=== PATIENT | male | born 1955 | race Caucasian/White ===

== ENCOUNTER 2020-08-11 09:59 | Outpatient (RCR) | payer OTHER, MEDICARE | END 2020-11-09 | disposition home or self-care (01) | LOC: ONC 09:59 | PROVIDERS: ATTEND Radiology Radiation Oncology | DX: C61 Malignant neoplasm of prostate (principal); I10 Essential (primary) hypertension; E11.9 Type 2 diabetes mellitus without complications | CPT/HCPCS: 99204 ==

== ENCOUNTER 2021-01-19 05:36 | Outpatient (CLI) | payer OTHER, MEDICARE ==
[~2021-01-19] VITALS: Ht 175.3 cm; Wt 80.0 kg
[2021-01-19] MEDS ORDERED: ATEN100T PO (15:14)
[2021-01-19] MEDS ORDERED: BICA50TA5 PO (15:14)
[2021-01-19] MEDS ORDERED: AMIT50TA3 PO (15:14)
[2021-01-19] MEDS ORDERED: GEMF600T88 PO (15:14)
[2021-01-19] MEDS ORDERED: ALLO300T2 PO (15:14)
[2021-01-19] MEDS ORDERED: ERGO1250 PO (15:14)
[2021-01-19] MEDS ORDERED: DULA0.75 SQ (15:14)
[2021-01-19] MEDS ORDERED: HYDR12.56 PO (15:14)
[2021-01-19] MEDS ORDERED: ASPI-999 PO (15:14)
[2021-01-19] MEDS ORDERED: ATOR20TA66 PO (15:14)
[2021-01-19] MEDS ORDERED: TMSL.4C PO (15:14)
[2021-01-19] MEDS ORDERED: MELA1TAB20 PO (15:14)
== END 2021-01-19 15:42 ==
LOC: PREOP 05:36
PROVIDERS: ATTEND Radiology Radiation Oncology
DX: Z01.818 Encounter for other preprocedural examination (principal)

== ENCOUNTER 2021-01-26 11:24 | Day surgery (SDC) | payer MEDICARE, OTHER ==
[~2021-01-26] VITALS: Ht 175.3 cm; Wt 80.0 kg
[2021-01-26] VITALS (11 sets, daily range): BP systolic 113–144; BP diastolic 65–79
[~2021-01-26 11:24] MED LIST: ALLO300T2 PO; AMIT50TA3 PO; ASPI-999 PO; ATEN100T PO; ATOR20TA66 PO; BICA50TA5 PO; DULA0.75 SQ; ERGO1250 PO; GEMF600T88 PO; HYDR12.56 PO; MELA1TAB20 PO; TMSL.4C PO
--- OUTSIDE RECORDS SUMMARY | 2021-01-26 11:30 | XMS REPORT | Encounter Summary ---
[facility] Organization [facility] Address Unknown Phone Unavailable Care Team Providers Care Siderographist Name Role Phone MARGARITA TORRES PCP Unavailable Insurance Providers: All historical and current Section Date Range: From patient's date of to the date document was create d. This section includes the names of all active insurance providers for the jesús garcia Insurance Provider Type of Coverage Plan Name Start of Policy [place] End of Policy Coverage Group Number Member ID Insurance Provider's Telephone N umber Policy Matias's Name Patient's Relationship to Policy Matias AARP MEDIGAP PLAN G PLAN G Aug 19, 2018 PLAN G [id number] SALVADOR CLEARY PATIENT MEDICARE (WNR) MEDICARE (M) PART A Aug 19, 2018 PART A [id number] 60A [phone] EVINSALVADOR PATIENT MEDICARE (WNR) MEDICARE (M) PART B Aug 19, 2018 PART B [id number] [id number] [phone] SALVADOR CLEARY PATIENT MEDICARE (WNR) MEDICARE (M) PART A Aug 19, 2018 PART A [id number] SALVADOR CLEARY PATIENT MEDICARE (WNR) MEDICARE (M) PART B Aug 19, 2018 PART B [id number] EVINSALVADOR PATIENT MEDICARE PART D (WNR) MEDICARE (M) PART D Aug 19, 2018 PART D [id number] EVINSALVADOR PATIENT MEDICARE PART D (WNR) MEDICARE (M) PART D Aug 19, 2018 PART D [id number] SALVADOR CLEARY PATIENT Selected Encounter This section includes the information on record at [place] for the Encounter. Date/Time Encounter Type Encounter Description Reason Provider Source Dec 27, 2020 02:33 PM QNHP OL DIG ASSMT&MGMT 11-20 CLINICAL PHAR JERILYN ICD-10-CM E11.22 Type 2 diabetes mellitus w diabetic chronic kidney disease with Provider Comments: Type II diabetes mellitus uncontrolled ([facility] [id number]) RONNA HERRERA IHHomer Encounter Template Text not used by [place] Assessments - Encounter Diagnoses This section includes the primary and secondary diag noses documented for the Encounter. Date/Time Primary/Secondary Diagnosis Diagnosis Name Provider Source Dec 27, 2020 02:34 PM PRIMARY Type 2 diabetes me llitus w diabetic chronic kidney disease [facility] Plan of Treatment: Future Appointments (+ 6 months) and Future Tests (+/- 45 day s) The Plan of Treatment section includes future care activities for the patient fr om all [place] treatment facilities. This section includes future appointments and fu ture orders which are active, pending or scheduled. Future Appointments This section includes appointments that were scheduled t o occur 6 months from the date of the Encounter, up to a maximum of 20 appointme nts. The data comes from all [facility]. Appointment Date/Time Appointment Type Appointment Facili ty Name Jan 05, 2021 10:30 AM [facility]BULATORY - NONE [facility] Jan 26, 2021 08:00 AM AMBULATORY NONE [facility] Feb 18, 2021 03:00 PM AMBULATORY - MEDICINE [facility] Mar 21, 2021 09:30 AM AMBULATORY [facility] Mar 21, 2021 04:00 PM AMBULATORY MEDICINE [facility] Mar 24, 2021 11:00 AM AMBULATORY MEDICINE [facility] Active, Pending, and Scheduled Orders This section includes a listing of several types of activ e, pending, and scheduled orders, including clinic medications orders, diagnosti c test orders, procedure orders and consult orders; where the start date of th e order is 45 days before the date of the Encounter or 45 days after the date o f the Encounter. The data comes from all [facility]. Test Date/Time Test Type Test Details Facility Name Dec 13, 2020 02:49 PM Consult Order Urology/Opt UROLOG Y OUTPATIENT Cons Inspector Fuel Hose's Choice [facility] Surgical Procedures: All associated to the encounter This section includes all Surgical Procedures and Surgical Procedure Notes assoc iated to the Encounter. Surgical Procedures This section includes all Surgical Procedures associated to the Encounter. Surgical Procedure Date/Time Procedure Procedure Type Procedure Qualifiers Provider Source Dec 27, 2020 02:33 PM Non-Phys EHR Asmnt,11-20 min QNHP OL DIG A SSMT&MGMT 11-20 RONNA HERRERA [facility] Surgical Notes There are no notes associated with this procedure. Lab Results: +/- 30 days of the encounter No Data Provided for This Section Vital Signs: All taken on the encounter date No Data Provided for This Section Immunizations: All administered on the encounter date No Data Provided for This Section Social History: Smoking Status (Most current) and Tobacco Use (All prior to enco unter date) No Data Provided for This Section Advance Directives: All historical and current No Data Provided for This Section Radiology Reports: +/- 30 days of the encounter No Data Provided for This Section Pathology Reports: +/- 30 days of the encounter No Data Provided for This Section Encounter Notes: All associated encounter notes This section contains the clinical notes associated to the Encounter. Date/Time Encounter Note(s) Provider Source Dec 27, 2020 02:33 PM PHARMACY CONSULT: LOCAL TITLE: PHARMACY PRIOR AUTH RX REVIEW STANDARD TITLE: PHARMACY CONSULT DATE OF NOTE: DEC 27, 2020@14:33 ENTRY DATE: DEC 27, 2020@14:33:16 AUTHOR: RONNA HERRERA EXP COSIGNER: URGENCY: STATUS: COMPLETED The medical record has been reviewed with regard to this restricted drug request. Medication requested: SEMAGLUTIDE 1MG/0.75ML INJ,SOLN,PEN,1.5ML Medical history relevant to this request: as noted earlier in this consult, this drug has already been approved. The request is approved - Meets [place] Continuity of Care Criteria 15 minutes /es/ RONNA HERRERA PharmD CLINICAL PHARMACIST Signed: 12/27/2020 14:34 RONNA HERRERA [facility]
--- OUTSIDE RECORDS SUMMARY | 2021-01-26 11:30 | XMS REPORT ---
Author Author Department of [facility] SALVADOR hwang Organization Department of [facility] rs Address Unknown Phone Unavailable Care Team Providers Care Human Factors Advisor Lead Name Role Phone MARGARITA TORRES PCP Unavailable [...] PLAN G Aug 19, 2018 PLAN G [id number] EVINSALVADOR PATIENT MEDICARE (WNR) MEDICARE (M) PART A Aug 19, 2018 PART A [id number] [phone] EVINSALVADOR PATIENT MEDICARE (WNR) MEDICARE (M) PART B Aug 19, 2018 PART B [id number] 60A [phone] EVINSALVADOR PATIENT MEDICARE (WNR) MEDICARE (M) PART A Aug 19, 2018 PART A [id number] EVINSALVADOR PATIENT MEDICARE (WNR) MEDICARE (M) PART B Aug 19, 2018 PART B [id number] EVINSALVADOR PATIENT MEDICARE PART D (WNR) MEDICARE (M) PART D Aug 19, 2018 PART D [id number] EVINSALVADOR PATIENT MEDICARE PART D (WNR) MEDICARE (M) PART D Aug 19, 2018 PART D [id number] SALVADOR CLEARY PATIENT Selected Encounter This section includes the information on record at [place] for the Encounter. Date/Time Encounter Type Encounter Description Reason Provider Source Jan 12, 2021 08:54 AM Outpatient Encounter ADMIN PAT ACTIVTIES ([facility]) IHE Encounter Template Text not used by [place] Assessments - Encounter Diagnoses No Data Provided for This Section Plan of Treatment: Future Appointments (+ 6 months) and Future Tests (+/- 45 day s) The Plan of Treatment section includes future care activities for the patient fr om all [facility]. This section includes future appointments and fu ture orders which are active, pending or scheduled. Future Appointments This section includes appointments that were scheduled t o occur 6 months from the date of the Encounter, up to a maximum of 20 appointme nts. The data comes from all [facility]. Appointment Date/Time Appointment Type Appointment Facili ty Name Jan 26, 2021 08:00 AM AMBULATORY - NONE [facility] Feb 18, 2021 03:00 PM AMBULATORY - MEDICINE [facility] Mar 21, 2021 09:30 AM AMBULATORY - NONE [facility] Mar 21, 2021 04:00 PM AMBULATORY MEDICINE [facility] Mar 24, 2021 11:00 AM [facility] MEDICINE [facility] Active, Pending, and Scheduled Orders This [...] the Encounter. The data comes from all [facility]. Test Date/Time Test Type Test Details Facility Name Dec 13, 2020 02:49 PM Consult Order Urology/Opt UROLOG Y OUTPATIENT Cons Entrepreneurial Finance Professor's Choice [facility] Surgical Procedures: All associated to the encounter No Data Provided for This Section Lab Results: +/- 30 days of the [...] the Encounter. Date/Time Encounter Note(s) Provider Source Jan 12, 2021 08:55 AM ADMINISTRATIVE NOTE: LOCAL TITLE: ADMINISTRATIVE NOTE STANDARD TITLE: ADMINISTRATIVE NOTE DATE OF NOTE: JAN 12, 2021@08:55 ENTRY DATE: JAN 12, 2021@08:55:50 AUTHOR: STEPHANIE ROBERSONIGNER: URGENCY: STATUS: COMPLETED Clinical Contact/Call Center COVID 19 SCREEN UPDATE_2August 2020 Screen version 7.1 Record the patient's responses to the following questions: (check all that apply, or None at the end) In the last 14 days have had new onset of any of the following symptoms? a. Chills: () Yes () No Comment(s): b. Cough: () Yes () No Comment(s): c. Diarrhea: () Yes () No Comment(s): d. Fatigue: () Yes () No Comment(s): e. Fever: () Yes () No Comment(s): f. Headache: () Yes () No Comment(s): g. Loss of taste or smell: () Yes () No Comment(s): h. Muscle pain (Myalgias): () Yes () No Comment(s): i. Nausea: () Yes () No Comment(s): j. Runny nose (Rhinorrhea): () Yes () No Comment(s): k. Shortness of breath (Dyspnea): () Yes () No Comment(s): l. Sore throat: () Yes () No Comment(s): m. Vomiting: () Yes () No Comment(s): No Symptoms (x) Within the last 14 days, have you had: Close exposure (within 6 feet for than 15 minutes) to someone with a febrile/respiratory illness () Yes Comment(s): Close exposure (within 6 feet for than 15 minutes) to someone with known or suspected case of COVID-19 () Yes Comment(s): No known exposure (x) Any symptom or exposure equal to positive screen: Patient has a POSITIVE symptom or exposure and requires further evaluation Nurse/Provider/Other notified () Yes Comments(s): Screen is negative (x) Patient is waiting on COVID-19 test results: () Yes (x) No Comment(s): Patient reports prior COVID-19 Diagnosis: () Yes (x) No Comment(s): /[facility] Signed: 01/12/2021 08:56 STEPHANIE ROBERSON [facility] Jan 12, 2021 08:54 AM ADMINISTRATIVE NOTE: LOCAL TITLE: ADMINISTRATIVE NOTE STANDARD TITLE: ADMINISTRATIVE NOTE DATE OF NOTE: JAN 12, 2021@08:54 ENTRY DATE: JAN 12, 2021@08:54:24 AUTHOR: STEPHANIE ROBERSON COSIGNER: URGENCY: STATUS: COMPLETED ADMINISTRATIVE NOTE Has ADDENDA [place] calling to request consult for [facility] for cataracts. has an appt. on 03/30/[address] Hipolito Deleon. [place] can be reached at /tad ROBERSON [facility] Signed: 01/12/2021 08:55 Receipt Acknowledged By: 01/13/2021 14:37 /tad Rodriges RN 01/13/2021 ADDENDUM STATUS: COMPLETED Attempted to contact [place] to f/u. No answer, LVM with [facility] eye clinic number. /tad HAYES RN Signed: 01/13/2021 14:38 [facility]
--- OUTSIDE RECORDS SUMMARY | 2021-01-26 11:30 | XMS REPORT | Encounter Summary ---
Author [facility] Department [facility] Address Unknown Phone Unavailable Care Team Providers Care Production Engine Repairer Name Role Phone MARGARITA TORRES PCP Unavailable [...] PLAN G Aug 19, 2018 PLAN G [id number] EVINSALVADOR PATIENT MEDICARE (WNR) MEDICARE (M) PART A Aug 19, 2018 PART A [id number] [phone] EVINSALVADOR PATIENT MEDICARE (WNR) MEDICARE (M) PART B Aug 19, 2018 PART B [id number] [phone] EVINSALVADOR PATIENT MEDICARE (WNR) MEDICARE (M) PART A Aug 19, 2018 PART A [id number] EVINSALVADOR PATIENT MEDICARE (WNR) MEDICARE (M) PART B Aug 19, 2018 PART B [id number] EVINSALVADOR PATIENT MEDICARE PART D (WNR) MEDICARE (M) PART D Aug 19, 2018 PART D [id number] EVINSALVADOR PATIENT MEDICARE PART D (WNR) MEDICARE (M) PART D Aug 19, 2018 PART D [id number] SALVADOR CLEARY PATIENT Selected Encounter This section includes the information on record at [place] for the Encounter. Date/Time Encounter Type Encounter Description Reason Provider Source Jun 25, 2020 08:53 AM Outpatient Encounter COMMUNITY CARE CONSULT IHE Encounter Template Text not used by [place] Assessments - Encounter Diagnoses No Data Provided for This Section Plan of Treatment: Future Appointments (+ 6 months) and Future Tests (+/- 45 day s) The Plan of Treatment section includes future care activities for the patient fr om all [place] treatment facilities. This section includes future appointments and fu ture orders which are active, pending or scheduled. Future Appointments This section includes appointments that were scheduled t o occur 6 months from the date of the Encounter, up to a maximum of 20 appointme nts. The data comes from all [facility]. Appointment Date/Time Appointment Type Appointment Facili ty Name Jul 29, 2020 11:00 AM AMBULATORY - MEDICINE [facility] Aug 11, 2020 10:00 AM AMBULATORY - NONE [facility] Nov 03, 2020 08:00 AM AMBULATORY NONE [facility] Nov 03, 2020 11:00 AM AMBULATORY MEDICINE [facility] Nov 24, 2020 08:00 AM AMBULATORY - NONE [facility] Dec 03, 2020 11:00 AM AMBULATORY MEDICINE [facility] Dec 15, 2020 07:00 AM AMBULATORY - NONE [facility] Surgical Procedures: All associated to the [...] the Encounter. Date/Time Encounter Note(s) Provider Source Jun 25, 2020 08:53 AM NONVA NOTE: LOCAL TITLE: COMMUNITY CARE-MISCELLANEOUS STANDARD TITLE: NONVA NOTE DATE OF NOTE: JUN 25, 2020@08:53 ENTRY DATE: JUN 25, 2020@08:53:06 AUTHOR: ELIZABETH KAUR EXP COSIGNER: URGENCY: STATUS: COMPLETED RECIEVED CALL FORM PT. WANTING CLARIFICATION ON IF LABS PERTINENT TO THIS CONSULT WILL BE COVERED. EXPLAINBED THAT IT WILL. /lizzy/ ELIZABETH KAUR [facility] Advanced Medical Support Asst Signed: 06/25/2020 08:57 ELIZABETH KAUR [facility]
--- OUTSIDE RECORDS SUMMARY | 2021-01-26 11:30 | XMS REPORT | Encounter Summary ---
Author Author Department of [facility] SALVADOR hwang Organization Department of [facility] rs Address Unknown Phone Unavailable Care Team Providers Care Loss Prevention Specialist Name Role Phone MARGARITA TORRES PCP Unavailable [...] PLAN G Aug 19, 2018 PLAN G [id number] EVINSALVADOR PATIENT MEDICARE (WNR) MEDICARE (M) PART A Aug 19, 2018 PART A [id number] [phone] EVINSALVADOR PATIENT MEDICARE (WNR) MEDICARE (M) PART B Aug 19, 2018 PART B [id number] [phone] EVINSALVADOR PATIENT MEDICARE (WNR) MEDICARE (M) PART A Aug 19, 2018 PART A [id number] EVINSALVADOR PATIENT MEDICARE (WNR) MEDICARE (M) PART B Aug 19, 2018 PART B [id number] EVINSALVADOR PATIENT MEDICARE PART D (WNR) MEDICARE (M) PART D Aug 19, 2018 PART D [id number] EVINSALVADOR PATIENT MEDICARE PART D (WNR) MEDICARE (M) PART D Aug 19, 2018 PART D [id number] SALVADOR CLEARY PATIENT Selected Encounter This section includes the information on record at [place] for the Encounter. Date/Time Encounter Type Encounter Description Reason Provider Source Dec 27, 2020 02:14 PM Outpatient Encounter ADMIN PAT ACTIVTIES ([facility]) IHE Encounter Template Text not used by [place] Assessments - Encounter Diagnoses No Data Provided for This Section Plan of Treatment: Future Appointments (+ 6 months) and Future Tests (+/- 45 day s) The Plan of Treatment section includes future care activities for the patient fr om all [facility]. This section includes future appointments and fu ture orders which are active, pending or scheduled. Future Appointments This section includes appointments that were scheduled t o occur 6 months from the date of the Encounter, up to a maximum of 20 appointme nts. The data comes from all [facility]. Appointment Date/Time Appointment Type Appointment Facili ty Name Jan 05, 2021 10:30 AM AMBULATORY - NONE [facility] Jan 26, 2021 08:00 AM AMBULATORY - NONE [facility] Feb 18, 2021 03:00 PM AMBULATORY - MEDICINE [facility] Mar 21, 2021 09:30 AM AMBULATORY - NONE [facility] Mar 21, 2021 04:00 PM AMBULATORY MEDICINE [facility] Mar 24, 2021 11:00 AM [facility] MEDIC[facility] Active, Pending, and Scheduled Orders This section [...] the Encounter. The data comes from all [facility]. Test Date/Time Test Type Test Details Facility Name Dec 13, 2020 02:49 PM Consult Order Urology/Opt UROLOG Y OUTPATIENT Cons Elementary Educator's Choice [facility] Surgical Procedures: All associated to the encounter [...] Encounter Note(s) Provider Source Dec 27, 2020 02:16 PM ADMINISTRATIVE NOTE: LOCAL TITLE: ADMINISTRATIVE NOTE STANDARD TITLE: ADMINISTRATIVE NOTE DATE OF NOTE: DEC 27, 2020@14:16 ENTRY DATE: DEC 27, 2020@14:16:48 AUTHOR: LIZET BLANK EXP COSIGNER: URGENCY: STATUS: COMPLETED Record the patient's responses to the following questions: (check all that apply, or None at the end) () DECLINED SCREENING ()SCREENING COULD NOT BE COMPLETED, VETE RAN WAS NOT PRESENT. In the last 14 days have had [...] COVID-19 Diagnosis: () Yes (x) No Comment(s): /lizzy/ LIZET [facility] Signed: 12/27/2020 14:17 LIZET BLANK [facility] Dec 27, 2020 02:14 PM ADMINISTRATIVE NOTE: LOCAL TITLE: ADMINISTRATIVE NOTE STANDARD TITLE: ADMINISTRATIVE NOTE DATE OF NOTE: DEC 27, 2020@14:14 ENTRY DATE: DEC 27, 2020@14:14:38 AUTHOR: LIZET BLANK EXP COSIGNER: URGENCY: STATUS: COMPLETED ADMINISTRATIVE NOTE Has ADDENDA [place] is calling to say that he has a Urlolgy appt with Dr Cazares on 01-26 but he already sees Dr Griffin for his urology needs. He has an appt with Dr Griffin on 03-08. [place] can be reached at . Dr. Dionicio Griffin- Urology [address] [place] [id number] P: [phone] F: [phone] NPI- [id number] Provider: Dr. Lorenzo Cazares [facility] [address] [place] [address] /lizzy/ LIZET BLANK [facility] Signed: 12/27/2020 14:16 Receipt Acknowledged By: 12/29/2020 09:48 /es/ MAGNUS Rodriges RN 12/29/2020 ADDENDUM STATUS: COMPLETED Attempted to contact [place] to f/u. No answer, LVM informing that Dr. Atul Tirado referred him to Dr. Cazares. /lizzy/ MAGNUS HAYES RN Signed: 12/29/2020 09:48 LIZET BLANK [facility]
--- OUTSIDE RECORDS SUMMARY | 2021-01-26 11:30 | XMS REPORT | Encounter Summary ---
Author Author Department of [facility] SALVADOR hwang Organization Department of [facility] rs Address Unknown Phone Unavailable Care Team Providers Care Pharmacy Informatics Manager Name Role Phone MARGARITA TORRES PCP Unavailable [...] PLAN G Aug 19, 2018 PLAN G [id number] EVINSALVADOR PATIENT MEDICARE (WNR) MEDICARE (M) PART A Aug 19, 2018 PART A [id number] [phone] EVINSALVADOR PATIENT MEDICARE (WNR) MEDICARE (M) PART B Aug 19, 2018 PART B [phone] EVINSALVADOR PATIENT MEDICARE (WNR) MEDICARE (M) PART A Aug 19, 2018 PART A [id number] EVINSALVADOR PATIENT MEDICARE (WNR) MEDICARE (M) PART B Aug 19, 2018 PART B [id number] EVINSALVADOR PATIENT MEDICARE PART D (WNR) MEDICARE (M) PART D Aug 19, 2018 PART D [id number] EVINSALVADOR PATIENT MEDICARE PART D (WNR) MEDICARE (M) PART D Aug 19, 2018 PART D [id number] SALVADOR CLEARY PATIENT Selected Encounter This section includes the information on record at [place] for the Encounter. Date/Time Encounter Type Encounter Description Reason Provider Source Jan 25, 2021 03:59 PM Outpatient Encounter ADMIN PAT ACTIVTIES ([facility]) IHE Encounter Template Text not used by [place] Assessments - Encounter Diagnoses No Data Provided for This Section Plan of Treatment: Future Appointments (+ 6 months) and Future Tests (+/- 45 day s) The Plan of Treatment section includes future care activities for the patient fr om all [facility]. This section includes future appointments and fu ture orders which are active, pending or scheduled. Future Appointments This section includes appointments that were scheduled t o occur 6 months from the date of the Encounter, up to a maximum of 20 appointme nts. The data comes from all [facility]. Appointment Date/Time Appointment Type Appointment Facili ty Name Jan 26, 2021 08:00 AM AMBULATORY - NONE [facility] Feb 18, 2021 03:00 PM AMBULATORY - MEDICINE [facility] Mar 21, 2021 09:30 AM AMBULATORY - NONE [facility] Mar 21, 2021 04:00 PM AMBULATORY MEDICINE [facility] Mar 24, 2021 11:00 AM [facility] MEDICINE [facility] Active, Pending, and Scheduled Orders [...] the Encounter. The data comes from all [facility]. Test Date/Time Test Type Test Details Facility Name Dec 13, 2020 02:49 PM Consult Order Urology/Opt UROLOG Y OUTPATIENT Cons Salicylic Acid Blender's Choice [facility] Surgical Procedures: All associated to [...] Encounter. Date/Time Encounter Note(s) Provider Source Jan 25, 2021 03:59 PM ADMINISTRATIVE NOTE: LOCAL TITLE: ADMINISTRATIVE NOTE STANDARD TITLE: ADMINISTRATIVE NOTE DATE OF NOTE: JAN 25, 2021@15:59 ENTRY DATE: JAN 25, 2021@15:59:25 AUTHOR: JEN LAWSON EXP COSIGNER: URGENCY: STATUS: COMPLETED Pt is scheduled to see his outside Urologist on 03/08, he needs to have a current PSA drawn the week before. He would like to have it done on 03/01 @ 9 am. /lizzy/ JEN LAWSON PATIENT SERVICES WHEEL INSTALLER-EVIE Signed: 01/25/2021 16:00 Receipt Acknowledged By: * AWAITING SIGNATURE * MAGNUS HAYES MELISSA [place] [facility]
--- OUTSIDE RECORDS SUMMARY | 2021-01-26 11:30 | XMS REPORT | Encounter Summary ---
Author Author Department [facility] Organization Department of [facility] Address Unknown Phone Unavailable Care Team Providers Care Energy Projects Lead Name Role Phone MARGARITA PAGE PCP Unavailable Insurance Providers: All historical and [...] PLAN G Aug 19, 2018 PLAN G [id number] EVINSALVADOR PATIENT MEDICARE (WNR) MEDICARE (M) PART A Aug 19, 2018 PART A [id number] [phone] EVINSALVADOR PATIENT MEDICARE (WNR) MEDICARE (M) PART B Aug 19, 2018 PART B [id number] EVINSALVADOR PATIENT MEDICARE (WNR) MEDICARE (M) PART A Aug 19, 2018 PART A [id number] EVINSALVADOR PATIENT MEDICARE (WNR) MEDICARE (M) PART B Aug 19, 2018 PART B [id number] EVINSALVADOR PATIENT MEDICARE PART D (WNR) MEDICARE (M) PART D Aug 19, 2018 PART D [id number] EVINSALVADOR PATIENT MEDICARE PART D (WNR) MEDICARE (M) PART D Aug 19, 2018 PART D [id number] CLEARYSALVADOR PATIENT Selected Encounter This section includes the information on record at [place] for the Encounter. Date/Time Encounter Type Encounter Description Reason Provider Source Jul 29, 2020 08:28 AM Outpatient Encounter COMMUNITY CARE CONSULT IHE [...] appointme nts. The data comes from all [facility]. Appointment Date/Time Appointment Type Appointment Facili ty Name Aug 11, 2020 10:00 AM AMBULATORY - NONE [facility] Nov 03, 2020 08:00 AM AMBULATORY - NONE [facility] Nov 03, 2020 11:00 AM AMBULATORY - MEDICINE [facility] Nov 24, 2020 08:00 AM AMBULATORY - NONE [facility] Dec 03, 2020 11:00 AM AMBULATORY MEDICINE [facility] Dec 15, 2020 07:00 AM AMBULATORY - NONE [facility] Jan 05, 2021 10:30 AM AMBULATORY - NONE [facility] Jan 26, 2021 08:00 AM AMBULATORY - NONE [facility] Surgical Procedures: All associated [...] Reports: +/- 30 days of the encounter Pathology Reports For cases when an order for pathology services may have b een completed prior to the date of the Encounter, the report list includes the P athology Reports that were completed up to 30 days before date of the Encounter. For cases when an order for pathology services may have been completed after the date of the Encounter, the report list also includes the Pathology Reports that were completed up to 30 days after date of the Encounter. The data comes from all [facility] facilities. Date/Time Pathology Report Provider Source Aug 06, 2020 03:01 PM LR SURGICAL PATHOLOGY REPORT : LOCAL TITLE: LR SURGICAL PATHOLOGY REPORT STANDARD TITLE: PATHOLOGY REPORT DATE OF NOTE: AUG 06, 2020@15:01:07 ENTRY DATE: AUG 06, 2020@15:01:07 AUTHOR: JOSH PRICE COSIGNER: URGENCY: STATUS: COMPLETED $APHDR - - - - - - - - - - - - - - - - - - - - - - - - - - - - - - - - - - - - - - - - MEDICAL RECORD | OUTSIDE CONSULTS-SP - - - - - - - - - - - - - - - - - - - - - - - - - - - - - - - - - - - - - - - - PATHOLOGY REPORT Accession No. OSC [id number] - - - - - - - - - - - - - - - - - - - - - - - - - - - - - - - - - - - - - - - - $TEXT Submitted by: [facility] Date obtained: Jul 19, 2020 - - - - - - - - - - - - - - - - - - - - - - - - - - - - - - - - - - - - - - - - Specimen (Received Aug 05, 2020 08:35): SLIDES FROM PROSTATE - - - - - - - - - - - - - - - - - - - - - - - - - - - - - - - - - - - - - - - - BRIEF CLINICAL HISTORY: - - - - - - - - - - - - - - - - - - - - - - - - - - - - - - - - - - - - - - - - PREOPERATIVE DIAGNOSIS: - - - - - - - - - - - - - - - - - - - - - - - - - - - - - - - - - - - - - - - - OPERATIVE FINDINGS: - - - - - - - - - - - - - - - - - - - - - - - - - - - - - - - - - - - - - - - - POSTOPERATIVE DIAGNOSIS: Surgeon/physician: MARGARITA PAGE =-=-=-=-=-=-=-=-=-=-=-=-=-=-=-=-=-=-=-=-=-=-=-=-=-=-=-=-=-=-=-=-=-=-=-=-=-=-=-= - - - - - - - - - - - - - - - - - - - - - - - - - - - - - - - - - - - - - - - - PATHOLOGY REPORT Accession No. OSC [id number] - - - - - - - - - - - - - - - - - - - - - - - - - - - - - - - - - - - - - - - - Received from [facility] in [place], [place] are 16 slides labeled with "[id number]", the patient's initials, and facility of origin. Also included is a pathology report identified with "[id number]", the patient's name and demographics, and facility of origin. Microscopic examination is performed. I agree with the diagnosis of prostatic adenocarcinoma, as reported by Dr. Butler and transcribed below. A copy of the original report will be scanned into [employer]. Diagnosis: 1. Right base prostate biopsy medial: Adenocarcinoma, Isabel grade 4+3 equals score of 7 (grade group 3), in one of one core, involving 60% of specimen in discontinuous foci. 2. Right base prostate biopsy lateral: Adenocarcinoma, Isabel grade 4+3 equals score of 7 (grade group 3), and one of one core, involving 50% of tissue in discontinuous foci. Perineural invasion present. 3. Right mid-prostate biopsy medial: Adenocarcinoma, Vadito grade 4+3 equals score of 7 (grade group 3), in one of one core, involving 90% of tissue. 4. Right mid-prostate biopsy lateral: Adenocarcinoma, Vadito grade 4+3 equals score of 7 (grade group 3), in one of one core, involving 90% of specimen. Perineural invasion present. 5. Right apex prostate biopsy medial: Adenocarcinoma, Vadito grade 4+5 equals score of 9 (grade group 5), in one of one core, involving 95% of specimen. Perineural invasion present. 6. Right apex prostate biopsy lateral: Adenocarcinoma, Vadito grade 4+5 equals score of 9 (grade group 5), in one of one core, involving 70% of specimen. 7. Left base prostate biopsy medial: Adenocarcinoma, Vadito grade 4+3 equals score of 7 (grade group 3), in one of one core, involving 90% of specimen. 8. Left base prostate biopsy lateral: Adenocarcinoma, Vadito grade 4+3 equals score of 7 (grade group 3), in one of one core, involving 30% of specimen in discontinuous foci. 9. Left mid-prostate biopsy medial: Adenocarcinoma, Vadito grade 4+3 equals score of 7 (grade group 3), in one of one core, involving 50% of specimen. 10. Left mid-prostate biopsy lateral: Adenocarcinoma, Isabel grade 4+4 equals score of 8 (grade group 4), in one of one core, involving less than 5% of specimen in discontinuous foci. 11. Left apex prostate biopsy medial: Adenocarcinoma, Isabel grade 4+4 = score of 8 (grade group 4), in 1 of 1 fragmented core, involving 10% of specimen. 12. Left apex prostate biopsy lateral: Adenocarcinoma, Isabel grade 3+4 equals score of 7 (grade group 2), in one of one core, involving 5% of specimen. Perineural invasion present. 13. Right seminal vesicle distal biopsy: Colorectal mucosa, smooth muscle and soft tissue. No seminal vesicle identified for evaluation. 14. Right seminal vesicle proximal biopsy: Seminal vesicle tissue, positive for involvement by adenocarcinoma. 15. Left seminal vesicle distal biopsy: Seminal vesicle tissue, negative for involvement by adenocarcinoma. 16. Left seminal vesicle proximal biopsy: Seminal vesicle tissue, negative for involvement by adenocarcinoma. Note (by Dr. Price): Grade group in part 6 stated in the original report as grade group "9" is corrected here as grade group 5 (Vadito 4+5=9). Isabel score for part 12 stated in the original report as "4+3=score of 7 (grade group 2)" is corrected here as "3+4=score of 7 (grade group 2)." These are typographical corrections only and do not affect clinical interpretation of the overall case. /es/ JOSH PRICE MD, FCAP PATHOLOGIST Signed Aug 06, 2020@15:01 Performing Laboratory: Surgical Pathology Report Performed By: [facility] [CLIA# [id number]] [address] [facility] [address] [address] $FTR - - - - - - - - - - - - - - - - - - - - - - - - - - - - - - - - - - - - - - - - (End of report) JOSH PRICE MD pag| Date Aug 06, 2020 - - - - - - - - - - - - - - - - - - - - - - - - - - - - - - - - - - - - - - - - SALVADOR CLEARY STANDARD FORM 515 ID:[id number] SEX:M :1955 AGE: 64 [place] PCP: Margarita Page /lizzy/ JOSH PRICE MD, FCAP PATHOLOGIST Signed: 08/06/2020 15:01 JOSH PRICE [facility] Encounter Notes: All associated encounter notes This section contains the clinical notes associated to the Encounter. Date/Time Encounter Note(s) Provider Source Jul 29, 2020 08:28 AM NONVA NOTE: LOCAL TITLE: NON [facility] MISCELLANEOUS STANDARD TITLE: NONVA NOTE DATE OF NOTE: JUL 29, 2020@08:28 ENTRY DATE: JUL 29, 2020@08:28:43 AUTHOR: CRISTOBAL COPE EXP COSIGNER: URGENCY: STATUS: COMPLETED COOPER-DAPHNIE/RFS Urgency: w/in 1 wk VST-DAPHNIE/RFS Request sent to [facility]: Yes Received RFS via fax on 07/29/2020. Dr. Dionicio Medrano is requesting a referral to radiation oncoloogy. DX: PROSTATE CANCER REFERRING PROVIDER [facility] [address] [address] P:[phone] F:[phone] DIONICIO MEDRANO [phone] (G) REFERRING TO DR. ATUL MERRILL "Referral to Dr. 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 Page please review and enter radiation oncology consult if agreeable /lizzy/ Cristobal Cope RN, BSN OCC Consult Management Nurse Signed: 07/29/2020 08:28 Receipt Acknowledged By: * AWAITING SIGNATURE * MARGARITA PAGE [facility] [place] [facility]
--- OUTSIDE RECORDS SUMMARY | 2021-01-26 11:30 | XMS REPORT | Encounter Summary ---
Author Author Department [facility] SALVADOR hwang Organization Department [facility] Address Unknown Phone Unavailable Care Team Providers Care Latrine Cleaner Name Role Phone MARGARITA TORRES PCP Unavailable [...] PLAN G Aug 19, 2018 PLAN G [id number] EVINSALVADOR PATIENT MEDICARE (WNR) MEDICARE (M) PART A Aug 19, 2018 PART A [id number] [phone] EVINSALVADOR PATIENT MEDICARE (WNR) MEDICARE (M) PART B Aug 19, 2018 PART B [id number] [phone] EVINSALVADOR PATIENT MEDICARE (WNR) MEDICARE (M) PART A Aug 19, 2018 PART A [id number] EVINSALVADOR PATIENT MEDICARE (WNR) MEDICARE (M) PART B Aug 19, 2018 PART B [id number] EVINSALVADOR PATIENT MEDICARE PART D (WNR) MEDICARE (M) PART D Aug 19, 2018 PART D [id number] EVINSALVADOR PATIENT MEDICARE PART D (WNR) MEDICARE (M) PART D Aug 19, 2018 PART D [id number] EVINSALVADOR PATIENT Selected Encounter This section includes the information on record at [place] for the Encounter. Date/Time Encounter Type Encounter Description Reason Provider Source Apr 05, 2020 04:00 PM Outpatient Encounter ADMIN PAT ACTIVTIES (JEANNEJELENA BURROUGHS) IHE Encounter Template Text not used by [place] Assessments - Encounter Diagnoses No Data Provided for This Section Plan of Treatment: Future Appointments (+ 6 months) and Future Tests (+/- 45 day s) The Plan of Treatment section includes future care activities for the patient fr om all [place] treatment facilities. This section includes future appointments and fu ture orders which are active, pending or scheduled. Future Appointments This section includes appointments that were scheduled t o occur 6 months from the date of the Encounter, up to a maximum of 20 appointme nts. The data comes from all [place] treatment facilities. Appointment Date/Time Appointment Type Appointment Facili ty Name Apr 06, 2020 11:30 AM [facility] May 19, 2020 10:00 AM AMBULATORY [facility] Jun 23, 2020 02:00 AM AMBULATORY [facility] Jul 29, 2020 11:00 AM [facility] Aug 11, 2020 10:00 AM [facility] Surgical Procedures: All associated to the encounter No Data Provided for This Section Lab Results: +/- 30 days of the encounter This section includes the Chemistry and Hematology Lab R esults on record with [place] for the patient. Radiology Reports and Pathology Report s are provided separately, in subsequent sections. Lab Results This section contains the Chemistry/Hematology Results rey t were resulted 30 days before or 30 days after the date of the Encounter. Date/Time Source Result Type Result - Unit Interpretation Reference Range Comment Apr 05, 2020 08:50 AM [facility] CBC Speci men Type: BLOOD No comment entered. Ordering Provider: SANTA FERNANDEZ Report Released Date/Time: Mar 24, 2020 03:46 PM Reporting Lab: [place] [id number] [facility] [address] Performing Lab: [address] [address] MPV (FV) 10.0 fL 7.4-10.4 RDW (FV) 14.1 % 11.5-14.5 HCT (FV) 38.3 % L 40-52 HGB (FV) 12.4 g/dL L 13-18 PLT (FV) 173 K/cmm 150-440 WBC (FV) 6.0 K/cmm 3.8-10.6 RBC (FV) 4.07 M/cmm L 4.4-5.9 MCV (FV) 94.1 fL 80-100 MCH (FV) 30.4 pg 26-34 MCHC (FV) 32.4 g/dL 32-36 NE% (FV) 63.3 % SEE ABSOLUTE # NE# (FV) 3.8 K/cmm 2.4-7.6 LY% (FV) 19.3 % SEE ABSOLUTE # LY# (FV) 1.2 K/cmm 1.0-4.8 MO% (FV) 11.8 % SEE ABSOLUTE # MO# (FV) 0.7 K/cmm 0.1-1.0 EO% (FV) 4.9 % SEE ABSOLUTE # EO# (FV) 0.3 K/cmm 0.0-0.4 BA% (FV) 0.7 % SEE ABSOLUTE # BA# (FV) 0.0 K/cmm 0.0-0.2 Apr 05, 2020 08:50 AM [facility] GLYCO HGB A1C Speci men Type: BLOOD No comment entered. Ordering Provider: SANTA FERNANDEZ Report Released Date/Time: Mar 24, 2020 03:46 PM Reporting Lab: [address] [facility] [phone] Performing Lab: [address] [place] [address] Glyco Hgb A1C 7.2 % H 4.2-5.8 Apr 05, 2020 08:50 AM [facility] LIPID PROFILE Speci men Type: SERUM No comment entered. Ordering Provider: SANTA FERNANDEZ Report Released Date/Time: Mar 24, 2020 03:46 PM Reporting Lab: [address] [place] [address] Performing Lab: [address] [facility] [address] CHOLESTEROL, TOTAL (FV) 153 mg/dL 118-20 0 TRIGLYCERIDE (FV) 72 mg/dL <150 LDL CHOLESTEROL (CALCULATED) 100 HDL CHOLESTEROL (FV) 39 mg/dL L >40 Apr 05, 2020 08:50 AM [facility] MICROALBUMIN, RANDOM URINE Specimen Type: URINE No comment entered. Ordering Provider: SANTA FERNANDEZ Report Released Date/Time: Mar 24, 2020 03:46 PM Reporting Lab: [address] [phone] Performing Lab: [address] [address] MICROALBUMIN (FV) 1.9 mg/dL H <1.8 MA:CREAT RATIO (FV) 12 mcg/mgCrea <29 CREATININE (FV) 152.87 mg/dL Apr 05, 2020 08:50 AM [facility] PSA () Speci men Type: SERUM No comment entered. Ordering Provider: SANTA FERNANDEZ Report Released Date/Time: Mar 24, 2020 03:46 PM Reporting Lab: [facility] [address] [place] [id number] Performing Lab: [facility] [address] [facility] [address] [facility] 7[address] PSA () 21.18 ng/mL H 0.0-4.0 Apr 05, 2020 08:50 AM [facility] RENAL+LIVER PROFILE Specimen Type: SERUM No comment entered. Ordering Provider: SANTA FERNANDEZ Report Released Date/Time: Mar 24, 2020 03:46 PM Reporting Lab: [address] [facility] [phone] Performing Lab: [address] [address] GLUCOSE (FV) 142 mg/dL H 70-110 ALBUMIN (FV) 4.1 g/dL 3.4-5.0 AST (FV) 16 U/L 15-37 TOTAL BILIRUBIN (FV) 0.48 mg/dL 0.3-1.2 CHLORIDE (FV) 101 mmol/L 98-107 TOTAL PROTEIN (FV) 6.9 g/dL 6.1-7.9 SODIUM (FV) 137 mmol/L 136-145 POTASSIUM (FV) 4.4 mmol/L 3.5-5.1 CO2 (FV) 24 mmol/L 21-32 UREA NITROGEN (FV) 25 mg/dL H 6-20 CALCIUM (FV) 8.9 mg/dL 8.9-10.3 ALT (FV) 12 U/L 0-63 ALK. PHOS. (FV) 96 U/L 32-126 eGFR 54 CREATININE (FV) 1.33 mg/dL H .61-1.24 Apr 05, 2020 08:50 AM [facility] TSH () Speci men Type: SERUM No comment entered. Ordering Provider: SANTA FERNANDEZ Report Released Date/Time: Mar 24, 2020 03:46 PM Reporting Lab: [facility] [address] [place] [id number] Performing Lab: [facility] [address] [facility] 7270 TSH () 14.63 mcIU/mL H 0.45-5.33 Apr 05, 2020 08:50 AM [facility] URINALYSIS Speci men Type: URINE No comment entered. Ordering Provider: SANTA FERNANDEZ Report Released Date/Time: Mar 24, 2020 03:46 PM Reporting Lab: [address] [phone] Performing Lab: [address] [address] UA COLOR STRAW COLORLESS-YELLOW UA SPEC GRAV 1.016 1.005-1.035 UA PH 5.5 PH 5-9 UA NITRITE NEG QUAL. Neg.-Neg UA UROBILINOGEN <2.0 mg/dL -Normal: <2 m g-dL UA APPEARANCE - CLEAR UA GLUCOSE NORMAL QUAL NEG-TRACE UA PROTEIN - QUAL NEG UA BILI - QUAL NEG UA BLOOD - QUAL NEG-TRACE UA KETONES - QUAL NEG-TRACE UA LEUK EST NEG. Erika/uL NEG-74 Apr 05, 2020 08:50 AM [facility] FREE T3 (FV) Speci men Type: SERUM No comment entered. Ordering Provider: SANTA FERNANDEZ Report Released Date/Time: Mar 24, 2020 03:46 PM Reporting Lab: [facility] [address] [place] [id number] Performing Lab: [facility] [address] [facility] 70 FREE T3 (FV) 3.20 pg/mL 2.5-3.9 Apr 05, 2020 08:50 AM [facility] FREE T4 (FV) Speci men Type: SERUM No comment entered. Ordering Provider: SANTA FERNANDEZ Report Released Date/Time: Mar 24, 2020 03:46 PM Reporting Lab: [facility] [address] [facility] 70 Performing Lab: [facility] [address] [facility] [address] [facility] 70 FREE T4 (FV) 0.76 ng/dL 0.61-1.12 Vital Signs: All taken on the encounter [...] the Encounter. Date/Time Encounter Note(s) Provider Source Apr 05, 2020 03:41 PM PHYSICIAN LETTERS: LOCAL TITLE: RESULTS LETTER STANDARD TITLE: PHYSICIAN LETTERS DATE OF NOTE: APR 05, 2020@15:41 ENTRY DATE: APR 05, 2020@15:41:44 AUTHOR: SANTA FERNANDEZ EXP COSIGNER: URGENCY: STATUS: COMPLETED [facility] ([facility]) [facility] [place] [address] APR 05, [address] [address] Dear Spencer Patient: I am writing to inform you of the results of the test(s) you had done during or shortly after your last visit at the [facility]. The tests below were performed and are satisfactory unless otherwise noted. BT - Blood Transfusions No data available [facility] - Chem & Hematology Collection DT Specimen Test Name Result Units Ref Range 04/05/2020 08:50 URINE UA PH 5.50 PH 5 - 9 " " " UA PROTEIN NEG QUAL Ref: NEG " " " UA GLUCOSE NEG QUAL NEG - TRACE " " " UA KETONES NEG QUAL NEG - TRACE " " " UA BILI NEG QUAL Ref: NEG " " " UA BLOOD NEG QUAL NEG - TRACE " " " UA NITRITE NEG QUAL. Neg. - Neg " " " UA UROBILINOGEN <2.0 mg/dL Ref: Normal: <2 mg/dL " " " UA SPEC GRAV 1.016 1.005 - 1.035 " " " UA COLOR STRAW COLORLESS - YELLOW " " " UA APPEARANCE CLEAR Ref: CLEAR " " " UA LEUK EST NEG. Erika/uL NEG - 74 04/05/2020 08:50 URINE CREATININE (FV) 152.87 mg/dL " " " MICROALBUMIN (FV) 1.9 H mg/dL Ref: <=1.8 " " " MA:CR 12 mcg/mgCrea Ref: <=29 04/05/2020 08:50 SERUM GLUCOSE (FV ) 142 H mg/dL 70 - 110 " " " UREA NITROGEN (FV 25 H mg/dL 6 - 20 " " " CREATININE (FV) 1.33 H mg/dL .61 - 1.24 " " " eGFR 54 " " " SODIUM (FV) 137 mmol/L 136 - 145 " " " POTASSIUM (FV) 4.4 mmol/L 3.5 - 5.1 " " " CHLORIDE (FV) 101 mmol/L 98 - 107 " " " CO2 (FV) 24 mmol/L 21 - 32 " " " CALCIUM (FV) 8.9 mg/dL 8.9 - 10.3 " " " TOTAL PROTEIN (FV 6.9 g/dL 6.1 - 7.9 " " " ALBUMIN (FV) 4.1 g/dL 3.4 - 5.0 " " " AST (FV) 16 U/L 15 - 37 " " " ALT (FV) 12 U/L 0 - 63 " " " ALK. PHOS. (FV) 96 U/L 32 - 126 " " " T.BILfv 0.48 mg/dL 0.3 - 1.2 " " " CHOL-fv 153 mg/dL 118 - 200 " " " TRIGLYCERIDE (FV) 72 mg/dL Ref: <=150 " " " HDL(FV) 39 L mg/dL Ref: >=40 " " " LDLc 100 04/05/2020 08:50 BLOOD Glyco Hgb A 1C 7.2 H % 4.2 - 5.8 04/05/2020 08:50 BLOOD WBC (FV) 6.0 K/cmm 3.8 - 10.6 " " " RBC (FV) 4.07 L M/cmm 4.4 - 5.9 " " " HGB (FV) 12.4 L g/dL 13 - 18 " " " HCT (FV) 38.3 L % 40 - 52 " " " MCV (FV) 94.1 fL 80 - 100 " " " MCH (FV) 30.4 pg 26 - 34 " " " MCHC (FV) 32.4 g/dL 32 - 36 " " " RDW (FV) 14.1 % 11.5 - 14.5 " " " PLT (FV) 173 K/cmm 150 - 440 " " " MPV (FV) 10.0 fL 7.4 - 10.4 " " " NE% (FV) 63.3 % Ref: SEE ABSOLUTE # " " " NE# (FV) 3.8 K/cmm 2.4 - 7.6 " " " LY% (FV) 19.3 % Ref: SEE ABSOLUTE # " " " LY# (FV) 1.2 K/cmm 1.0 - 4.8 " " " MO% (FV) 11.8 % Ref: SEE ABSOLUTE # " " " MO# (FV) 0.7 K/cmm 0.1 - 1.0 " " " EO% (FV) 4.9 % Ref: SEE ABSOLUTE # " " " EO# (FV) 0.3 K/cmm 0.0 - 0.4 " " " BA% (FV) 0.7 % Ref: SEE ABSOLUTE # " " " BA# (FV) 0.0 K/cmm 0.0 - 0.2 Lab results relatively stable would like to see the hemoglobin A1c slightly improved mild anemia with a hemoglobin of 12.4 normal is above 13. Kidney function mildly impaired don't have old labs to compare with. Lipids are stable. [place] to have an LDL around 70 when having diabetes. Continue diabetic management with Dr. Leung. Might consider increasing Lipitor to 40 mg which is atorvastatin and discontinuing gemfibrozil which would decrease potential side effects. Also might consider stopping HCTZ which aggravates gout and start a low dose lisinopril 5 mg 1 AM daily to help prevent elevation of the microalbumin spillage in the urine and to help with blood pressure after stopping the HCTZ. Also you can continue current regimen and discuss these considerations with PCP with next appointment. Thank you Please contact us if you have any questions or concerns. Lauren Team 2 - [phone], ext [phone] Sincerely, SANTA FERNANDEZ - PHYSICIAN SANTA FERNANDEZ [facility]
--- OUTSIDE RECORDS SUMMARY | 2021-01-26 11:31 | XMS REPORT | Encounter Summary ---
Author Author Department [facility] Organization Department of [facility] Address Unknown Phone Unavailable Care Team Providers Care American History Professor Name Role Phone MARGARITA TORRES PCP Unavailable [...] PLAN G Aug 19, 2018 PLAN G [id number] EVINSALVADOR PATIENT MEDICARE (WNR) MEDICARE (M) PART A Aug 19, 2018 PART A [id number] 60A [id number] EVINSALVADOR PATIENT MEDICARE (WNR) MEDICARE (M) PART B Aug 19, 2018 PART B [id number] 60A [phone] EVINSALVADOR PATIENT MEDICARE (WNR) MEDICARE (M) PART A Aug 19, 2018 PART A [id number] EVINSALVADOR PATIENT MEDICARE (WNR) MEDICARE (M) PART B Aug 19, 2018 PART B [id number] EVINSALVADOR PATIENT MEDICARE PART D (WNR) MEDICARE (M) PART D Aug 19, 2018 PART D [id number] EVINSALVADOR PATIENT MEDICARE PART D (WNR) MEDICARE (M) PART D Aug 19, 2018 PART D [id number] SALVADOR CLEARY PATIENT Selected Encounter This section includes the information on record at [place] for the Encounter. Date/Time Encounter Type Encounter Description Reason Provider Source Dec 10, 2020 12:00 AM Outpatient Encounter COMMUNITY CARE CONSULT IHE Encounter Template Text not used by [place] Assessments - Encounter Diagnoses No Data Provided for This Section Plan of Treatment: Future Appointments (+ 6 months) and Future Tests (+/- 45 day s) The Plan of Treatment section includes future care activities for the patient fr om all [facility]. This section includes future appointments and fu ture orders which are active, pending or scheduled. Future Appointments This section includes appointments that were scheduled t o occur 6 months from the date of the Encounter, up to a maximum of 20 appointme nts. The data comes from all [facility]. Appointment Date/Time Appointment Type Appointment Facili ty Name Dec 15, 2020 07:00 AM AMBULATORY - NONE [facility] Jan 05, 2021 10:30 AM AMBULATORY NONE [facility] Jan 26, 2021 08:00 AM AMBULATORY - NONE [facility] Feb 18, 2021 03:00 PM AMBULATORY - MEDICINE [facility] Mar 21, 2021 09:30 AM AMBULATORY NONE [facility] Mar 21, 2021 04:00 PM AMBULATORY MEDICINE [facility] Mar 24, 2021 11:00 AM [facility] MEDICINE [facility] Active, Pending, and Scheduled Orders This [...] the Encounter. The data comes from all [facility]. Test Date/Time Test Type Test Details Facility Name Dec 13, 2020 02:49 PM Consult Order Urology/Opt UROLOG Y OUTPATIENT Cons Cold Working Supervisor's Choice [facility] Surgical Procedures: All associated to the [...] Encounter. Date/Time Encounter Note(s) Provider Source Dec 10, 2020 12:00 AM NONVA CONSULT: LOCAL TITLE: COMMUNITY CARE-CONSULT RESULT NOTE STANDARD TITLE: NONVA CONSULT DATE OF NOTE: DEC 10, 2020 ENTRY DATE: DEC 21, 2020@12:59:59 AUTHOR: KINGSLEY GARCIA COSIGNER: URGENCY: STATUS: COMPLETED VistA Imaging - Scanned Document [facility] RFS Form 12/10/20 /lizzy/ KINGSLEY GARCIA ONLINE SERVICES MANAGER-BINDERY OPERATOR Signed: 12/21/2020 12:59 KINGSLEY GARCIA [facility]
--- OUTSIDE RECORDS SUMMARY | 2021-01-26 11:31 | XMS REPORT | Encounter Summary ---
Author [facility] Organization Department of [facility] Address Unknown Phone Unavailable Care Team Providers Care Exhibitor Sales Name Role Phone MARGARITA TORRES PCP Unavailable [...] PLAN G Aug 19, 2018 PLAN G [id number] EVINSALVADOR PATIENT MEDICARE (WNR) MEDICARE (M) PART A Aug 19, 2018 PART A [id number] 60A [phone] EVINSALVADOR PATIENT MEDICARE (WNR) MEDICARE (M) PART B Aug 19, 2018 PART B [id number] 60A [phone] EVINSALVADOR PATIENT MEDICARE (WNR) MEDICARE (M) PART A Aug 19, 2018 PART A [id number] EVINSALVADOR PATIENT MEDICARE (WNR) MEDICARE (M) PART B Aug 19, 2018 PART B [id number] EVINSALVADOR PATIENT MEDICARE PART D (WNR) MEDICARE (M) PART D Aug 19, 2018 PART D [id number] EVINSALVADOR PATIENT MEDICARE PART D (WNR) MEDICARE (M) PART D Aug 19, 2018 PART D [id number] CLEARYSALVADOR PATIENT Selected Encounter This section includes the [place] at [place] for the Encounter. Date/Time Encounter Type Encounter Description Reason Provider Source Dec 24, 2020 12:00 AM Outpatient Encounter COMMUNITY CARE CONSULT IHE Encounter Template Text not used by [place] Assessments - Encounter Diagnoses No Data Provided for This Section Plan of Treatment: Future Appointments (+ 6 months) and Future Tests (+/- 45 day s) The Plan of Treatment section includes future care activities for the patient fr om all [facility]. This section includes future appointments and fu ture orders which are active, pending or scheduled. Future Appointments This section includes appointments that were scheduled t o occur 6 months from the date of the Encounter, up to a maximum of 20 appointme nts. The data comes from all [facility]. Appointment Date/Time Appointment Type Appointment Facili ty Name Jan 05, 2021 10:30 AM AMBULATORY - NONE [facility] Jan 26, 2021 08:00 AM AMBULATORY NONE [facility] Feb 18, 2021 03:00 PM AMBULATORY - MEDICINE [facility] Mar 21, 2021 09:30 AM AMBULATORY NONE [facility] Mar 21, 2021 04:00 PM [facility] MEDICINE [facility] Mar 24, 2021 11:00 AM [facility] MEDICINE [facility] Active, Pending, and Scheduled Orders This [...] the Encounter. The data comes from all [facility]. Test Date/Time Test Type Test Details Facility Name Dec 13, 2020 02:49 PM Consult Order Urology/Opt UROLOG Y OUTPATIENT Cons Fibreglass Lay Up Worker's Choice [facility] Surgical Procedures: All associated to the [...] Encounter. Date/Time Encounter Note(s) Provider Source Dec 24, 2020 12:00 AM NONVA CONSULT: LOCAL TITLE: COMMUNITY CARE-CONSULT RESULT NOTE STANDARD TITLE: NONVA CONSULT DATE OF NOTE: DEC 24, 2020 ENTRY DATE: JAN 25, 2021@15:39:46 AUTHOR: MARTY MANCILLA EXP COSIGNER: URGENCY: STATUS: COMPLETED VistA Imaging - Scanned Document [facility] ..21 VISIT /es/ MARTY MANCILLA Detective Homicide Squad Signed: 01/25/2021 15:39 MARTY MANCILLA [facility]
--- OUTSIDE RECORDS SUMMARY | 2021-01-26 11:31 | XMS REPORT | Encounter Summary ---
Author [facility] Organization Department of [facility] Address Unknown Phone Unavailable Care Team Providers Care Case Assembler Name Role Phone MARGARITA TORRES PCP Unavailable [...] PLAN G Aug 19, 2018 PLAN G [id number] EVINSALVADOR PATIENT MEDICARE (WNR) MEDICARE (M) PART A Aug 19, 2018 PART A [id number] 60A [phone] EVINSALVADOR PATIENT MEDICARE (WNR) MEDICARE (M) PART B Aug 19, 2018 PART B [id number] 60A [phone] EVINSALVADOR PATIENT MEDICARE (WNR) MEDICARE (M) PART A Aug 19, 2018 PART A [id number] EVINSALVADOR PATIENT MEDICARE (WNR) MEDICARE (M) PART B Aug 19, 2018 PART B [id number] EVINSALVADOR PATIENT MEDICARE PART D (WNR) MEDICARE (M) PART D Aug 19, 2018 PART D [id number] EVINSALVADOR PATIENT MEDICARE PART D (WNR) MEDICARE (M) PART D Aug 19, 2018 PART D [id number] CLEARYSALVADOR PATIENT Selected Encounter This section includes the [place] for the Encounter. Date/Time Encounter Type Encounter Description Reason Provider Source Dec 15, 2020 12:00 AM Outpatient Encounter COMMUNITY CARE CONSULT IHE Encounter Template Text not used by [place] Assessments - Encounter Diagnoses No Data Provided for This Section Plan of Treatment: Future Appointments (+ 6 months) and Future Tests (+/- 45 day s) The Plan of Treatment section includes future care activities for the patient fr om all [facility]. This section includes future appointments and fu ture orders which are active, pending or scheduled. Future Appointments This section includes appointments that were scheduled t o occur 6 months from the date of the Encounter, up to a maximum of 20 appointme nts. The data comes from all [facility]. Appointment Date/Time Appointment Type Appointment Facili ty Name Jan 05, 2021 10:30 AM AMBULATORY - NONE [facility] Jan 26, 2021 08:00 AM AMBULATORY NONE [facility] Feb 18, 2021 03:00 PM AMBULATORY - MEDICINE [facility] Mar 21, 2021 09:30 AM AMBULATORY NONE [facility] Mar 21, 2021 04:00 PM [facility] MEDICINE [facility] Mar 24, 2021 11:00 AM [facility] MEDICINE [facility] Active, Pending, and Scheduled Orders This [...] the Encounter. The data comes from all [facility]. Test Date/Time Test Type Test Details Facility Name Dec 13, 2020 02:49 PM Consult Order Urology/Opt UROLOG Y OUTPATIENT Cons Electrician Elevator Maintenance's Choice [facility] Surgical Procedures: All associated to the [...] Encounter. Date/Time Encounter Note(s) Provider Source Dec 15, 2020 12:00 AM NONVA CONSULT: LOCAL TITLE: COMMUNITY CARE-CONSULT RESULT NOTE STANDARD TITLE: NONVA CONSULT DATE OF NOTE: DEC 15, 2020 ENTRY DATE: DEC 30, 2020@10:28:20 AUTHOR: STEPHANIE MARRERO EXP COSIGNER: URGENCY: STATUS: COMPLETED VistA Imaging - Scanned Document [facility] 07.28.21 VISIT /es/ STEPHANIE MARRERO HEALTH INFORMATION MGT SERVICE Signed: 12/30/2020 10:28 STEPHANIE MARRERO [facility]
--- OUTSIDE RECORDS SUMMARY | 2021-01-26 11:31 | XMS REPORT | Encounter Summary ---
Author [facility] Address Unknown Phone Unavailable Care Team Providers Care Resident Associate Name Role Phone MARGARITA TORRES PCP Unavailable [...] PLAN G Aug 19, 2018 PLAN G [id number] EVINSALVADOR PATIENT MEDICARE (WNR) MEDICARE (M) PART A Aug 19, 2018 PART A [id number] [phone] EVINSALVADOR PATIENT MEDICARE (WNR) MEDICARE (M) PART B Aug 19, 2018 PART B [id number] [phone] EVINSALVADOR PATIENT MEDICARE (WNR) MEDICARE (M) PART A Aug 19, 2018 PART A [id number] EVINSALVADOR PATIENT MEDICARE (WNR) MEDICARE (M) PART B Aug 19, 2018 PART B [id number] EVINSALVADOR PATIENT MEDICARE PART D (WNR) MEDICARE (M) PART D Aug 19, 2018 PART D [id number] EVINSALVADOR PATIENT MEDICARE PART D (WNR) MEDICARE (M) PART D Aug 19, 2018 PART D [id number] EVINSALVADOR PATIENT Selected Encounter This section includes the information on [place] at [place] for the Encounter. Date/Time Encounter Type Encounter Description Reason Provider Source Dec 07, 2020 02:20 PM Outpatient Encounter TELEPHONE/ANCILLARY IHE Encounter Template Text not used by [place] Assessments - Encounter Diagnoses No Data Provided for This Section Plan of Treatment: Future Appointments (+ 6 months) and Future Tests (+/- 45 day s) The Plan of Treatment section includes future care activities for the patient fr om all [facility]. This section includes future appointments and fu ture orders which are active, pending or scheduled. Future Appointments This section includes appointments that were scheduled t o occur 6 months from the date of the Encounter, up to a maximum of 20 appointme nts. The data comes from all [facility]. Appointment Date/Time Appointment Type Appointment Facili ty Name Dec 15, 2020 07:00 AM AMBULATORY - NONE [facility] Jan 05, 2021 10:30 AM AMBULATORY NONE [facility] Jan 26, 2021 08:00 AM AMBULATORY - NONE [facility] Feb 18, 2021 03:00 PM AMBULATORY - MEDICINE [facility] Mar 21, 2021 09:30 AM AMBULATORY NONE [facility] Mar 21, 2021 04:00 PM AMBULATORY MEDICINE [facility] Mar 24, 2021 11:00 AM [facility] MEDICINE [facility] Active, Pending, and Scheduled Orders [...] the Encounter. The data comes from all [facility]. Test Date/Time Test Type Test Details Facility Name Dec 13, 2020 02:49 PM Consult Order Urology/Opt UROLOG Y OUTPATIENT Cons Food And Beverage Server's Choice [facility] Surgical Procedures: All associated to [...] Encounter. Date/Time Encounter Note(s) Provider Source Dec 07, 2020 02:20 PM PHARMACY NOTE: LOCAL TITLE: PHARMACY NOTE STANDARD TITLE: PHARMACY NOTE DATE OF NOTE: DEC 07, 2020@14:20 ENTRY DATE: DEC 07, 2020@14:21 AUTHOR: RONNA HERRERA EXP COSIGNER: URGENCY: STATUS: COMPLETED Patient requesting Rx renewal of the following medication(s) written by a non-[place] community care provider: Drug Name ERGOCALCIF 1,250MCG (D2-50,000UNIT) CAP Issue Date 05/27/2020 SIG TAKE ONE CAPSULE BY MOUTH 1 TIME PER WEEK Request for renewal faxed to non-[place] community care provider. /lizzy/ RONNA HERRERA PharmD CLINICAL PHARMACIST Signed: 12/07/2020 14:21 RONNA HERRERA [facility]
--- OUTSIDE RECORDS SUMMARY | 2021-01-26 11:31 | XMS REPORT | Encounter Summary ---
Author Author Department [facility] Organization Department of [facility] Address Unknown Phone Unavailable Care Team Providers Care Dryland Farmer Name Role Phone MARGARITA PAGE PCP Unavailable [...] PLAN G Aug 19, 2018 PLAN G [id number] SRIDHARSALVADOR PATIENT MEDICARE (WNR) MEDICARE (M) PART A Aug 19, 2018 PART A [id number] 60A [phone] SRIDHARSALVADOR PATIENT MEDICARE (WNR) MEDICARE (M) PART B Aug 19, 2018 PART B [id number] 60A [phone] SRIDHARSALVADOR PATIENT MEDICARE (WNR) MEDICARE (M) PART A Aug 19, 2018 PART A [id number] SRIDHARSALVADOR PATIENT MEDICARE (WNR) MEDICARE (M) PART B Aug 19, 2018 PART B [id number] SRIDHARSALVADOR PATIENT MEDICARE PART D (WNR) MEDICARE (M) PART D Aug 19, 2018 PART D [id number] SRIDHARSALVADOR PATIENT MEDICARE PART D (WNR) MEDICARE (M) PART D Aug 19, 2018 PART D [id number] SALVADOR CLEARY PATIENT Selected Encounter This section includes the information on record at [place] for the Encounter. Date/Time Encounter Type Encounter Description Reason Provider Source Dec 06, 2020 10:37 AM Outpatient Encounter COMMUNITY CARE CONSULT IHE Encounter Template Text not used by [place] Assessments - Encounter Diagnoses No Data Provided for This Section Plan of Treatment: Future Appointments (+ 6 months) and Future Tests (+/- 45 day s) The Plan of Treatment section includes future care activities for the patient fr om all [facility]. This section includes future appointments and fu ture orders which are active, pending or scheduled. Future Appointments This section includes appointments that were scheduled t o occur 6 months from the date of the Encounter, up to a maximum of 20 appointme nts. The data comes from all [facility]. Appointment Date/Time Appointment Type Appointment Facili ty Name Dec 15, 2020 07:00 AM AMBULATORY - NONE [facility] Jan 05, 2021 10:30 AM AMBULATORY NONE [facility] Jan 26, 2021 08:00 AM AMBULATORY - NONE [facility] Feb 18, 2021 03:00 PM AMBULATORY - MEDICINE [facility] Mar 21, 2021 09:30 AM AMBULATORY NONE [facility] Mar 21, 2021 04:00 PM AMBULATORY MEDICINE [facility] Mar 24, 2021 11:00 AM [facility] MEDICINE [facility] Active, Pending, and Scheduled Orders This section [...] the Encounter. The data comes from all [facility]. Test Date/Time Test Type Test Details Facility Name Dec 13, 2020 02:49 PM Consult Order Urology/Opt UROLOG Y OUTPATIENT Cons Health Policy Manager's Choice [facility] Surgical Procedures: All associated to the encounter [...] Encounter. Date/Time Encounter Note(s) Provider Source Dec 06, 2020 10:37 AM NONVA NOTE: LOCAL TITLE: COMMUNITY CARE-COORDINATION PLAN STANDARD TITLE: NONVA NOTE DATE OF NOTE: DEC 06, 2020@10:37 ENTRY DATE: DEC 06, 2020@10:37:26 AUTHOR: STEPHANIE CORONADO COSIGNER: URGENCY: STATUS: COMPLETED [place] Facility Community Care Office Care Coordination Plan Note Last Name: Sridhar Sebastian First Name: Salvador Sebastian Social: [phone] Chief Complaint:Carcinoma in situ of prostate Risks (e.g. clinical or biophysical risks identified from S/T tool or brief chart review, such as dementia, homelessness, no family support, etc. If unknown, state "Unknown"): Level of Care Coordination: Basic Addenda Included (please enter "Yes" if this note includes any of the following): Case Management: Continued Stay Review: Disease Management: Discharge Planning: Patient Contact: Provider Contact: Transfer: FACILITY COMMUNITY CARE OFFICE CONTACT Care Coordination Point of Contact: purple [facility]? [facility] [address] CONSULT AND REFERRAL INFORMATION Name of Referring [place] Provider: Margarita Page SEOC: Radiation Therapy SEOC 1.0.10 PRCT REV Referral Number: [id number] Unique Consult ID: [id number] Patient Admitted (Yes/No): If yes, then please complete?the Discharge?Planning Addendum. APPOINTMENT MANAGEMENT / MEDICAL RECORDS Appointment Community Provider/Facility: [facility] Appointment Care Site/Location: [facility] [place], [id number] Appointment Date: Appointment Status:sent? Appointment Provider Name: ALTAGRACIA GALLAGHER Appointment Provider Treating Specialty: Radiology - Radiation Oncology Appointment Provider Phone Number: na Appointment Provider Email: [email or web address] PLAN:sent for scheduling? /lizzy/ STEPHANIE THOMAS Advanced Medical Support Asst Signed: 12/06/2020 10:37 STEPHANIE CORONADO [facility]
--- OUTSIDE RECORDS SUMMARY | 2021-01-26 11:31 | XMS REPORT | Encounter Summary ---
Author Author Department [facility] Organization Department of [facility] Address Unknown Phone Unavailable Care Team Providers Care Box Car Loader Name Role Phone MARGARITA TORRES PCP Unavailable [...] PLAN G Aug 19, 2018 PLAN G [id number] EVINSALVADOR PATIENT MEDICARE (WNR) MEDICARE (M) PART A Aug 19, 2018 PART A [id number] 60A [phone] EVINSALVADOR PATIENT MEDICARE (WNR) MEDICARE (M) PART B Aug 19, 2018 PART B [id number] 60A [phone] EVINSALVADOR PATIENT MEDICARE (WNR) MEDICARE (M) PART A Aug 19, 2018 PART A [id number] EVINSALVADOR PATIENT MEDICARE (WNR) MEDICARE (M) PART B Aug 19, 2018 PART B [id number] EVINSALVADOR PATIENT MEDICARE PART D (WNR) MEDICARE (M) PART D Aug 19, 2018 PART D [id number] EVINSALVADOR PATIENT MEDICARE PART D (WNR) MEDICARE (M) PART D Aug 19, 2018 PART D [id number] SALVADOR CLEARY PATIENT Selected Encounter This section includes the information on record at [place] for the Encounter. Date/Time Encounter Type Encounter Description Reason Provider Source Dec 13, 2020 01:48 PM Outpatient Encounter COMMUNITY CARE CONSULT IHE Encounter Template Text not used by [place] Assessments - Encounter Diagnoses No Data Provided for This Section Plan of Treatment: Future Appointments (+ 6 months) and Future Tests (+/- 45 day s) The Plan of Treatment section includes future care activities for the patient fr om all [facility]. This section includes future appointments and fu ture orders which are active, pending or scheduled. Future Appointments This section includes appointments that were scheduled t o occur 6 months from the date of the Encounter, up to a maximum of 20 appointme nts. The data comes from all [facility]. Appointment Date/Time Appointment Type Appointment Facili ty Name Dec 15, 2020 07:00 AM AMBULATORY - NONE [facility] Jan 05, 2021 10:30 AM AMBULATORY NONE [facility] Jan 26, 2021 08:00 AM AMBULATORY - NONE [facility] Feb 18, 2021 03:00 PM AMBULATORY - MEDICINE [facility] Mar 21, 2021 09:30 AM AMBULATORY NONE [facility] Mar 21, 2021 04:00 PM AMBULATORY MEDICINE [facility] Mar 24, 2021 11:00 AM [facility] Active, Pending, and Scheduled Orders This section [...] the Encounter. The data comes from all [facility]. Test Date/Time Test Type Test Details Facility Name Dec 13, 2020 02:49 PM Consult Order Urology/Opt UROLOG Y OUTPATIENT Cons Event Decorator And Designer's Choice [facility] Surgical Procedures: All associated to the encounter [...] Encounter. Date/Time Encounter Note(s) Provider Source Dec 13, 2020 01:48 PM NONVA NOTE: LOCAL TITLE: [facility]-MISCELLANEOUS STANDARD TITLE: NONVA NOTE DATE OF NOTE: DEC 13, 2020@13:48 ENTRY DATE: DEC 13, 2020@13:48:21 AUTHOR: MASON BAL EXP COSIGNER: URGENCY: STATUS: COMPLETED Dr. Atul Tirado is requesting the following additional services; DX: [id number] Malignant Neoplasm of the Prostate Requesting: Referral to Dr. Cazares (urologist) to assist with prostate brachytherapy/SpaceOar placement procedure at [facility] Date of service: Procedure planned for 01/26/2021 Provider: Dr. Lorenzo Cazares [id number] [place] [address] RFS sent to [facility] to be scanned. Camilo, if you concur, please enter a new [facility] Urology consult listing the provider information above, thank you. /lizzy/ MASON BAL RN OCC RN Ornamental Bronze Worker Signed: 12/13/2020 13:48 Receipt Acknowledged By: * AWAITING SIGNATURE * MARGARITA TORRES [facility]
--- OUTSIDE RECORDS SUMMARY | 2021-01-26 11:32 | XMS REPORT | Encounter Summary ---
Author Author Department of [facility] SALVADOR hwang Organization Department of [facility] rs Address Unknown Phone Unavailable Care Team Providers Care Lens Assistant Name Role Phone MARGARITA TORRES PCP Unavailable [...] PLAN G Aug 19, 2018 PLAN G [id number] EVINSALVADOR PATIENT MEDICARE (WNR) MEDICARE (M) PART A Aug 19, 2018 PART A [id number] 60A [phone] EVINSALVADOR PATIENT MEDICARE (WNR) MEDICARE (M) PART B Aug 19, 2018 PART B [id number] [phone] EVINSALVADOR PATIENT MEDICARE (WNR) MEDICARE (M) PART A Aug 19, 2018 PART A [id number] EVINSALVADOR PATIENT MEDICARE (WNR) MEDICARE (M) PART B Aug 19, 2018 PART B [id number] EVINSALVADOR PATIENT MEDICARE PART D (WNR) MEDICARE (M) PART D Aug 19, 2018 PART D [id number] EVINSALVADOR PATIENT MEDICARE PART D (WNR) MEDICARE (M) PART D Aug 19, 2018 PART D [id number] SALVADOR CLEARY PATIENT Selected Encounter This section includes the information on record at [place] for the Encounter. Date/Time Encounter Type Encounter Description Reason Provider Source Nov 30, 2020 09:31 AM Outpatient Encounter ADMIN PAT ACTIVTIES (KY[facility] BURROUGHS) IHE Encounter Template Text not used by [place] Assessments - Encounter Diagnoses No Data Provided for This Section Plan of Treatment: Future Appointments (+ 6 months) and Future Tests (+/- 45 day s) The Plan of Treatment section includes future care activities for the patient fr om all [facility] facilities. This section includes future appointments and fu ture orders which are active, pending or scheduled. Future Appointments This section includes appointments that were scheduled t o occur 6 months from the date of the Encounter, up to a maximum of 20 appointme nts. The data comes from all [facility]. Appointment Date/Time Appointment Type Appointment Facili ty Name Dec 03, 2020 11:00 AM AMBULATORY - MEDICINE [facility] Dec 15, 2020 07:00 AM AMBULATORY - NONE [facility] Jan 05, 2021 10:30 AM AMBULATORY - NONE [facility] Jan 26, 2021 08:00 AM AMBULATORY NONE [facility] Feb 18, 2021 03:00 PM AMBULATORY MEDICINE [facility] Mar 21, 2021 09:30 AM AMBULATORY - NONE [facility] Mar 21, 2021 04:00 PM [facility] MEDICINE [facility] Mar 24, 2021 11:00 AM [facility] MEDICINE [facility] Active, [...] the Encounter. The data comes from all [facility]. Test Date/Time Test Type Test Details Facility Name Dec 13, 2020 02:49 PM Consult Order Urology/Opt UROLOG Y OUTPATIENT Cons Runner Man's Choice [facility] Surgical Procedures: [...] the Encounter. Date/Time Encounter Note(s) Provider Source Nov 30, 2020 09:31 AM ADMINISTRATIVE NOTE: LOCAL TITLE: ADMINISTRATIVE NOTE STANDARD TITLE: ADMINISTRATIVE NOTE DATE OF NOTE: NOV 30, 2020@09:31 ENTRY DATE: NOV 30, 2020@09:32:02 AUTHOR: MEDARDO MCALLISTER EXP COSIGNER: URGENCY: STATUS: COMPLETED ADMINISTRATIVE NOTE Has ADDENDA [place] called requesting a [phone] Form mailed to his current address. informed he is scheduled with Oncology Dr. Merrill in [place] on 12/16/20 @ 11AM [place] can be reached at /lizzy/ MEDARDO MCALLISTER [facility] Signed: 11/30/2020 09:38 Receipt Acknowledged By: 12/01/2020 15:19 /tad Rodriges RN 12/01/2020 ADDENDUM STATUS: COMPLETED Attempted to contact [place] to f/u. No answer, LVM. /tad HAYES RN Signed: 12/01/2020 15:19 12/01/2020 ADDENDUM STATUS: COMPLETED [place] returned call. States that form is [phone]. Informed that form is from when approval is given for consult. Advised that consult for endocrinology is in and approved, but no record of Dr. Merrill, oncology. Contacted Dr. Manzo's office for documentation. [place] aware of plan and is agreeable. /tad HAYES RN Signed: 12/01/2020 15:37 [facility]
--- OUTSIDE RECORDS SUMMARY | 2021-01-26 11:32 | XMS REPORT | Encounter Summary ---
Author [facility] Address Unknown Phone Unavailable Care Team Providers Care Optics Test Technician Name Role Phone MARGARITA PAGE PCP Unavailable [...] PLAN G Aug 19, 2018 PLAN G [id number] SRIDHARSALVADOR PATIENT MEDICARE (WNR) MEDICARE (M) PART A Aug 19, 2018 PART A [id number] 60A [phone] SRIDHARSALVADOR PATIENT MEDICARE (WNR) MEDICARE (M) PART B Aug 19, 2018 PART B [id number] 60A [phone] SRIDHARSALVADOR PATIENT MEDICARE (WNR) MEDICARE (M) PART A Aug 19, 2018 PART A [id number] SRIDHARSALVADOR PATIENT MEDICARE (WNR) MEDICARE (M) PART B Aug 19, 2018 PART B [id number] SRIDHARSALVADOR PATIENT MEDICARE PART D (WNR) MEDICARE (M) PART D Aug 19, 2018 PART D [id number] SRIDHARSALVADOR PATIENT MEDICARE PART D (WNR) MEDICARE (M) PART D Aug 19, 2018 PART D [id number] SRIDHARSALVADOR PATIENT Selected Encounter This section includes the information on record at [place] for the Encounter. Date/Time Encounter Type Encounter Description Reason Provider Source Dec 02, 2020 11:51 AM Outpatient Encounter COMMUNITY CARE CONSULT IHE Encounter Template Text not used by [place] Assessments - Encounter Diagnoses No Data Provided for This Section Plan of Treatment: Future Appointments (+ 6 months) and Future Tests (+/- 45 day s) The Plan of Treatment section includes future care activities for the patient fr om all [facility]. This section includes future appointments and fu ture orders which are active, pending or scheduled. Future Appointments This section includes appointments that were scheduled t o occur 6 months from the date of the Encounter, up to a maximum of 20 appointme nts. The data comes from all [facility]. Appointment Date/Time Appointment Type Appointment Facili ty Name Dec 03, 2020 11:00 AM AMBULATORY MEDICINE [facility] Dec 15, 2020 07:00 AM AMBULATORY - NONE [facility] Jan 05, 2021 10:30 AM AMBULATORY NONE [facility] Jan 26, 2021 08:00 AM AMBULATORY NONE [facility] Feb 18, 2021 03:00 PM AMBULATORY MEDICINE [facility] Mar 21, 2021 09:30 AM AMBULATORY NONE [facility] Mar 21, 2021 04:00 PM AMBULATORY MEDICINE [facility] Mar 24, 2021 11:00 AM [facility] Active, Pending, and Scheduled Orders This [...] the Encounter. The data comes from all [facility]. Test Date/Time Test Type Test Details Facility Name Dec 13, 2020 02:49 PM Consult Order Urology/Opt UROLOG Y OUTPATIENT Cons Wig Sales Consultant's Choice [facility] Surgical Procedures: All associated to the [...] Encounter. Date/Time Encounter Note(s) Provider Source Dec 02, 2020 11:51 AM NONVA NOTE: LOCAL TITLE: COMMUNITY CARE-MISCELLANEOUS STANDARD TITLE: NONVA NOTE DATE OF NOTE: DEC 02, 2020@11:51 ENTRY DATE: DEC 02, 2020@11:51:42 AUTHOR: ANA MARIA ONEIL EXP COSIGNER: URGENCY: STATUS: COMPLETED COMMUNITY CARE-MISCELLANEOUS Has ADDENDA Fax received 12/01/20 [id number] COOPER-DAPHNIE/RFS Urgency: w/in 48 hrs VST-DAPHNIE/RFS Request sent to [facility]: Yes Dr. 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 ALTAGRACIA GALLAGHER/RADIATION ONCOLOGY [address] [address] P: [phone] 08/18/[address] [facility] em Surgical Pathology to [facility] for scanning. Enter a community care radiation consult with this information. /lizzy/ ANA MARIA GALLOWAYN, RN OCC RN Endo Tech Signed: 12/02/2020 11:51 Receipt Acknowledged By: 12/06/2020 09:12 /lizzy/ Shelbi raymundo RN, BSN OCC RN Endo Tech 12/02/2020 12:59 /es/ NICANOR BATISTA Primary Care Provider 12/22/2020 ADDENDUM STATUS: COMPLETED [facility] Community Care Office Care Coordination Plan Note [place] Last Name: Sridhar Sebastian First Name: Salvador Sebastian Social: [phone] Chief Complaint: UROLOGY Risks (e.g. clinical or biophysical risks identified [...] OFFICE CONTACT Care Coordination Point of Contact: Jayshree Santillan [facility] [address] 'S CAREGIVER CONTACT INFO Is [place]'s caregiver same as next of kin listed in the demographic section of CPRS (Yes/No)?: If no, provide the following: 's Caregiver Point of Contact: Caregiver's Relationship to [place]: Caregiver's Primary Phone Number: Caregiver's Alternate Phone Number: CONSULT AND REFERRAL INFORMATION Name of Referring [place] Provider: Margarita Page SEOC: Urology Comprehensive SEOC 1.0.10 [facility] Referral Number: [id number] Unique Consult ID: [id number] Patient Admitted (Yes/No): If yes, then please complete the Discharge Planning Addendum. APPOINTMENT MANAGEMENT / MEDICAL RECORDS Appointment Community Provider/Facility: [facility] Appointment Care Site/Location: [address] [place], [id number] Appointment Date: 01/26/2021 Appointment Status: SCHEDULED Appointment Provider Name: [place] Appointment Provider Treating Specialty: Urology Appointment Provider Appointment Provider Email: [email or web address] Recommended Services: Level of Care Coordination: Basic* Navigation Scheduling Post-Appointment Follow-Up E-Communication to referring provider Level of Care Coordination: Moderate PLAN: VERIFY CARE AND REQUEST RECORDS POST APPT /es/ [facility] Advanced Medical Support Asst Signed: 12/22/2020 08:40 ANA MARIA ONEIL [facility]
--- OUTSIDE RECORDS SUMMARY | 2021-01-26 11:32 | XMS REPORT | Encounter Summary ---
Author Author Department [facility] SALVADOR hwang Organization Department of [facility] Address Unknown Phone Unavailable Care Team Providers Care Senior Microstrategy Developer Name Role Phone MARGARITA TORRES PCP Unavailable [...] PLAN G Aug 19, 2018 PLAN G [id number] EVINSALVADOR PATIENT MEDICARE (WNR) MEDICARE (M) PART A Aug 19, 2018 PART A [id number] 60A [phone] CLERAYSALVADOR PATIENT MEDICARE (WNR) MEDICARE (M) PART B Aug 19, 2018 PART B [id number] 60A [phone] EVINSALVADOR PATIENT MEDICARE (WNR) MEDICARE (M) PART A Aug 19, 2018 PART A [id number] EVINSALVADOR PATIENT MEDICARE (WNR) MEDICARE (M) PART B Aug 19, 2018 PART B [id number] CLEARYSALVADOR PATIENT MEDICARE PART D (WNR) MEDICARE (M) PART D Aug 19, 2018 PART D [id number] CLEARYSALVADOR PATIENT MEDICARE PART D (WNR) MEDICARE (M) PART D Aug 19, 2018 PART D [id number] SALVADOR CLEARY PATIENT Selected Encounter This section includes the information on record at [place] for the Encounter. Date/Time Encounter Type Encounter Description Reason Provider Source Dec 02, 2020 03:57 PM Outpatient Encounter PRIMARY CARE/MEDICINE IHE Encounter Template Text not used by [place] Assessments - Encounter Diagnoses No Data Provided for This Section Plan of Treatment: Future Appointments (+ 6 months) and Future Tests (+/- 45 day s) The Plan of Treatment section includes future care activities for the patient fr om all [facility] facilities. This section includes future appointments and fu ture orders which are active, pending or scheduled. Future Appointments This section includes appointments that were scheduled t o occur 6 months from the date of the Encounter, up to a maximum of 20 appointme nts. The data comes from all [facility]. Appointment Date/Time Appointment Type Appointment Facili ty Name Dec 03, 2020 11:00 AM AMBULATORY - MEDICINE [facility] Dec 15, 2020 07:00 AM AMBULATORY - NONE [facility] Jan 05, 2021 10:30 AM AMBULATORY NONE [facility] Jan 26, 2021 08:00 AM AMBULATORY NONE [facility] Feb 18, 2021 03:00 PM AMBULATORY MEDICINE [facility] Mar 21, 2021 09:30 AM AMBULATORY NONE [facility] Mar 21, 2021 04:00 PM AMBULATORY MEDICINE [facility] Mar 24, 2021 11:00 AM [facility] MEDICINE [facility] Active, Pending, and Scheduled Orders This section [...] the Encounter. The data comes from all [facility]. Test Date/Time Test Type Test Details Facility Name Dec 13, 2020 02:49 PM Consult Order Urology/Opt UROLOG Y OUTPATIENT Cons Power Engineer's Choice [facility] Surgical Procedures: All associated to the encounter [...] Encounter Note(s) Provider Source Dec 02, 2020 03:58 PM NURSING IMMUNIZATION NOTE: LOCAL TITLE: VAAES NSG COVID-19 VACCINE ADMINISTRATION STANDARD TITLE: NURSING IMMUNIZATION NOTE DATE OF NOTE: DEC 02, 2020@15:58 ENTRY DATE: DEC 02, 2020@15:58:10 AUTHOR: MAGNUS HAYES EXP COSIGNER: URGENCY: STATUS: COMPLETED Pfizer COVID-19 Vaccine given previously Patient received a prior dose of the Pfizer COVID-19 Vaccine. Date: August 13, 2020 Location: [facility] Patient received a prior dose of the Pfizer COVID-19 Vaccine. Date: September 10, 2020 Location: [facility] /lizzy/ MAGNUS HAYES RN Signed: 12/02/2020 15:59 MAGNUS HAYES [facility]
--- OUTSIDE RECORDS SUMMARY | 2021-01-26 11:32 | XMS REPORT | Encounter Summary ---
Author [facility] Organization [facility] Address Unknown Phone Unavailable Care Team Providers Care Nnp Name Role Phone MARGARITA TORRES PCP Unavailable [...] PLAN G Aug 19, 2018 PLAN G [id number] EVINSALVADOR PATIENT MEDICARE (WNR) MEDICARE (M) PART A Aug 19, 2018 PART A [id number] [phone] EVINSALVADOR PATIENT MEDICARE (WNR) MEDICARE (M) PART B Aug 19, 2018 PART B [id number] [id number] EVINSALVADOR PATIENT MEDICARE (WNR) MEDICARE (M) PART A Aug 19, 2018 PART A [id number] EVINSALVADOR PATIENT MEDICARE (WNR) MEDICARE (M) PART B Aug 19, 2018 PART B [id number] EVINSALVADOR PATIENT MEDICARE PART D (WNR) MEDICARE (M) PART D Aug 19, 2018 PART D [id number] EVINSALVADOR PATIENT MEDICARE PART D (WNR) MEDICARE (M) PART D Aug 19, 2018 PART D [id number] EVINSALVADOR PATIENT Selected Encounter This section includes the information on record at [place] for the Encounter. Date/Time Encounter Type Encounter Description Reason Provider Source Nov 24, 2020 12:00 AM Outpatient Encounter COMMUNITY CARE CONSULT IHE Encounter Template Text not used by [place] Assessments - Encounter Diagnoses No Data Provided for This Section Plan of Treatment: Future Appointments (+ 6 months) and Future Tests (+/- 45 day s) The Plan of Treatment section includes future care activities for the patient fr om all [facility]. This section includes future appointments and fu ture orders which are active, pending or scheduled. Future Appointments This section includes appointments that were scheduled t o occur 6 months from the date of the Encounter, up to a maximum of 20 appointme nts. The data comes from all [facility]. Appointment Date/Time Appointment Type Appointment Facili ty Name Dec 03, 2020 11:00 AM AMBULATORY MEDICINE [facility] Dec 15, 2020 07:00 AM AMBULATORY - NONE [facility] Jan 05, 2021 10:30 AM AMBULATORY NONE [facility] Jan 26, 2021 08:00 AM AMBULATORY NONE [facility] Feb 18, 2021 03:00 PM AMBULATORY MEDICINE [facility] Mar 21, 2021 09:30 AM AMBULATORY NONE [facility] Mar 21, 2021 04:00 PM [facility] Mar 24, 2021 11:00 AM [facility] Active, Pending, and Scheduled Orders [...] the Encounter. The data comes from all [facility]. Test Date/Time Test Type Test Details Facility Name Dec 13, 2020 02:49 PM Consult Order Urology/Opt UROLOG Y OUTPATIENT Cons [place] Placer's Choice [facility] Surgical Procedures: All associated to the [...] Encounter. Date/Time Encounter Note(s) Provider Source Nov 24, 2020 12:00 AM NONVA CONSULT: LOCAL TITLE: COMMUNITY CARE-CONSULT RESULT NOTE STANDARD TITLE: NONVA CONSULT DATE OF NOTE: NOV 24, 2020 ENTRY DATE: DEC 06, 2020@14:33:16 AUTHOR: STEVE ALVARENGA EXP COSIGNER: URGENCY: STATUS: COMPLETED [facility] - Scanned Document [facility] 11-24-2020 VISIT /es/ STEVE ALVARENGA Signed: 12/06/2020 14:33 STEVE ALVARENGA [facility]
--- OUTSIDE RECORDS SUMMARY | 2021-01-26 11:33 | XMS REPORT ---
Author [facility] Address Unknown Phone Unavailable Care Team Providers Care Wire Temperer Name Role Phone MARGARITA TORRES PCP Unavailable [...] PLAN G Aug 19, 2018 PLAN G [id number] EVINSALVADOR PATIENT MEDICARE (WNR) MEDICARE (M) PART A Aug 19, 2018 PART A [id number] EVINSALVADOR PATIENT MEDICARE (WNR) MEDICARE (M) PART B Aug 19, 2018 PART B [id number] EVINSALVADOR PATIENT MEDICARE (WNR) MEDICARE (M) PART A Aug 19, 2018 PART A [id number] EVINSALVADOR PATIENT MEDICARE (WNR) MEDICARE (M) PART B Aug 19, 2018 PART B [id number] EVINSALVADOR PATIENT MEDICARE PART D (WNR) MEDICARE (M) PART D Aug 19, 2018 PART D [id number] EVINSALVADOR PATIENT MEDICARE PART D (WNR) MEDICARE (M) PART D Aug 19, 2018 PART D [id number] CLEARYSALVADOR PATIENT Selected Encounter This section includes the information on record at [place] for the Encounter. Date/Time Encounter Type Encounter Description Reason Provider Source Oct 28, 2020 03:01 PM Outpatient Encounter COMMUNITY CARE CONSULT IHE Encounter Template Text not used by [place] Assessments - Encounter Diagnoses No Data Provided for This Section Plan of Treatment: Future Appointments (+ 6 months) and Future Tests (+/- 45 day s) The Plan of Treatment section includes future care activities for the patient fr om all [place] treatment facilities. This section includes future appointments and fu ture orders which are active, pending or scheduled. Future Appointments This section includes appointments that were scheduled t o occur 6 months from the date of the Encounter, up to a maximum of 20 appointme nts. The data comes from all [facility]. Appointment Date/Time Appointment Type Appointment Facili ty Name Nov 03, 2020 08:00 AM AMBULATORY - NONE [facility] Nov 03, 2020 11:00 AM AMBULATORY - MEDICINE [facility] Nov 24, 2020 08:00 AM AMBULATORY - NONE [facility] Dec 03, 2020 11:00 AM AMBULATORY - MEDICINE [facility] Dec 15, 2020 07:00 AM [facility] Jan 05, 2021 10:30 AM [facility] Jan 26, 2021 08:00 AM [facility] Feb 18, 2021 03:00 PM [facility]UL[facility] - [facility]IC[facility] Mar 21, 2021 09:30 AM [facility] Mar 21, 2021 04:00 PM [facility]ULATORY - [facility]IC[facility] Mar 24, 2021 11:00 AM AMBULATORY MEDIC[facility] Surgical Procedures: All associated to [...] the Encounter. Date/Time Encounter Note(s) Provider Source Oct 28, 2020 03:01 PM NONVA NOTE: LOCAL TITLE: COMMUNITY CARE-MISCELLANEOUS STANDARD TITLE: NONVA NOTE DATE OF NOTE: OCT 28, 2020@15:01 ENTRY DATE: OCT 28, 2020@15:02:01 AUTHOR: BRII DICKSON COSIGNER: URGENCY: STATUS: COMPLETED COMMUNITY CARE-MISCELLANEOUS Has ADDENDA Please review and if specialty care is still justified please enter consult COOPER-DAPHNIE/RFS Urgency: w/in 1 wk VST-DAPHNIE/RFS Request sent to [facility]: No --Nephrology Comprehensive DAPHNIE/RFS Request is Clinically Appropriate: Additional Timeframe: continuation of care AAR-Approved as requested above Approval Details: [facility] [address], [address] [place] [address] P: [phone] F: [phone] or [phone] Group POC: Maylin ? [phone] Appts scheduled for labs 11/24/20 Provider 11/24/20 /tad THOMAS RN Track Surfacing Machine Operator Signed: 10/28/2020 15:02 Receipt Acknowledged By: 10/28/2020 15:11 /lizzy/ NICANOR BATISTA Primary Care Provider 11/01/2020 ADDENDUM STATUS: COMPLETED APPOINTMENT MANAGEMENT / MEDICAL RECORDS Appointment Community Provider/Facility: [facility] Appointment Care Site/Location: [facility], [place], [id number] Appointment Date: 11/24/2020 Appointment Status: SCHEDULED Appointment Provider Name: [facility] Appointment Provider Treating Specialty: Multi-Specialty Appointment Provider Appointment Provider Email: PLAN: VERIFY CARE AND REQUEST RECORDS POST APPOINTMENT /lizzy/ FRANCESCA THOMAS Advanced Medical Support Asst Signed: 11/01/2020 13:07 11/02/2020 ADDENDUM STATUS: COMPLETED APPOINTMENT MANAGEMENT / MEDICAL RECORDS Appointment Community Provider/Facility: [facility] Appointment Care Site/Location: [facility] Appointment Date: 11/24/2020 Appointment Status: SCHEDULED Appointment Provider Name: [facility] SHMUEL Appointment Provider Treating Specialty: Multi-Specialty Appointment Provider Appointment Provider Email: PLAN: VERIFY CARE AND REQUEST RECORDS POST APPOINTMENT /lizzy/ FRANCESCA GONZALEZ [facility] Advanced Medical Support Asst Signed: 11/02/2020 09:16 BRII DICKSON [facility]
--- OUTSIDE RECORDS SUMMARY | 2021-01-26 11:33 | XMS REPORT | Encounter Summary ---
Author Author Department of [facility] SALVADOR hwang Organization Department of [facility] rs Address Unknown Phone Unavailable Care Team Providers Care Book Salesman Name Role Phone MARGARITA TORRES PCP Unavailable [...] Policy Matias's Name Patient's Relationship to Policy Maitas AARP MEDIGAP PLAN G PLAN G Aug 19, 2018 PLAN G [id number] EVINSALVADOR PATIENT MEDICARE (WNR) MEDICARE (M) PART A Aug 19, 2018 PART A [id number] 60A [phone] EVINSALVADOR PATIENT MEDICARE (WNR) MEDICARE (M) PART B Aug 19, 2018 PART B [id number] 60A [phone] EVINSALVADOR PATIENT MEDICARE (WNR) MEDICARE (M) PART A Aug 19, 2018 PART A [id number] EVINSALVADOR PATIENT MEDICARE (WNR) MEDICARE (M) PART B Aug 19, 2018 PART B [id number] EVINSALVADOR PATIENT MEDICARE PART D (WNR) MEDICARE (M) PART D Aug 19, 2018 PART D [id number] EVINSALVADOR PATIENT MEDICARE PART D (WNR) MEDICARE (M) PART D Aug 19, 2018 PART D [id number] SALVADOR CLEARY PATIENT Selected Encounter This section includes the information on record at [place] for the Encounter. Date/Time Encounter Type Encounter Description Reason Provider Source Nov 17, 2020 01:14 PM Outpatient Encounter ADMIN PAT ACTIVTIES ([facility] BURROUGHS) IHE Encounter Template Text not used by [place] Assessments - Encounter Diagnoses No Data Provided for This Section Plan of Treatment: Future Appointments (+ 6 months) and Future Tests (+/- 45 day s) The Plan of Treatment section includes future care activities for the patient fr om all [facility]. This section includes future appointments and fu ture orders which are active, pending or scheduled. Future Appointments This section includes appointments that were scheduled t o occur 6 months from the date of the Encounter, up to a maximum of 20 appointme nts. The data comes from all [facility]. Appointment Date/Time Appointment Type Appointment Facili ty Name Nov 24, 2020 08:00 AM AMBULATORY - NONE [facility] Dec 03, 2020 11:00 AM AMBULATORY - MEDICINE [facility] Dec 15, 2020 07:00 AM AMBULATORY - NONE [facility] Jan 05, 2021 10:30 AM AMBULATORY - NONE [facility] Jan 26, 2021 08:00 AM AMBULATORY - NONE [facility] Feb 18, 2021 03:00 PM AMBULATORY - MEDICINE [facility] Mar 21, 2021 09:30 AM AMBULATORY NONE [facility] Mar 21, 2021 04:00 PM AMBULATORY MEDICINE [facility] Mar 24, 2021 11:00 AM [facility] Active, Pending, and Scheduled Orders This [...] from all [facility]. Test Date/Time Test Type Test Details Facility Name Dec 13, 2020 02:49 PM Consult Order Urology/Opt UROLOG Y OUTPATIENT Cons Upset Welding Machine Operator's Choice [facility] Surgical Procedures: All associated to the encounter [...] Encounter. Date/Time Encounter Note(s) Provider Source Nov 17, 2020 01:14 PM ADMINISTRATIVE NOTE: LOCAL TITLE: ADMINISTRATIVE NOTE STANDARD TITLE: ADMINISTRATIVE NOTE DATE OF NOTE: NOV 17, 2020@13:14 ENTRY DATE: NOV 17, 2020@13:14:48 AUTHOR: LIZET BLANK EXP COSIGNER: URGENCY: STATUS: [...] /lizzy/ [facility]ET [facility] Signed: 11/17/2020 13:15 LIZET BLANK [facility]
--- OUTSIDE RECORDS SUMMARY | 2021-01-26 11:33 | XMS REPORT | Encounter Summary ---
Author [facility] Organization [facility] Address Unknown Phone Unavailable Care Team Providers Care Plumber Helper Name Role Phone MARGARITA PAGE PCP Unavailable [...] PLAN G Aug 19, 2018 PLAN G [id number] SRIDHARSALVADOR PATIENT MEDICARE (WNR) MEDICARE (M) PART A Aug 19, 2018 PART A [id number] 60A [phone] SRIDHARSALVADOR PATIENT MEDICARE (WNR) MEDICARE (M) PART B Aug 19, 2018 PART B [id number] 60A [id number] SRIDHARSALVADOR PATIENT MEDICARE (WNR) MEDICARE (M) PART A Aug 19, 2018 PART A [id number] SRIDHARSALVADOR PATIENT MEDICARE (WNR) MEDICARE (M) PART B Aug 19, 2018 PART B [id number] SRIDHARSALVADOR PATIENT MEDICARE PART D (WNR) MEDICARE (M) PART D Aug 19, 2018 PART D [id number] SRIDHARSALVADOR PATIENT MEDICARE PART D (WNR) MEDICARE (M) PART D Aug 19, 2018 PART D [id number] SALVADOR CLEARY PATIENT Selected Encounter This section includes the information on record at [place] for the Encounter. Date/Time Encounter Type Encounter Description Reason Provider Source Nov 05, 2020 06:47 AM Outpatient Encounter COMMUNITY CARE CONSULT IHE Encounter Template Text not used by [place] Assessments - Encounter Diagnoses No Data Provided for This Section Plan of Treatment: Future Appointments (+ 6 months) and Future Tests (+/- 45 day s) The Plan of Treatment section includes future care activities for the patient fr om all [facility]. This section includes future appointments and fu ture orders which are active, pending or scheduled. Future Appointments This section includes appointments that were scheduled t o occur 6 months from the date of the Encounter, up to a maximum of 20 appointme nts. The data comes from all [facility]. Appointment Date/Time Appointment Type Appointment Facili ty Name Nov 24, 2020 08:00 AM AMBULATORY - NONE [facility] Dec 03, 2020 11:00 AM AMBULATORY - MEDICINE [facility] Dec 15, 2020 07:00 AM AMBULATORY - NONE [facility] Jan 05, 2021 10:30 AM AMBULATORY NONE [facility] Jan 26, 2021 08:00 AM AMBULATORY NONE [facility] Feb 18, 2021 03:00 PM AMBULATORY - MEDICINE [facility] Mar 21, 2021 09:30 AM AMBULATORY NONE [facility] Mar 21, 2021 04:00 PM AMBULATORY MEDICINE [facility] Mar 24, 2021 11:[address] [facility] MEDICINE [facility] Active, Pending, and Scheduled [...] the Encounter. The data comes from all [facility]. Test Date/Time Test Type Test Details Facility Name Dec 13, 2020 02:49 PM Consult Order Urology/Opt UROLOG Y OUTPATIENT Cons Assistant Purchasing Manager's Choice [facility] Surgical Procedures: All associated [...] Encounter. 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 clinical or biophysical risks identified [...] OFFICE CONTACT Care Coordination Point of Contact: ORIN PHAM Phone Number: 'S?CAREGIVER?CONTACT INFO Is 's caregiver same as next of kin listed in the demographic section of CPRS (Yes/No)?: If no, provide the following: [place]'s Caregiver Point of Contact: Caregiver's Relationship to [place]: Caregiver's Primary Phone Number: Caregiver's Alternate Phone Number: CONSULT AND REFERRAL INFORMATION Name of Referring [place] Provider: Margarita Page [facility]OC[facility]inology [facility] Referral Number: [id number] Unique Consult ID: [id number] Patient Admitted (Yes/No): If yes, then please complete?the Discharge?Planning Addendum. APPOINTMENT MANAGEMENT / MEDICAL RECORDS Appointment Community Provider/Facility: [facility] Appointment Care Site/Location: [facility] [place] [address] [place], [phone] Appointment Date: 12/15/2020 Appointment Status: SCHEDULED Appointment Provider Name: CASCADE YeHive Appointment Provider Treating Specialty: Multi-Specialty Appointment Provider Appointment Provider Email: Recommended Services: Level of Care Coordination: Basic* Navigation Scheduling Post-Appointment Follow-Up E-Communication to referring provider Level of Care Coordination: Moderate Basic Care Coordination Services* Monitoring and coordination of rehab/PT services Direct communication to referring provider Care management, if appropriate Level of Care Coordination: Complex Moderate Care Coordination Services Case management, if appropriate Direct communication with interdisciplinary team Level of Care Coordination: Urgent/Time Sensitive Immediate facilitation of requested services and direct communication with the [place] providers PLAN: APPT HAS BEEN SCHEDULED /lizzy/ ORIN THOMAS Advanced Medical Support Asst Signed: 11/05/2020 06:48 ORIN PHAM [facility]
--- OUTSIDE RECORDS SUMMARY | 2021-01-26 11:33 | XMS REPORT | Encounter Summary ---
[facility] Organization Department of [facility] Address Unknown Phone Unavailable Care Team Providers Care Research Subject Name Role Phone MARGARITA PAGE PCP Unavailable [...] PLAN G Aug 19, 2018 PLAN G [id number] SRIDHARSALVADOR PATIENT MEDICARE (WNR) MEDICARE (M) PART A Aug 19, 2018 PART A [id number] 60A [id number] SRIDHARSALVADOR PATIENT MEDICARE (WNR) MEDICARE (M) PART B Aug 19, 2018 PART B [id number] 60A [id number] SRIDHARSALVADOR PATIENT MEDICARE (WNR) MEDICARE (M) PART A Aug 19, 2018 PART A [id number] SRIDHARSALVADOR PATIENT MEDICARE (WNR) MEDICARE (M) PART B Aug 19, 2018 PART B [id number] SRIDHARSALVADOR PATIENT MEDICARE PART D (WNR) MEDICARE (M) PART D Aug 19, 2018 PART D [id number] SRIDHARSALVADOR PATIENT MEDICARE PART D (WNR) MEDICARE (M) PART D Aug 19, 2018 PART D [id number] SALVADOR CLEARY PATIENT Selected Encounter This section includes the information on record at [place] for the Encounter. Date/Time Encounter Type Encounter Description Reason Provider Source Nov 08, 2020 01:30 PM Outpatient Encounter COMMUNITY CARE CONSULT IHE Encounter Template Text not used by [place] Assessments - Encounter Diagnoses No Data Provided for This Section Plan of Treatment: Future Appointments (+ 6 months) and Future Tests (+/- 45 day s) The Plan of Treatment section includes future care activities for the patient fr om all [facility]. This section includes future appointments and fu ture orders which are active, pending or scheduled. Future Appointments This section includes appointments that were scheduled t o occur 6 months from the date of the Encounter, up to a maximum of 20 appointme nts. The data comes from all [facility]. Appointment Date/Time Appointment Type Appointment Facili ty Name Nov 24, 2020 08:00 AM AMBULATORY - NONE [facility] Dec 03, 2020 11:00 AM AMBULATORY - MEDICINE [facility] Dec 15, 2020 07:00 AM AMBULATORY - NONE [facility] Jan 05, 2021 10:30 AM AMBULATORY NONE [facility] Jan 26, 2021 08:00 AM AMBULATORY NONE [facility] Feb 18, 2021 03:00 PM AMBULATORY - MEDICINE [facility] Mar 21, 2021 09:30 AM AMBULATORY NONE [facility] Mar 21, 2021 04:00 PM AMBULATORY MEDICINE [facility] Mar 24, 2021 11:00 AM [facility] MEDICINE [facility] Active, Pending, and Scheduled Orders [...] the Encounter. The data comes from all [facility]. Test Date/Time Test Type Test Details Facility Name Dec 13, 2020 02:49 PM Consult Order Urology/Opt UROLOG Y OUTPATIENT Cons Quality Checker's Choice [facility] Surgical Procedures: All associated to [...] Encounter. Date/Time Encounter Note(s) Provider Source Nov 08, 2020 01:30 PM NONVA NOTE: LOCAL TITLE: COMMUNITY CARE-COORDINATION PLAN STANDARD TITLE: NONVA NOTE DATE OF NOTE: NOV 08, 2020@13:30 ENTRY DATE: NOV 08, 2020@13:30:50 AUTHOR: NILAM OCASIO COSIGNER: URGENCY: STATUS: COMPLETED [place] Facility Community Care Office Care Coordination Plan Note Last Name: Sridhar Sebastian First Name: Salvador Sebastian Social: [phone] Chief Complaint:Elevated Prostate Specific antigen [psa](ICD-10-CM ?R97.20) Risks (e.g. clinical or biophysical risks identified [...] OFFICE CONTACT Care Coordination Point of Contact: Nilam Ocasio? ext [phone] 'S?CAREGIVER?CONTACT INFO Is [place]'s caregiver same as next of kin listed in the demographic section of CPRS (Yes/No)?: If no, provide the following: [place]'s Caregiver Point of Contact: Caregiver's Relationship to : Caregiver's Primary Phone Number: Caregiver's Alternate Phone Number: CONSULT AND REFERRAL INFORMATION Name of Referring [place] Provider: Margarita Page SEOC: Urology Comprehensive SEOC 1.0.9 [facility] Referral Number: [id number] Unique Consult ID: [id number] Patient Admitted (Yes/No): If yes, then please complete?the Discharge?Planning Addendum. APPOINTMENT MANAGEMENT / MEDICAL RECORDS Appointment Community Provider/Facility: [facility] Appointment Care Site/Location: [facility], [phone] Appointment Date: 11/24/2020 Appointment Status: scheduled Appointment Provider Name: [facility] Appointment Provider Treating Specialty: Urology Appointment Provider Appointment Provider Email: Recommended Services: PLAN: verify care, request records post appt /lizzy/ NILAM OCASIO [facility] Advanced Medical Support Asst Signed: 11/08/2020 13:31 NILAM OCASIO [facility]
--- OUTSIDE RECORDS SUMMARY | 2021-01-26 11:33 | XMS REPORT | Encounter Summary ---
Author Author Department of [facility] SALVADOR hwang Organization Department of [facility] rs Address Unknown Phone Unavailable Care Team Providers Care Corporate Receptionist Name Role Phone MARGARITA TORRES PCP Unavailable [...] PLAN G Aug 19, 2018 PLAN G [id number] EVINSALVADOR PATIENT MEDICARE (WNR) MEDICARE (M) PART A Aug 19, 2018 PART A [id number] 60A [phone] EVINSALVADOR PATIENT MEDICARE (WNR) MEDICARE (M) PART B Aug 19, 2018 PART B [id number] 60A [id number] EVINSALVADOR PATIENT MEDICARE (WNR) MEDICARE (M) PART A Aug 19, 2018 PART A [id number] EVINSALVADOR PATIENT MEDICARE (WNR) MEDICARE (M) PART B Aug 19, 2018 PART B [id number] EVINSALVADOR PATIENT MEDICARE PART D (WNR) MEDICARE (M) PART D Aug 19, 2018 PART D [id number] EVINSALVADOR PATIENT MEDICARE PART D (WNR) MEDICARE (M) PART D Aug 19, 2018 PART D [id number] SALVADOR CLEARY PATIENT Selected Encounter This section includes the information on record at [place] for the Encounter. Date/Time Encounter Type Encounter Description Reason Provider Source Oct 28, 2020 09:16 AM Outpatient Encounter ADMIN PAT ACTIVTIES (KYM BURROUGHS) IHE Encounter Template Text not used by [place] Assessments - Encounter Diagnoses No Data Provided for This Section Plan of Treatment: Future Appointments (+ 6 months) and Future Tests (+/- 45 day s) The Plan of Treatment section includes future care activities for the patient fr om all [place] treatment facilities. This section includes future appointments and fu ture orders which are active, pending or scheduled. Future Appointments This section includes appointments that were scheduled t o occur 6 months from the date of the Encounter, up to a maximum of 20 appointme nts. The data comes from all [place] treatment [facility]. Appointment Date/Time Appointment Type Appointment Facili ty Name Nov 03, 2020 08:00 AM AMBULATORY - NONE [facility] Nov 03, 2020 11:00 AM AMBULATORY - MEDICINE [facility] Nov 24, 2020 08:00 AM AMBULATORY - NONE [facility] Dec 03, 2020 11:00 AM AMBULATORY - MEDICINE [facility] Dec 15, 2020 07:00 AM AMBULATORY - NONE [facility] Jan 05, 2021 10:30 AM AMBULATORY - NONE [facility] Jan 26, 2021 08:00 AM AMBULATORY - NONE [facility] Feb 18, 2021 03:00 PM AMBULATORY - MEDICINE [facility] Mar 21, 2021 09:30 AM AMBULATORY - NONE [facility] Mar 21, 2021 04:00 PM AMBULATORY - MEDICINE [facility] Mar 24, 2021 11:00 AM AMBULATORY - MEDICINE [facility] Surgical Procedures: All associated to the [...] Encounter Note(s) Provider Source Oct 28, 2020 09:23 AM ADMINISTRATIVE NOTE: LOCAL TITLE: ADMINISTRATIVE NOTE STANDARD TITLE: ADMINISTRATIVE NOTE DATE OF NOTE: OCT 28, 2020@09:23 ENTRY DATE: OCT 28, 2020@09:23:59 AUTHOR: EMANUEL CRANE COSIGNER: URGENCY: STATUS: COMPLETED Clinical Contact/Call Center COVID [...] Diagnosis: () Yes (x) No Comment(s): /lizzy/ [facility] Signed: 10/28/2020 09:24 EMANUEL CRANE [facility] Oct 28, 2020 09:17 AM ADMINISTRATIVE NOTE: LOCAL TITLE: ADMINISTRATIVE NOTE STANDARD TITLE: ADMINISTRATIVE NOTE DATE OF NOTE: OCT 28, 2020@09:17 ENTRY DATE: OCT 28, 2020@09:17:05 AUTHOR: EMANUEL CRANE EXP COSIGNER: URGENCY: STATUS: COMPLETED Requesting an Order for... [place] calling requesting a new order for NEPHROLOGY. THe has an appointment on 11/24/20. [place] can be reached at Dr. Mary Pelayo [address] [address] P [phone] F [phone] Requesting an Order for... calling requesting a new order for ENDOCRINOLOGY. The has an appointment on 12/15/20. [place] can be reached at [facility] Dr. Bratn Pelayo [address] [address] P: [phone] F: [phone] NPI# [id number] Requesting an Order for... calling requesting a new order for UROLOGY. The has an appointment on 12/16/20. [place] can be reached at Dr. Dionicio Griffin- Urology [address] [place] [address] P: [phone] F: [phone] NPI- [id number] /lizzy/ [facility] Signed: 10/28/2020 09:23 Receipt Acknowledged By: * AWAITING SIGNATURE * MAGNUS HAYES,EMANUEL Leahy [facility]
--- OUTSIDE RECORDS SUMMARY | 2021-01-26 11:33 | XMS REPORT | Encounter Summary ---
Author [facility] Organization Department of [facility] Address Unknown Phone Unavailable Care Team Providers Care Waybill Clerk Name Role Phone MARGARITA TORRES PCP Unavailable [...] PLAN G Aug 19, 2018 PLAN G [id number] EVINSALVADOR PATIENT MEDICARE (WNR) MEDICARE (M) PART A Aug 19, 2018 PART A [id number] 60A [id number] EVINSALVADOR PATIENT MEDICARE (WNR) MEDICARE (M) PART B Aug 19, 2018 PART B [id number] 60A [phone] EVINSALVADOR PATIENT MEDICARE (WNR) MEDICARE (M) PART A Aug 19, 2018 PART A [id number] EVINSALVADOR PATIENT MEDICARE (WNR) MEDICARE (M) PART B Aug 19, 2018 PART B [id number] EVINSALVADOR PATIENT MEDICARE PART D (WNR) MEDICARE (M) PART D Aug 19, 2018 PART D [id number] EVINSALVADOR PATIENT MEDICARE PART D (WNR) MEDICARE (M) PART D Aug 19, 2018 PART D [id number] EVINSALVADOR PATIENT Selected Encounter This section includes the information on record at [place] for the Encounter. Date/Time Encounter Type Encounter Description Reason Provider Source Nov 17, 2020 12:00 AM Outpatient Encounter COMMUNITY CARE CONSULT IHE Encounter Template Text not used by [place] Assessments - Encounter Diagnoses No Data Provided for This Section Plan of Treatment: Future Appointments (+ 6 months) and Future Tests (+/- 45 day s) The Plan of Treatment section includes future care activities for the patient fr om all [facility]. This section includes future appointments and fu ture orders which are active, pending or scheduled. Future Appointments This section includes appointments that were scheduled t o occur 6 months from the date of the Encounter, up to a maximum of 20 appointme nts. The data comes from all [facility]. Appointment Date/Time Appointment Type Appointment Facili ty Name Nov 24, 2020 08:00 AM AMBULATORY - NONE [facility] Dec 03, 2020 11:00 AM AMBULATORY - MEDICINE [facility] Dec 15, 2020 07:00 AM AMBULATORY - NONE [facility] Jan 05, 2021 10:30 AM AMBULATORY NONE [facility] Jan 26, 2021 08:00 AM AMBULATORY NONE [facility] Feb 18, 2021 03:00 PM AMBULATORY - MEDICINE [facility] Mar 21, 2021 09:30 AM AMBULATORY NONE [facility] Mar 21, 2021 04:00 PM AMBULATORY MEDICINE [facility] Mar 24, 2021 11:00 AM [facility] MEDICINE [facility] Active, Pending, and Scheduled Orders [...] Encounter. The data comes from all [facility]. Test Date/Time Test Type Test Details Facility Name Dec 13, 2020 02:49 PM Consult Order Urology/Opt UROLOG Y OUTPATIENT Cons Woodworking Bench Carpenter's Choice [facility] Surgical Procedures: All associated to [...] Encounter Note(s) Provider Source Nov 17, 2020 12:00 AM NONVA CONSULT: LOCAL TITLE: COMMUNITY CARE-CONSULT RESULT NOTE STANDARD TITLE: NONVA CONSULT DATE OF NOTE: NOV 17, 2020 ENTRY DATE: DEC 16, 2020@11:04:41 AUTHOR: STEPHANIE MARRERO COSIGNER: URGENCY: STATUS: COMPLETED [facility] - Scanned Document HEATH 06.30.21 VISIT /lizzy/ STEPHANIE MARRERO HEALTH INFORMATION MGT SERVICE Signed: 12/16/2020 11:04 STEPHANIE MARRERO [facility]
--- OUTSIDE RECORDS SUMMARY | 2021-01-26 11:34 | XMS REPORT | Encounter Summary ---
[facility] Address Unknown Phone Unavailable Care Team Providers Care Electric Pile Driver Operator Name Role Phone MARGARITA TORRES PCP Unavailable [...] PLAN G Aug 19, 2018 PLAN G [id number] SALVADOR CLEARY PATIENT MEDICARE (WNR) MEDICARE (M) PART A Aug 19, 2018 PART A [id number] [id number] EVINSALVADOR PATIENT MEDICARE (WNR) MEDICARE (M) PART B Aug 19, 2018 PART B [id number] SALVADOR CLEARY PATIENT MEDICARE (WNR) MEDICARE (M) PART A Aug 19, 2018 PART A [id number] EVINSALVADOR PATIENT MEDICARE (WNR) MEDICARE (M) PART B Aug 19, 2018 PART B [id number] EVINSALVADOR PATIENT MEDICARE PART D (WNR) MEDICARE (M) PART D Aug 19, 2018 PART D [id number] EVINSALVADOR PATIENT MEDICARE PART D (WNR) MEDICARE (M) PART D Aug 19, 2018 PART D [id number] CLEARYSALVADOR PATIENT Selected Encounter This section includes the information on record at [place] for the Encounter. Date/Time Encounter Type Encounter Description Reason Provider Source Sep 10, 2020 10:22 AM Outpatient Encounter OPTOMETRY IHE Encounter Template Text not used by [place] Assessments - Encounter Diagnoses No Data Provided for This Section Plan of Treatment: Future Appointments (+ 6 months) and Future Tests (+/- 45 day s) The Plan of Treatment section includes future care activities for the patient fr om all [place] treatment facilities. This section includes future appointments and fu ture orders which are active, pending or scheduled. Future Appointments This section includes appointments that were scheduled t o occur 6 months from the date of the Encounter, up to a maximum of 20 appointme nts. The data comes from all [facility]. Appointment Date/Time Appointment Type Appointment Facili ty Name Nov 03, 2020 08:00 AM AMBULATORY - NONE [facility] Nov 03, 2020 11:00 AM AMBULATORY MEDICINE [facility] Nov 24, 2020 08:00 AM AMBULATORY - NONE [facility] Dec 03, 2020 11:00 AM AMBULATORY MEDICINE [facility] Dec 15, 2020 07:00 AM AMBULATORY - NONE [facility] Jan 05, 2021 10:30 AM AMBULATORY - NONE [facility] Jan 26, 2021 08:00 AM AMBULATORY - NONE [facility] Feb 18, 2021 03:00 PM AMBULATORY - MEDICINE [facility] Surgical Procedures: All associated to the [...] the Encounter. Date/Time Encounter Note(s) Provider Source Sep 10, 2020 10:22 AM SCANNED REPORT: LOCAL TITLE: OUTSIDE RECORDS/EYE STANDARD TITLE: SCANNED REPORT DATE OF NOTE: SEP 10, 2020@10:22 ENTRY DATE: SEP 10, 2020@10:22:42 AUTHOR: NOEMY GOLDBERG EXP COSIGNER: URGENCY: STATUS: COMPLETED Eye Exam note from [facility], 03/24/20. A/P: cataract both eyes, no surgery advised at this time. diabetes without complications. dry eye syndrome. Diab Fundu Exam 2Y Medication Tech: Patient had Funduscopic Eye Exam previously. Exam Result: Normal Date: March 24, 2020 /lizzy/ NOEMY GOLDBERG, OD RN BIRTHING Signed: 09/10/2020 10:26 NOEMY GOLDBERG [facility]
--- OUTSIDE RECORDS SUMMARY | 2021-01-26 11:34 | XMS REPORT | Encounter Summary ---
Author Author Department of [facility] SALVADOR hwang Organization Department of [facility] rs Address Unknown Phone Unavailable Care Team Providers Care Rn Wound Name Role Phone MARGARITA TORRES PCP Unavailable [...] PLAN G Aug 19, 2018 PLAN G [id number] EVINSALVADOR PATIENT MEDICARE (WNR) MEDICARE (M) PART A Aug 19, 2018 PART A [id number] [phone] EVINSALVADOR PATIENT MEDICARE (WNR) MEDICARE (M) PART B Aug 19, 2018 PART B [id number] [phone] EVINSALVADOR PATIENT MEDICARE (WNR) MEDICARE (M) PART A Aug 19, 2018 PART A [id number] EVINSALVADOR PATIENT MEDICARE (WNR) MEDICARE (M) PART B Aug 19, 2018 PART B [id number] EVINSALVADOR PATIENT MEDICARE PART D (WNR) MEDICARE (M) PART D Aug 19, 2018 PART D [id number] EVINSALVADOR PATIENT MEDICARE PART D (WNR) MEDICARE (M) PART D Aug 19, 2018 PART D [id number] SALVADOR CLEARY PATIENT Selected Encounter This section includes the information on record at [place] for the Encounter. Date/Time Encounter Type Encounter Description Reason Provider Source September 23, 2020 02:45 PM Outpatient Encounter ADMIN PAT ACTIVTIES (KY[facility] BURROUGHS) IHE Encounter Template Text not used by [place] Assessments - Encounter Diagnoses No Data Provided for This Section Plan of Treatment: Future Appointments (+ 6 months) and Future Tests (+/- 45 day s) The Plan of Treatment section includes future care activities for the patient fr om all [place] treatment facilities. This section includes future appointments and fu ture orders which are active, pending or scheduled. Future Appointments This section includes appointments that were scheduled t o occur 6 months from the date of the Encounter, up to a maximum of 20 appointme nts. The data comes from all [place] treatment [facility]. Appointment Date/Time Appointment Type Appointment Facili ty Name Nov 03, 2020 08:00 AM AMBULATORY - NONE [facility] Nov 03, 2020 11:00 AM [facility]INE [facility] Nov 24, 2020 08:00 AM AMBULATORY - NONE [facility] Dec 03, 2020 11:00 AM [facility]ULATORY - [facility]ICINE [facility] Dec 15, 2020 07:00 AM AMBULATORY - NONE [facility] Jan 05, 2021 10:30 AM AMBULATORY - NONE [facility] Jan 26, 2021 08:00 AM AMBULATORY - NONE [facility] Feb 18, 2021 03:00 PM AMBULATORY - MEDICINE [facility] Mar 21, 2021 09:30 AM [facility]ONE [facility] Mar 21, 2021 04:00 PM AMBULATORY - MEDICINE [facility] Mar 24, 2021 11:00 AM AMBULATORY - MEDICINE [facility] Surgical Procedures: All associated to [...] the Encounter. Date/Time Encounter Note(s) Provider Source September 23, 2020 02:45 PM ADMINISTRATIVE NOTE: LOCAL TITLE: ADMINISTRATIVE NOTE STANDARD TITLE: ADMINISTRATIVE NOTE DATE OF NOTE: SEPTEMBER 23, 2020@14:45 ENTRY DATE: SEPTEMBER 23, 2020@14:45:58 AUTHOR: HUMBLE SNYDER COSIGNER: URGENCY: STATUS: COMPLETED ADMINISTRATIVE NOTE Has ADDENDA 1. calling in requesting new con sult be placed for below, states that auth expires 09/27/20 and has an appt 12/15/20 @ 120. NON-VA PROVIDER CONTACT INFORMATION: Provider Name: COSTA LOVING 2. Requesting new Urology consult be franklyn nic as well, auth expires 11/16/20 and has appt 11/24/20 @ 10. May be reached at . /lizzy/ [facility]BLE [facility]DER [facility] Signed: 09/23/2020 14:52 Receipt Acknowledged By: 10/01/2020 12:28 /lizzy/ MAGNUS Rodriges RN 10/01/2020 ADDENDUM STATUS: COMPLETED Pull placed to f/u with consults closer to dates of appts. /lizzy/ MAGNUS HAYES RN Signed: 10/01/2020 12:28 [facility]
--- OUTSIDE RECORDS SUMMARY | 2021-01-26 11:34 | XMS REPORT ---
Author Author Department of [facility] SALVADOR hwang Organization Department of [facility] rs Address Unknown Phone Unavailable Care Team Providers Care Crusher And Blender Operator Name Role Phone MARGARITA TORRES PCP [...] PLAN G Aug 19, 2018 PLAN G [id number] EVINSALVADOR PATIENT MEDICARE (WNR) MEDICARE (M) PART A Aug 19, 2018 PART A [id number] 60A [phone] EVINSALVADOR PATIENT MEDICARE (WNR) MEDICARE (M) PART B Aug 19, 2018 PART B [id number] [phone] EVINSALVADOR PATIENT MEDICARE (WNR) MEDICARE (M) PART A Aug 19, 2018 PART A [id number] EVINSALVADOR PATIENT MEDICARE (WNR) MEDICARE (M) PART B Aug 19, 2018 PART B [id number] EVINSALVADOR PATIENT MEDICARE PART D (WNR) MEDICARE (M) PART D Aug 19, 2018 PART D [id number] EVINSALVADOR PATIENT MEDICARE PART D (WNR) MEDICARE (M) PART D Aug 19, 2018 PART D [id number] SALVADOR CLEARY PATIENT Selected Encounter This section includes the information on record at [place] for the Encounter. Date/Time Encounter Type Encounter Description Reason Provider Source September 23, 2020 02:52 PM Outpatient Encounter ADMIN PAT ACTIVTIES (KYM BURROUGHS) IHE Encounter Template Text not used by [place] Assessments - Encounter Diagnoses No Data Provided for This Section Plan of Treatment: Future Appointments (+ 6 months) and Future Tests (+/- 45 day s) The Plan of Treatment section includes future care activities for the patient fr om all [place] treatment facilities. This section includes future appointments and fu ture orders which are active, pending or scheduled. Future Appointments This section includes appointments that were scheduled t o occur 6 months from the date of the Encounter, up to a maximum of 20 appointme nts. The data comes from all [place] treatment [facility]. Appointment Date/Time Appointment Type Appointment Facili ty Name Nov 03, 2020 08:00 AM AMBULATORY - NONE [facility] Nov 03, 2020 11:00 AM AMBULATORY - MEDICINE [facility] Nov 24, 2020 08:00 AM AMBULATORY - NONE [facility] Dec 03, 2020 11:00 AM AMBULATORY - MEDICINE [facility] Dec 15, 2020 07:00 AM AMBULATORY - NONE [facility] Jan 05, 2021 10:30 AM AMBULATORY - NONE [facility] Jan 26, 2021 08:00 AM AMBULATORY - NONE [facility] Feb 18, 2021 03:00 PM AMBULATORY - MEDICINE [facility] Mar 21, 2021 09:30 AM [facility] Mar 21, 2021 04:00 PM AM[facility]ULATORY - MEDICINE [facility] Mar 24, 2021 11:00 AM AMBULATORY - MEDICINE [facility] Surgical Procedures: All associated to the [...] Encounter Note(s) Provider Source September 23, 2020 02:52 PM ADMINISTRATIVE NOTE: LOCAL TITLE: ADMINISTRATIVE NOTE STANDARD TITLE: ADMINISTRATIVE NOTE DATE OF NOTE: SEPTEMBER 23, 2020@14:52 ENTRY DATE: SEPTEMBER 23, 2020@14:53:02 AUTHOR: HUMBLE SNYDER COSIGNER: URGENCY: STATUS: COMPLETED Clinical Contact/Call Center COVID 19 SCREEN UPDATE_2_August 2020 Screen version 7.1 Record the patient's [...] () Yes () No Comment(s): No Symptoms x Within the last 14 days, have you had: Close exposure (within 6 feet for than 15 minutes) to someone with a febrile/respiratory illness () Yes (x) NO Comment(s): Close exposure (within 6 feet for than 15 minutes) to someone with known or suspected case of COVID-19 () Yes (x)No known exposure Comment(s): Any symptom or exposure equal to positive screen: Patient has a POSITIVE symptom or exposure and requires further evaluation Nurse/Provider/Other notified () Yes (x) NO Comments(s): Screen is negative (x) Patient is waiting on COVID-19 test results: () Yes (x) No Comment(s): Patient reports prior COVID-19 Diagnosis: () Yes (x) No /lizzy/ HUMBLE OAKES - [facility] Signed: 09/23/2020 14:53 HUMBLE SNYDER [facility]
--- OUTSIDE RECORDS SUMMARY | 2021-01-26 11:35 | XMS REPORT | Encounter Summary ---
Author Author Department of [facility] SALVADOR hwang Organization Department of [facility] rs Address Unknown Phone Unavailable Care Team Providers Care Choir Director Name Role Phone MARGARITA PAGE PCP Unavailable [...] PLAN G Aug 19, 2018 PLAN G [id number] EVINSALVADOR PATIENT MEDICARE (WNR) MEDICARE (M) PART A Aug 19, 2018 PART A [id number] 60A [phone] EVINSALVADOR PATIENT MEDICARE (WNR) MEDICARE (M) PART B Aug 19, 2018 PART B [id number] 60A [phone] EVINSALVADOR PATIENT MEDICARE (WNR) MEDICARE (M) PART A Aug 19, 2018 PART A [id number] EVINSALVADOR PATIENT MEDICARE (WNR) MEDICARE (M) PART B Aug 19, 2018 PART B [id number] EVINSALVADOR PATIENT MEDICARE PART D (WNR) MEDICARE (M) PART D Aug 19, 2018 PART D [id number] EVINSALVADOR PATIENT MEDICARE PART D (WNR) MEDICARE (M) PART D Aug 19, 2018 PART D [id number] SALVADOR CLEARY PATIENT Selected Encounter This section includes the information on record at [place] for the Encounter. Date/Time Encounter Type Encounter Description Reason Provider Source Sep 01, 2020 10:01 AM Outpatient Encounter ADMIN PAT ACTIVTIES (KYM [...] appointme nts. The data comes from all [facility]. Appointment Date/Time Appointment Type Appointment Facili ty Name Nov 03, 2020 08:00 AM AMBULATORY - NONE [facility] Nov 03, 2020 11:00 AM AMBULATORY MEDICINE [facility] Nov 24, 2020 08:00 AM AMBULATORY - NONE [facility] Dec 03, 2020 11:00 AM AMBULATORY MEDICINE [facility] Dec 15, 2020 07:00 AM AMBULATORY - NONE [facility] Jan 05, 2021 10:30 AM AMBULATORY - NONE [facility] Jan 26, 2021 08:00 AM AMBULATORY NONE [facility] Feb 18, 2021 03:00 PM AMBULATORY - MEDICINE [facility] Surgical Procedures: All associated to the [...] the Encounter. The data comes from all [place] treatment facilities. Date/Time Pathology Report Provider Source Aug 06, 2020 03:01 PM LR SURGICAL PATHOLOGY REPORT : LOCAL TITLE: LR SURGICAL PATHOLOGY REPORT STANDARD TITLE: PATHOLOGY REPORT DATE OF NOTE: AUG 06, 2020@15:01:07 ENTRY DATE: AUG 06, 2020@15:01:07 AUTHOR: JOSH PRICE EXP COSIGNER: URGENCY: STATUS: COMPLETED $APHDR - - [...] - - - - $TEXT Submitted by: [facility] Date obtained: Jul 19, 2020 - - [...] - - - - - Received from [facility] in [place], [place] are 16 slides labeled with "[id number]", the patient's initials, and facility of origin. Also included is a pathology report identified with "[id number]", the patient's name and demographics, and facility of origin. Microscopic examination is performed. I agree with the diagnosis of prostatic adenocarcinoma, as reported by Dr. Butler and transcribed below. A copy of the original report will be scanned into [employer]. Diagnosis: 1. Right base prostate biopsy medial: Adenocarcinoma, Carpenter grade 4+3 equals score of 7 (grade group 3), in one of one core, involving 60% of specimen in discontinuous foci. 2. Right base prostate biopsy lateral: Adenocarcinoma, Isabel grade 4+3 equals score of 7 (grade group 3), and one of one core, involving 50% of tissue in discontinuous foci. Perineural invasion present. 3. Right mid-prostate biopsy medial: Adenocarcinoma, Isabel grade 4+3 equals score of 7 (grade group 3), in one of one core, involving 90% of tissue. 4. Right mid-prostate biopsy lateral: Adenocarcinoma, Carpenter grade 4+3 equals score of 7 (grade group 3), in one of one core, involving 90% of specimen. Perineural invasion present. 5. Right apex prostate biopsy medial: Adenocarcinoma, Carpenter grade 4+5 equals score of 9 (grade group 5), in one of one core, involving 95% of specimen. Perineural invasion present. 6. Right apex prostate biopsy lateral: Adenocarcinoma, Isabel grade 4+5 equals score of 9 (grade group 5), in one of one core, involving 70% of specimen. 7. Left base prostate biopsy medial: Adenocarcinoma, Carpenter grade 4+3 equals score of 7 (grade group 3), in one of one core, involving 90% of specimen. 8. Left base prostate biopsy lateral: Adenocarcinoma, Isabel grade 4+3 equals score of 7 (grade group 3), in one of one core, involving 30% of specimen in discontinuous foci. 9. Left mid-prostate biopsy medial: Adenocarcinoma, Isabel grade 4+3 equals score of 7 (grade group 3), in one of one core, involving 50% of specimen. 10. Left mid-prostate biopsy lateral: Adenocarcinoma, Carpenter grade 4+4 equals score of 8 (grade [...] is corrected here as grade group 5 (Isabel 4+5=9). Isabel score for part 12 stated in the original report as "4+3=score of 7 (grade group 2)" is corrected here as "3+4=score of 7 (grade group 2)." These are typographical corrections only and do not affect clinical interpretation of the overall case. /es/ JOSH PRICE MD, FCAP PATHOLOGIST Signed Aug 06, 2020@15:01 Performing Laboratory: Surgical Pathology Report Performed By: [facility] [CLIA# [id number]] [address] $FTR - - - - - [...] - - SALVADOR CLEARY STANDARD FORM 515 ID:[id number] SEX:M :1955 AGE: 64 LOC:[facility] PCP: Margarita Page /lizzy/ JOSH PRICE MD, FCAP PATHOLOGIST Signed: 08/06/2020 15:01 JOSH PRICE [facility] Encounter Notes: All associated encounter notes This section contains the clinical notes associated to the Encounter. Date/Time Encounter Note(s) Provider Source Sep 01, 2020 10:03 AM ADMINISTRATIVE NOTE: LOCAL TITLE: HIPAA PRIVACY RELEASE STANDARD TITLE: ADMINISTRATIVE NOTE DATE OF NOTE: SEP 01, 2020@10:03 ENTRY DATE: SEP 01, 2020@10:03:24 AUTHOR: STEPHANIE ROBERSON EXP COSIGNER: URGENCY: STATUS: COMPLETED Verbal consent obtained. Date: Aug This release is in effect for a period of 1 year. The following type of information may be discussed: other:all People authorized to receive above information: sister Gallo [phone] I give permission to provide medical information, my home address, and my phone number in the coordination of my home health care: YES I give permission for message (including medical information) to be left on my answering machine: Yes /lizzy/ [facility] Signed: 09/01/2020 10:03 STEPHANIE ROBERSON [facility] Sep 01, 2020 10:01 AM ADMINISTRATIVE NOTE: LOCAL TITLE: ADMINISTRATIVE NOTE STANDARD TITLE: ADMINISTRATIVE NOTE DATE OF NOTE: SEP 01, 2020@10:01 ENTRY DATE: SEP 01, 2020@10:02:02 AUTHOR: STEPHANIE ROBERSON EXP COSIGNER: URGENCY: STATUS: COMPLETED calling to request renewal of tamsulosin (renewal submitted). Please call if this can't be renewed. Can be reached at /lizzy/ STE[facility]ANIE ROBERSON [facility] Signed: 09/01/2020 10:02 Receipt Acknowledged By: * AWAITING SIGNATURE * MAGNUS HAYESSTEPHANIE [facility]
--- OUTSIDE RECORDS SUMMARY | 2021-01-26 11:35 | XMS REPORT | Encounter Summary ---
Author Author Department [facility] SALVADOR hwang Organization Department of [facility] Address Unknown Phone Unavailable Care Team Providers Care Senior Logistics Manager Name Role Phone MARGARITA TORRES PCP [...] PLAN G Aug 19, 2018 PLAN G [id number] CLEARYSALVADOR PATIENT MEDICARE (WNR) MEDICARE (M) PART A Aug 19, 2018 PART A [id number] 60A [phone] CLEARYSALVADOR PATIENT MEDICARE (WNR) MEDICARE (M) PART B Aug 19, 2018 PART B [id number] 60A [phone] EVINSALVADOR PATIENT MEDICARE (WNR) MEDICARE (M) PART A Aug 19, 2018 PART A [id number] EVINSALVADOR PATIENT MEDICARE (WNR) MEDICARE (M) PART B Aug 19, 2018 PART B [id number] CLEARYSALVADOR PATIENT MEDICARE PART D (WNR) MEDICARE (M) PART D Aug 19, 2018 PART D [id number] SALVADOR CLEARY PATIENT MEDICARE PART D (WNR) MEDICARE (M) PART D Aug 19, 2018 PART D [id number] SALVADOR CLEARY PATIENT Selected Encounter This section includes the information on record at [place] for the Encounter. Date/Time Encounter Type Encounter Description Reason Provider Source Sep 10, 2020 12:00 AM Outpatient Encounter EVENT (HISTORICAL) IHE Encounter Template Text not used by [place] Assessments - Encounter Diagnoses No Data Provided for This Section Plan of Treatment: Future Appointments (+ 6 months) and Future Tests (+/- 45 day s) The Plan of Treatment section includes future care activities for the patient fr om all [place] treatment facilities. This section includes future appointments and fu ture orders which are active, pending or scheduled. Future Appointments This section includes appointments that were scheduled t o occur 6 months from the date of the Encounter, up to a maximum of 20 appointme nts. The data comes from all [facility]. Appointment Date/Time Appointment Type Appointment Facili ty Name Nov 03, 2020 08:00 AM AMBULATORY - NONE [facility] Nov 03, 2020 11:00 AM AMBULATORY MEDICINE [facility] Nov 24, 2020 08:00 AM AMBULATORY - NONE [facility] Dec 03, 2020 11:00 AM AMBULATORY MEDICINE [facility] Dec 15, 2020 07:00 AM AMBULATORY NONE [facility] Jan 05, 2021 10:30 AM AMBULATORY NONE [facility] Jan 26, 2021 08:00 AM AMBULATORY NONE [facility] Feb 18, 2021 03:00 PM AMBULATORY MEDICINE [facility] Surgical Procedures: All associated to the encounter No Data Provided for This Section Lab Results: +/- 30 days of the encounter No Data Provided for This Section Vital Signs: All taken on the encounter date No Data Provided for This Section Immunizations: All administered on the encounter date This section contains immunizations associated to the Encounter. Immunization Series Date Issued Reaction Comments COVID-19 ([employer]), MRNA, LNP-S, PF, 30 MCG/0.3 ML DOSE 2 Sep 10, 2020 Social History: Smoking Status (Most current) and [...] Section Encounter Notes: All associated encounter notes No Data Provided for This Section
--- OUTSIDE RECORDS SUMMARY | 2021-01-26 11:35 | XMS REPORT | Encounter Summary ---
Author [facility] Organization Department of [facility] Address Unknown Phone Unavailable Care Team Providers Care Truck Loader And Unloader Name Role Phone MARGARITA PAGE PCP Unavailable [...] PLAN G Aug 19, 2018 PLAN G [id number] EVINSALVADOR PATIENT MEDICARE (WNR) MEDICARE (M) PART A Aug 19, 2018 PART A [id number] [phone] EVINSALVADOR PATIENT MEDICARE (WNR) MEDICARE (M) PART B Aug 19, 2018 PART B [id number] [phone] EVINSALVADOR PATIENT MEDICARE (WNR) MEDICARE (M) PART A Aug 19, 2018 PART A [id number] EVINSALVADOR PATIENT MEDICARE (WNR) MEDICARE (M) PART B Aug 19, 2018 PART B [id number] EVINSALVADOR PATIENT MEDICARE PART D (WNR) MEDICARE (M) PART D Aug 19, 2018 PART D [id number] EVINSALVADOR PATIENT MEDICARE PART D (WNR) MEDICARE (M) PART D Aug 19, 2018 PART D [id number] SALVADOR CLEARY PATIENT Selected Encounter This section includes the information on record at [place] for the Encounter. Date/Time Encounter Type Encounter Description Reason Provider Source Sep 02, 2020 12:00 AM Outpatient Encounter COMMUNITY CARE CONSULT IHE Encounter Template Text not used by [place] Assessments - Encounter Diagnoses No Data Provided for This Section Plan of Treatment: Future Appointments (+ 6 months) and Future Tests (+/- 45 day s) The Plan of Treatment section includes future care activities for the patient fr om all [place] treatment facilities. This section includes future appointments and fu ture orders which are active, pending or scheduled. Future Appointments This section includes appointments that were scheduled t o occur 6 months from the date of the Encounter, up to a maximum of 20 appointme nts. The data comes from all [facility]. Appointment Date/Time Appointment Type Appointment Facili ty Name Nov 03, 2020 08:00 AM AMBULATORY - NONE [facility] Nov 03, 2020 11:00 AM AMBULATORY MEDICINE [facility] Nov 24, 2020 08:00 AM AMBULATORY - NONE [facility] Dec 03, 2020 11:00 AM AMBULATORY MEDICINE [facility] Dec 15, 2020 07:00 AM AMBULATORY - NONE [facility] Jan 05, 2021 10:30 AM AMBULATORY NONE [facility] Jan 26, 2021 08:00 AM AMBULATORY NONE [facility] Feb 18, 2021 03:00 PM AMBULATORY MEDICINE [facility] Surgical Procedures: All associated to the encounter [...] the Encounter. The data comes from all [place] treatment facilities. Date/Time Pathology Report Provider Source [...] - - - - $TEXT Submitted by: [facility] [place] Date obtained: Jul 19, 2020 - - [...] - - - - Received from [facility] in [place], [place] are 16 slides labeled with "[id number]", the patient's initials, and facility of origin. Also included is a pathology report identified with "[id number]", the patient's name and demographics, and facility of origin. Microscopic examination is performed. I agree with the diagnosis of prostatic adenocarcinoma, as reported by Dr. Butler and transcribed below. A copy of the original report will be scanned into [employer]. Diagnosis: 1. Right base prostate biopsy medial: Adenocarcinoma, [place] grade 4+3 equals score of 7 (grade [...] tissue. 4. Right mid-prostate biopsy lateral: Adenocarcinoma, [place] grade 4+3 equals score of 7 (grade group 3), in one of one core, involving 90% of specimen. Perineural invasion present. 5. Right apex prostate biopsy medial: Adenocarcinoma, [place] grade 4+5 equals score of 9 (grade group 5), in one of one core, involving 95% of specimen. Perineural invasion present. 6. Right apex prostate biopsy lateral: Adenocarcinoma, [place] grade 4+5 equals score of 9 (grade group 5), in one of one core, involving 70% of specimen. 7. Left base prostate biopsy medial: Adenocarcinoma, [place] grade 4+3 equals score of 7 (grade group 3), in one of one core, involving 90% of specimen. 8. Left base prostate biopsy lateral: Adenocarcinoma, [place] grade 4+3 equals score of 7 (grade group 3), in one of one core, involving 30% of specimen in discontinuous foci. 9. Left mid-prostate biopsy medial: Adenocarcinoma, [place] grade 4+3 equals score of 7 (grade group 3), in one of one core, involving 50% of specimen. 10. Left mid-prostate biopsy lateral: Adenocarcinoma, [place] grade 4+4 equals score of 8 (grade group 4), in one of one core, involving less than 5% of specimen in discontinuous foci. 11. Left apex prostate biopsy medial: Adenocarcinoma, [place] grade 4+4 = score of 8 (grade [...] here as grade group 5 (Isabel 4+5=9). [place] score for part 12 stated in the original report as "4+3=score of 7 (grade group 2)" is corrected here as "3+4=score of 7 (grade group 2)." These are typographical corrections only and do not affect clinical interpretation of the overall case. /lizzy/ JOSH PRICE MD, FCAP PATHOLOGIST Signed Aug 06, 2020@15:01 Performing Laboratory: Surgical Pathology Report Performed By: [facility] [CLIA# [id number]] [address] $FTR - - [...] - - SALVADOR CLEARY STANDARD FORM 515 ID:[id number] SEX:M :1955 AGE: 64 LOC:[facility] PCP: Margarita Page /lizzy/ JOSH PRICE MD, FCAP PATHOLOGIST Signed: 08/06/2020 15:01 JOSH PRICE [facility] Encounter Notes: All associated encounter notes This section contains the clinical notes associated to the Encounter. Date/Time Encounter Note(s) Provider Source Sep 02, 2020 12:00 AM NONVA CONSULT: LOCAL TITLE: COMMUNITY CARE-CONSULT RESULT NOTE STANDARD TITLE: NONVA CONSULT DATE OF NOTE: SEP 02, 2020 ENTRY DATE: SEP 16, 2020@19:55:02 AUTHOR: KINGSLEY GARCIA EXP COSIGNER: URGENCY: STATUS: COMPLETED VistA Imaging - Scanned Document [facility] Visit 09/02/20 /lizzy/ KINGSLEY GARCIA RAILROAD SURVEYOR-WET PROCESS HEAD MILLER Signed: 09/16/2020 19:55 KINGSLEY GARCIA [facility]
--- OUTSIDE RECORDS SUMMARY | 2021-01-26 11:36 | XMS REPORT | Encounter Summary ---
Author [facility] Address Unknown Phone Unavailable Care Team Providers Care Cookie Breaker Name Role Phone MARGARITA PAGE PCP Unavailable [...] PLAN G Aug 19, 2018 PLAN G [id number] EVINSALVADOR PATIENT MEDICARE (WNR) MEDICARE (M) PART A Aug 19, 2018 PART A [id number] 60A [phone] EVINSALVADOR PATIENT MEDICARE (WNR) MEDICARE (M) PART B Aug 19, 2018 PART B [id number] 60A [phone] EVINSALVADOR PATIENT MEDICARE (WNR) MEDICARE (M) PART A Aug 19, 2018 PART A [id number] EVINSALVADOR PATIENT MEDICARE (WNR) MEDICARE (M) PART B Aug 19, 2018 PART B [id number] EVINSALVADOR PATIENT MEDICARE PART D (WNR) MEDICARE (M) PART D Aug 19, 2018 PART D [id number] EVINSALVADOR PATIENT MEDICARE PART D (WNR) MEDICARE (M) PART D Aug 19, 2018 PART D [id number] SALVADOR CLEARY PATIENT Selected Encounter This section includes the information on record at [place] for the Encounter. Date/Time Encounter Type Encounter Description Reason Provider Source Aug 13, 2020 04:07 PM Outpatient Encounter TELEPHONE/ANCILLARY JEN RAYMOND IHE Encounter Template Text not used by [place] Assessments - Encounter Diagnoses No Data Provided for This Section Plan of Treatment: Future Appointments (+ 6 months) and Future Tests (+/- 45 day s) The Plan of Treatment section includes future care activities for the patient fr om all [place] treatment facilities. This section includes future appointments and fu ture orders which are active, pending or scheduled. Future Appointments This section includes appointments that were scheduled t o occur 6 months from the date of the Encounter, up to a maximum of 20 appointme nts. The data comes from all [facility]. Appointment Date/Time Appointment Type Appointment Facili ty Name Nov 03, 2020 08:00 AM AMBULATORY - NONE [facility] Nov 03, 2020 11:00 AM AMBULATORY - MEDICINE [facility] Nov 24, 2020 08:00 AM AMBULATORY - NONE [facility] Dec 03, 2020 11:00 AM AMBULATORY MEDICINE [facility] Dec 15, 2020 07:00 AM AMBULATORY - NONE [facility] Jan 05, 2021 10:30 AM AMBULATORY - NONE [facility] Jan 26, 2021 08:00 AM AMBULATORY - NONE [facility] Surgical Procedures: All associated to [...] the Encounter. The data comes from all [place] treatment facilities. Date/Time Pathology Report Provider Source [...] - - - - $TEXT Submitted by: [facility] Date obtained: Jul 19, 2020 - - [...] - - - - - Received from [facility] in [place], [place] are 16 slides labeled with "[id number]", the patient's initials, and facility of origin. Also included is a pathology report identified with "[id number]", the patient's name and demographics, and facility of origin. Microscopic examination is performed. I agree with the diagnosis of prostatic adenocarcinoma, as reported by Dr. Butler and transcribed below. A copy of the original report will be scanned into [employer]. Diagnosis: 1. Right base prostate biopsy medial: Adenocarcinoma, [place] grade 4+3 equals score of 7 (grade group 3), in one of one core, involving 60% of specimen in discontinuous foci. 2. Right base prostate biopsy lateral: Adenocarcinoma, [place] grade 4+3 equals score of 7 (grade group 3), and one of one core, involving 50% of tissue in discontinuous foci. Perineural invasion present. 3. Right mid-prostate biopsy medial: Adenocarcinoma, [place] grade 4+3 equals score of 7 (grade group 3), in one of one core, involving 90% of tissue. 4. Right mid-prostate biopsy lateral: Adenocarcinoma, [place] grade 4+3 equals score of 7 (grade group 3), in one of one core, involving 90% of specimen. Perineural invasion present. 5. Right apex prostate biopsy medial: Adenocarcinoma, Isabel grade 4+5 equals score of [...] 8. Left base prostate biopsy lateral: Adenocarcinoma, [place] grade 4+3 equals score of 7 (grade group 3), in one of one core, involving 30% of specimen in discontinuous foci. 9. Left mid-prostate biopsy medial: Adenocarcinoma, [place] grade 4+3 equals score of 7 (grade group 3), in one of one core, involving 50% of specimen. 10. Left mid-prostate biopsy lateral: Adenocarcinoma, [place] grade 4+4 equals score of 8 (grade group 4), in one of one core, involving less than 5% of specimen in discontinuous foci. 11. Left apex prostate biopsy medial: Adenocarcinoma, [place] grade 4+4 = score of 8 (grade [...] Performing Laboratory: Surgical Pathology Report Performed By: [facility] [CLIA# [id number]] [address] $FTR - [...] - - SALVADOR CLEARY STANDARD FORM 515 ID:[id number] SEX:M :1955 AGE: 64 LOC:[facility] PCP: Margarita Page /lizzy/ JOSH PRICE MD, FCAP PATHOLOGIST Signed: 08/06/2020 15:01 JOSH PRICE [facility] Encounter Notes: All associated encounter notes This section contains the clinical notes associated to the Encounter. Date/Time Encounter Note(s) Provider Source Aug 13, 2020 04:07 PM PHARMACY NOTE: LOCAL TITLE: PHARMACY COMMUNITY CARE PRESCRIPTIONS STANDARD TITLE: PHARMACY NOTE DATE OF NOTE: AUG 13, 2020@16:07 ENTRY DATE: AUG 13, 2020@16:07:52 AUTHOR: JEN RAYMOND EXP COSIGNER: URGENCY: STATUS: COMPLETED See attached scanned document(s). The following Fee Basis prescriptions were received by Pharmacy Service. These prescriptions were received from: ([facility] Upon clinical/administrative review and pharmacist verification, the below prescription(s) will be processed as appropriate (specify drug name, strength, and quantity): [id number]$ SEMAGLUTIDE 0.5MG/0.375ML INJ PEN 1.5ML N> 08-12 3 28 Qty: 1 One or more of these prescriptions require prior authorization and are pending pharmacist review (see Pharmacy Community Provider PADR Consult for details). Paste medication name(s): SEMAGLUTIDE 0.5MG/0.375ML INJ PEN 1.5ML /lizzy/ JEN RAYMOND WEEKEND ANCHOR-EVIE Signed: 08/13/2020 16:12 JEN RAYMOND [facility]
--- OUTSIDE RECORDS SUMMARY | 2021-01-26 11:36 | XMS REPORT | Encounter Summary ---
Author Author [facility] SALVADOR hwang Organization [facility] rs Address Unknown Phone Unavailable Care Team Providers Care Fitness Coach Name Role Phone MARGARITA PAGE PCP Unavailable [...] ID Insurance Provider's Telephone N umber Policy Matais's Name Patient's Relationship to Policy Matias AARP MEDIGAP PLAN G PLAN G Aug 19, 2018 PLAN G [id number] EVINSALVADOR PATIENT MEDICARE (WNR) MEDICARE (M) PART A Aug 19, 2018 PART A [id number] [phone] EVINSALVADOR PATIENT MEDICARE (WNR) MEDICARE (M) PART B Aug 19, 2018 PART B [id number] [phone] EVINSALVADOR PATIENT MEDICARE (WNR) MEDICARE (M) PART A Aug 19, 2018 PART A [id number] EVINSALVADOR PATIENT MEDICARE (WNR) MEDICARE (M) PART B Aug 19, 2018 PART B [id number] EVINSALVADOR PATIENT MEDICARE PART D (WNR) MEDICARE (M) PART D Aug 19, 2018 PART D [id number] EVINSALVADOR PATIENT MEDICARE PART D (WNR) MEDICARE (M) PART D Aug 19, 2018 PART D [id number] SALVADOR CLEARY PATIENT Selected Encounter This section includes the information on record at [place] for the Encounter. Date/Time Encounter Type Encounter Description Reason Provider Source Aug 30, 2020 11:17 AM Outpatient Encounter ADMIN PAT ACTIVTIES ([facility]ROUG[facility]) IHE Encounter Template Text not used by [place] Assessments - Encounter Diagnoses No Data Provided for This Section Plan of Treatment: Future Appointments (+ 6 months) and Future Tests (+/- 45 day s) The Plan of Treatment section includes future care activities for the patient fr om all [place] treatment facilities. This section includes future appointments and fu ture orders which are active, pending or scheduled. Future Appointments This section includes appointments that were scheduled t o occur 6 months from the date of the Encounter, up to a maximum of 20 appointme nts. The data comes from all [facility]. Appointment Date/Time Appointment Type Appointment Facili ty Name Nov 03, 2020 08:00 AM AMBULATORY - NONE [facility] Nov 03, 2020 11:00 AM AMBULATORY - MEDICINE [facility] Nov 24, 2020 08:00 AM AMBULATORY - NONE [facility] Dec 03, 2020 11:00 AM AMBULATORY MEDICINE [facility] Dec 15, 2020 07:00 AM AMBULATORY - NONE [facility] Jan 05, 2021 10:30 AM AMBULATORY - NONE [facility] Jan 26, 2021 08:00 AM AMBULATORY NONE [facility] Feb 18, 2021 03:00 PM AMBULATORY - MEDICINE [facility] Surgical Procedures: All associated to the [...] the Encounter. The data comes from all [place] treatment facilities. Date/Time Pathology Report Provider Source [...] - - - - $TEXT Submitted by: [facility] Date obtained: Jul 19, 2020 - - [...] - - - - - Received from [facility] in [place], [place] are 16 slides labeled with "[id number]", the patient's initials, and facility of origin. Also included is a pathology report identified with "[id number]", the patient's name and demographics, and facility of origin. Microscopic examination is performed. I agree with the diagnosis of prostatic adenocarcinoma, as reported by Dr. Butler and transcribed below. A copy of the original report will be scanned into [employer]. Diagnosis: 1. Right base prostate biopsy medial: Adenocarcinoma, [place] grade 4+3 equals score of 7 (grade [...] tissue. 4. Right mid-prostate biopsy lateral: Adenocarcinoma, [place] grade 4+3 equals score of 7 (grade group 3), in one of one core, involving 90% of specimen. Perineural invasion present. 5. Right apex prostate biopsy medial: Adenocarcinoma, [place] grade 4+5 equals score of 9 (grade group 5), in one of one core, involving 95% of specimen. Perineural invasion present. 6. Right apex prostate biopsy lateral: Adenocarcinoma, [place] grade 4+5 equals score of 9 (grade group 5), in one of one core, involving 70% of specimen. 7. Left base prostate biopsy medial: Adenocarcinoma, [place] grade 4+3 equals score of 7 (grade [...] specimen. 10. Left mid-prostate biopsy lateral: Adenocarcinoma, [place] grade 4+4 equals score of 8 (grade [...] Performing Laboratory: Surgical Pathology Report Performed By: [facility] [CLIA# [id number]] [address] $FTR - - - - - [...] - - SALVADOR CLEARY STANDARD FORM 515 ID:[id number] SEX:M :1955 AGE: 64 LOC:[facility] PCP: Margarita Page /tad PRICE MD, FCAP PATHOLOGIST Signed: 08/06/2020 15:01 JOSH PRICE [facility] Encounter Notes: All associated encounter notes This section contains the clinical notes associated to the Encounter. Date/Time Encounter Note(s) Provider Source Aug 30, 2020 11:17 AM ADMINISTRATIVE NOTE: LOCAL TITLE: COVID VACCINE SCHEDULING NOTE STANDARD TITLE: ADMINISTRATIVE NOTE DATE OF NOTE: AUG 30, 2020@11:17 ENTRY DATE: AUG 30, 2020@11:17:13 AUTHOR: DOMENICA CHAMPION EXP COSIGNER: URGENCY: STATUS: COMPLETED COVID VACCINE SCHEDULING NOTE Has ADDENDA Called patient to schedule COVID Vaccine appointment Left voicemail Message left please call [phone] COVID Pull appt made for follow-up Aug /tad CHAMPION SALES CONSULTING DIRECTOR Signed: 08/30/2020 11:18 08/30/2020 ADDENDUM STATUS: COMPLETED [facility] will get [facility] cpoy of his card to his team /lizzy/ CHEMO FERNÁNDEZ Signed: 08/30/2020 12:00 DOMENICA CHAMPION [facility]
--- OUTSIDE RECORDS SUMMARY | 2021-01-26 11:36 | XMS REPORT | Encounter Summary ---
[facility] Organization [facility] Address Unknown Phone Unavailable Care Team Providers Care Commercial Lawn Specialist Name Role Phone MARGARITA PAGE PCP Unavailable [...] PLAN G Aug 19, 2018 PLAN G [id number] SALVADOR CLEARY PATIENT MEDICARE (WNR) MEDICARE (M) PART A Aug 19, 2018 PART A [id number] 60A [phone] EVINSALVADOR PATIENT MEDICARE (WNR) MEDICARE (M) PART B Aug 19, 2018 PART B [id number] 60A [phone] SALVADOR CLEARY PATIENT MEDICARE (WNR) MEDICARE (M) PART A Aug 19, 2018 PART A [id number] SALVAODR CLEARY PATIENT MEDICARE (WNR) MEDICARE (M) PART B Aug 19, 2018 PART B [id number] EVINSALVADOR PATIENT MEDICARE PART D (WNR) MEDICARE (M) PART D Aug 19, 2018 PART D [id number] EVINSALVADOR PATIENT MEDICARE PART D (WNR) MEDICARE (M) PART D Aug 19, 2018 PART D [id number] SALVADOR CLEARY PATIENT Selected Encounter This section includes the information on record at [place] for the Encounter. Date/Time Encounter Type Encounter Description Reason Provider Source Aug 16, 2020 10:13 AM QNHP OL DIG ASSMT&MGMT 21+ CLINICAL PHARMA [place] ICD-10-CM E11.22 Type 2 diabetes mellitus w diabetic chronic kidney disease with Provider Comments: Type II diabetes mellitus uncontrolled (SCT [id number]) RONNA HERRERA [facility] Encounter Template Text not used by [place] Assessments - Encounter Diagnoses This section includes the primary and secondary diag noses documented for the Encounter. Date/Time Primary/Secondary Diagnosis Diagnosis Name Provider Source Aug 16, 2020 10:15 AM PRIMARY Type 2 diabetes me llitus w diabetic chronic kidney disease RONNA HERRERA [facility] Plan of Treatment: Future Appointments (+ 6 months) and Future Tests (+/- 45 day s) The Plan of Treatment section includes future care activities for the patient fr om all [place] treatment facilities. This section includes future appointments and fu ture orders which are active, pending or scheduled. Future Appointments This section includes appointments that were scheduled t o occur 6 months from the date of the Encounter, up to a maximum of 20 appointme nts. The data comes from all [place] treatment facilities. Appointment Date/Time Appointment Type Appointment Facili ty Name Nov 03, 2020 08:00 AM AMBULATORY - NONE [facility] Nov 03, 2020 11:00 AM AMBULATORY - MEDICINE [facility] Nov 24, 2020 08:00 AM AMBULATORY [facility] Dec 03, 2020 11:00 AM AMBULATORY MEDICINE [facility] Dec 15, 2020 07:00 AM AMBULATORY - NONE [facility] Jan 05, 2021 10:30 AM AMBULATORY NONE [facility] Jan 26, 2021 08:00 AM AMBULATORY NONE [facility] Surgical Procedures: All associated to the encounter This section includes all Surgical Procedures and Surgical Procedure Notes assoc iated to the Encounter. Surgical Procedures This section includes all Surgical Procedures associated to the Encounter. Surgical Procedure Date/Time Procedure Procedure Type Procedure Qualifiers Provider Source Aug 16, 2020 10:13 AM Non-Phys EHR Asmnt,21+ min QNHP OL DIG ASSMT& MGMT 21+ RONNA HERRERA [facility] Surgical Notes There are no notes associated [...] the Encounter. The data comes from all [place] treatment facilities. Date/Time Pathology Report Provider Source [...] - - - - $TEXT Submitted by: [facility] [place] Date obtained: Jul 19, 2020 - - [...] - - - - - Received from [facility] in [place], [place] are 16 slides labeled with "[id number]", the patient's initials, and facility of origin. Also included is a pathology report identified with "[id number]", the patient's name and demographics, and facility of origin. Microscopic examination is performed. I agree with the diagnosis of prostatic adenocarcinoma, as reported by Dr. Butler and transcribed below. A copy of the original report will be scanned into [employer]. Diagnosis: 1. Right base prostate biopsy medial: [...] tissue. 4. Right mid-prostate biopsy lateral: Adenocarcinoma, Isabel grade 4+3 equals score of 7 (grade group 3), in one of one core, involving 90% of specimen. Perineural invasion present. 5. Right apex prostate biopsy medial: Adenocarcinoma, [place] grade 4+5 equals score of 9 (grade [...] foci. 9. Left mid-prostate biopsy medial: Adenocarcinoma, [place] grade 4+3 equals score of 7 (grade group 3), in one of one core, involving 50% of specimen. 10. Left mid-prostate biopsy lateral: Adenocarcinoma, Isabel grade 4+4 equals score of 8 (grade group 4), in one of one core, involving less than 5% of specimen in discontinuous foci. 11. Left apex prostate biopsy medial: Adenocarcinoma, [place] grade 4+4 = score of 8 (grade group 4), in 1 of 1 fragmented core, involving 10% of specimen. 12. Left apex prostate biopsy lateral: Adenocarcinoma, [place] grade 3+4 equals score of 7 (grade [...] is corrected here as grade group 5 ([place] 4+5=9). [place] score for part 12 stated in the original report as "4+3=score of 7 (grade group 2)" is corrected here as "3+4=score of 7 (grade group 2)." These are typographical corrections only and do not affect clinical interpretation of the overall case. /lizzy/ JOSH PRICE MD, FCAP PATHOLOGIST Signed Aug 06, 2020@15:01 Performing Laboratory: Surgical Pathology Report Performed By: [facility] [CLIA# [id number]] [address] [facility] [address] $FTR - - - [...] - - SALVADOR CLEARY STANDARD FORM 515 ID:[id number] SEX:M :1955 AGE: 64 LOC:AMBSURG PCP: Margarita Page /tad PRICE MD, FCAP PATHOLOGIST Signed: 08/06/2020 15:01 JOSH PRICE [facility] Encounter Notes: All associated encounter notes This section contains the clinical notes associated to the Encounter. Date/Time Encounter Note(s) Provider Source Aug 16, 2020 10:14 AM PHARMACY CONSULT: LOCAL TITLE: PHARMACY PRIOR AUTH RX REVIEW STANDARD TITLE: PHARMACY CONSULT DATE OF NOTE: AUG 16, 2020@10:14 ENTRY DATE: AUG 16, 2020@10:14:11 AUTHOR: RONNA HERRERA EXP COSIGNER: URGENCY: STATUS: COMPLETED The medical record has been reviewed with regard to this restricted drug request. Medication requested: DULAGLUTIDE 0.75MG/0.5ML INJ,SOLN,PEN Medical history relevant to this request: we have received a new prescription for the formulary alternative ozempic to replace this non-formulary drug. a new consult will be entered for the ozempic The request does not meet criteria - The preferred alternative therapeutic option(s) have not been exhausted 30 minutes /es/ RONNA HERRERA, PharmArmond CLINICAL PHARMACIST Signed: 08/16/2020 10:15 RONNA HERRERA [facility]
--- OUTSIDE RECORDS SUMMARY | 2021-01-26 11:36 | XMS REPORT | Encounter Summary ---
Author [facility] Address Unknown Phone Unavailable Care Team Providers Care Water Resource Project Manager Name Role Phone MARGARITA PAGE PCP Unavailable [...] PLAN G Aug 19, 2018 PLAN G [id number] SALVADOR CLEARY PATIENT MEDICARE (WNR) MEDICARE (M) PART A Aug 19, 2018 PART A [id number] 60A [phone] EVINSALVADOR PATIENT MEDICARE (WNR) MEDICARE (M) PART B Aug 19, 2018 PART B [id number] 60A [phone] SALVADOR CLEARY PATIENT MEDICARE (WNR) MEDICARE (M) PART A Aug 19, 2018 PART A [id number] SALVADOR CLEARY PATIENT MEDICARE (WNR) MEDICARE (M) PART B Aug 19, 2018 PART B [id number] EVINSALVADOR PATIENT MEDICARE PART D (WNR) MEDICARE (M) PART D Aug 19, 2018 PART D [id number] EVINSALVADOR PATIENT MEDICARE PART D (WNR) MEDICARE (M) PART D Aug 19, 2018 PART D [id number] SALVADOR CLEARY PATIENT Selected Encounter This section includes the information on record at [place] for the Encounter. Date/Time Encounter Type Encounter Description Reason Provider Source Aug 16, 2020 12:24 PM QNHP OL DIG ASSMT&MGMT 21+ CLINICAL PHARMA [place] ICD-10-CM E11.22 Type 2 diabetes mellitus w diabetic chronic kidney disease with Provider Comments: Type II diabetes mellitus uncontrolled (SCT [id number]) RONNA HERRERA [facility] Encounter Template Text not used by [place] Assessments - Encounter Diagnoses This section includes the primary and secondary diag noses documented for the Encounter. Date/Time Primary/Secondary Diagnosis Diagnosis Name Provider Source Aug 16, 2020 12:28 PM PRIMARY Type 2 diabetes me llitus w diabetic chronic kidney disease RONNA HERRERA [facility] Plan of Treatment: Future Appointments (+ 6 months) and Future Tests (+/- 45 day s) The Plan of Treatment section includes future care activities for the patient fr om all [place] treatment facilities. This section includes future appointments and fu ture orders which are active, pending or scheduled. Future Appointments This section includes appointments that were scheduled t o occur 6 months from the date of the Encounter, up to a maximum of 20 appointme nts. The data comes from all [place] treatment facilities. Appointment Date/Time Appointment Type Appointment Facili ty Name Nov 03, 2020 08:00 AM AMBULATORY - NONE [facility] Nov 03, 2020 11:00 AM AMBULATORY - MEDICINE [facility] Nov 24, 2020 08:00 AM AMBULATORY [facility] Dec 03, 2020 11:00 AM AMBULATORY MEDICINE [facility] Dec 15, 2020 07:00 AM AMBULATORY NONE [facility] Jan 05, 2021 10:30 AM AMBULATORY NONE [facility] Jan 26, 2021 08:00 AM AMBULATORY [facility] Surgical Procedures: All associated to the encounter This section includes all Surgical Procedures and Surgical Procedure Notes assoc iated to the Encounter. Surgical Procedures This section includes all Surgical Procedures associated to the Encounter. Surgical Procedure Date/Time Procedure Procedure Type Procedure Qualifiers Provider Source Aug 16, 2020 12:24 PM Non-Phys EHR Asmnt,21+ min QNHP OL DIG ASSMT& MGMT 21+ RONNA HERRERA [facility] Surgical Notes There are no notes associated [...] the Encounter. The data comes from all [place] treatment facilities. Date/Time Pathology Report Provider Source [...] - - - - $TEXT Submitted by: [facility] [place] Date obtained: Jul 19, 2020 [...] - - - - - Received from [facility] in [place], [place] are 16 slides labeled with "[id number]", the patient's initials, and facility of origin. Also included is a pathology report identified with "[id number]", the patient's name and demographics, and facility of origin. Microscopic examination is performed. I agree with the diagnosis of prostatic adenocarcinoma, as reported by Dr. Butler and transcribed below. A copy of the original report will be scanned into [employer]. Diagnosis: 1. Right base prostate biopsy medial: [...] 5. Right apex prostate biopsy medial: Adenocarcinoma, [place] grade 4+5 equals score of 9 (grade [...] foci. 9. Left mid-prostate biopsy medial: Adenocarcinoma, [place] grade 4+3 equals score of 7 (grade group 3), in one of one core, involving 50% of specimen. 10. Left mid-prostate biopsy lateral: Adenocarcinoma, Isabel grade 4+4 equals score of 8 (grade group 4), in one of one core, involving less than 5% of specimen in discontinuous foci. 11. Left apex prostate biopsy medial: Adenocarcinoma, [place] grade 4+4 = score of 8 (grade group 4), in 1 of 1 fragmented core, involving 10% of specimen. 12. Left apex prostate biopsy lateral: Adenocarcinoma, [place] grade 3+4 equals score of 7 (grade [...] is corrected here as grade group 5 ([place] 4+5=9). [place] score for part 12 stated in the original report as "4+3=score of 7 (grade group 2)" is corrected here as "3+4=score of 7 (grade group 2)." These are typographical corrections only and do not affect clinical interpretation of the overall case. /lizzy/ JOSH PRICE MD, FCAP PATHOLOGIST Signed Aug 06, 2020@15:01 Performing Laboratory: Surgical Pathology Report Performed By: [facility] [CLIA# [id number]] [address] [facility] [facility] [address] [facility] [place] [address] $FTR - - - [...] - - SALVADOR CLEARY STANDARD FORM 515 ID:[id number] SEX:M :1955 AGE: 64 LOC:AMBSURG PCP: Margarita Page /tad PRICE MD, FCAP PATHOLOGIST Signed: 08/06/2020 15:01 JOSH PRICE [facility] Encounter Notes: All associated encounter notes This section contains the clinical notes associated to the Encounter. Date/Time Encounter Note(s) Provider Source Aug 16, 2020 12:24 PM PHARMACY CONSULT: LOCAL TITLE: PHARMACY PRIOR AUTH RX REVIEW STANDARD TITLE: PHARMACY CONSULT DATE OF NOTE: AUG 16, 2020@12:24 ENTRY DATE: AUG 16, 2020@12:24:40 AUTHOR: RONNA HERRERA EXP COSIGNER: URGENCY: STATUS: COMPLETED The medical record has been reviewed with regard to this restricted drug request. Medication requested: SEMAGLUTIDE 0.5MG/0.375ML INJ,SOLN,PEN,1.5ML Medical history relevant to this request: we have received the signed and completed cfu from the provider which indicates the patient does not meet any exclusion criteria and meets the following inclusion criteria for patients without atherosclerotic cardiovascular disease and or chronic kidney disease: type 2 diabetes. AFter reviewing the notes the doctor sent, it was noted the patient met the second criteria of inadequate glycemic control on 2 or more medications. The patient was stopping alogliptin and had stopped glimiperide due so adverse effects. His a1c is over 7. the patient has been informed and reports no questions The request is approved - A documented therapeutic failure of th e preferred formulary alternative(s) exists 30 minutes /lizzy/ RONNA HERRERA, PharmArmond CLINICAL PHARMACIST Signed: 08/16/2020 12:28 RONNA HERRERA [facility]
--- OUTSIDE RECORDS SUMMARY | 2021-01-26 11:36 | XMS REPORT | Encounter Summary ---
Author Author Department [facility] SALVADOR hwang Organization Department of [facility] Address Unknown Phone Unavailable Care Team Providers Care Ar Manager Name Role Phone MARGARITA PAGE PCP [...] PLAN G Aug 19, 2018 PLAN G [id number] CLEARYSALVADOR PATIENT MEDICARE (WNR) MEDICARE (M) PART A Aug 19, 2018 PART A [id number] 60A [phone] CLEARYSALVADOR PATIENT MEDICARE (WNR) MEDICARE (M) PART B Aug 19, 2018 PART B [id number] 60A [phone] EVINSALVADOR PATIENT MEDICARE (WNR) MEDICARE (M) PART A Aug 19, 2018 PART A [id number] EVINSALVADOR PATIENT MEDICARE (WNR) MEDICARE (M) PART B Aug 19, 2018 PART B [id number] CLEARYSALVADOR PATIENT MEDICARE PART D (WNR) MEDICARE (M) PART D Aug 19, 2018 PART D [id number] SALVADOR CLEARY PATIENT MEDICARE PART D (WNR) MEDICARE (M) PART D Aug 19, 2018 PART D [id number] SALVADOR CLEARY PATIENT Selected Encounter This section includes the information on record at [place] for the Encounter. Date/Time Encounter Type Encounter Description Reason Provider Source Aug 13, 2020 12:00 AM Outpatient Encounter EVENT (HISTORICAL) IHE Encounter Template Text not used by [place] Assessments - Encounter Diagnoses No Data Provided for This Section Plan of Treatment: Future Appointments (+ 6 months) and Future Tests (+/- 45 day s) The Plan of Treatment section includes future care activities for the patient fr om all [place] treatment facilities. This section includes future appointments and fu ture orders which are active, pending or scheduled. Future Appointments This section includes appointments that were scheduled t o occur 6 months from the date of the Encounter, up to a maximum of 20 appointme nts. The data comes from all [facility]. Appointment Date/Time Appointment Type Appointment Facili ty Name Nov 03, 2020 08:00 AM AMBULATORY - NONE [facility] Nov 03, 2020 11:00 AM AMBULATORY - MEDICINE [facility] Nov 24, 2020 08:00 AM AMBULATORY - NONE [facility] Dec 03, 2020 11:00 AM AMBULATORY MEDICINE [facility] Dec 15, 2020 07:00 AM AMBULATORY - NONE [facility] Jan 05, 2021 10:30 AM AMBULATORY - NONE [facility] Jan 26, 2021 08:00 AM AMBULATORY NONE [facility] Surgical Procedures: All associated [...] Immunization Series Date Issued Reaction Comments COVID-19 (Zapper), MRNA, LNP-S, PF, 30 MCG/0.3 ML DOSE 1 Aug 13, 2020 Social History: Smoking Status (Most current) [...] the Encounter. The data comes from all [place] treatment facilities. Date/Time Pathology Report Provider Source [...] - - - - $TEXT Submitted by: [facility] [place] Date obtained: Jul 19, 2020 - - [...] - - - - - Received from [facility] in [place], [place] are 16 slides labeled with "[id number]", the patient's initials, and facility of origin. Also included is a pathology report identified with "[id number]", the patient's name and demographics, and facility of origin. Microscopic examination is performed. I agree with the diagnosis of prostatic adenocarcinoma, as reported by Dr. Butler and transcribed below. A copy of the original report will be scanned into [employer]. Diagnosis: 1. Right base prostate biopsy medial: Adenocarcinoma, [place] grade 4+3 equals score of 7 (grade group 3), in one of one core, involving 60% of specimen in discontinuous foci. 2. Right base prostate biopsy lateral: Adenocarcinoma, [place] grade 4+3 equals score of 7 (grade [...] 5. Right apex prostate biopsy medial: Adenocarcinoma, [place] grade 4+5 equals score of 9 (grade [...] 8. Left base prostate biopsy lateral: Adenocarcinoma, [place] grade 4+3 equals score of 7 (grade group 3), in one of one core, involving 30% of specimen in discontinuous foci. 9. Left mid-prostate biopsy medial: Adenocarcinoma, [place] grade 4+3 equals score of 7 (grade group 3), in one of one core, involving 50% of specimen. 10. Left mid-prostate biopsy lateral: Adenocarcinoma, [place] grade 4+4 equals score of 8 (grade group 4), in one of one core, involving less than 5% of specimen in discontinuous foci. 11. Left apex prostate biopsy medial: Adenocarcinoma, Isabel grade 4+4 = score of 8 (grade group 4), in 1 of 1 fragmented core, involving 10% of specimen. 12. Left apex prostate biopsy lateral: Adenocarcinoma, [place] grade 3+4 equals score of 7 (grade [...] here as grade group 5 (Isabel 4+5=9). [place] score for part 12 stated in the original report as "4+3=score of 7 (grade group 2)" is corrected here as "3+4=score of 7 (grade group 2)." These are typographical corrections only and do not affect clinical interpretation of the overall case. /lizzy/ JOSH PRICE MD, FCAP PATHOLOGIST Signed Aug 06, 2020@15:01 Performing Laboratory: Surgical Pathology Report Performed By: [facility] [CLIA# [id number]] [address] $F[address] - - - - - [...] - - SALVADOR CLEARY STANDARD FORM 515 ID:[id number] SEX:M :1955 AGE: 64 LOC:AMBSURG PCP: Margarita Page /tad PRICE MD, FCAP PATHOLOGIST Signed: 08/06/2020 15:01 JOSH PRICE [facility] Encounter Notes: All associated encounter notes No Data Provided for This Section
--- OUTSIDE RECORDS SUMMARY | 2021-01-26 11:38 | XMS REPORT | Encounter Summary ---
Author [facility] Organization Department of [facility] Address Unknown Phone Unavailable Care Team Providers Care House Designer Name Role Phone MARGARITA PAGE PCP Unavailable [...] PLAN G Aug 19, 2018 PLAN G [id number] EVINSALVADOR PATIENT MEDICARE (WNR) MEDICARE (M) PART A Aug 19, 2018 PART A [id number] EVINSALVADOR PATIENT MEDICARE (WNR) MEDICARE (M) PART B Aug 19, 2018 PART B [id number] EVINSALVADOR PATIENT MEDICARE (WNR) MEDICARE (M) PART A Aug 19, 2018 PART A [id number] EVINSALVADOR PATIENT MEDICARE (WNR) MEDICARE (M) PART B Aug 19, 2018 PART B [id number] EVINSALVADOR PATIENT MEDICARE PART D (WNR) MEDICARE (M) PART D Aug 19, 2018 PART D [id number] EVINSALVADOR PATIENT MEDICARE PART D (WNR) MEDICARE (M) PART D Aug 19, 2018 PART D [id number] SALVADOR CLEARY PATIENT Selected Encounter This section includes the information on record at OR for the Encounter. Date/Time Encounter Type Encounter Description Reason Provider Source Aug 11, 2020 12:00 AM Outpatient Encounter COMMUNITY CARE CONSULT IHE Encounter Template Text not used by [place] Assessments - Encounter Diagnoses No Data Provided for This Section Plan of Treatment: Future Appointments (+ 6 months) and Future Tests (+/- 45 day s) The Plan of Treatment section includes future care activities for the patient fr om all [place] treatment facilities. This section includes future appointments and fu ture orders which are active, pending or scheduled. Future Appointments This section includes appointments that were scheduled t o occur 6 months from the date of the Encounter, up to a maximum of 20 appointme nts. The data comes from all [facility]. Appointment Date/Time Appointment Type Appointment Facili ty Name Nov 03, 2020 08:00 AM AMBULATORY - NONE [facility] Nov 03, 2020 11:00 AM AMBULATORY - MEDICINE [facility] Nov 24, 2020 08:00 AM AMBULATORY - NONE [facility] Dec 03, 2020 11:00 AM AMBULATORY MEDICINE [facility] Dec 15, 2020 07:00 AM AMBULATORY - NONE [facility] Jan 05, 2021 10:30 AM AMBULATORY - NONE [facility] Jan 26, 2021 08:00 AM AMBULATORY - NONE [facility] Surgical Procedures: All associated to the encounter [...] the Encounter. The data comes from all [facility] facilities. Date/Time Pathology Report Provider Source Aug [...] - - - - $TEXT Submitted by: [place], [place] Date obtained: Jul 19, 2020 - - [...] - - - - Received from [facility] in [place], [place] are 16 slides labeled with "[id number]", the patient's initials, and facility of origin. Also included is a pathology report identified with "[id number]", the patient's name and demographics, and facility of origin. Microscopic examination is performed. I agree with the diagnosis of prostatic adenocarcinoma, as reported by Dr. Butler and transcribed below. A copy of the original report will be scanned into [employer]. Diagnosis: 1. Right base prostate biopsy [...] present. 3. Right mid-prostate biopsy medial: Adenocarcinoma, Branch grade 4+3 equals score of 7 (grade group 3), in one of one core, involving 90% of tissue. 4. Right mid-prostate biopsy lateral: Adenocarcinoma, Branch grade 4+3 equals score of 7 (grade group 3), in one of one core, involving 90% of specimen. Perineural invasion present. 5. Right apex prostate biopsy medial: Adenocarcinoma, Branch grade 4+5 equals score of 9 (grade group 5), in one of one core, involving 95% of specimen. Perineural invasion present. 6. Right apex prostate biopsy lateral: Adenocarcinoma, Branch grade 4+5 equals score of 9 (grade [...] foci. 9. Left mid-prostate biopsy medial: Adenocarcinoma, Branch grade 4+3 equals score of 7 (grade group 3), in one of one core, involving 50% of specimen. 10. Left mid-prostate biopsy lateral: Adenocarcinoma, Isabel grade 4+4 equals score of 8 (grade group 4), in one of one core, involving less than 5% of specimen in discontinuous foci. 11. Left apex prostate biopsy medial: Adenocarcinoma, Branch grade 4+4 = score of 8 (grade group 4), in 1 of 1 fragmented core, involving 10% of specimen. 12. Left apex prostate biopsy lateral: Adenocarcinoma, Branch grade 3+4 equals score of 7 (grade [...] here as grade group 5 (Isabel 4+5=9). Branch score for part 12 stated in the original report as "4+3=score of 7 (grade group 2)" is corrected here as "3+4=score of 7 (grade group 2)." These are typographical corrections only and do not affect clinical interpretation of the overall case. /lizzy/ JOSH PRICE MD, FCAP PATHOLOGIST Signed Aug 06, 2020@15:01 Performing Laboratory: Surgical Pathology Report Performed By: [facility] [CLIA# [id number]] [address] $FTR - - - [...] - - SALVADOR CLEARY STANDARD FORM 515 ID:[id number] SEX:M :1955 AGE: 64 LOC:AMBSU PCP: Margarita Page /lizzy/ JOSH PRICE MD, FCAP PATHOLOGIST Signed: 08/06/2020 15:01 JOSH PRICE [facility] Encounter Notes: All associated encounter notes This section contains the clinical notes associated to the Encounter. Date/Time Encounter Note(s) Provider Source Aug 11, 2020 12:00 AM NONVA CONSULT: LOCAL TITLE: COMMUNITY CARE-CONSULT RESULT NOTE STANDARD TITLE: NONVA CONSULT DATE OF NOTE: AUG 11, 2020 ENTRY DATE: OCT 28, 2020@15:36:38 AUTHOR: GSIELLE PAINTER EXP COSIGNER: URGENCY: STATUS: COMPLETED VistA Imaging - Scanned Document [facility] VISIT 08.11.20 /lizzy/ GISELLE PAINTER Signed: 10/28/2020 15:36 GISELLE PAINTER [facility]
--- OUTSIDE RECORDS SUMMARY | 2021-01-26 11:38 | XMS REPORT | Encounter Summary ---
Author [facility] Department [facility] of [facility] Address Unknown Phone Unavailable Care Team Providers Care Aboriginal [employer] Liaison Officer Name Role Phone MARGARITA PAGE PCP Unavailable [...] PLAN G Aug 19, 2018 PLAN G [id number] EVINSALVADOR PATIENT MEDICARE (WNR) MEDICARE (M) PART A Aug 19, 2018 PART A [id number] 60A [phone] EVINSALVADOR PATIENT MEDICARE (WNR) MEDICARE (M) PART B Aug 19, 2018 PART B [id number] 60A [phone] EVINSALVADOR PATIENT MEDICARE (WNR) MEDICARE (M) PART A Aug 19, 2018 PART A [id number] EVINSALVADOR PATIENT MEDICARE (WNR) MEDICARE (M) PART B Aug 19, 2018 PART B [id number] EVINSALVADOR PATIENT MEDICARE PART D (WNR) MEDICARE (M) PART D Aug 19, 2018 PART D [id number] EVINSALVADOR PATIENT MEDICARE PART D (WNR) MEDICARE (M) PART D Aug 19, 2018 PART D [id number] SALVADOR CLEARY PATIENT Selected Encounter This section includes the information on record at [place] for the Encounter. Date/Time Encounter Type Encounter Description Reason Provider Source Aug 11, 2020 11:46 AM Outpatient Encounter COMMUNITY CARE CONSULT IHE Encounter Template Text not used by [place] Assessments - Encounter Diagnoses No Data Provided [...] appointme nts. The data comes from all [facility]. Appointment Date/Time Appointment Type Appointment Facili ty Name Nov 03, 2020 08:00 AM AMBULATORY - NONE [facility] Nov 03, 2020 11:00 AM AMBULATORY - MEDICINE [facility] Nov 24, 2020 08:00 AM AMBULATORY - NONE [facility] Dec 03, 2020 11:00 AM AMBULATORY MEDICINE [facility] Dec 15, 2020 07:00 AM AMBULATORY - NONE [facility] Jan 05, 2021 10:30 AM AMBULATORY - NONE [facility] Jan 26, 2021 08:00 AM AMBULATORY - NONE [facility] Surgical Procedures: All associated to the [...] the Encounter. The data comes from all [facility] facilities. Date/Time Pathology Report Provider Source Aug [...] - - - - $TEXT Submitted by: [place], [place] Date obtained: Jul 19, 2020 - [...] - - - - - Received from [facility] in [place], [place] are 16 slides labeled with "[id number]", the patient's initials, and facility of origin. Also included is a pathology report identified with "[id number]", the patient's name and demographics, and facility of origin. Microscopic examination is performed. I agree with the diagnosis of prostatic adenocarcinoma, as reported by Dr. Butler and transcribed below. A copy of the original report will be scanned into [employer]. Diagnosis: 1. Right base prostate biopsy medial: Adenocarcinoma, Isabel grade 4+3 equals score of 7 (grade group 3), in one of one core, involving 60% of specimen in discontinuous foci. 2. Right base prostate biopsy lateral: Adenocarcinoma, Mcallen grade 4+3 equals score of 7 (grade group 3), and one of one core, involving 50% of tissue in discontinuous foci. Perineural invasion present. 3. Right mid-prostate biopsy medial: Adenocarcinoma, Mcallen grade 4+3 equals score of 7 (grade group 3), in one of one core, involving 90% of tissue. 4. Right mid-prostate biopsy lateral: Adenocarcinoma, Isabel grade 4+3 equals score of 7 (grade group 3), in one of one core, involving 90% of specimen. Perineural invasion present. 5. Right apex prostate biopsy medial: Adenocarcinoma, Mcallen grade 4+5 equals score of 9 (grade group 5), in one of one core, involving 95% of specimen. Perineural invasion present. 6. Right apex prostate biopsy lateral: Adenocarcinoma, Mcallen grade 4+5 equals score of 9 (grade [...] 12. Left apex prostate biopsy lateral: Adenocarcinoma, Mcallen grade 3+4 equals score of 7 (grade [...] is corrected here as grade group 5 (Mcallen 4+5=9). Isabel score for part 12 stated in the original report as "4+3=score of 7 (grade group 2)" is corrected here as "3+4=score of 7 (grade group 2)." These are typographical corrections only and do not affect clinical interpretation of the overall case. /lizzy/ JOSH PRICE MD, FCAP PATHOLOGIST Signed Aug 06, 2020@15:01 Performing Laboratory: Surgical Pathology Report Performed By: [facility] [CLIA# [id number]] [address] [...] - - SALVADOR CLEARY STANDARD FORM 515 ID:[id number] SEX:M :1955 AGE: 64 LOC:AMBSUR PCP: Margarita Page /lizzy/ JOSH PRICE MD, FCAP PATHOLOGIST Signed: 08/06/2020 15:01 JOSH PRICE [facility] Encounter Notes: All associated encounter notes This section contains the clinical notes associated to the Encounter. Date/Time Encounter Note(s) Provider Source Aug 11, 2020 11:46 AM NONVA CONSULT: LOCAL TITLE: COMMUNITY CARE-CONSULT RESULT NOTE STANDARD TITLE: NONVA CONSULT DATE OF NOTE: AUG 11, 2020@11:46 ENTRY DATE: NOV 01, 2020@11:47:38 AUTHOR: LANRE ORDAZ EXP COSIGNER: URGENCY: STATUS: COMPLETED VistA Imaging - Scanned Document [facility] 08/11/2020 VISIT /lizzy/ LANRE ORDAZ Relationship Assoc Signed: 11/01/2020 11:47 LANRE ORDAZ [facility]
--- OUTSIDE RECORDS SUMMARY | 2021-01-26 11:38 | XMS REPORT | Encounter Summary ---
Author Author Department [facility] Organization Department of [facility] Address Unknown Phone Unavailable Care Team Providers Care Director Advanced Name Role Phone MARGARITA PAGE PCP Unavailable [...] PLAN G Aug 19, 2018 PLAN G [id number] EVINSALVADOR PATIENT MEDICARE (WNR) MEDICARE (M) PART A Aug 19, 2018 PART A [id number] 60A [phone] EVINSALVADOR PATIENT MEDICARE (WNR) MEDICARE (M) PART B Aug 19, 2018 PART B [id number] 60A [phone] EVINSALVADOR PATIENT MEDICARE (WNR) MEDICARE (M) PART A Aug 19, 2018 PART A [id number] EVINSALVADOR PATIENT MEDICARE (WNR) MEDICARE (M) PART B Aug 19, 2018 PART B [id number] EVINSALVADOR PATIENT MEDICARE PART D (WNR) MEDICARE (M) PART D Aug 19, 2018 PART D [id number] EVINSALVADOR PATIENT MEDICARE PART D (WNR) MEDICARE (M) PART D Aug 19, 2018 PART D [id number] SALVADOR CLEARY PATIENT Selected Encounter This section includes the information on record at [place] for the Encounter. Date/Time Encounter Type Encounter Description Reason Provider Source Aug 11, 2020 11:46 AM Outpatient Encounter COMMUNITY CARE CONSULT IHE Encounter Template Text not used by [place] Assessments - Encounter Diagnoses No Data Provided for This Section Plan of Treatment: Future Appointments (+ 6 months) and Future Tests (+/- 45 day s) The Plan of Treatment section includes future care activities for the patient fr om all [place] treatment facilities. This section includes future appointments and fu ture orders which are active, pending or scheduled. Future Appointments This section includes appointments that were scheduled t o occur 6 months from the date of the Encounter, up to a maximum of 20 appointme nts. The data comes from all [facility]. Appointment Date/Time Appointment Type Appointment Facili ty Name Nov 03, 2020 08:00 AM AMBULATORY - NONE [facility] Nov 03, 2020 11:00 AM AMBULATORY - MEDICINE [facility] Nov 24, 2020 08:00 AM AMBULATORY - NONE [facility] Dec 03, 2020 11:00 AM AMBULATORY MEDICINE [facility] Dec 15, 2020 07:00 AM AMBULATORY - NONE [facility] Jan 05, 2021 10:30 AM AMBULATORY - NONE [facility] Jan 26, 2021 08:00 AM AMBULATORY - NONE [facility] Surgical Procedures: All associated to the encounter [...] the Encounter. The data comes from all [facility] facilities. Date/Time Pathology Report Provider [...] - - - - $TEXT Submitted by: [place], [place] Date obtained: Jul 19, 2020 - [...] - - - - - Received from [facility] in [place], [place] are 16 slides labeled with "[id number]", the patient's initials, and facility of origin. Also included is a pathology report identified with "[id number]", the patient's name and demographics, and facility of origin. Microscopic examination is performed. I agree with the diagnosis of prostatic adenocarcinoma, as reported by Dr. Butler and transcribed below. A copy of the original report will be scanned into [employer]. Diagnosis: 1. Right base prostate biopsy medial: [...] present. 3. Right mid-prostate biopsy medial: Adenocarcinoma, [place] grade 4+3 equals score of 7 (grade group 3), in one of one core, involving 90% of tissue. 4. Right mid-prostate biopsy lateral: Adenocarcinoma, [place] grade 4+3 equals score of 7 (grade group 3), in one of one core, involving 90% of specimen. Perineural invasion present. 5. Right apex prostate biopsy medial: Adenocarcinoma, [place] grade 4+5 equals score of 9 (grade group 5), in one of one core, involving 95% of specimen. Perineural invasion present. 6. Right apex prostate biopsy lateral: Adenocarcinoma, [place] grade 4+5 equals score of 9 (grade [...] foci. 9. Left mid-prostate biopsy medial: Adenocarcinoma, [place] grade 4+3 equals score of 7 (grade group 3), in one of one core, involving 50% of specimen. 10. Left mid-prostate biopsy lateral: Adenocarcinoma, Isabel grade 4+4 equals score of 8 (grade group 4), in one of one core, involving less than 5% of specimen in discontinuous foci. 11. Left apex prostate biopsy medial: Adenocarcinoma, [place] grade 4+4 = score of 8 (grade group 4), in 1 of 1 fragmented core, involving 10% of specimen. 12. Left apex prostate biopsy lateral: Adenocarcinoma, [place] grade 3+4 equals score of 7 (grade [...] here as grade group 5 (Isabel 4+5=9). [place] score for part 12 stated in the original report as "4+3=score of 7 (grade group 2)" is corrected here as "3+4=score of 7 (grade group 2)." These are typographical corrections only and do not affect clinical interpretation of the overall case. /lizzy/ JOSH PRICE MD, FCAP PATHOLOGIST Signed Aug 06, 2020@15:01 Performing Laboratory: Surgical Pathology Report [facility]CLIA[facility] [id number]] [address] $FTR - - - [...] - - SALVADOR CLEARY STANDARD FORM 515 ID:[id number] SEX:M :1955 AGE: 64 LOC:AMBSURG PCP: Margarita Page /lizzy/ JOSH PRICE MD, FCAP PATHOLOGIST Signed: 08/06/2020 15:01 JOSH PRICE [facility] Encounter Notes: All associated encounter notes No Data Provided for This Section
--- NOTE | 2021-01-26 11:39 | Progress Note-Pre Operative ---
Pre-Operative Progress Note H&P Reviewed The H&P was reviewed, patient examined and no changes noted. Date Seen by Provider: Jan 26, 2021 Time Seen by Provider: : Date H&P Reviewed: Jan 26, 2021 Time H&P Reviewed: :25 Pre-Operative Diagnosis: Prostate cancer cT2b (pT3), PSA 23.3, Isabel 9 (4+5) ALTAGRACIA GALLAGHER MD Jan 26, 2021 11:39
--- OUTSIDE RECORDS SUMMARY | 2021-01-26 11:39 | XMS REPORT | Encounter Summary ---
Author [facility] Organization Department of [facility] Address Unknown Phone Unavailable Care Team Providers Care Inspector Aligning Name Role Phone MARGARITA PAGE PCP Unavailable [...] PLAN G Aug 19, 2018 PLAN G [id number] EVINSALVADOR PATIENT MEDICARE (WNR) MEDICARE (M) PART A Aug 19, 2018 PART A [id number] 60A [phone] EVINSALVADOR PATIENT MEDICARE (WNR) MEDICARE (M) PART B Aug 19, 2018 PART B [id number] [phone] EVINSALVADOR PATIENT MEDICARE (WNR) MEDICARE (M) PART A Aug 19, 2018 PART A [id number] EVINSALVADOR PATIENT MEDICARE (WNR) MEDICARE (M) PART B Aug 19, 2018 PART B [id number] EVINSALVADOR PATIENT MEDICARE PART D (WNR) MEDICARE (M) PART D Aug 19, 2018 PART D [id number] EVINSALVADOR PATIENT MEDICARE PART D (WNR) MEDICARE (M) PART D Aug 19, 2018 PART D [id number] SALVADOR CLEARY PATIENT Selected Encounter This section includes the information on record at [place] for the Encounter. Date/Time Encounter Type Encounter Description Reason Provider Source Jul 30, 2020 04:37 PM Outpatient Encounter COMMUNITY CARE CONSULT MARGARITA PAGE IHE Encounter Template Text not used by [...] appointme nts. The data comes from all [facility]. Appointment Date/Time Appointment Type Appointment Facili ty Name Aug 11, 2020 10:00 AM AMBULATORY - NONE [facility] Nov 03, 2020 08:00 AM AMBULATORY - NONE [facility] Nov 03, 2020 11:00 AM AMBULATORY - MEDICINE [facility] Nov 24, 2020 08:00 AM AMBULATORY - NONE [facility] Dec 03, 2020 11:00 AM [facility] MEDICINE [facility] Dec 15, 2020 07:00 AM [...] - - - - $TEXT Submitted by: [facility] [place] Date obtained: Jul 19, 2020 - - [...] - - - - - Received from [facility] in [place], [place] are 16 slides labeled with "[id number]", the patient's initials, and facility of origin. Also included is a pathology report identified with "[id number]", the patient's name and demographics, and facility of origin. Microscopic examination is performed. I agree with the diagnosis of prostatic adenocarcinoma, as reported by Dr. Butler and transcribed below. A copy of the original report will be scanned into [employer]. Diagnosis: 1. Right base prostate biopsy medial: [...] present. 3. Right mid-prostate biopsy medial: Adenocarcinoma, [place] grade 4+3 equals score of 7 (grade group 3), in one of one core, involving 90% of tissue. 4. Right mid-prostate biopsy lateral: Adenocarcinoma, Isabel grade 4+3 equals score of 7 (grade group 3), in one of one core, involving 90% of specimen. Perineural invasion present. 5. Right apex prostate biopsy medial: Adenocarcinoma, [place] grade 4+5 equals score of 9 (grade group 5), in one of one core, involving 95% of specimen. Perineural invasion present. 6. Right apex prostate biopsy lateral: Adenocarcinoma, [place] grade 4+5 equals score of 9 (grade group 5), in one of one core, involving 70% of specimen. 7. Left base prostate biopsy medial: Adenocarcinoma, [place] grade 4+3 equals score of 7 (grade [...] specimen. 10. Left mid-prostate biopsy lateral: Adenocarcinoma, [place] grade 4+4 equals score of 8 (grade group 4), in one of one core, involving less than 5% of specimen in discontinuous foci. 11. Left apex prostate biopsy medial: Adenocarcinoma, [place] grade 4+4 = score of 8 (grade [...] is corrected here as grade group 5 ([place] 4+5=9). Isabel score for part 12 stated in the original report as "4+3=score of 7 (grade group 2)" is corrected here as "3+4=score of 7 (grade group 2)." These are typographical corrections only and do not affect clinical interpretation of the overall case. /es/ JOSH DEE, MD, FCAP PATHOLOGIST Signed Aug 06, 2020@15:01 Performing Laboratory: Surgical Pathology Report Performed By: [facility] [CLIA# [id number]] [address] $FTR - - [...] - - SALVADOR CLEARY STANDARD FORM 515 ID:[id number] SEX:M :1955 AGE: 64 LOC:[facility] PCP: Margarita Page /lizzy/ JOSH PRICE MD, FCAP PATHOLOGIST Signed: 08/06/2020 15:01 JOSH PRICE [facility] Encounter Notes: All associated encounter notes This section contains the clinical notes associated to the Encounter. Date/Time Encounter Note(s) Provider Source Jul 30, 2020 04:37 PM NONVA NOTE: LOCAL TITLE: COMMUNITY CARE-COORDINATION PLAN STANDARD TITLE: NONVA NOTE DATE OF NOTE: JUL 30, 2020@16:37 ENTRY DATE: JUL 30, 2020@16:37:55 AUTHOR: BECK BARRIGA COSIGNER: URGENCY: STATUS: COMPLETED COMMUNITY CARE-COORDINATION PLAN Has ADDENDA self-presented to community emergency facility Emergency Notification Intake Date Presenting to the Facility: Jul [facility] Hospital Name: Hospital: [facility] Address: City: [place] State: [place] Zip Code: Chief complaint: [place] NOT DRAINING Primary Diagnosis: Patient Admitted? No Community Facility Point of Contact: Name: [email or web address] ##################################################### Notification ID:[id number] Status: Closed - Approved for 1703 Auth #: NOT AVAILABLE AT THIS TIME ###################################################### MED RECS REQST FAXED TO [facility] RN notified as additional signers for ED follow up and consults as needed /lizzy/ BECK BARRIGA [facility] Advanced Medical Support Asst Signed: 07/30/2020 16:40 Receipt Acknowledged By: * AWAITING SIGNATURE * MAGNUS HAYES * AWAITING SIGNATURE * MARGARITA PAGE 07/30/2020 ADDENDUM STATUS: COMPLETED [place] IN [place]@ [place] CONFIRMED PATIENT WAS ED 07/25/2020 /lizzy/ BECK BARRIGA [facility] Advanced Medical Support Asst Signed: 07/30/2020 16:59 BECK BARRIGA [facility]
--- OUTSIDE RECORDS SUMMARY | 2021-01-26 11:39 | XMS REPORT | Encounter Summary ---
Author Author Department of [facility] SALVADOR hwang Organization Department of [facility] rs Address Unknown Phone Unavailable Care Team Providers Care Civilian Technician Name Role Phone MARGARITA PAGE PCP [...] PLAN G Aug 19, 2018 PLAN G [id number] EVINSALVADOR PATIENT MEDICARE (WNR) MEDICARE (M) PART A Aug 19, 2018 PART A [id number] [phone] EVINSALVADOR PATIENT MEDICARE (WNR) MEDICARE (M) PART B Aug 19, 2018 PART B [id number] [phone] EVINSALVADOR PATIENT MEDICARE (WNR) MEDICARE (M) PART A Aug 19, 2018 PART A [id number] EVINSALVADOR PATIENT MEDICARE (WNR) MEDICARE (M) PART B Aug 19, 2018 PART B [id number] EVINSALVADOR PATIENT MEDICARE PART D (WNR) MEDICARE (M) PART D Aug 19, 2018 PART D [id number] EVINSALVADOR PATIENT MEDICARE PART D (WNR) MEDICARE (M) PART D Aug 19, 2018 PART D [id number] SALVADOR CLEARY PATIENT Selected Encounter This section includes the information on record at [place] for the Encounter. Date/Time Encounter Type Encounter Description Reason Provider Source Jul 29, 2020 03:22 PM Outpatient Encounter ADMIN PAT ACTIVTIES ([facility]) IHE Encounter Template Text not used by [place] Assessments - Encounter Diagnoses No Data Provided for This Section Plan of Treatment: Future Appointments (+ 6 months) and Future Tests (+/- 45 day s) The Plan of Treatment section includes future care activities for the patient fr om all [place] treatment facilities. This section includes future appointments and fu ture orders which are active, pending or scheduled. Future Appointments This section includes appointments that were scheduled t o occur 6 months from the date of the Encounter, up to a maximum of 20 appointme nts. The data comes from all [place] treatment [facility]. Appointment Date/Time Appointment Type Appointment Facili ty Name Aug 11, 2020 10:00 AM AMBULATORY - NONE [facility] Nov 03, 2020 08:00 AM AMBULATORY - NONE [facility] Nov 03, 2020 11:00 AM AMBULATORY - MEDICINE [facility] Nov 24, 2020 08:00 AM AMBULATORY - NONE [facility] Dec 03, 2020 11:00 AM AMBULATORY MEDICINE [facility] Dec 15, 2020 07:00 AM AMBULATORY - NONE [facility] Jan 05, 2021 10:30 AM AMBULATORY - NONE [facility] Jan 26, 2021 08:00 AM AMBULATORY - NONE [facility] Surgical Procedures: All associated to the [...] the Encounter. The data comes from all [place] treatment facilities. Date/Time Pathology Report Provider Source [...] - - - - $TEXT Submitted by: [facility] Date obtained: Jul 19, 2020 - - [...] - - - - - Received from [facility] in [place], [place] are 16 slides labeled with "[id number]", the patient's initials, and facility of origin. Also included is a pathology report identified with "[id number]", the patient's name and demographics, and facility of origin. Microscopic examination is performed. I agree with the diagnosis of prostatic adenocarcinoma, as reported by Dr. Butler and transcribed below. A copy of the original report will be scanned into [employer]. Diagnosis: 1. Right base prostate biopsy medial: [...] tissue. 4. Right mid-prostate biopsy lateral: Adenocarcinoma, [place] grade 4+3 equals score of 7 (grade [...] 8. Left base prostate biopsy lateral: Adenocarcinoma, [place] grade 4+3 equals score of 7 (grade group 3), in one of one core, involving 30% of specimen in discontinuous foci. 9. Left mid-prostate biopsy medial: Adenocarcinoma, Isabel grade 4+3 equals score of 7 (grade group 3), in one of one core, involving 50% of specimen. 10. Left mid-prostate biopsy lateral: Adenocarcinoma, [place] grade 4+4 equals score of 8 (grade group 4), in one of one core, involving less than 5% of specimen in discontinuous foci. 11. Left apex prostate biopsy medial: Adenocarcinoma, [place] grade 4+4 = score of 8 (grade [...] is corrected here as grade group 5 ([place] 4+5=9). Isabel score for part 12 stated in the original report as "4+3=score of 7 (grade group 2)" is corrected here as "3+4=score of 7 (grade group 2)." These are typographical corrections only and do not affect clinical interpretation of the overall case. /lizzy/ JOSH PRICE MD, FCAP PATHOLOGIST Signed Aug 06, 2020@15:01 Performing Laboratory: Surgical Pathology Report Performed By: [facility] [CLIA# [id number]] [address] [place] [address] $FTR - - - - - [...] - - SALVADOR CLEARY STANDARD FORM 515 ID:[id number] SEX:M :1955 AGE: 64 LOC:[facility] [place] PCP: Margarita Page /lizzy/ JOSH PRICE MD, FCAP PATHOLOGIST Signed: 08/06/2020 15:01 JOSH PRICE [facility] Encounter Notes: All associated encounter notes This section contains the clinical notes associated to the Encounter. Date/Time Encounter Note(s) Provider Source Jul 29, 2020 03:22 PM NONVA NOTE: LOCAL TITLE: COMMUNITY CARE-MISCELLANEOUS STANDARD TITLE: NONVA NOTE DATE OF NOTE: JUL 29, 2020@15:22 ENTRY DATE: JUL 29, 2020@15:23:14 AUTHOR: ANTONIO GONZALEZ EXP COSIGNER: URGENCY: STATUS: COMPLETED [facility]-M[facility]OUS Has ADDENDA surgical pathology prostate biopsy [facility] 07/19/20 SPEC: [id number] "adenocarcinoma" pathology review for Kemar Page APRN requested [facility] requires [facility] to release slides for pathology review defer to SHMUEL GALAVIZ 2 obtain and send for scanning please alert Angelica Dale in lab once available, thank you /lizzy/ ANTONIO GONZALEZ APN OFFICE OF [facility], DIRECTOR RECREATION Signed: 07/29/2020 15:24 Receipt Acknowledged By: 07/30/2020 07:02 /lizzy/ ANGELICA AVILA [facility] * AWAITING SIGNATURE * MARGARITA PAGE * AWAITING SIGNATURE * MAGNUS HAYES 07/29/2020 ADDENDUM STATUS: COMPLETED Text order placed for town clerk to have come sign [place] /es/ MAGNUS HAYES RN Signed: 07/29/2020 15:48 07/30/2020 ADDENDUM STATUS: COMPLETED [place] signed and sent to scanning 07/30/20 /lizzy/ [facility] [place] Signed: 07/30/2020 10:34 Receipt Acknowledged By: 07/30/2020 10:41 /es/ ANGELICA AVILA [facility] ANTONIO GONZALEZ AR [facility]
--- OUTSIDE RECORDS SUMMARY | 2021-01-26 11:39 | XMS REPORT | Encounter Summary ---
Author Author Department [facility] SALVADOR hwang Organization Department of [facility] Address Unknown Phone Unavailable Care Team Providers Care Staking Technician Name Role Phone MARGARITA PAGE PCP [...] PLAN G Aug 19, 2018 PLAN G [id number] CLEARYSALVADOR PATIENT MEDICARE (WNR) MEDICARE (M) PART A Aug 19, 2018 PART A [id number] [phone] CLEARYSALVADOR PATIENT MEDICARE (WNR) MEDICARE (M) PART B Aug 19, 2018 PART B [id number] 60A [phone] EVINSALVADOR PATIENT MEDICARE (WNR) MEDICARE (M) PART A Aug 19, 2018 PART A [id number] EVINSALVADOR PATIENT MEDICARE (WNR) MEDICARE (M) PART B Aug 19, 2018 PART B [id number] CLEARYSALVADOR PATIENT MEDICARE PART D (WNR) MEDICARE (M) PART D Aug 19, 2018 PART D [id number] SALVADOR CLEARY PATIENT MEDICARE PART D (WNR) MEDICARE (M) PART D Aug 19, 2018 PART D [id number] SALVADOR CLEARY PATIENT Selected Encounter This section includes the information on record at [place] for the Encounter. Date/Time Encounter Type Encounter Description Reason Provider Source Aug 06, 2020 03:01 PM Outpatient Encounter EVENT (HISTORICAL) JOSH PRICE [facility] Encounter Template Text not used by [place] Assessments - Encounter Diagnoses No Data Provided for This Section Plan of Treatment: Future Appointments (+ 6 months) and Future Tests (+/- 45 day s) The Plan of Treatment section includes future care activities for the patient fr om all [place] treatment facilities. This section includes future appointments and fu ture orders which are active, pending or scheduled. Future Appointments This section includes appointments that were scheduled t o occur 6 months from the date of the Encounter, up to a maximum of 20 appointme nts. The data comes from all [facility]. Appointment Date/Time Appointment Type Appointment Facili ty Name Aug 11, 2020 10:00 AM AMBULATORY - NONE [facility] Nov 03, 2020 08:00 AM AMBULATORY - NONE [facility] Nov 03, 2020 11:00 AM AMBULATORY - MEDICINE [facility] Nov 24, 2020 08:00 AM AMBULATORY - NONE [facility] Dec 03, 2020 11:00 AM [facility] MED[facility] Dec 15, 2020 07:00 AM AMBULATORY - NONE [facility] Jan 05, 2021 10:30 AM AMBULATORY - NONE [facility] Jan 26, 2021 08:00 AM AMBULATORY NONE [facility] Surgical Procedures: All associated to [...] the Encounter. The data comes from all [place] treatment facilities. Date/Time Pathology Report Provider Source [...] - - - - $TEXT Submitted by: [facility] Date obtained: Jul 19, 2020 - [...] - - - - - Received from [facility] in [place], [place] are 16 slides labeled with "[id number]", the patient's initials, and facility of origin. Also included is a pathology report identified with "[id number]", the patient's name and demographics, and facility of origin. Microscopic examination is performed. I agree with the diagnosis of prostatic adenocarcinoma, as reported by Dr. Butler and transcribed below. A copy of the original report will be scanned into [employer]. Diagnosis: 1. Right base prostate biopsy medial: Adenocarcinoma, [place] grade 4+3 equals score of 7 (grade group 3), in one of one core, involving 60% of specimen in discontinuous foci. 2. Right base prostate biopsy lateral: Adenocarcinoma, Isabel grade 4+3 equals score of 7 (grade group 3), and one of one core, involving 50% of tissue in discontinuous foci. Perineural invasion present. 3. Right mid-prostate biopsy medial: Adenocarcinoma, [place] grade 4+3 equals score of 7 (grade group 3), in one of one core, involving 90% of tissue. 4. Right mid-prostate biopsy lateral: Adenocarcinoma, Isabel grade 4+3 equals score of 7 (grade group 3), in one of one core, involving 90% of specimen. Perineural invasion present. 5. Right apex prostate biopsy medial: Adenocarcinoma, [place] grade 4+5 equals score of 9 (grade [...] 8. Left base prostate biopsy lateral: Adenocarcinoma, [place] grade 4+3 equals score of 7 (grade group 3), in one of one core, involving 30% of specimen in discontinuous foci. 9. Left mid-prostate biopsy medial: Adenocarcinoma, [place] grade 4+3 equals score of 7 (grade group 3), in one of one core, involving 50% of specimen. 10. Left mid-prostate biopsy lateral: Adenocarcinoma, [place] grade 4+4 equals score of 8 (grade group 4), in one of one core, involving less than 5% of specimen in discontinuous foci. 11. Left apex prostate biopsy medial: Adenocarcinoma, [place] grade 4+4 = score of 8 (grade group 4), in 1 of 1 fragmented core, involving 10% of specimen. 12. Left apex prostate biopsy lateral: Adenocarcinoma, [place] grade 3+4 equals score of 7 (grade [...] Performing Laboratory: Surgical Pathology Report Performed By: [facility] [CLIA# [id number]] [address] [place] [address] $FTR - - - [...] - - SALVADOR CLEARY STANDARD FORM 515 ID:[id number] SEX:M :1955 AGE: 64 LOC:[facility] [place] PCP: Margarita Page /lizzy/ JOSH PRICE MD, FCAP PATHOLOGIST Signed: 08/06/2020 15:01 JOSH PRICE [facility] Encounter Notes: All associated encounter notes This section contains the clinical notes associated to the Encounter. Date/Time Encounter Note(s) Provider Source Aug 06, 2020 03:01 PM PATHOLOGY REPORT: LOCAL TITLE: LR SURGICAL PATHOLOGY REPORT STANDARD [...] - - - - $TEXT Submitted by: [place], [place] Date obtained: Jul 19, 2020 - [...] - - - - - Received from [facility] in [place], [place] are 16 slides labeled with "[id number]", the patient's initials, and facility of origin. Also included is a pathology report identified with "[id number]", the patient's name and demographics, and facility of origin. Microscopic examination is performed. I agree with the diagnosis of prostatic adenocarcinoma, as reported by Dr. Butler and transcribed below. A copy of the original report will be scanned into [employer]. Diagnosis: 1. Right base prostate biopsy medial: Adenocarcinoma, [place] grade 4+3 equals score of 7 (grade group 3), in one of one core, involving 60% of specimen in discontinuous foci. 2. Right base prostate biopsy lateral: Adenocarcinoma, [place] grade 4+3 equals score of 7 (grade group 3), and one of one core, involving 50% of tissue in discontinuous foci. Perineural invasion present. 3. Right mid-prostate biopsy medial: Adenocarcinoma, [place] grade 4+3 equals score of 7 (grade group 3), in one of one core, involving 90% of tissue. 4. Right mid-prostate biopsy lateral: Adenocarcinoma, Isabel grade 4+3 equals score of 7 (grade group 3), in one of one core, involving 90% of specimen. Perineural invasion present. 5. Right apex prostate biopsy medial: Adenocarcinoma, [place] grade 4+5 equals score of 9 (grade group 5), in one of one core, involving 95% of specimen. Perineural invasion present. 6. Right apex prostate biopsy lateral: Adenocarcinoma, Isabel grade 4+5 equals score of 9 (grade group 5), in one of one core, involving 70% of specimen. 7. Left base prostate biopsy medial: Adenocarcinoma, [place] grade 4+3 equals score of 7 (grade group 3), in one of one core, involving 90% of specimen. 8. Left base prostate biopsy lateral: Adenocarcinoma, [place] grade 4+3 equals score of 7 (grade [...] 11. Left apex prostate biopsy medial: Adenocarcinoma, [place] grade 4+4 = score of 8 (grade group 4), in 1 of 1 fragmented core, involving 10% of specimen. 12. Left apex prostate biopsy lateral: Adenocarcinoma, [place] grade 3+4 equals score of 7 (grade [...] the overall case. /lizzy/ JOSH PRICE MD, PHYLLIS PATHOLOGIST Signed Aug 06, 2020@15:01 Performing Laboratory: Surgical Pathology Report Performed By: [facility] [CLIA# [id number]] [address] $FTR - [...] - - SALVADOR CLEARY STANDARD FORM 515 ID:[id number] SEX:M :1955 AGE: 64 LOC:[facility] PCP: Margarita Page /tad PRICE MD, FCAP PATHOLOGIST Signed: 08/06/2020 15:01 JOSH PRICE [facility]
--- OUTSIDE RECORDS SUMMARY | 2021-01-26 11:39 | XMS REPORT | Encounter Summary ---
[facility] Department of [facility] Address Unknown Phone Unavailable Care Team Providers Care Cane Burner Name Role Phone MARGARITA PAGE PCP Unavailable [...] PLAN G Aug 19, 2018 PLAN G [id number] EVINSALVADOR PATIENT MEDICARE (WNR) MEDICARE (M) PART A Aug 19, 2018 PART A [id number] [id number] EVINSALVADOR PATIENT MEDICARE (WNR) MEDICARE (M) PART B Aug 19, 2018 PART B [id number] 60A [phone] EVINSALVADOR PATIENT MEDICARE (WNR) MEDICARE (M) PART A Aug 19, 2018 PART A [id number] EVINSALVADOR PATIENT MEDICARE (WNR) MEDICARE (M) PART B Aug 19, 2018 PART B [id number] EVINSALVADOR PATIENT MEDICARE PART D (WNR) MEDICARE (M) PART D Aug 19, 2018 PART D [id number] EVINSALVADOR PATIENT MEDICARE PART D (WNR) MEDICARE (M) PART D Aug 19, 2018 PART D [id number] SALVADOR CLEARY PATIENT Selected Encounter This section includes the information on record at [place] for the Encounter. Date/Time Encounter Type Encounter Description Reason Provider Source Aug 10, 2020 12:00 AM Outpatient Encounter COMMUNITY CARE CONSULT IHE Encounter Template Text not used by [place] Assessments - Encounter Diagnoses No Data Provided for This Section Plan of Treatment: Future Appointments (+ 6 months) and Future Tests (+/- 45 day s) The Plan of Treatment section includes future care activities for the patient fr om all [place] treatment facilities. This section includes future appointments and fu ture orders which are active, pending or scheduled. Future Appointments This section includes appointments that were scheduled t o occur 6 months from the date of the Encounter, up to a maximum of 20 appointme nts. The data comes from all [facility]. Appointment Date/Time Appointment Type Appointment Facili ty Name Aug 11, 2020 10:00 AM AMBULATORY - NONE [facility] Nov 03, 2020 08:00 AM AMBULATORY - NONE [facility] Nov 03, 2020 11:00 AM AMBULATORY - MEDICINE [facility] Nov 24, 2020 08:00 AM AMBULATORY - NONE [facility] Dec 03, 2020 11:00 AM AMBULATORY MEDICINE [facility] Dec 15, 2020 07:00 AM AMBULATORY - NONE [facility] Jan 05, 2021 10:30 AM AMBULATORY - NONE [facility] Jan 26, 2021 08:00 AM AMBULATORY - NONE [facility] Surgical Procedures: All associated to [...] the Encounter. The data comes from all [facility] facilities. Date/Time Pathology Report Provider Source [...] - - - - $TEXT Submitted by: [facility] Date obtained: Jul 19, 2020 - - [...] - - - - - Received from [facility] in [place], [place] are 16 slides labeled with "[id number]", the patient's initials, and facility of origin. Also included is a pathology report identified with "[id number]", the patient's name and demographics, and facility of origin. Microscopic examination is performed. I agree with the diagnosis of prostatic adenocarcinoma, as reported by Dr. Butler and transcribed below. A copy of the original report will be scanned into [employer]. Diagnosis: 1. Right base prostate biopsy medial: [...] present. 3. Right mid-prostate biopsy medial: Adenocarcinoma, [place] grade 4+3 equals score of 7 (grade group 3), in one of one core, involving 90% of tissue. 4. Right mid-prostate biopsy lateral: Adenocarcinoma, [place] grade 4+3 equals score of 7 (grade group 3), in one of one core, involving 90% of specimen. Perineural invasion present. 5. Right apex prostate biopsy medial: Adenocarcinoma, [place] grade 4+5 equals score of 9 (grade group 5), in one of one core, involving 95% of specimen. Perineural invasion present. 6. Right apex prostate biopsy lateral: Adenocarcinoma, [place] grade 4+5 equals score of 9 (grade group 5), in one of one core, involving 70% of specimen. 7. Left base prostate biopsy medial: Adenocarcinoma, [place] grade 4+3 equals score of 7 (grade group 3), in one of one core, involving 90% of specimen. 8. Left base prostate biopsy lateral: Adenocarcinoma, [place] grade 4+3 equals score of 7 (grade group 3), in one of one core, involving 30% of specimen in discontinuous foci. 9. Left mid-prostate biopsy medial: Adenocarcinoma, [place] grade 4+3 equals score of 7 (grade [...] is corrected here as grade group 5 ([place] 4+5=9). Isabel score for part 12 stated in the original report as "4+3=score of 7 (grade group 2)" is corrected here as "3+4=score of 7 (grade group 2)." These are typographical corrections only and do not affect clinical interpretation of the overall case. /es/ JOSH PRICE MD, FCAP PATHOLOGIST Signed Aug 06, 2020@15:01 Performing Laboratory: Surgical Pathology Report Performed By: [facility] [CLIA# [id number]] [address] $FTR - - - [...] - - SALVADOR CLEARY STANDARD FORM 515 ID:[id number] SEX:M :1955 AGE: 64 [facility] PCP: Margarita Page /lizzy/ JOSH PRICE MD, FCAP PATHOLOGIST Signed: 08/06/2020 15:01 JOSH PRICE [facility] Encounter Notes: All associated encounter notes This section contains the clinical notes associated to the Encounter. Date/Time Encounter Note(s) Provider Source Aug 10, 2020 12:00 AM NONVA CONSULT: LOCAL TITLE: COMMUNITY CARE-CONSULT RESULT NOTE STANDARD TITLE: NONVA CONSULT DATE OF NOTE: AUG 10, 2020 ENTRY DATE: SEP 06, 2020@09:45:01 AUTHOR: LUIS WILSON EXP COSIGNER: URGENCY: STATUS: COMPLETED [facility] Imaging - Scanned Document [facility] 03.23.21 VISIT /lizzy/ LUIS WILSON DIVISION OPERATIONS MANAGER Signed: 09/06/2020 09:45 LUIS WILSON [facility]
--- OUTSIDE RECORDS SUMMARY | 2021-01-26 11:39 | XMS REPORT | Encounter Summary ---
[facility] Address Unknown Phone Unavailable Care Team Providers Care Linux Architect Name Role Phone MARGARITA PAGE PCP Unavailable [...] PLAN G Aug 19, 2018 PLAN G [id number] EVINSALVADOR PATIENT MEDICARE (WNR) MEDICARE (M) PART A Aug 19, 2018 PART A [id number] [phone] EVINSALVADOR PATIENT MEDICARE (WNR) MEDICARE (M) PART B Aug 19, 2018 PART B [id number] [phone] EVINSALVADOR PATIENT MEDICARE (WNR) MEDICARE (M) PART A Aug 19, 2018 PART A [id number] EVINSALVADOR PATIENT MEDICARE (WNR) MEDICARE (M) PART B Aug 19, 2018 PART B [id number] EVINSALVADOR PATIENT MEDICARE PART D (WNR) MEDICARE (M) PART D Aug 19, 2018 PART D [id number] EVINSALVADOR PATIENT MEDICARE PART D (WNR) MEDICARE (M) PART D Aug 19, 2018 PART D [id number] CLEARYSALVADOR PATIENT Selected Encounter This section includes the information on record at [place] for the Encounter. Date/Time Encounter Type Encounter Description Reason Provider Source Jul 30, 2020 07:56 AM Outpatient Encounter COMMUNITY CARE CONSULT CESAR PIERCE IHE Encounter Template Text not used by [place] Assessments - Encounter Diagnoses No Data Provided for This Section Plan of Treatment: Future Appointments (+ 6 months) and Future Tests (+/- 45 day s) The Plan of Treatment section includes future care activities for the patient fr om all [place] treatment facilities. This section includes future appointments and fu ture orders which are active, pending or scheduled. Future Appointments This section includes appointments that were scheduled t o occur 6 months from the date of the Encounter, up to a maximum of 20 appointme nts. The data comes from all [facility]. Appointment Date/Time Appointment Type Appointment Facili ty Name Aug 11, 2020 10:00 AM AMBULATORY - NONE [facility] Nov 03, 2020 08:00 AM AMBULATORY - NONE [facility] Nov 03, 2020 11:00 AM AMBULATORY - MEDICINE [facility] Nov 24, 2020 08:00 AM AMBULATORY - NONE [facility] Dec 03, 2020 11:00 AM AMBULATORY MEDICINE [facility] Dec 15, 2020 07:00 AM AMBULATORY - NONE [facility] Jan 05, 2021 10:30 AM AMBULATORY - NONE [facility] Jan 26, 2021 08:00 AM [facility] [place] the Encounter. The data comes from all [facility] facilities. Date/Time Pathology Report Provider Source Aug [...] - - - - $TEXT Submitted by: [facility] [place] Date obtained: Jul 19, 2020 - - [...] - - - Received from [facility] in [place], [place] are 16 slides labeled with "[id number]", the patient's initials, and facility of origin. Also included is a pathology report identified with "[id number]", the patient's name and demographics, and facility of origin. Microscopic examination is performed. I agree with the diagnosis of prostatic adenocarcinoma, as reported by Dr. Butler and transcribed below. A copy of the original report will be scanned into [employer]. Diagnosis: 1. Right base prostate biopsy medial: Adenocarcinoma, Isabel grade 4+3 equals score of 7 (grade group 3), in one of one core, involving 60% of specimen in discontinuous foci. 2. Right base prostate biopsy lateral: Adenocarcinoma, [place] grade 4+3 equals score of 7 (grade group 3), and one of one core, involving 50% of tissue in discontinuous foci. Perineural invasion present. 3. Right mid-prostate biopsy medial: Adenocarcinoma, Isabel grade 4+3 equals score of 7 (grade group 3), in one of one core, involving 90% of tissue. 4. Right mid-prostate biopsy lateral: Adenocarcinoma, [place] grade 4+3 equals score of 7 (grade [...] 8. Left base prostate biopsy lateral: Adenocarcinoma, [place] grade 4+3 equals score of 7 (grade group 3), in one of one core, involving 30% of specimen in discontinuous foci. 9. Left mid-prostate biopsy medial: Adenocarcinoma, [place] grade 4+3 equals score of 7 (grade group 3), in one of one core, involving 50% of specimen. 10. Left mid-prostate biopsy lateral: Adenocarcinoma, [place] grade 4+4 equals score of 8 (grade group 4), in one of one core, involving less than 5% of specimen in discontinuous foci. 11. Left apex prostate biopsy medial: Adenocarcinoma, [place] grade 4+4 = score of 8 (grade group 4), in 1 of 1 fragmented core, involving 10% of specimen. 12. Left apex prostate biopsy lateral: Adenocarcinoma, [place] grade 3+4 equals score of 7 (grade [...] is corrected here as grade group 5 ([place] 4+5=9). Isabel score for part 12 stated in the original report as "4+3=score of 7 (grade group 2)" is corrected here as "3+4=score of 7 (grade group 2)." These are typographical corrections only and do not affect clinical interpretation of the overall case. /lizzy/ JOSH PRICE MD, FCAP PATHOLOGIST Signed Aug 06, 2020@15:01 Performing Laboratory: Surgical Pathology Report Performed By: [facility] [CLIA# [id number]] [address] $FTR - [...] - - SALVADOR CLEARY STANDARD FORM 515 ID:[id number] SEX:M :1955 AGE: 64 LOC:[facility] PCP: Margarita Page /lizzy/ JOSH PRICE MD, FCRITU PATHOLOGIST Signed: 08/06/2020 15:01 JOSH PRICE [facility] Encounter Notes: All associated encounter notes This section contains the clinical notes associated to the Encounter. Date/Time Encounter Note(s) Provider Source Jul 30, 2020 07:56 AM NONVA NOTE: LOCAL TITLE: COMMUNITY CARE-COORDINATION PLAN STANDARD TITLE: NONVA NOTE DATE OF NOTE: JUL 30, 2020@07:56 ENTRY DATE: JUL 30, 2020@07:56:36 AUTHOR: CESAR PIERCE EXP COSIGNER: URGENCY: STATUS: COMPLETED COMMUNITY CARE-COORDINATION PLAN Has ADDENDA Community Care Coordination Plan Community Care Consult: Radiation Therapy Chief Complaint: Malignant neoplasm of prostate(ICD-10-CM C61.) Patient Admitted: No Level of Care Coordination Moderate This information was obtained from: Chart Review Facility Community Care Office Contact Care Coordination Point of Contact: Cesar Pierce MSN, RN does not have a caregiver. Services: Basic Care Coordination Services Monitoring and coordination of Rehab/PT Services Direct communication to referring provider Care management, if appropriate Plan: Proceed with scheduling. See consult for details /lizzy/ CESAR PIERCE RN OCC Consult Review Nurse Signed: 07/30/2020 07:58 07/30/2020 ADDENDUM STATUS: COMPLETED APPOINTMENT MANAGEMENT / MEDICAL RECORDS Appointment Community Provider/Facility: [facility] Appointment Care Site/Location: [facility] ARTHUR BARR[place]AS [place], [id number] Appointment Date: 08/09/2020 Appointment Status: SCHEDULED Appointment Provider Name: ALTAGRACIA GALLAGHER Appointment Provider Treating Specialty: Radiology - Radiation Oncology Appointment Provider Phone Number: na Appointment Provider Email: [email or web address] PLAN: VERIFY CARE, REQUEST RECORDS POST APPOINTMENT DATE /lizzy/ TERELL THOMAS Advanced Medical Support Asst Signed: 07/30/2020 08:45 CESAR PIERCE [facility]
--- OUTSIDE RECORDS SUMMARY | 2021-01-26 11:40 | XMS REPORT | Encounter Summary ---
Author Author Department [facility] SALVADOR hwang Organization Department of [facility] Address Unknown Phone Unavailable Care Team Providers Care Pearl Hand Name Role Phone MARGARITA PAGE PCP Unavailable [...] PLAN G Aug 19, 2018 PLAN G [id number] EVINSALVADOR PATIENT MEDICARE (WNR) MEDICARE (M) PART A Aug 19, 2018 PART A [id number] [id number] [phone] CLEARYSALVADOR PATIENT MEDICARE (WNR) MEDICARE (M) PART B Aug 19, 2018 PART B [id number] [id number] [phone] EVINSALVADOR PATIENT MEDICARE (WNR) MEDICARE (M) PART A Aug 19, 2018 PART A [id number] EVINSALVADOR PATIENT MEDICARE (WNR) MEDICARE (M) PART B Aug 19, 2018 PART B [id number] CLEARYSALVADOR PATIENT MEDICARE PART D (WNR) MEDICARE (M) PART D Aug 19, 2018 PART D [id number] CLEARYSALVADOR PATIENT MEDICARE PART D (WNR) MEDICARE (M) PART D Aug 19, 2018 PART D [id number] SALVADOR CLEARY PATIENT Selected Encounter This section includes the information on record at [place] for the Encounter. Date/Time Encounter Type Encounter Description Reason Provider Source Jul 29, 2020 03:56 PM Outpatient Encounter PRIMARY CARE/MEDICINE IHE Encounter Template Text not used by [place] Assessments - Encounter Diagnoses No Data Provided for This Section Plan of Treatment: Future Appointments (+ 6 months) and Future Tests (+/- 45 day s) The Plan of Treatment section includes future care activities for the patient fr om all [place] treatment facilities. This section includes future appointments and fu ture orders which are active, pending or scheduled. Future Appointments This section includes appointments that were scheduled t o occur 6 months from the date of the Encounter, up to a maximum of 20 appointme nts. The data comes from all [facility]. Appointment Date/Time Appointment Type Appointment Facili ty Name Aug 11, 2020 10:00 AM AMBULATORY - NONE [facility] Nov 03, 2020 08:00 AM AMBULATORY - NONE [facility] Nov 03, 2020 11:00 AM AMBULATORY - MEDICINE [facility] Nov 24, 2020 08:00 AM AMBULATORY - NONE [facility] Dec 03, 2020 11:00 AM [facility] Dec 15, 2020 07:00 AM AMBULATORY - NONE [facility] Jan 05, 2021 10:30 AM AMBULATORY - NONE [facility] Jan 26, 2021 08:00 AM AMBULATORY - NONE [facility] Surgical Procedures: All associated to [...] the Encounter. The data comes from all [facility] facilities. Date/Time Pathology Report Provider Source Aug [...] - - - - $TEXT [facility] Date obtained: Jul 19, 2020 - - [...] - - - - - Received from [facility] in [place], [place] are 16 slides labeled with "[id number]", the patient's initials, and facility of origin. Also included is a pathology report identified with "[id number]", the patient's name and demographics, and facility of origin. Microscopic examination is performed. I agree with the diagnosis of prostatic adenocarcinoma, as reported by Dr. Butler and transcribed below. A copy of the original report will be scanned into [employer]. Diagnosis: 1. Right base prostate biopsy medial: [...] present. 3. Right mid-prostate biopsy medial: Adenocarcinoma, [place] grade 4+3 equals score of 7 (grade group 3), in one of one core, involving 90% of tissue. 4. Right mid-prostate biopsy lateral: Adenocarcinoma, [place] grade 4+3 equals score of 7 (grade group 3), in one of one core, involving 90% of specimen. Perineural invasion present. 5. Right apex prostate biopsy medial: Adenocarcinoma, [place] grade 4+5 equals score of 9 (grade [...] 8. Left base prostate biopsy lateral: Adenocarcinoma, [place] grade 4+3 equals score of 7 (grade group 3), in one of one core, involving 30% of specimen in discontinuous foci. 9. Left mid-prostate biopsy medial: Adenocarcinoma, [place] grade 4+3 equals score of 7 (grade group 3), in one of one core, involving 50% of specimen. 10. Left mid-prostate biopsy lateral: Adenocarcinoma, [place] grade 4+4 equals score of 8 (grade group 4), in one of one core, involving less than 5% of specimen in discontinuous foci. 11. Left apex prostate biopsy medial: Adenocarcinoma, [place] grade 4+4 = score of 8 (grade group 4), in 1 of 1 fragmented core, involving 10% of specimen. 12. Left apex prostate biopsy lateral: Adenocarcinoma, [place] grade 3+4 equals score of 7 (grade [...] is corrected here as grade group 5 ([place] 4+5=9). Isabel score for part 12 stated in the original report as "4+3=score of 7 (grade group 2)" is corrected here as "3+4=score of 7 (grade group 2)." These are typographical corrections only and do not affect clinical interpretation of the overall case. /es/ JOSH PRICE MD, FCAP PATHOLOGIST Signed Aug 06, 2020@15:01 Performing Laboratory: Surgical Pathology Report Performed By: [facility] [CLIA# [id number]] [address] [...] - - SALVADOR CLEARY STANDARD FORM 515 ID:[id number] SEX:M :1955 AGE: 64 LOC:[facility] PCP: Margarita Page /lizzy/ JOSH PRICE MD, FCRITU PATHOLOGIST Signed: 08/06/2020 15:01 JOSH PRICE [facility] Encounter Notes: All associated encounter notes This section contains the clinical notes associated to the Encounter. Date/Time Encounter Note(s) Provider Source Jul 29, 2020 03:56 PM ADMINISTRATIVE NOTE: LOCAL TITLE: ADMINISTRATIVE NOTE STANDARD TITLE: ADMINISTRATIVE NOTE DATE OF NOTE: JUL 29, 2020@15:56 ENTRY DATE: JUL 29, 2020@15:56:34 AUTHOR: EB MORROW EXP COSIGNER: URGENCY: STATUS: COMPLETED is going to come in on 07/30/20 07/29/2020 15:47 New Order entered by MAGNUS HAYES (REGISTERED NURS) Order Text: pls call Orma to have him sign CATALINO for Craig in order to release pathology slides /lizzy/ EB MORROW Signed: 07/29/2020 15:57 EB [facility]OR[facility]
--- OUTSIDE RECORDS SUMMARY | 2021-01-26 11:40 | XMS REPORT | Encounter Summary ---
Author [facility] Organization [facility] Address Unknown Phone Unavailable Care Team Providers Care Pmo Analyst Name Role Phone MARGARITA PAGE PCP Unavailable [...] PLAN G Aug 19, 2018 PLAN G [id number] EVINSALVADOR PATIENT MEDICARE (WNR) MEDICARE (M) PART A Aug 19, 2018 PART A [id number] [phone] EVINSALVADOR PATIENT MEDICARE (WNR) MEDICARE (M) PART B Aug 19, 2018 PART B [id number] EVINSALVADOR PATIENT MEDICARE (WNR) MEDICARE (M) PART A Aug 19, 2018 PART A [id number] EVINSALVADOR PATIENT MEDICARE (WNR) MEDICARE (M) PART B Aug 19, 2018 PART B [id number] EVINSALVADOR PATIENT MEDICARE PART D (WNR) MEDICARE (M) PART D Aug 19, 2018 PART D [id number] EVINSALVADOR PATIENT MEDICARE PART D (WNR) MEDICARE (M) PART D Aug 19, 2018 PART D [id number] CLEARYSALVADOR PATIENT Selected Encounter This section includes the information on record at [place] for the Encounter. Date/Time Encounter Type Encounter Description Reason Provider Source Jul 29, 2020 04:08 PM Outpatient Encounter COMMUNITY CARE CONSULT CESAR PIERCE [...] from all [facility]. Appointment Date/Time Appointment Type Appointment Facili ty Name Aug 11, 2020 10:00 AM AMBULATORY - NONE [facility] Nov 03, 2020 08:00 AM AMBULATORY - NONE [facility] Nov 03, 2020 11:00 AM AMBULATORY - MEDICINE [facility] Nov 24, 2020 08:00 AM AMBULATORY - NONE [facility] Dec 03, 2020 11:00 AM AMBULATORY MEDICINE [facility] Dec 15, 2020 07:00 AM AMBULATORY - NONE [facility] Jan 05, 2021 10:30 AM AMBULATORY - NONE [facility] Jan 26, 2021 08:00 AM AMBULATORY - NONE [facility] Surgical Procedures: All associated to the encounter [...] the Encounter. The data comes from all [facility] facilities. Date/Time Pathology Report Provider [...] - - - - $TEXT Submitted by: [facility] Date obtained: Jul 19, 2020 - - [...] - - - - - Received from [facility] in [place], [place] are 16 slides labeled with "[id number]", the patient's initials, and facility of origin. Also included is a pathology report identified with "[id number]", the patient's name and demographics, and facility of origin. Microscopic examination is performed. I agree with the diagnosis of prostatic adenocarcinoma, as reported by Dr. Butler and transcribed below. A copy of the original report will be scanned into [employer]. Diagnosis: 1. Right base prostate biopsy medial: Adenocarcinoma, Isabel grade 4+3 equals score of 7 (grade group 3), in one of one core, involving 60% of specimen in discontinuous foci. 2. Right base prostate biopsy lateral: Adenocarcinoma, [place] grade 4+3 equals score of 7 (grade group 3), and one of one core, involving 50% of tissue in discontinuous foci. Perineural invasion present. 3. Right mid-prostate biopsy medial: Adenocarcinoma, Isabel grade 4+3 equals score of 7 (grade group 3), in one of one core, involving 90% of tissue. 4. Right mid-prostate biopsy lateral: Adenocarcinoma, [place] grade 4+3 equals score of 7 (grade [...] 8. Left base prostate biopsy lateral: Adenocarcinoma, [place] grade 4+3 equals score of 7 (grade group 3), in one of one core, involving 30% of specimen in discontinuous foci. 9. Left mid-prostate biopsy medial: Adenocarcinoma, [place] grade 4+3 equals score of 7 (grade group 3), in one of one core, involving 50% of specimen. 10. Left mid-prostate biopsy lateral: Adenocarcinoma, [place] grade 4+4 equals score of 8 (grade group 4), in one of one core, involving less than 5% of specimen in discontinuous foci. 11. Left apex prostate biopsy medial: Adenocarcinoma, [place] grade 4+4 = score of 8 (grade group 4), in 1 of 1 fragmented core, involving 10% of specimen. 12. Left apex prostate biopsy lateral: Adenocarcinoma, [place] grade 3+4 equals score of 7 (grade [...] is corrected here as grade group 5 ([place] 4+5=9). Isabel score for part 12 stated in the original report as "4+3=score of 7 (grade group 2)" is corrected here as "3+4=score of 7 (grade group 2)." These are typographical corrections only and do not affect clinical interpretation of the overall case. /lizzy/ JOSH PRICE MD, FCAP PATHOLOGIST Signed Aug 06, 2020@15:01 Performing Laboratory: Surgical Pathology Report Performed By: [facility] [CLIA# [id number]] [address] $FTR - [...] - - SALVADOR CLEARY STANDARD FORM 515 ID:[id number] SEX:M :1955 AGE: 64 LOC:[facility] PCP: Margarita Page /tad PRICE MD, PHYLLIS PATHOLOGIST Signed: 08/06/2020 15:01 JOSH PRICE [facility] Encounter Notes: All associated encounter notes This section contains the clinical notes associated to the Encounter. Date/Time Encounter Note(s) Provider Source Jul 29, 2020 04:08 PM NONVA NOTE: LOCAL TITLE: COMMUNITY CARE-COORDINATION PLAN STANDARD TITLE: NONVA NOTE DATE OF NOTE: JUL 29, 2020@16:08 ENTRY DATE: JUL 29, 2020@16:09:01 AUTHOR: ERNESTINA ORDAZ EXP COSIGNER: URGENCY: STATUS: COMPLETED Community Care Coordination Plan Community Care Consult: radiation therapy Chief Complaint: Malignant neoplasm of prostate(ICD-10-CM C61.) Patient Admitted: No Level of Care Coordination Complex/Chronic This information was obtained from: Chart Review Facility Community Care Office Contact Care Coordination Point of Contact: Cesar Pierce RN [id number] does not have a caregiver. Services: Moderate Care Coordination Services Case Management, if appropriate Direct communications with interdisciplinary team Plan: proceed with scheduling. see consult for details /tad ORDAZ RN OCC Consult Management Nurse Signed: 07/29/2020 16:10 ERNESTINA ORDAZ [facility]
--- OUTSIDE RECORDS SUMMARY | 2021-01-26 11:40 | XMS REPORT | Encounter Summary ---
Author Author Department [facility] Organization Department of [facility] Address Unknown Phone Unavailable Care Team Providers Care Rn Provider Relations Name Role Phone MARGARITA PAGE PCP Unavailable [...] PLAN G Aug 19, 2018 PLAN G [id number] EVINSALVADOR PATIENT MEDICARE (WNR) MEDICARE (M) PART A Aug 19, 2018 PART A [id number] 60A [phone] EVINSALV[place]OR PATIENT MEDICARE (WNR) MEDICARE (M) PART B Aug 19, 2018 PART B [id number] 60A [phone] EV[place]OR PATIENT MEDICARE (WNR) MEDICARE (M) PART A Aug 19, 2018 PART A [id number] EVINSAL[place]ADOR PATIENT MEDICARE (WNR) MEDICARE (M) PART B Aug 19, 2018 PART B [id number] EVINSALVADOR PATIENT MEDICARE PART D (WNR) MEDICARE (M) PART D Aug 19, 2018 PART D [id number] EVINSALVADOR PATIENT MEDICARE PART D (WNR) MEDICARE (M) PART D Aug 19, 2018 PART D [id number] SALVADOR CLEARY PATIENT Selected Encounter This section includes the information on record at [place] for the Encounter. Date/Time Encounter Type Encounter Description Reason Provider Source Jul 28, 2020 12:00 AM Outpatient Encounter COMMUNITY CARE [...] appointme nts. The data comes from all [facility]. Appointment Date/Time Appointment Type Appointment Facili ty Name Jul 29, 2020 11:00 AM AMBULATORY MEDICINE [facility] Aug 11, 2020 10:00 AM AMBULATORY - NONE [facility] Nov 03, 2020 08:00 AM AMBULATORY - NONE [facility] Nov 03, 2020 11:00 AM AMBULATORY MEDICINE [facility] Nov 24, 2020 08:00 AM AMBULATORY - NONE [facility] Dec 03, 2020 11:00 AM AMBULATORY MEDICINE [facility] Dec 15, 2020 07:00 AM AMBULATORY - NONE [facility] Jan 05, 2021 10:30 AM AMBULATORY - NONE [facility] Jan 26, 2021 08:00 AM AMBULATORY - NONE [facility] Surgical Procedures: All associated to [...] the Encounter. The data comes from all [facility] facilities. Date/Time Pathology Report Provider Source Aug 06, 2020 03:01 PM LR SURGICAL PATHOLOGY REPORT : LOCAL TITLE: LR SURGICAL PATHOLOGY REPORT STANDARD TITLE: PATHOLOGY REPORT DATE OF NOTE: AUG 06, 2020@15:01:07 ENTRY DATE: AUG 06, 2020@15:01:07 AUTHOR: JOSH PRICEIGNER: URGENCY: STATUS: COMPLETED $APHDR - - - [...] - - - - $TEXT Submitted by: [facility] Date obtained: Jul 19, 2020 - - [...] - - Received from [facility] in [place], [place] are 16 slides labeled with "[id number]", the patient's initials, and facility of origin. Also included is a pathology report identified with "[id number]", the patient's name and demographics, and facility of origin. Microscopic examination is performed. I agree with the diagnosis of prostatic adenocarcinoma, as reported by Dr. Butler and transcribed below. A copy of the original report will be scanned into [employer]. Diagnosis: 1. Right base prostate biopsy medial: Adenocarcinoma, Isabel grade 4+3 equals score of 7 (grade group 3), in one of one core, involving 60% of specimen in discontinuous foci. 2. Right base prostate biopsy lateral: Adenocarcinoma, [place] grade 4+3 equals score of 7 (grade group 3), and one of one core, involving 50% of tissue in discontinuous foci. Perineural invasion present. 3. Right mid-prostate biopsy medial: Adenocarcinoma, [place] grade 4+3 equals score of 7 (grade group 3), in one of one core, involving 90% of tissue. 4. Right mid-prostate biopsy lateral: Adenocarcinoma, [place] grade 4+3 equals score of 7 (grade group 3), in one of one core, involving 90% of specimen. Perineural invasion present. 5. Right apex prostate biopsy medial: Adenocarcinoma, Isabel grade 4+5 equals score of 9 (grade group 5), in one of one core, involving 95% of specimen. Perineural invasion present. 6. Right apex prostate biopsy lateral: Adenocarcinoma, [place] grade 4+5 equals score of 9 (grade group 5), in one of one core, involving 70% of specimen. 7. Left base prostate biopsy medial: Adenocarcinoma, Isabel grade 4+3 equals score of 7 (grade group 3), in one of one core, involving 90% of specimen. 8. Left base prostate biopsy lateral: Adenocarcinoma, [place] grade 4+3 equals score of 7 (grade group 3), in one of one core, involving 30% of specimen in discontinuous foci. 9. Left mid-prostate biopsy medial: Adenocarcinoma, Isabel grade 4+3 equals score of 7 (grade group 3), in one of one core, involving 50% of specimen. 10. Left mid-prostate biopsy lateral: Adenocarcinoma, [place] grade 4+4 equals score of 8 (grade group 4), in one of one core, involving less than 5% of specimen in discontinuous foci. 11. Left apex prostate biopsy medial: Adenocarcinoma, [place] grade 4+4 = score of 8 (grade [...] is corrected here as grade group 5 ([place] 4+5=9). Isabel score for part 12 stated in the original report as "4+3=score of 7 (grade group 2)" is corrected here as "3+4=score of 7 (grade group 2)." These are typographical corrections only and do not affect clinical interpretation of the overall case. /lizzy/ JOSH PRICE MD, FCAP PATHOLOGIST Signed Aug 06, 2020@15:01 Performing Laboratory: Surgical Pathology Report Performed By: [facility] [CLIA# [id number]] [address] [facility] [address] $FTR - - [...] - - SALVADOR CLEARY STANDARD FORM 515 ID:[id number] SEX:M :1955 AGE: 64 [facility] PCP: Margarita Page /lizzy/ JOSH PRICE MD, FCAP PATHOLOGIST Signed: 08/06/2020 15:01 JOSH PRICE [facility] Encounter Notes: All associated encounter notes This section contains the clinical notes associated to the Encounter. Date/Time Encounter Note(s) Provider Source Jul 28, 2020 12:00 AM NONVA CONSULT: LOCAL TITLE: COMMUNITY CARE-CONSULT RESULT NOTE STANDARD TITLE: NONVA CONSULT DATE OF NOTE: JUL 28, 2020 ENTRY DATE: JUL 31, 2020@08:21 AUTHOR: DALJIT LÓPEZ EXP COSIGNER: URGENCY: STATUS: COMPLETED VistA Imaging - Scanned Document [facility] 07/24/2020-----07/28/2020 VISITS - [facility] /lizzy/ DALJIT LÓPEZ Signed: 07/31/2020 08:21 DALJIT LÓPEZ [facility] Jul 28, 2020 12:00 AM NONVA CONSULT: LOCAL TITLE: COMMUNITY CARE-CONSULT RESULT NOTE STANDARD TITLE: NONVA CONSULT DATE OF NOTE: JUL 28, 2020 ENTRY DATE: DEC 09, 2020@10:53:35 AUTHOR: JETHRO SANCHEZ EXP COSIGNER: URGENCY: STATUS: COMPLETED VistA Imaging - Scanned Document [facility] 07/28/20 Visit /lizzy/ JETHRO SANCHEZ IGNITION MECHANIC Signed: 12/09/2020 10:53 JETHRO SANCHEZ [facility] Jul 28, 2020 12:00 AM NONVA CONSULT: LOCAL TITLE: COMMUNITY CARE-CONSULT RESULT NOTE STANDARD TITLE: NONVA CONSULT DATE OF NOTE: JUL 28, 2020 ENTRY DATE: DEC 13, 2020@18:52:10 AUTHOR: STEVE ALVARENGA EXP COSIGNER: URGENCY: STATUS: COMPLETED VistA Imaging - Scanned Document [facility] 07-28-2020 VISIT 07-19-2020, 07-24-2020, 07-28-2020 /lizzy/ STEVE ALVARENGA Signed: 12/13/2020 18:52 STEVE ALVARENGA [facility]
--- OUTSIDE RECORDS SUMMARY | 2021-01-26 11:41 | XMS REPORT | Encounter Summary ---
Author [facility] Organization Department of [facility] Address Unknown Phone Unavailable Care Team Providers Care Associate Doctor Name Role Phone MARGARITA PAGE PCP Unavailable [...] PLAN G Aug 19, 2018 PLAN G [id number] EV[place] PATIENT MEDICARE (WNR) MEDICARE (M) PART A Aug 19, 2018 PART A [id number] 60A [phone] EV[place]OR PATIENT MEDICARE (WNR) MEDICARE (M) PART B Aug 19, 2018 PART B [id number] [phone] EV[place] PATIENT MEDICARE (WNR) MEDICARE (M) PART A Aug 19, 2018 PART A [id number] EV[place]OR PATIENT MEDICARE (WNR) MEDICARE (M) PART B Aug 19, 2018 PART B [id number] EVINS[place]ADOR PATIENT MEDICARE PART D (WNR) MEDICARE (M) PART D Aug 19, 2018 PART D [id number] EV[place]AD[place] PATIENT MEDICARE PART D (WNR) MEDICARE (M) PART D Aug 19, 2018 PART D [id number] SALVADOR CLEARY PATIENT Selected Encounter This section includes the information on record at [place] for the Encounter. Date/Time Encounter Type Encounter Description Reason Provider Source Jul 25, 2020 12:00 AM Outpatient Encounter COMMUNITY CARE [...] appointme nts. The data comes from all [facility]. Appointment Date/Time Appointment Type Appointment Facili ty Name Jul 29, 2020 11:00 AM AMBULATORY MEDICINE [facility] Aug 11, 2020 10:00 AM AMBULATORY - NONE [facility] Nov 03, 2020 08:00 AM AMBULATORY - NONE [facility] Nov 03, 2020 11:00 AM AMBULATORY MEDICINE [facility] Nov 24, 2020 08:00 AM AMBULATORY - NONE [facility] Dec 03, 2020 11:00 AM AMBULATORY MEDICINE [facility] Dec 15, 2020 07:00 AM AMBULATORY - NONE [facility] Jan 05, 2021 10:30 AM AMBULATORY - NONE [facility] Surgical Procedures: All associated to the [...] the Encounter. The data comes from all [place] treatment facilities. Date/Time Pathology Report Provider Source [...] - - - - $TEXT Submitted by: [facility] [place] Date obtained: Jul 19, 2020 - - [...] - - - - - Received from [facility] in [place], [place] are 16 slides labeled with "[id number]", the patient's initials, and facility of origin. Also included is a pathology report identified with "[id number]", the patient's name and demographics, and facility of origin. Microscopic examination is performed. I agree with the diagnosis of prostatic adenocarcinoma, as reported by Dr. Butler and transcribed below. A copy of the original report will be scanned into [employer]. Diagnosis: 1. Right base prostate biopsy medial: Adenocarcinoma, [place] grade 4+3 equals score of 7 (grade [...] tissue. 4. Right mid-prostate biopsy lateral: Adenocarcinoma, [place] grade 4+3 equals score of 7 (grade group 3), in one of one core, involving 90% of specimen. Perineural invasion present. 5. Right apex prostate biopsy medial: Adenocarcinoma, [place] grade 4+5 equals score of 9 (grade group 5), in one of one core, involving 95% of specimen. Perineural invasion present. 6. Right apex prostate biopsy lateral: Adenocarcinoma, [place] grade 4+5 equals score of 9 (grade group 5), in one of one core, involving 70% of specimen. 7. Left base prostate biopsy medial: Adenocarcinoma, Isabel grade 4+3 equals score of 7 (grade group 3), in one of one core, involving 90% of specimen. 8. Left base prostate biopsy lateral: Adenocarcinoma, [place] grade 4+3 equals score of 7 (grade group 3), in one of one core, involving 30% of specimen in discontinuous foci. 9. Left mid-prostate biopsy medial: Adenocarcinoma, [place] grade 4+3 equals score of 7 (grade group 3), in one of one core, involving 50% of specimen. 10. Left mid-prostate biopsy lateral: Adenocarcinoma, [place] grade 4+4 equals score of 8 (grade group 4), in one of one core, involving less than 5% of specimen in discontinuous foci. 11. Left apex prostate biopsy medial: Adenocarcinoma, [place] grade 4+4 = score of 8 (grade [...] here as grade group 5 (Isabel 4+5=9). [place] score for part 12 stated in the original report as "4+3=score of 7 (grade group 2)" is corrected here as "3+4=score of 7 (grade group 2)." These are typographical corrections only and do not affect clinical interpretation of the overall case. /lizzy/ JOSH PRICE MD, FCAP PATHOLOGIST Signed Aug 06, 2020@15:01 Performing Laboratory: Surgical Pathology Report Performed By: [facility] [CLIA# [id number]] [address] [facility] [address] $FTR - [...] - - SALVADOR CLEARY STANDARD FORM 515 ID:[id number] SEX:M :1955 AGE: 64 LOC:[facility] PCP: Margarita Page /lizzy/ JOSH PRICE MD, FCAP PATHOLOGIST Signed: 08/06/2020 15:01 JOSH PRICE COUNTS INCLUDE 234 BEDS AT THE [facility] Encounter Notes: All associated encounter notes This section contains the clinical notes associated to the Encounter. Date/Time Encounter Note(s) Provider Source Jul 25, 2020 12:00 AM NONVA NOTE: LOCAL TITLE: COMMUNITY CARE-MISCELLANEOUS STANDARD TITLE: NONVA NOTE DATE OF NOTE: JUL 25, 2020 ENTRY DATE: AUG 18, 2020@15:13:45 AUTHOR: STEPHANIE MARRERO EXP COSIGNER: URGENCY: STATUS: COMPLETED VistA Imaging - Scanned Document [facility] 07.25.20 VISIT /lizzy/ STEPHANIE MARRERO [facility] INFORMATION MGT SERVICE Signed: 08/18/2020 15:13 STEPHANIE MARRERO COUNTS INCLUDE 234 BEDS AT THE [facility] Jul 25, 2020 12:00 AM NONVA NOTE: LOCAL TITLE: COMMUNITY CARE-OUTPATIENT STANDARD TITLE: NONVA NOTE DATE OF NOTE: JUL 25, 2020 ENTRY DATE: SEP 17, 2020@15:39:21 AUTHOR: JULIO CESAR SARMIENTO EXP COSIGNER: URGENCY: STATUS: COMPLETED VistA Imaging - Scanned Document [facility] 07/25/20 E R VISIT /lizzy/ JULIO CESAR SARMIENTO [employer] PAN TANK OPERATOR Signed: 09/17/2020 15:39 JULIO CESAR SARMIENTO COUNTS INCLUDE 234 BEDS AT THE [facility] Jul 25, 2020 12:00 AM EMERGENCY MEDICINE NONVA NOT E: LOCAL TITLE: COMMUNITY CARE-EMERGENCY ROOM STANDARD TITLE: EMERGENCY MEDICINE NONVA NOTE DATE OF NOTE: JUL 25, 2020 ENTRY DATE: OCTOBER 06, 2020@20:17:59 AUTHOR: LUIS WILSON EXP COSIGNER: URGENCY: STATUS: COMPLETED VistA Imaging - Scanned Document [facility] ..21 ED VISIT /es/ LUIS WILSON [employer]ITE [employer] PAN TANK OPERATOR Signed: 10/06/2020 20:18 LUIS WILSON COUNTS INCLUDE 234 BEDS AT THE [facility]
--- OUTSIDE RECORDS SUMMARY | 2021-01-26 11:41 | XMS REPORT | Encounter Summary ---
Author [facility] Department [facility] Organization Department of [facility] Address Unknown Phone Unavailable Care Team Providers Care Agile Project Manager Name Role Phone MARGARITA PAGE PCP Unavailable Insurance Providers: All historical and current Section Date Range: From patient's date of to the date document was create d. This section includes the names of all active insurance providers for the jseús garcia Insurance Provider Type of Coverage Plan Name Start of Policy Co verage End of Policy Coverage Group Number Member ID Insurance Provider's Telephone N umber Policy Matias's Name Patient's Relationship to Policy Matias AARP MEDIGAP PLAN G PLAN G Aug 19, 2018 PLAN G [id number] EV[place] PATIENT MEDICARE (WNR) MEDICARE (M) PART A Aug 19, 2018 PART A [id number] 60A [phone] EVINSALVADOR PATIENT MEDICARE (WNR) MEDICARE (M) PART B Aug 19, 2018 PART B [id number] 60A [phone] EVINSALVADOR PATIENT MEDICARE (WNR) MEDICARE (M) PART A Aug 19, 2018 PART A [id number] EVINSALVADOR PATIENT MEDICARE (WNR) MEDICARE (M) PART B Aug 19, 2018 PART B [id number] EVINSALVADOR PATIENT MEDICARE PART D (WNR) MEDICARE (M) PART D Aug 19, 2018 PART D [id number] EVINSALVADOR PATIENT MEDICARE PART D (WNR) MEDICARE (M) PART D Aug 19, 2018 PART D [id number] SALVADOR CLEARY PATIENT Selected Encounter This section includes the information on record at [place] for the Encounter. Date/Time Encounter Type Encounter Description Reason Provider Source Jul 24, 2020 12:00 AM Outpatient Encounter COMMUNITY CARE CONSULT IHE Encounter Template Text not used by [place] Assessments - Encounter Diagnoses No Data Provided for This Section Plan of Treatment: Future Appointments (+ 6 months) and Future Tests (+/- 45 day s) The Plan of Treatment section includes future care activities for the patient fr om all [place] treatment facilities. This section includes future appointments and fu ture orders which are active, pending or scheduled. Future Appointments This section includes appointments that were scheduled t o occur 6 months from the date of the Encounter, up to a maximum of 20 appointme nts. The data comes from all [facility]. Appointment Date/Time Appointment Type Appointment Facili ty Name Jul 29, 2020 11:00 AM AMBULATORY MEDICINE [facility] Aug 11, 2020 10:00 AM AMBULATORY - NONE [facility] Nov 03, 2020 08:00 AM AMBULATORY - NONE [facility] Nov 03, 2020 11:00 AM AMBULATORY MEDICINE [facility] Nov 24, 2020 08:00 AM AMBULATORY - NONE [facility] Dec 03, 2020 11:00 AM AMBULATORY MEDICINE [facility] Dec 15, 2020 07:00 AM AMBULATORY - NONE [facility] Jan 05, 2021 10:30 AM AMBULATORY - NONE [facility] Surgical Procedures: All associated to [...] the Encounter. The data comes from all [place] treatment facilities. Date/Time Pathology Report Provider Source [...] - - - - $TEXT Submitted by: [facility] Date obtained: Jul 19, 2020 - [...] - - - Received from [facility] in [place], [place] are 16 slides labeled with "[id number]", the patient's initials, and facility of origin. Also included is a pathology report identified with "[id number]", the patient's name and demographics, and facility of origin. Microscopic examination is performed. I agree with the diagnosis of prostatic adenocarcinoma, as reported by Dr. Butler and transcribed below. A copy of the original report will be scanned into [employer]. Diagnosis: 1. Right base prostate biopsy medial: Adenocarcinoma, [place] grade 4+3 equals score of 7 (grade [...] tissue. 4. Right mid-prostate biopsy lateral: Adenocarcinoma, [place] grade 4+3 equals score of 7 (grade group 3), in one of one core, involving 90% of specimen. Perineural invasion present. 5. Right apex prostate biopsy medial: Adenocarcinoma, [place] grade 4+5 equals score of 9 (grade group 5), in one of one core, involving 95% of specimen. Perineural invasion present. 6. Right apex prostate biopsy lateral: Adenocarcinoma, [place] grade 4+5 equals score of 9 (grade group 5), in one of one core, involving 70% of specimen. 7. Left base prostate biopsy medial: Adenocarcinoma, Isabel grade 4+3 equals score of 7 (grade group 3), in one of one core, involving 90% of specimen. 8. Left base prostate biopsy lateral: Adenocarcinoma, [place] grade 4+3 equals score of 7 (grade group 3), in one of one core, involving 30% of specimen in discontinuous foci. 9. Left mid-prostate biopsy medial: Adenocarcinoma, [place] grade 4+3 equals score of 7 (grade group 3), in one of one core, involving 50% of specimen. 10. Left mid-prostate biopsy lateral: Adenocarcinoma, [place] grade 4+4 equals score of 8 (grade group 4), in one of one core, involving less than 5% of specimen in discontinuous foci. 11. Left apex prostate biopsy medial: Adenocarcinoma, [place] grade 4+4 = score of 8 (grade group 4), in 1 of 1 fragmented core, involving 10% of specimen. 12. Left apex prostate biopsy lateral: Adenocarcinoma, Isbael grade 3+4 equals score of 7 (grade [...] here as grade group 5 (Isabel 4+5=9). [place] score for part 12 stated in the original report as "4+3=score of 7 (grade group 2)" is corrected here as "3+4=score of 7 (grade group 2)." These are typographical corrections only and do not affect clinical interpretation of the overall case. /lizzy/ JOSH PRICE MD, FCAP PATHOLOGIST Signed Aug 06, 2020@15:01 Performing Laboratory: Surgical Pathology Report Performed By: [facility] [CLIA# [id number]] [address] [...] - - SALVADOR CLEARY STANDARD FORM 515 ID:[id number] SEX:M :1955 AGE: 64 [facility] PCP: Margarita Page /lizzy/ JOSH PRICE MD, FCAP PATHOLOGIST Signed: 08/06/2020 15:01 JOSH PRICE [facility] Encounter Notes: All associated encounter notes This section contains the clinical notes associated to the Encounter. Date/Time Encounter Note(s) Provider Source Jul 24, 2020 12:00 AM NONVA CONSULT: LOCAL TITLE: COMMUNITY CARE-CONSULT RESULT NOTE STANDARD TITLE: NONVA CONSULT DATE OF NOTE: JUL 24, 2020 ENTRY DATE: SEP 08, 2020@14:45:46 AUTHOR: BRAYDEN LEIGH EXP COSIGNER: URGENCY: STATUS: COMPLETED VistA Imaging - Scanned Document [facility] 07/24/20 WILLIAM/HOMERO /lizzy/ BRAYDEN LEIGH Signed: 09/08/2020 14:45 BRAYDEN LEIGH [facility]
--- OUTSIDE RECORDS SUMMARY | 2021-01-26 11:41 | XMS REPORT | Encounter Summary ---
[facility] Organization [facility] Address Unknown Phone Unavailable Care Team Providers Care Bee Keeper Name Role Phone MARGARITA PAGE PCP Unavailable [...] PLAN G Aug 19, 2018 PLAN G [id number] EVINSALVADOR PATIENT MEDICARE (WNR) MEDICARE (M) PART A Aug 19, 2018 PART A [id number] 60A [phone] EVINSALVADOR PATIENT MEDICARE (WNR) MEDICARE (M) PART B Aug 19, 2018 PART B [id number] 60A [phone] EVINSALVADOR PATIENT MEDICARE (WNR) MEDICARE (M) PART A Aug 19, 2018 PART A [id number] EVINSALVADOR PATIENT MEDICARE (WNR) MEDICARE (M) PART B Aug 19, 2018 PART B [id number] EVINSALVADOR PATIENT MEDICARE PART D (WNR) MEDICARE (M) PART D Aug 19, 2018 PART D [id number] EVINSALVADOR PATIENT MEDICARE PART D (WNR) MEDICARE (M) PART D Aug 19, 2018 PART D [id number] SALVADOR CLEARY PATIENT Selected Encounter This section includes the information on record at [place] for the Encounter. Date/Time Encounter Type Encounter Description Reason Provider Source Jul 28, 2020 12:00 AM Outpatient Encounter COMMUNITY CARE CONSULT IHE Encounter Template Text not used by [place] Assessments - Encounter Diagnoses No Data Provided for This Section Plan of Treatment: Future Appointments (+ 6 months) and Future Tests (+/- 45 day s) The Plan of Treatment section includes future care activities for the patient fr om all [place] treatment facilities. This section includes future appointments and fu ture orders which are active, pending or scheduled. Future Appointments This section includes appointments that were scheduled t o occur 6 months from the date of the Encounter, up to a maximum of 20 appointme nts. The data comes from all [facility]. Appointment Date/Time Appointment Type Appointment Facili ty Name Jul 29, 2020 11:00 AM AMBULATORY MEDICINE [facility] Aug 11, 2020 10:00 AM AMBULATORY - NONE [facility] Nov 03, 2020 08:00 AM AMBULATORY - NONE [facility] Nov 03, 2020 11:00 AM AMBULATORY MEDICINE [facility] Nov 24, 2020 08:00 AM AMBULATORY - NONE [facility] Dec 03, 2020 11:00 AM AMBULATORY MEDICINE [facility] Dec 15, 2020 07:00 AM AMBULATORY - NONE [facility] Jan 05, 2021 10:30 AM AMBULATORY - NONE [facility] Jan 26, 2021 08:00 AM AMBULATORY - NONE [facility] Surgical Procedures: All associated to [...] the Encounter. The data comes from all [facility] facilities. Date/Time Pathology Report Provider Source Aug [...] - - - - $TEXT Submitted by: [facility] MD Date obtained: Jul 19, 2020 - - [...] - - - - Received from [facility] in [place], [place] are 16 slides labeled with "[id number]", the patient's initials, and facility of origin. Also included is a pathology report identified with "[id number]", the patient's name and demographics, and facility of origin. Microscopic examination is performed. I agree with the diagnosis of prostatic adenocarcinoma, as reported by Dr. Butler and transcribed below. A copy of the original report will be scanned into [employer]. Diagnosis: 1. Right base prostate biopsy medial: Adenocarcinoma, Isabel grade 4+3 equals score of 7 (grade group 3), in one of one core, involving 60% of specimen in discontinuous foci. 2. Right base prostate biopsy lateral: Adenocarcinoma, [place] grade 4+3 equals score of 7 (grade group 3), and one of one core, involving 50% of tissue in discontinuous foci. Perineural invasion present. 3. Right mid-prostate biopsy medial: Adenocarcinoma, [place] grade 4+3 equals score of 7 (grade group 3), in one of one core, involving 90% of tissue. 4. Right mid-prostate biopsy lateral: Adenocarcinoma, [place] grade 4+3 equals score of 7 (grade group 3), in one of one core, involving 90% of specimen. Perineural invasion present. 5. Right apex prostate biopsy medial: Adenocarcinoma, Isabel grade 4+5 equals score of 9 (grade group 5), in one of one core, involving 95% of specimen. Perineural invasion present. 6. Right apex prostate biopsy lateral: Adenocarcinoma, [place] grade 4+5 equals score of 9 (grade group 5), in one of one core, involving 70% of specimen. 7. Left base prostate biopsy medial: Adenocarcinoma, Isabel grade 4+3 equals score of 7 (grade group 3), in one of one core, involving 90% of specimen. 8. Left base prostate biopsy lateral: Adenocarcinoma, [place] grade 4+3 equals score of 7 (grade group 3), in one of one core, involving 30% of specimen in discontinuous foci. 9. Left mid-prostate biopsy medial: Adenocarcinoma, Isabel grade 4+3 equals score of 7 (grade group 3), in one of one core, involving 50% of specimen. 10. Left mid-prostate biopsy lateral: Adenocarcinoma, [place] grade 4+4 equals score of 8 (grade group 4), in one of one core, involving less than 5% of specimen in discontinuous foci. 11. Left apex prostate biopsy medial: Adenocarcinoma, [place] grade 4+4 = score of 8 (grade [...] is corrected here as grade group 5 ([place] 4+5=9). Isabel score for part 12 stated in the original report as "4+3=score of 7 (grade group 2)" is corrected here as "3+4=score of 7 (grade group 2)." These are typographical corrections only and do not affect clinical interpretation of the overall case. /lizzy/ JSOH PRICE MD, FCAP PATHOLOGIST Signed Aug 06, 2020@15:01 Performing Laboratory: Surgical Pathology Report Performed By: [facility] [CLIA# [id number]] [address] [place] [address] $FTR - [...] - - SALVADOR CLEARY STANDARD FORM 515 ID:[id number] SEX:M :1955 AGE: 64 [facility] P[facility]: Margarita Page /lizzy/ JOSH PRICE MD, FCAP PATHOLOGIST Signed: 08/06/2020 15:01 JOSH PRICE [facility] Encounter Notes: All associated encounter notes This section contains the clinical notes associated to the Encounter. Date/Time Encounter Note(s) Provider Source Jul 28, 2020 12:00 AM NONVA NOTE: LOCAL TITLE: [facility]-OUTPATIENT STANDARD TITLE: NONVA NOTE DATE OF NOTE: JUL 28, 2020 ENTRY DATE: DEC 09, 2020@09:53:27 AUTHOR: LANRE ORDAZ EXP COSIGNER: URGENCY: STATUS: COMPLETED VistA Imaging - Scanned Document [facility] 07.19.20-07.28.20 VISIT /lizzy/ LANRE ORDAZ Doughnut Glazier Signed: 12/09/2020 09:53 LANRE ORDAZ [facility]
--- OUTSIDE RECORDS SUMMARY | 2021-01-26 11:42 | XMS REPORT | Encounter Summary ---
Author [facility] Address Unknown Phone Unavailable Care Team Providers Care Line Assembler Aircraft Name Role Phone MARGARITA PAGE PCP Unavailable [...] PLAN G Aug 19, 2018 PLAN G [id number] EVINSALVADOR PATIENT MEDICARE (WNR) MEDICARE (M) PART A Aug 19, 2018 PART A [id number] 60A [phone] EVINSALVADOR PATIENT MEDICARE (WNR) MEDICARE (M) PART B Aug 19, 2018 PART B [id number] 60A [phone] EVINSALVADOR PATIENT MEDICARE (WNR) MEDICARE (M) PART A Aug 19, 2018 PART A [id number] EVINSALVADOR PATIENT MEDICARE (WNR) MEDICARE (M) PART B Aug 19, 2018 PART B [id number] EVINSALVADOR PATIENT MEDICARE PART D (WNR) MEDICARE (M) PART D Aug 19, 2018 PART D [id number] EVINSALVADOR PATIENT MEDICARE PART D (WNR) MEDICARE (M) PART D Aug 19, 2018 PART D [id number] SALVADOR CLEARY PATIENT Selected Encounter This section includes the information on record at [place] for the Encounter. Date/Time Encounter Type Encounter Description Reason Provider Source Jul 23, 2020 12:00 AM Outpatient Encounter COMMUNITY CARE CONSULT IHE Encounter Template Text not used by [place] Assessments - Encounter Diagnoses No Data Provided for This Section Plan of Treatment: Future Appointments (+ 6 months) and Future Tests (+/- 45 day s) The Plan of Treatment section includes future care activities for the patient fr om all [place] treatment facilities. This section includes future appointments and fu ture orders which are active, pending or scheduled. Future Appointments This section includes appointments that were scheduled t o occur 6 months from the date of the Encounter, up to a maximum of 20 appointme nts. The data comes from all [facility]. Appointment Date/Time Appointment Type Appointment Facili ty Name Jul 29, 2020 11:00 AM AMBULATORY MEDICINE [facility] Aug 11, 2020 10:00 AM AMBULATORY - NONE [facility] Nov 03, 2020 08:00 AM AMBULATORY - NONE [facility] Nov 03, 2020 11:00 AM AMBULATORY MEDICINE [facility] Nov 24, 2020 08:00 AM AMBULATORY - NONE [facility] Dec 03, 2020 11:00 AM AMBULATORY MEDICINE [facility] Dec 15, 2020 07:00 AM [...] the Encounter. The data comes from all [place] treatment facilities. Date/Time Pathology Report Provider Source [...] - - - - $TEXT Submitted by: [facility] [place] Date obtained: Jul 19, 2020 - - [...] - - - - - Received from [facility] in [place], [place] are 16 slides labeled with "[id number]", the patient's initials, and facility of origin. Also included is a pathology report identified with "[id number]", the patient's name and demographics, and facility of origin. Microscopic examination is performed. I agree with the diagnosis of prostatic adenocarcinoma, as reported by Dr. Butler and transcribed below. A copy of the original report will be scanned into [employer]. Diagnosis: 1. Right base prostate biopsy medial: Adenocarcinoma, [place] grade 4+3 equals score of 7 (grade [...] tissue. 4. Right mid-prostate biopsy lateral: Adenocarcinoma, [place] grade 4+3 equals score of 7 (grade group 3), in one of one core, involving 90% of specimen. Perineural invasion present. 5. Right apex prostate biopsy medial: Adenocarcinoma, [place] grade 4+5 equals score of 9 (grade group 5), in one of one core, involving 95% of specimen. Perineural invasion present. 6. Right apex prostate biopsy lateral: Adenocarcinoma, [place] grade 4+5 equals score of 9 (grade group 5), in one of one core, involving 70% of specimen. 7. Left base prostate biopsy medial: Adenocarcinoma, Isabel grade 4+3 equals score of 7 (grade group 3), in one of one core, involving 90% of specimen. 8. Left base prostate biopsy lateral: Adenocarcinoma, [place] grade 4+3 equals score of 7 (grade group 3), in one of one core, involving 30% of specimen in discontinuous foci. 9. Left mid-prostate biopsy medial: Adenocarcinoma, [place] grade 4+3 equals score of 7 (grade group 3), in one of one core, involving 50% of specimen. 10. Left mid-prostate biopsy lateral: Adenocarcinoma, [place] grade 4+4 equals score of 8 (grade group 4), in one of one core, involving less than 5% of specimen in discontinuous foci. 11. Left apex prostate biopsy medial: Adenocarcinoma, [place] grade 4+4 = score of 8 (grade [...] here as grade group 5 (Isabel 4+5=9). [place] score for part 12 stated in the original report as "4+3=score of 7 (grade group 2)" is corrected here as "3+4=score of 7 (grade group 2)." These are typographical corrections only and do not affect clinical interpretation of the overall case. /lizzy/ JOSH PRICE MD, FCAP PATHOLOGIST Signed Aug 06, 2020@15:01 Performing Laboratory: Surgical Pathology Report Performed By: [facility] [CLIA# [id number]] [address] [place] [address] $FTR - - - [...] - - SALVADOR CLEARY STANDARD FORM 515 ID:[id number] SEX:M :1955 AGE: 64 LOC:[facility] PCP: Margarita Page /lizzy/ JOSH PRICE MD, FCAP PATHOLOGIST Signed: 08/06/2020 15:01 JOSH PRICE [facility] Encounter Notes: All associated encounter notes This section contains the clinical notes associated to the Encounter. Date/Time Encounter Note(s) Provider Source Jul 23, 2020 12:00 AM NONVA CONSULT: LOCAL TITLE: COMMUNITY CARE-CONSULT RESULT NOTE STANDARD TITLE: NONVA CONSULT DATE OF NOTE: JUL 23, 2020 ENTRY DATE: AUG 06, 2020@12:03:18 AUTHOR: LUIS WILSON EXP COSIGNER: URGENCY: STATUS: COMPLETED VistA Imaging - Scanned Document [facility] 06.23.20--07.23.20 VISIT [place] /lizzy/ LUIS WILSON NANOSCIENCE TECHNICIAN Signed: 08/06/2020 12:03 LUIS WILSON [facility]
--- OUTSIDE RECORDS SUMMARY | 2021-01-26 11:42 | XMS REPORT | Encounter Summary ---
Author Author Department of [facility] SALVADOR hwang Organization Department of [facility] rs Address Unknown Phone Unavailable Care Team Providers Care Delivery Of Shopping [employer] Name Role Phone MARGARITA PAGE PCP Unavailable [...] PLAN G Aug 19, 2018 PLAN G [id number] EVINSALVADOR PATIENT MEDICARE (WNR) MEDICARE (M) PART A Aug 19, 2018 PART A [id number] 60A [phone] EVINSALVADOR PATIENT MEDICARE (WNR) MEDICARE (M) PART B Aug 19, 2018 PART B [id number] 60A [phone] EVINSALVADOR PATIENT MEDICARE (WNR) MEDICARE (M) PART A Aug 19, 2018 PART A [id number] EVINSALVADOR PATIENT MEDICARE (WNR) MEDICARE (M) PART B Aug 19, 2018 PART B [id number] EVINSALVADOR PATIENT MEDICARE PART D (WNR) MEDICARE (M) PART D Aug 19, 2018 PART D [id number] EVINSALVADOR PATIENT MEDICARE PART D (WNR) MEDICARE (M) PART D Aug 19, 2018 PART D [id number] SALVADOR CLEARY PATIENT Selected Encounter This section includes the information on record at [place] for the Encounter. Date/Time Encounter Type Encounter Description Reason Provider Source Jul 22, 2020 02:42 PM Outpatient Encounter ADMIN PAT ACTIVTIES ([place] [...] appointme nts. The data comes from all [facility]. Appointment Date/Time Appointment Type Appointment Facili ty Name Jul 29, 2020 11:00 AM AMBULATORY - MEDICINE [facility] Aug 11, 2020 10:00 AM AMBULATORY - NONE [facility] Nov 03, 2020 08:00 AM AMBULATORY - NONE [facility] Nov 03, 2020 11:00 AM AMBULATORY MEDICINE [facility] Nov 24, 2020 08:00 AM AMBULATORY - NONE [facility] Dec 03, 2020 11:00 AM AMBULATORY MEDICINE [facility] Dec 15, 2020 07:00 AM AMBULATORY - NONE [facility] Jan 05, 2021 10:30 AM AMBULATORY NONE [facility] Surgical Procedures: [...] - - - $TEXT Submitted by: [facility] [place] Date obtained: Jul 19, 2020 - - [...] - - - - - Received from [facility] in [place], [place] are 16 slides labeled with "[id number]", the patient's initials, and facility of origin. Also included is a pathology report identified with "[id number]", the patient's name and demographics, and facility of origin. Microscopic examination is performed. I agree with the diagnosis of prostatic adenocarcinoma, as reported by Dr. Butler and transcribed below. A copy of the original report will be scanned into StatusPage. Diagnosis: 1. Right base prostate biopsy medial: Adenocarcinoma, [place] grade 4+3 equals score of 7 (grade [...] tissue. 4. Right mid-prostate biopsy lateral: Adenocarcinoma, [place] grade 4+3 equals score of 7 (grade group 3), in one of one core, involving 90% of specimen. Perineural invasion present. 5. Right apex prostate biopsy medial: Adenocarcinoma, [place] grade 4+5 equals score of 9 (grade group 5), in one of one core, involving 95% of specimen. Perineural invasion present. 6. Right apex prostate biopsy lateral: Adenocarcinoma, Isabel grade 4+5 equals score of 9 (grade group 5), in one of one core, involving 70% of specimen. 7. Left base prostate biopsy medial: Adenocarcinoma, [place] grade 4+3 equals score of 7 (grade [...] specimen. 10. Left mid-prostate biopsy lateral: Adenocarcinoma, [place] grade 4+4 equals score of 8 (grade [...] Surgical Pathology Report Performed By: [facility] [CLIA# [id number]] [address] [place] [address] $FTR - - [...] - - SALVADOR CLEARY STANDARD FORM 515 ID:[id number] SEX:M :1955 AGE: 64 LOC:[facility] PCP: Margarita Page /lizzy/ JOSH PRICE MD, FCAP PATHOLOGIST Signed: 08/06/2020 15:01 JOSH PRICE [facility] Encounter Notes: All associated encounter notes This section contains the clinical notes associated to the Encounter. Date/Time Encounter Note(s) Provider Source Jul 22, 2020 02:44 PM ADMINISTRATIVE NOTE: LOCAL TITLE: ADMINISTRATIVE NOTE STANDARD TITLE: ADMINISTRATIVE NOTE DATE OF NOTE: JUL 22, 2020@14:44 ENTRY DATE: JUL 22, 2020@14:44:15 AUTHOR: SASHA DILLON EXP COSIGNER: URGENCY: STATUS: COMPLETED Clinical Contact/Call Center Coronavirus Disease 2019 (COVID-19) Screen, sharon. 12, December 08, 2019 DIAGNOSIS AND TESTING STATUS: Has been diagnosed with COVID-19: () Yes* Date: (*No Further Screening Required) () No (Continue Screening) Comment(s): Is waiting for COVID-19 test results: () Yes (Continue Screening) () No (Continue Screening) Comment: SCREEN: Signs and Symptoms: a. Fever: () Yes () No Comment(s): b. New or worsening cough or shortness of breath: () Yes Check all that apply: () Cough () Shortness of breath () No Comment(s): c. Any cold or flu-like symptoms: () Yes Check all that apply: () Cold like symptoms () Flu-like symptoms () No Comment(s): d. New onset diarrhea, nausea or vomiting: () Yes Check all that apply: () Diarrhea () Nausea () Vomiting () No Comment(s): e. New onset headache, loss of taste or loss of smell () Yes Check all that apply: () Headache () Loss of taste () Loss of smell () No Comment(s): EXPOSURE: Exposure within the last two weeks to someone with COVID-19: () Yes () No Comment(s): SCREEN RESULT: Any symptom or exposure= positive screen () POSITIVE SCREEN: Patient has a Positive symptom and/or exposure. Follow-up required. () Negative Screen (x) SCREENING COULD NOT BE DONE DUE TO V ETERAN NOT BEING PRESENT. ( ) DECLINED SCREENING /lizzy/ [facility]HA [facility] Signed: 07/22/2020 14:44 SASHA DILLONDEDE [facility] Jul 22, 2020 02:42 PM ADMINISTRATIVE NOTE: LOCAL TITLE: ADMINISTRATIVE NOTE STANDARD TITLE: ADMINISTRATIVE NOTE DATE OF NOTE: JUL 22, 2020@14:42 ENTRY DATE: JUL 22, 2020@14:42:45 AUTHOR: SASHA DILLON EXP COSIGNER: URGENCY: STATUS: COMPLETED ADMINISTRATIVE NOTE Has ADDENDA Emilie with Dr. Dionicio Griffin's office, Urology, called to let TM know that the had a prostate bx on 07-19-20 and it did come back positive for cancer. She states that she has faxed the report. Emilie may be reached at [phone]. /lizzy/ SASHA DILLON [facility] Signed: 07/22/2020 14:44 Receipt Acknowledged By: 07/26/2020 08:44 /tad Rodriges RN 07/26/2020 ADDENDUM STATUS: COMPLETED Contacted Dr. Griffin's office to ask for records to be re-faxed. Emilie states that is completing a metastatic workup to determine POC. Will place a pull to f/u. /lizzy/ MAGNUS HAYES RN Signed: 07/26/2020 08:45 SASHA DILLON [facility]
--- OUTSIDE RECORDS SUMMARY | 2021-01-26 11:42 | XMS REPORT | Encounter Summary ---
Author Author [facility] Organization [facility] Address Unknown Phone Unavailable Care Team Providers Care Fundraising Consultant Name Role Phone MARGARITA PAGE PCP Unavailable [...] PLAN G Aug 19, 2018 PLAN G [id number] EVINSALVADOR PATIENT MEDICARE (WNR) MEDICARE (M) PART A Aug 19, 2018 PART A [id number] EVINSALVADOR PATIENT MEDICARE (WNR) MEDICARE (M) PART B Aug 19, 2018 PART B [id number] 60A [phone] EV[place]ALVADOR PATIENT MEDICARE (WNR) MEDICARE (M) PART A Aug 19, 2018 PART A [id number] EVINSALVADOR PATIENT MEDICARE (WNR) MEDICARE (M) PART B Aug 19, 2018 PART B [id number] EVINSALVADOR PATIENT MEDICARE PART D (WNR) MEDICARE (M) PART D Aug 19, 2018 PART D [id number] EVINSALVADOR PATIENT MEDICARE PART D (WNR) MEDICARE (M) PART D Aug 19, 2018 PART D [id number] SALVADOR CLEARY PATIENT Selected Encounter This section includes the information on record at [place] for the Encounter. Date/Time Encounter Type Encounter Description Reason Provider Source Jul 20, 2020 08:56 AM Outpatient Encounter TELEPHONE/ANCILLARY IHE Encounter Template Text [...] appointme nts. The data comes from all [facility]. Appointment Date/Time Appointment Type Appointment Facili ty Name Jul 29, 2020 11:00 AM AMBULATORY MEDICINE [facility] Aug 11, 2020 10:00 AM AMBULATORY - NONE [facility] Nov 03, 2020 08:00 AM AMBULATORY - NONE [facility] Nov 03, 2020 11:00 AM AM[facility]ULATORY [facility]ICINE [facility] Nov 24, 2020 08:00 AM AMBULATORY - NONE [facility] Dec 03, 2020 11:00 AM AM[facility]ULATORY [facility]ICINE [facility] Dec 15, 2020 07:00 AM AMBULATORY - NONE [facility] Jan 05, 2021 10:30 AM AMBULATORY - NONE [facility] Surgical Procedures: All associated to [...] the Encounter. The data comes from all [place] treatment facilities. Date/Time Pathology Report Provider Source [...] - - $TEXT Submitted by: [facility] Date obtained: Jul 19, 2020 - [...] - - - - POSTOPERATIVE DIAGNOSIS: Surgeon/physician: MARAGRITA PAGE =-=-=-=-=-=-=-=-=-=-=-=-=-=-=-=-=-=-=-=-=-=-=-=-=-=-=-=-=-=-=-=-=-=-=-=-=-=-=-= - - - - - [...] - - - - - Received from [facility] in [place], [place] are 16 slides labeled with "[id number]", the patient's initials, and facility of origin. Also included is a pathology report identified with "[id number]", the patient's name and demographics, and facility of origin. Microscopic examination is performed. I agree with the diagnosis of prostatic adenocarcinoma, as reported by Dr. Butler and transcribed below. A copy of the original report will be scanned into [email or web address]. Diagnosis: 1. Right base prostate biopsy medial: Adenocarcinoma, [place] grade 4+3 equals score of 7 (grade group 3), in one of one core, involving 60% of specimen in discontinuous foci. 2. Right base prostate biopsy lateral: Adenocarcinoma, Isabel grade 4+3 equals score of 7 (grade group 3), and one of one core, involving 50% of tissue in discontinuous foci. Perineural invasion present. 3. Right mid-prostate biopsy medial: Adenocarcinoma, [place] grade 4+3 equals score of 7 (grade [...] 6. Right apex prostate biopsy lateral: Adenocarcinoma, [place] grade 4+5 equals score of 9 (grade group 5), in one of one core, involving 70% of specimen. 7. Left base prostate biopsy medial: Adenocarcinoma, [place] grade 4+3 equals score of 7 (grade group 3), in one of one core, involving 90% of specimen. 8. Left base prostate biopsy lateral: Adenocarcinoma, Isabel grade 4+3 equals score of 7 (grade group 3), in one of one core, involving 30% of specimen in discontinuous foci. 9. Left mid-prostate biopsy medial: Adenocarcinoma, [place] grade 4+3 equals score of 7 (grade group 3), in one of one core, involving 50% of specimen. 10. Left mid-prostate biopsy lateral: Adenocarcinoma, [place] grade 4+4 equals score of 8 (grade [...] is corrected here as grade group 5 ([place] 4+5=9). Isabel score for part 12 stated in the original report as "4+3=score of 7 (grade group 2)" is corrected here as "3+4=score of 7 (grade group 2)." These are typographical corrections only and do not affect clinical interpretation of the overall case. /lizzy/ JOSH PRICE MD, FCAP PATHOLOGIST Signed Aug 06, 2020@15:01 Performing Laboratory: Surgical Pathology Report Performed By: [facility] [CLIA# [id number]] [address] [...] - - SALVADOR CLEARY STANDARD FORM 515 ID:[id number] SEX:M :1955 AGE: 64 LOC:[facility] PCP: Margarita Page /lizzy/ JOSH PRICE MD, FCAP PATHOLOGIST Signed: 08/06/2020 15:01 JOSH PRICE [facility] Encounter Notes: All associated encounter notes This section contains the clinical notes associated to the Encounter. Date/Time Encounter Note(s) Provider Source Jul 20, 2020 09:01 AM PHARMACY NOTE: LOCAL TITLE: PHARMACY NOTE STANDARD TITLE: PHARMACY NOTE DATE OF NOTE: JUL 20, 2020@09:01 ENTRY DATE: JUL 20, 2020@09:01:42 AUTHOR: MIGUEL SARGENT EXP COSIGNER: URGENCY: STATUS: COMPLETED Patient requesting Rx renewal of the following medication(s) written by a non-[place] community care provider: ALOGLIPTIN 12.5MG TAB Issue Date 08/12/2019 SIG TAKE ONE TABLET BY MOUTH ONCE DAILY FOR DIABETES Facility: [facility] Request for renewal transmitted to non-[place] community care provider. /lizzy/ MIGUEL SARGENT PharmD CLINICAL PHARMACIST Signed: 07/20/2020 09:02 MIGUEL SARGENT [facility] Jul 20, 2020 08:56 AM PHARMACY NOTE: LOCAL TITLE: PHARMACY NOTE STANDARD TITLE: PHARMACY NOTE DATE OF NOTE: JUL 20, 2020@08:56 ENTRY DATE: JUL 20, 2020@08:57:03 AUTHOR: MIGUEL SARGENT EXP COSIGNER: URGENCY: STATUS: COMPLETED Patient requesting refill of the following medication(s) that has or no longer has refills: Original Rx is from a previously approved community care provider; patient does not have a current authorization through [place] Act to continue seeing this provider. Original community care provider: Primary Care Original community care auth end date: 10/07/19 ssue Date 09/03/2019 HYDROCHLOROTHIAZIDE 12.5MG TAB Issue Date 09/03/2019 SIG TAKE ONE TABLET BY MOUTH EVERY OTHER DAY Facility: [facility] If appropriate for continued use, please renew for MAIL/WINDOW under [place] Dual Care Policy OR if patient needs continued follow-up by prescribing community care provider, please enter new [place] authorization request. Thank you.. /lizzy/ MIGUEL SARGENT PharmD CLINICAL PHARMACIST Signed: 07/20/2020 08:59 Receipt Acknowledged By: * AWAITING SIGNATURE * MARGARITA PAGE [place] [facility]
--- OUTSIDE RECORDS SUMMARY | 2021-01-26 11:43 | XMS REPORT | Encounter Summary ---
Author [facility] Organization Department of [facility] Address Unknown Phone Unavailable Care Team Providers Care Tower Climber Name Role Phone MARGARITA PAGE PCP Unavailable [...] PLAN G Aug 19, 2018 PLAN G [id number] EV[place]ADOR PATIENT MEDICARE (WNR) MEDICARE (M) PART A Aug 19, 2018 PART A [id number] [phone] EV[place]ADOR PATIENT MEDICARE (WNR) MEDICARE (M) PART B Aug 19, 2018 PART B [id number] 60A [phone] EV[place]OR PATIENT MEDICARE (WNR) MEDICARE (M) PART A Aug 19, 2018 PART A [id number] EV[place]ALVADOR PATIENT MEDICARE (WNR) MEDICARE (M) PART B Aug 19, 2018 PART B [id number] EVINSALVADOR PATIENT MEDICARE PART D (WNR) MEDICARE (M) PART D Aug 19, 2018 PART D [id number] EVINSALVADOR PATIENT MEDICARE PART D (WNR) MEDICARE (M) PART D Aug 19, 2018 PART D [id number] SALVADOR CLEARY PATIENT Selected Encounter This section includes the information on record at [place] for the Encounter. Date/Time Encounter Type Encounter Description Reason Provider Source Jul 14, 2020 12:00 AM Outpatient Encounter COMMUNITY CARE [...] 29, 2020 11:00 AM AMBULATORY - MEDICINE [facility] Aug 11, 2020 10:00 AM AMBULATORY - NONE [facility] Nov 03, 2020 08:00 AM AMBULATORY - NONE [facility] Nov 03, 2020 11:00 AM AMBULATORY MEDICINE [facility] Nov 24, 2020 08:00 AM AMBULATORY - NONE [facility] Dec 03, 2020 11:00 AM AMBULATORY MEDICINE [facility] Dec 15, 2020 07:00 AM AMBULATORY - NONE [facility] Jan 05, 2021 10:30 AM AMBULATORY - NONE [facility] Surgical Procedures: All associated to the [...] - - - $TEXT Submitted by: [facility] Date obtained: Jul 19, 2020 - - [...] - - - - Received from [facility] in [place], [place] are 16 slides labeled with "[id number]", the patient's initials, and facility of origin. Also included is a pathology report identified with "[id number]", the patient's name and demographics, and facility of origin. Microscopic examination is performed. I agree with the diagnosis of prostatic adenocarcinoma, as reported by Dr. Butler and transcribed below. A copy of the original report will be scanned into [employer]. Diagnosis: 1. Right base prostate biopsy medial: Adenocarcinoma, [place] grade 4+3 equals score of 7 (grade [...] tissue. 4. Right mid-prostate biopsy lateral: Adenocarcinoma, [place] grade 4+3 equals score of 7 (grade group 3), in one of one core, involving 90% of specimen. Perineural invasion present. 5. Right apex prostate biopsy medial: Adenocarcinoma, [place] grade 4+5 equals score of 9 (grade group 5), in one of one core, involving 95% of specimen. Perineural invasion present. 6. Right apex prostate biopsy lateral: Adenocarcinoma, [place] grade 4+5 equals score of 9 (grade group 5), in one of one core, involving 70% of specimen. 7. Left base prostate biopsy medial: Adenocarcinoma, Isabel grade 4+3 equals score of 7 (grade group 3), in one of one core, involving 90% of specimen. 8. Left base prostate biopsy lateral: Adenocarcinoma, [place] grade 4+3 equals score of 7 (grade group 3), in one of one core, involving 30% of specimen in discontinuous foci. 9. Left mid-prostate biopsy medial: Adenocarcinoma, [place] grade 4+3 equals score of 7 (grade group 3), in one of one core, involving 50% of specimen. 10. Left mid-prostate biopsy lateral: Adenocarcinoma, [place] grade 4+4 equals score of 8 (grade group 4), in one of one core, involving less than 5% of specimen in discontinuous foci. 11. Left apex prostate biopsy medial: Adenocarcinoma, [place] grade 4+4 = score of 8 (grade [...] here as grade group 5 (Isabel 4+5=9). [place] score for part 12 stated in the original report as "4+3=score of 7 (grade group 2)" is corrected here as "3+4=score of 7 (grade group 2)." These are typographical corrections only and do not affect clinical interpretation of the overall case. /lizzy/ JOSH PRICE MD, FCAP PATHOLOGIST Signed Aug 06, 2020@15:01 Performing Laboratory: Surgical Pathology Report Performed By: [facility] [CLIA# [id number]] [address] [facility] [address] $FTR - - [...] - - SALVADOR CLEARY STANDARD FORM 515 ID:[id number] SEX:M :1955 AGE: 64 LOC:[facility] PCP: Margarita Page /lizzy/ JOSH PRICE MD, FCAP PATHOLOGIST Signed: 08/06/2020 15:01 JOSH PRICE [facility] Encounter Notes: All associated encounter notes This section contains the clinical notes associated to the Encounter. Date/Time Encounter Note(s) Provider Source Jul 14, 2020 12:00 AM NONVA CONSULT: LOCAL TITLE: COMMUNITY CARE-CONSULT RESULT NOTE STANDARD TITLE: NONVA CONSULT DATE OF NOTE: JUL 14, 2020 ENTRY DATE: JUL 30, 2020@17:06:25 AUTHOR: STEPHANIE MARRERO EXP COSIGNER: URGENCY: STATUS: COMPLETED VistA Imaging - Scanned Document [facility] [place] 06.23.20 06.28.20 06.30.20 07.05.20 07.08.20 07.14.20 VISITS /lizzy/ STEPHANIE MARRERO HEALTH INFORMATION MGT SERVICE Signed: 07/30/2020 17:06 STEPHANIE MARRERO [facility]
--- OUTSIDE RECORDS SUMMARY | 2021-01-26 11:43 | XMS REPORT | Encounter Summary ---
Author Author Department [facility] Organization Department of [facility] Address Unknown Phone Unavailable Care Team Providers Care Job Developer For Deaf Adults Name Role Phone MARGARITA PAGE PCP Unavailable [...] PLAN G Aug 19, 2018 PLAN G [id number] EV[place]ALVADOR PATIENT MEDICARE (WNR) MEDICARE (M) PART A Aug 19, 2018 PART A [id number] 60A [id number] EVINSALVADOR PATIENT MEDICARE (WNR) MEDICARE (M) PART B Aug 19, 2018 PART B [id number] [phone] EVINSALVADOR PATIENT MEDICARE (WNR) MEDICARE (M) PART A Aug 19, 2018 PART A [id number] EVINSALVADOR PATIENT MEDICARE (WNR) MEDICARE (M) PART B Aug 19, 2018 PART B [id number] EVINSALVADOR PATIENT MEDICARE PART D (WNR) MEDICARE (M) PART D Aug 19, 2018 PART D [id number] EVINSALVADOR PATIENT MEDICARE PART D (WNR) MEDICARE (M) PART D Aug 19, 2018 PART D [id number] SALVADOR CLEARY PATIENT Selected Encounter This section includes the information on record at [place] for the Encounter. Date/Time Encounter Type Encounter Description Reason Provider Source Jul 19, 2020 12:00 AM Outpatient Encounter COMMUNITY CARE CONSULT IHE Encounter Template Text not used by [place] Assessments - Encounter Diagnoses No Data Provided [...] appointme nts. The data comes from all [facility]. Appointment Date/Time Appointment Type Appointment Facili ty Name Jul 29, 2020 11:00 AM AMBULATORY MEDICINE [facility] Aug 11, 2020 10:00 AM AMBULATORY - NONE [facility] Nov 03, 2020 08:00 AM AMBULATORY - NONE [facility] Nov 03, 2020 11:00 AM AMBULATORY MEDICINE [facility] Nov 24, 2020 08:00 AM AMBULATORY - NONE [facility] Dec 03, 2020 11:00 AM AMBULATORY MEDICINE [facility] Dec 15, 2020 07:00 AM AMBULATORY - NONE [facility] Jan 05, 2021 10:30 AM AMBULATORY - NONE [facility] Surgical [...] - $TEXT Submitted by: [facility] Date obtained: Jul 19, 2020 - - [...] - - - - Received from [facility] in [place], [place] are 16 slides labeled with "[id number]", the patient's initials, and facility of origin. Also included is a pathology report identified with "[id number]", the patient's name and demographics, and facility of origin. Microscopic examination is performed. I agree with the diagnosis of prostatic adenocarcinoma, as reported by Dr. Butler and transcribed below. A copy of the original report will be scanned into [email or web address]. Diagnosis: 1. Right base prostate biopsy medial: Adenocarcinoma, [place] grade 4+3 equals score of 7 (grade [...] tissue. 4. Right mid-prostate biopsy lateral: Adenocarcinoma, [place] grade 4+3 equals score of 7 (grade group 3), in one of one core, involving 90% of specimen. Perineural invasion present. 5. Right apex prostate biopsy medial: Adenocarcinoma, [place] grade 4+5 equals score of 9 (grade group 5), in one of one core, involving 95% of specimen. Perineural invasion present. 6. Right apex prostate biopsy lateral: Adenocarcinoma, [place] grade 4+5 equals score of 9 (grade group 5), in one of one core, involving 70% of specimen. 7. Left base prostate biopsy medial: Adenocarcinoma, Isabel grade 4+3 equals score of 7 (grade group 3), in one of one core, involving 90% of specimen. 8. Left base prostate biopsy lateral: Adenocarcinoma, [place] grade 4+3 equals score of 7 (grade group 3), in one of one core, involving 30% of specimen in discontinuous foci. 9. Left mid-prostate biopsy medial: Adenocarcinoma, [place] grade 4+3 equals score of 7 (grade group 3), in one of one core, involving 50% of specimen. 10. Left mid-prostate biopsy lateral: Adenocarcinoma, [place] grade 4+4 equals score of 8 (grade group 4), in one of one core, involving less than 5% of specimen in discontinuous foci. 11. Left apex prostate biopsy medial: Adenocarcinoma, [place] grade 4+4 = score of 8 (grade [...] here as grade group 5 (Isabel 4+5=9). [place] score for part 12 stated in the original report as "4+3=score of 7 (grade group 2)" is corrected here as "3+4=score of 7 (grade group 2)." These are typographical corrections only and do not affect clinical interpretation of the overall case. /lizzy/ JOSH PRICE MD, FCAP PATHOLOGIST Signed Aug 06, 2020@15:01 Performing Laboratory: Surgical Pathology Report Performed By: [facility] [CLIA# [id number]] [address] [...] - - SALVADOR CLEARY STANDARD FORM 515 ID:[id number] SEX:M :1955 AGE: 64 LOC:[facility] PCP: Margarita Page /lizzy/ JOSH PRICE MD, FCAP PATHOLOGIST Signed: 08/06/2020 15:01 JOSH PRICE [facility] Encounter Notes: All associated encounter notes This section contains the clinical notes associated to the Encounter. Date/Time Encounter Note(s) Provider Source Jul 19, 2020 12:00 AM NONVA CONSULT: LOCAL TITLE: COMMUNITY CARE-CONSULT RESULT NOTE STANDARD TITLE: NONVA CONSULT DATE OF NOTE: JUL 19, 2020 ENTRY DATE: 2020@13:28:50 AUTHOR: BRAYDEN LEIGH EXP COSIGNER: URGENCY: STATUS: COMPLETED VistA Imaging - Scanned Document [facility] 07/19/20 VISIT /lizzy/ BRAYDEN LEIGH Signed: 2020 13:28 BRAYDEN LEIGH [facility]
[2021-01-26] MEDS ORDERED: LACTATED RINGERS 1,000 ML IV PRN (11:45)
[2021-01-26] MEDS ORDERED: CIPR-226 PO (11:45)
[2021-01-26] MEDS ORDERED: ACET1TAB43 PO (11:45)
--- OUTSIDE RECORDS SUMMARY | 2021-01-26 11:45 | XMS REPORT | Encounter Summary ---
Author Author Department [facility] Organization Department of [facility] Address Unknown Phone Unavailable Care Team Providers Care Geophysics Teacher Name Role Phone MARGARITA TORRES PCP Unavailable [...] PLAN G Aug 19, 2018 PLAN G [id number] EVINSALVADOR PATIENT MEDICARE (WNR) MEDICARE (M) PART A Aug 19, 2018 PART A [id number] [phone] EVINSALVADOR PATIENT MEDICARE (WNR) MEDICARE (M) PART B Aug 19, 2018 PART B [id number] [phone] EVINSALVADOR PATIENT MEDICARE (WNR) MEDICARE (M) PART A Aug 19, 2018 PART A [id number] EVINSALVADOR PATIENT MEDICARE (WNR) MEDICARE (M) PART B Aug 19, 2018 PART B [id number] EVINSALVADOR PATIENT MEDICARE PART D (WNR) MEDICARE (M) PART D Aug 19, 2018 PART D [id number] EVINSALVADOR PATIENT MEDICARE PART D (WNR) MEDICARE (M) PART D Aug 19, 2018 PART D [id number] SALVADOR CLEARY PATIENT Selected Encounter This section includes the information on record at [place] for the Encounter. Date/Time Encounter Type Encounter Description Reason Provider Source Jun 30, 2020 12:00 AM Outpatient Encounter COMMUNITY CARE CONSULT IHE Encounter Template Text not used by [place] Assessments - Encounter Diagnoses No Data Provided for This Section Plan of Treatment: Future Appointments (+ 6 months) and Future Tests (+/- 45 day s) The Plan of Treatment section includes future care activities for the patient fr om all [place] treatment facilities. This section includes future appointments and fu ture orders which are active, pending or scheduled. Future Appointments This section includes appointments that were scheduled t o occur 6 months from the date of the Encounter, up to a maximum of 20 appointme nts. The data comes from all [facility]. Appointment Date/Time Appointment Type Appointment Facili ty Name Jul 29, 2020 11:00 AM AMBULATORY - MEDICINE [facility] Aug 11, 2020 10:00 AM AMBULATORY - NONE [facility] Nov 03, 2020 08:00 AM AMBULATORY NONE [facility] Nov 03, 2020 11:00 AM AMBULATORY MEDICINE [facility] Nov 24, 2020 08:00 AM AMBULATORY NONE [facility] Dec 03, 2020 11:00 AM [facility] Dec 15, 2020 07:00 AM AMBULATORY NONE [facility] Surgical Procedures: All associated to [...] Encounter. Date/Time Encounter Note(s) Provider Source Jun 30, 2020 12:00 AM NONVA CONSULT: LOCAL TITLE: COMMUNITY CARE-CONSULT RESULT NOTE STANDARD TITLE: NONVA CONSULT DATE OF NOTE: JUN 30, 2020 ENTRY DATE: JUL 20, 2020@13:06:54 AUTHOR: LUIS WILSON EXP COSIGNER: URGENCY: STATUS: COMPLETED VistA Imaging - Scanned Document [facility] 06.30.20 VISIT /lizzy/ LUIS WILSON DIRECTOR OF PURCHASING Signed: 07/20/2020 13:06 LUIS WILSON [facility]
--- OUTSIDE RECORDS SUMMARY | 2021-01-26 11:45 | XMS REPORT | Encounter Summary ---
Author Author Department [facility] Organization Department of [facility] Address Unknown Phone Unavailable Care Team Providers Care Shell Press Operator Name Role Phone MARGARITA TORRES PCP [...] PLAN G Aug 19, 2018 PLAN G [id number] EVINSALVADOR PATIENT MEDICARE (WNR) MEDICARE (M) PART A Aug 19, 2018 PART A [id number] [id number] EVINSALVADOR PATIENT MEDICARE (WNR) MEDICARE (M) PART B Aug 19, 2018 PART B [id number] [phone] EVINSALVADOR PATIENT MEDICARE (WNR) MEDICARE (M) PART A Aug 19, 2018 PART A [id number] EVINSALVADOR PATIENT MEDICARE (WNR) MEDICARE (M) PART B Aug 19, 2018 PART B [id number] EVINSALVADOR PATIENT MEDICARE PART D (WNR) MEDICARE (M) PART D Aug 19, 2018 PART D [id number] EVINSALVADOR PATIENT MEDICARE PART D (WNR) MEDICARE (M) PART D Aug 19, 2018 PART D [id number] SALVADOR CLEARY PATIENT Selected Encounter This section includes the information on record at [place] for the Encounter. Date/Time Encounter Type Encounter Description Reason Provider Source Jun 28, 2020 12:00 AM Outpatient Encounter COMMUNITY [...] appointme nts. The data comes from all [facility]. Appointment Date/Time Appointment Type Appointment Facili ty Name Jul 29, 2020 11:00 AM AMBULATORY - MEDICINE [facility] Aug 11, 2020 10:00 AM AMBULATORY - NONE [facility] Nov 03, 2020 08:00 AM AMBULATORY NONE [facility] Nov 03, 2020 11:00 AM AMBULATORY MEDICINE [facility] Nov 24, 2020 08:00 AM AMBULATORY NONE [facility] Dec 03, 2020 11:00 AM AMBULATORY MEDICINE [facility] Dec 15, 2020 07:00 AM AMBULATORY - NONE [facility] Surgical Procedures: All associated to the [...] Encounter. Date/Time Encounter Note(s) Provider Source Jun 28, 2020 12:00 AM NONVA CONSULT: LOCAL TITLE: COMMUNITY CARE-CONSULT RESULT NOTE STANDARD TITLE: NONVA CONSULT DATE OF NOTE: JUN 28, 2020 ENTRY DATE: AUG 04, 2020@15:58:49 AUTHOR: JULIO CESAR SARMIENTO EXP COSIGNER: URGENCY: STATUS: COMPLETED VistA Imaging - Scanned Document [facility] 06/25/20 VISIT /lizzy/ JULIO CESAR SARMIENTO INSTALLMENT LOAN COLLECTOR Signed: 08/04/2020 15:58 JULIO CESAR SARMIENTO [facility]
--- OUTSIDE RECORDS SUMMARY | 2021-01-26 11:45 | XMS REPORT | Encounter Summary ---
Author [facility] Organization Department of [facility] Address Unknown Phone Unavailable Care Team Providers Care Gasoline Truck Operator Name Role Phone MARGARITA TORRES PCP [...] PLAN G Aug 19, 2018 PLAN G [id number] EVINSALVADOR PATIENT MEDICARE (WNR) MEDICARE (M) PART A Aug 19, 2018 PART A [id number] [phone] VEINSALVADOR PATIENT MEDICARE (WNR) MEDICARE (M) PART B Aug 19, 2018 PART B [id number] 60A [phone] EVINSALVADOR PATIENT MEDICARE (WNR) MEDICARE (M) PART A Aug 19, 2018 PART A [id number] EVINSALVADOR PATIENT MEDICARE (WNR) MEDICARE (M) PART B Aug 19, 2018 PART B [id number] EVINSALVADOR PATIENT MEDICARE PART D (WNR) MEDICARE (M) PART D Aug 19, 2018 PART D [id number] EVINSALVADOR PATIENT MEDICARE PART D (WNR) MEDICARE (M) PART D Aug 19, 2018 PART D [id number] SALVADOR CLEARY PATIENT Selected Encounter This section includes the information on record at [place] for the Encounter. Date/Time Encounter Type Encounter Description Reason Provider Source Jun 23, 2020 12:00 AM Outpatient Encounter COMMUNITY [...] comes from all [facility]. Appointment Date/Time Appointment Type Appointment Facili ty Name Jul 29, 2020 11:00 AM AMBULATORY - MEDICINE [facility] Aug 11, 2020 10:00 AM AMBULATORY - NONE [facility] Nov 03, 2020 08:00 AM AMBULATORY NONE [facility] Nov 03, 2020 11:00 AM AMBULATORY MEDICINE [facility] Nov 24, 2020 08:00 AM AMBULATORY NONE [facility] Dec 03, 2020 11:00 AM [facility] MEDICINE [facility] Dec 15, 2020 07:00 AM AMBULATORY - NONE [facility] Surgical Procedures: All associated to [...] Encounter. Date/Time Encounter Note(s) Provider Source Jun 23, 2020 12:00 AM NONVA CONSULT: LOCAL TITLE: COMMUNITY CARE-CONSULT RESULT NOTE STANDARD TITLE: NONVA CONSULT DATE OF NOTE: JUN 23, 2020 ENTRY DATE: AUG 10, 2020@14:12:03 AUTHOR: JETHRO SANCHEZIGNLISA: URGENCY: STATUS: COMPLETED [facility] - Scanned Document Srinivasan 06/23/20 Visit /lizzy/ JETHRO SANCHEZ LINOTYPE OPERATOR Signed: 08/10/2020 14:12 JETHRO SANCHEZ [facility]
--- OUTSIDE RECORDS SUMMARY | 2021-01-26 11:47 | XMS REPORT | Encounter Summary ---
Author [facility] Department [facility] Organization Department of [facility] Address Unknown Phone Unavailable Care Team Providers Care Trapper Animal Name Role Phone MARGARITA PAGE PCP Unavailable [...] PLAN G Aug 19, 2018 PLAN G [id number] SRIDHARSALVADOR PATIENT MEDICARE (WNR) MEDICARE (M) PART A Aug 19, 2018 PART A [id number] 60A [phone] SRIDHARSALVADOR PATIENT MEDICARE (WNR) MEDICARE (M) PART B Aug 19, 2018 PART B [id number] 60A [phone] SRIDHARSALVADOR PATIENT MEDICARE (WNR) MEDICARE (M) PART A Aug 19, 2018 PART A [id number] SRIDHARSALVADOR PATIENT MEDICARE (WNR) MEDICARE (M) PART B Aug 19, 2018 PART B [id number] SRIDHARSALVADOR PATIENT MEDICARE PART D (WNR) MEDICARE (M) PART D Aug 19, 2018 PART D [id number] SRIDHARSALVADOR PATIENT MEDICARE PART D (WNR) MEDICARE (M) PART D Aug 19, 2018 PART D [id number] SALVADOR CLEARY PATIENT Selected Encounter This section includes the information on record at [place] for the Encounter. Date/Time Encounter Type Encounter Description Reason Provider Source May 12, 2020 09:08 PM Outpatient Encounter COMMUNITY CARE CONSULT IHE Encounter Template Text not used by [place] Assessments - Encounter Diagnoses No Data Provided for This Section Plan of Treatment: Future Appointments (+ 6 months) and Future Tests (+/- 45 day s) The Plan of Treatment section includes future care activities for the patient fr om all [facility] facilities. This section includes future appointments and fu ture orders which are active, pending or scheduled. Future Appointments This section includes appointments that were scheduled t o occur 6 months from the date of the Encounter, up to a maximum of 20 appointme nts. The data comes from all [facility]. Appointment Date/Time Appointment Type Appointment Facili ty Name May 19, 2020 10:00 AM AMBULATORY - NONE [facility] Jun 23, 2020 02:00 AM AMBULATORY [facility] Jul 29, 2020 11:00 AM AMBULATORY MEDICINE [facility] Aug 11, 2020 10:00 AM AMBULATORY NONE [facility] Nov 03, 2020 08:00 AM AMBULATORY NONE [facility] Nov 03, 2020 11:00 AM [facility] Surgical [...] the Encounter. Date/Time Encounter Note(s) Provider Source May 12, 2020 09:08 PM NONVA NOTE: LOCAL TITLE: COMMUNITY CARE-COORDINATION PLAN STANDARD TITLE: NONVA NOTE DATE OF NOTE: MAY 12, 2020@21:08 ENTRY DATE: MAY 12, 2020@21:08:46 AUTHOR: YAO REHMAN COSIGNER: URGENCY: STATUS: COMPLETED [place] Facility Community Care Office Care Coordination Plan Note [facility] Last Name: Sridhar Sebastian First Name: Salvador Sebastian Social: [phone] Chief Complaint:elevated PSA Risks (e.g. clinical or biophysical risks identified [...] OFFICE CONTACT Care Coordination Point of Contact: YAO SHERIE EXT [phone] 'S?CAREGIVER?CONTACT INFO Is 's caregiver same as next of kin listed in the demographic section of CPRS (Yes/No)?: If no, provide the following: [facility]'s Caregiver Point of Contact: Caregiver's Relationship to : Caregiver's Primary Phone Number: Caregiver's Alternate Phone Number: CONSULT AND REFERRAL INFORMATION Name of Referring [place] Provider: Margarita Page [facility] Referral Number: [id number] Unique Consult ID: [id number] Patient Admitted (Yes/No): If yes, then please complete?the Discharge?Planning Addendum. APPOINTMENT MANAGEMENT / MEDICAL RECORDS Appointment Community Provider/Facility: [facility] Appointment Care Site/Location: [facility] [address], [phone] Appointment Date: Appointment Status: SENT TO THE COMMUNITY CARE PROVIDER Appointment Provider Name: DINORAH MEDRANO Appointment Provider Treating Specialty: Urology Appointment Provider Appointment Provider Email: [email or web address] Recommended Services: Level of Care Coordination: Basic* [...] requested services and direct communication with the providers PLAN: SEE CONSULT FOR APPOINTMENT INFORMATION /es/ YAO THOMAS Advanced Medical Support Asst Signed: 05/12/2020 21:09 YAO REHMAN [facility]
--- OUTSIDE RECORDS SUMMARY | 2021-01-26 11:47 | XMS REPORT | Encounter Summary ---
Author Author Department [facility] Organization Department of [facility] Address Unknown Phone Unavailable Care Team Providers Care Topographical Field Assistant Name Role Phone MARGARITA TORRES PCP [...] PLAN G Aug 19, 2018 PLAN G [id number] EVINSALVADOR PATIENT MEDICARE (WNR) MEDICARE (M) PART A Aug 19, 2018 PART A [id number] 60A [phone] EVINSALVADOR PATIENT MEDICARE (WNR) MEDICARE (M) PART B Aug 19, 2018 PART B [id number] 60A [phone] EVINSALVADOR PATIENT MEDICARE (WNR) MEDICARE (M) PART A Aug 19, 2018 PART A [id number] EVINSALVADOR PATIENT MEDICARE (WNR) MEDICARE (M) PART B Aug 19, 2018 PART B [id number] EVINSALVADOR PATIENT MEDICARE PART D (WNR) MEDICARE (M) PART D Aug 19, 2018 PART D [id number] EVINSALVADOR PATIENT MEDICARE PART D (WNR) MEDICARE (M) PART D Aug 19, 2018 PART D [id number] SALVADOR CLEARY PATIENT Selected Encounter This section includes the information on record at [place] for the Encounter. Date/Time Encounter Type Encounter Description Reason Provider Source May 19, 2020 10:00 AM Outpatient Encounter COMMUNITY CARE CONSULT IHE [...] appointme nts. The data comes from all [facility]. Appointment Date/Time Appointment Type Appointment Facili ty Name Jun 23, 2020 02:00 AM AMBULATORY - NONE [facility] Jul 29, 2020 11:00 AM AMBULATORY - MEDICINE [facility] Aug 11, 2020 10:00 AM AMBULATORY - NONE [facility] Nov 03, 2020 08:00 AM AMBULATORY NONE [facility] Nov 03, 2020 11:00 AM AMBULATORY MEDICINE [facility] Surgical Procedures: All associated to the encounter [...] Encounter. Date/Time Encounter Note(s) Provider Source Jul 01, 2020 12:54 PM NONVA REPORT: LOCAL TITLE: OUTSIDE RECORDS/REPORTS STANDARD TITLE: NONVA REPORT DATE OF NOTE: JUL 01, 2020@12:54 ENTRY DATE: JUL 01, 2020@12:54:42 AUTHOR: JARRELL BOND EXP COSIGNER: URGENCY: STATUS: COMPLETED [facility] [place] Provider: Dr. Mary Pelayo D.O. 06/23/2020 Chronic kidney disease stage III Diagnosis: 2008 Risk factors: Hypertension, diabetes mellitus Renal ultrasound 2010 - R - 11.5.4 cm, L- 10.2x5cm. small cyst on right. No hydro Proteinuria: Last 3 protein/creatinine values: 0.11 ratio 05/19/2020 0.27 ratio 10/23/2019 0.05 ratio 03/27/2019 History of present illness: This is a 64-year-old male who presents or nephrology follow-up. Last 3 creatinine values: 1.3 05/19/2020 1.33 04/05/2020 1.6 10/29/2019 He had a gout flare in her right great toe and lasted for 2 weeks. His diet had changed recently. [facility] [place] He was diagnosed with a high PSA in March. He is seeing Dr. Sheldon on March 23. Nocturia 3-4 months. The patient states they overall feel excellent. Home blood pressures are 120/80- 130/85. The patient is compliant with lo w protein diet, taking medications, and avoiding nephrotoxins. The patient is not compliant with low-sodium diet. The patient denies edema, shortness of breath, orthopnea, fatigue, nausea, confusion, jerking, and anorexia. Impression and recommendations: 1. Chronic kidney disease stage IIIa The creatinine is 1.33 GFR is good now at 59. 2. BPH Tamsulosin 0.4 mg at bedtime to help with prostate enlargement and frequent urination. Keep appointment with urology for possible prostate cancer evaluation. He will likely need biopsy of prostate. 3. Diabetes mellitus type 2 with hypergl ycemia Goal A1c is around 7. 4. Hyperkalemia Stop the liquid for the potassium for now. The potassium is good. You cannot take a sore arms due to high potassium. 5. Vitamin D deficiency Change the vitamin D2 50,000 international units weekly by mouth for 12 weeks then recheck vitamin D 6. Gout due to renal impairment, right a nkle and foot Increase allopurinol to 300 mg daily Low purine diet given Call if you have a gout flare. New prescriptions Vitamin D 50,000 units by mouth weekly #5 with 5 refills Allopurinol 300 mg take one by mouth daily #90 with 3 refills Return to clinic in 6 months with labs This note was transcribed using a tracking dictation program. Due to this, despite review, note may contain grammatical errors, omissions, eblxv-m-ogzm words, homonyms, or other idiosyncrasies that do not convey or communicate my full intent. If any of these are noted, please request correction and/or clarification. /es/ JARRELL BOND APN [facility] Signed: 07/01/2020 13:01 JARRELL BOND [facility]
--- OUTSIDE RECORDS SUMMARY | 2021-01-26 11:47 | XMS REPORT | Encounter Summary ---
Author [facility] Address Unknown Phone Unavailable Care Team Providers Care Certified Cytotechnologist Name Role Phone MARGARITA TORRES PCP Unavailable [...] PLAN G Aug 19, 2018 PLAN G [id number] EVINSALVADOR PATIENT MEDICARE (WNR) MEDICARE (M) PART A Aug 19, 2018 PART A [id number] [phone] EVINSALVADOR PATIENT MEDICARE (WNR) MEDICARE (M) PART B Aug 19, 2018 PART B [id number] 60A [phone] EVINSALVADOR PATIENT MEDICARE (WNR) MEDICARE (M) PART A Aug 19, 2018 PART A [id number] EVINSALVADOR PATIENT MEDICARE (WNR) MEDICARE (M) PART B Aug 19, 2018 PART B [id number] EVINSALVADOR PATIENT MEDICARE PART D (WNR) MEDICARE (M) PART D Aug 19, 2018 PART D [id number] EVINSALVADOR PATIENT MEDICARE PART D (WNR) MEDICARE (M) PART D Aug 19, 2018 PART D [id number] SALVADOR CLEARY PATIENT Selected Encounter This section includes the information on record at [place] for the Encounter. Date/Time Encounter Type Encounter Description Reason Provider Source Jun 10, 2020 11:02 AM Outpatient Encounter TELEPHONE/ANCILLARY IHE Encounter Template Text not used by CT Assessments - Encounter Diagnoses No Data Provided for This Section Plan of Treatment: Future Appointments (+ 6 months) and Future Tests (+/- 45 day s) The Plan of Treatment section includes future care activities for the patient fr om all [facility] facilities. This section includes future appointments and fu ture orders which are active, pending or scheduled. Future Appointments This section includes appointments that were scheduled t o occur 6 months from the date of the Encounter, up to a maximum of 20 appointme nts. The data comes from all [facility]. Appointment Date/Time Appointment Type Appointment Facili ty Name Jun 23, 2020 02:00 AM AMBULATORY - NONE [facility] Jul 29, 2020 11:00 AM AMBULATORY MEDICINE [facility] Aug 11, 2020 10:00 AM AMBULATORY - NONE [facility] Nov 03, 2020 08:00 AM AMBULATORY [facility] Nov 03, 2020 11:00 AM [facility] MEDICINE [facility] Nov 24, 2020 08:00 AM AMBULATORY [facility] Dec 03, 2020 11:00 AM [facility] Surgical Procedures: All associated to the [...] Encounter. Date/Time Encounter Note(s) Provider Source Jun 10, 2020 11:02 AM PHARMACY NOTE: LOCAL TITLE: PHARMACY NOTE STANDARD TITLE: PHARMACY NOTE DATE OF NOTE: JUN 10, 2020@11:02 ENTRY DATE: JUN 10, 2020@11:02:51 AUTHOR: SUSAN JAQUEZ EXP COSIGNER: URGENCY: STATUS: COMPLETED Duplicate therapy after visit with community care provider. The below Rx was entered and mailed to patient following [facility] Drug Name TAMSULOSIN HCL 0.4MG CAP Issue Date 06/09/2020 SIG TAKE ONE CAPSULE BY MOUTH AT BEDTIME 30 MINUTES AFTER A MEAL FOR PROSTATE (MAY CAUSE LIGHTHEADEDNESS WHEN STANDING) *REPLACES TERAZOSIN* Facility: [facility] Patient was already on the below duplicate therapy, which was placed on HOLD: Drug Name TERAZOSIN HCL 2MG CAP Issue Date 05/01/2019 SIG TAKE TWO CAPSULES BY MOUTH AT BEDTIME FOR PROSTATE / MAY CAUSE LIGHTHEADEDNESS WHEN STANDING Facility: [facility] Please discontinue duplicate therapy and/or advise. Thank you, /lizzy/ SUSAN JAQUEZ, PHARM.D CLINICAL PHARMACIST Signed: 06/10/2020 11:03 Receipt Acknowledged By: * AWAITING SIGNATURE * MARGARITA TORRES [place] [facility] [place] [facility]
--- OUTSIDE RECORDS SUMMARY | 2021-01-26 11:48 | XMS REPORT | Encounter Summary ---
Author Author Department [facility] SALVADOR hwang Organization Department of [facility] Address Unknown Phone Unavailable Care Team Providers Care Cardiac Rehabilitation Specialist Name Role Phone MARGARITA TORRES PCP [...] PLAN G Aug 19, 2018 PLAN G [id number] EVINSALVADOR PATIENT MEDICARE (WNR) MEDICARE (M) PART A Aug 19, 2018 PART A [id number] 60A [phone] CLEARYSALVADOR PATIENT MEDICARE (WNR) MEDICARE (M) PART B Aug 19, 2018 PART B [id number] 60A [phone] EVINSALVADOR PATIENT MEDICARE (WNR) MEDICARE (M) PART A Aug 19, 2018 PART A [id number] EVINSALVADOR PATIENT MEDICARE (WNR) MEDICARE (M) PART B Aug 19, 2018 PART B [id number] CLEARYSALVADOR PATIENT MEDICARE PART D (WNR) MEDICARE (M) PART D Aug 19, 2018 PART D [id number] CLEARYSALVADOR PATIENT MEDICARE PART D (WNR) MEDICARE (M) PART D Aug 19, 2018 PART D [id number] SALVADOR CLEARY PATIENT Selected Encounter This section includes the information on record at [place] for the Encounter. Date/Time Encounter Type Encounter Description Reason Provider Source Apr 23, 2020 12:52 PM Outpatient Encounter PRIMARY CARE/MEDICINE IHE Encounter Template Text not used by [place] Assessments - Encounter Diagnoses No Data Provided for This Section Plan of Treatment: Future Appointments (+ 6 months) and Future Tests (+/- 45 day s) The Plan of Treatment section includes future care activities for the patient fr om all [place] treatment facilities. This section includes future appointments and fu ture orders which are active, pending or scheduled. Future Appointments This section includes appointments that were scheduled t o occur 6 months from the date of the Encounter, up to a maximum of 20 appointme nts. The data comes from all [place] treatment facilities. Appointment Date/Time Appointment Type Appointment Facili ty Name May 19, 2020 10:00 AM AMBULATORY NONE [facility] Jun 23, 2020 02:00 AM AMBULATORY [facility] Jul 29, 2020 11:00 AM AM[facility]ATORY - MEDICINE [facility] Aug 11, 2020 10:00 AM AMBULATORY [facility] Surgical Procedures: All associated to the encounter No Data Provided for This Section Lab Results: +/- 30 days of the encounter This section includes the Chemistry and Hematology Lab R esults on record with [place] for the patient. Radiology Reports and Pathology Report s are provided separately, in subsequent sections. Lab Results This section contains the Chemistry/Hematology Results rey t were resulted 30 days before or 30 days after the date of the Encounter. Date/Time Source Result Type Result - Unit Interpretation Reference Range Comment Apr 05, 2020 08:50 AM [facility] CBC Speci men Type: BLOOD No comment entered. Ordering Provider: SANTA FERNANDEZ Report Released Date/Time: Mar 24, 2020 03:46 PM Reporting Lab: [place] [id number] [facility] [phone] Performing Lab: [place] [id number] [facility] [phone] MPV (FV) 10.0 fL 7.4-10.4 RDW [...] K/cmm 0.0-0.2 Apr 05, 2020 08:50 AM [facility] GLYCO HGB A1C Speci men Type: BLOOD No comment entered. Ordering Provider: SANTA FERNANDEZ Report Released Date/Time: Mar 24, 2020 03:46 PM Reporting Lab: [address] [phone] Performing Lab: [address] [phone] Glyco Hgb A1C 7.2 % H 4.2-5.8 Apr 05, 2020 08:50 AM [facility] LIPID PROFILE Speci men Type: SERUM No comment entered. Ordering Provider: SANTA FERNANDEZ Report Released Date/Time: Mar 24, 2020 03:46 PM Reporting Lab: [address] [phone] Performing Lab: [address] [phone] CHOLESTEROL, TOTAL (FV) 153 mg/dL 118-20 0 TRIGLYCERIDE (FV) 72 mg/dL <150 LDL CHOLESTEROL (CALCULATED) 100 HDL CHOLESTEROL (FV) 39 mg/dL L >40 Apr 05, 2020 08:50 AM [facility] MICROALBUMIN, RANDOM URINE Specimen Type: URINE No comment entered. Ordering Provider: SANTA FERNANDEZ Report Released Date/Time: Mar 24, 2020 03:46 PM Reporting Lab: [address] [phone] Performing Lab: [address] [phone] MICROALBUMIN (FV) 1.9 mg/dL H <1.8 MA:CREAT RATIO (FV) 12 mcg/mgCrea <29 CREATININE (FV) 152.87 mg/dL Apr 05, 2020 08:50 AM [facility] PSA (FV) Speci men Type: SERUM No comment entered. Ordering Provider: SANTA FERNANDEZ Report Released Date/Time: Mar 24, 2020 03:46 PM Reporting Lab: [facility] [address] [place] [id number] Performing Lab: [facility] [address] [facility] 7270 PSA (FV) 21.18 ng/mL H 0.0-4.0 Apr 05, 2020 08:50 AM [facility] RENAL+LIVER PROFILE Specimen Type: SERUM No comment entered. Ordering Provider: SANTA FERNANDEZ Report Released Date/Time: Mar 24, 2020 03:46 PM Reporting Lab: [address] [phone] Performing Lab: [address] [phone] GLUCOSE (FV) 142 mg/dL H 70-110 [...] H .61-1.24 Apr 05, 2020 08:50 AM [facility] TSH (FV) Speci men Type: SERUM No comment entered. Ordering Provider: SANTA FERNANDEZ Report Released Date/Time: Mar 24, 2020 03:46 PM Reporting Lab: [facility] [address] [place] [address] Performing Lab: [facility] [address] [place] [id number] TSH () 14.63 mcIU/mL H 0.45-5.33 Apr 05, 2020 08:50 AM [facility] URINALYSIS Speci men Type: URINE No comment entered. Ordering Provider: SANTA FERNANDEZ Report Released Date/Time: Mar 24, 2020 03:46 PM Reporting Lab: [address] [phone] Performing Lab: [address] [phone] UA COLOR STRAW COLORLESS-YELLOW UA SPEC [...] Erika/uL NEG-74 Apr 05, 2020 08:50 AM [facility] FREE T3 (FV) Speci men Type: SERUM No comment entered. Ordering Provider: SANTA FERNANDEZ Report Released Date/Time: Mar 24, 2020 03:46 PM Reporting Lab: [facility] [address] [place] [address] Performing Lab: [facility] [address] [place] [phone] FREE T3 (FV) 3.20 pg/mL 2.5-3.9 Apr 05, 2020 08:50 AM [facility] FREE T4 (FV) Speci men Type: SERUM No comment entered. Ordering Provider: SANTA FERNANDEZ Report Released Date/Time: Mar 24, 2020 03:46 PM Reporting Lab: [facility] [address] [place] [address] Performing Lab: [facility] [address] [place] [address] FREE T4 (FV) 0.76 ng/dL 0.61-1.12 Vital [...] Encounter. Date/Time Encounter Note(s) Provider Source Apr 23, 2020 12:54 PM ADMINISTRATIVE NOTE: LOCAL TITLE: ADMINISTRATIVE NOTE STANDARD TITLE: ADMINISTRATIVE NOTE DATE OF NOTE: APR 23, 2020@12:54 ENTRY DATE: APR 23, 2020@12:54:47 AUTHOR: STEVE VERA EXP COSIGNER: URGENCY: STATUS: COMPLETED [place] requesting the following medication be renewed with a 90 day supply. 3) AMITRIPTYLINE 50MG TAB TAKE ONE TAB LET BY MOUTH AT ACTIVE BEDTIME /lizzy/ STEVE OAKES [facility] SUPPORT ASST- SHMUEL Signed: 04/23/2020 12:55 Receipt Acknowledged By: * AWAITING SIGNATURE * MARGARITA TORRES REBECCA A [facility]
--- OUTSIDE RECORDS SUMMARY | 2021-01-26 11:48 | XMS REPORT | Encounter Summary ---
[facility] Address Unknown Phone Unavailable Care Team Providers Care Steel Tester Name Role Phone MARGARITA TORRES PCP Unavailable [...] PLAN G Aug 19, 2018 PLAN G [id number] SALVADOR CLEARY PATIENT MEDICARE (WNR) MEDICARE (M) PART A Aug 19, 2018 PART A [id number] 60A [phone] EVINSALVADOR PATIENT MEDICARE (WNR) MEDICARE (M) PART B Aug 19, 2018 PART B [id number] 60A [phone] SALVADOR CLEARY PATIENT MEDICARE (WNR) MEDICARE (M) PART A Aug 19, 2018 PART A [id number] EVINSALVADOR PATIENT MEDICARE (WNR) MEDICARE (M) PART B Aug 19, 2018 PART B [id number] EVINSALVADOR PATIENT MEDICARE PART D (WNR) MEDICARE (M) PART D Aug 19, 2018 PART D [id number] EVINSALVADOR PATIENT MEDICARE PART D (WNR) MEDICARE (M) PART D Aug 19, 2018 PART D [id number] SALVADOR CLEARY PATIENT Selected Encounter This section includes the information on record at [place] for the Encounter. Date/Time Encounter Type Encounter Description Reason Provider Source Apr 09, 2020 10:16 AM Outpatient Encounter TELEPHONE PRIMARY CAR E ICD-10-CM Z71.89 Other specified counseling with Provider Comments: Counseling,Oth Specified JEAN SCOTT IHHomer Encounter Template Text not used by [place] Assessments - Encounter Diagnoses This section includes the primary and secondary diag noses documented for the Encounter. Date/Time Primary/Secondary Diagnosis Diagnosis Name Provider Source Apr 09, 2020 10:16 AM PRIMARY Other specified counseling Armond SCOTT [facility] Plan of Treatment: Future Appointments (+ 6 months) and Future Tests (+/- 45 day s) The Plan of Treatment section includes future care activities for the patient fr om all [place] treatment facilities. This section includes future appointments and fu ture orders which are active, pending or scheduled. Future Appointments This section includes appointments that were scheduled t o occur 6 months from the date of the Encounter, up to a maximum of 20 appointme nts. The data comes from all [place] treatment facilities. Appointment Date/Time Appointment Type Appointment Facili ty Name May 19, 2020 10:00 AM AMBULATORY - NONE [facility] Jun 23, 2020 02:00 AM AMBULATORY NONE [facility] Jul 29, 2020 11:00 AM AMBULATORY - MEDICINE [facility] Aug 11, 2020 10:00 AM AMBULATORY [facility] Surgical Procedures: All associated to the encounter No Data Provided for This Section Lab Results: +/- 30 days of the encounter This section includes the Chemistry and Hematology Lab R esults on record with [place] for the patient. Radiology Reports and Pathology Report s are provided separately, in subsequent sections. Lab Results This section contains the Chemistry/Hematology Results rey t were resulted 30 days before or 30 days after the date of the Encounter. Date/Time Source Result Type Result - Unit Interpretation Reference Range Comment Apr 05, 2020 08:50 AM [facility] CBC Speci men Type: BLOOD No comment entered. Ordering Provider: SANTA FERNANDEZ Report Released Date/Time: Mar 24, 2020 03:46 PM Reporting Lab: [place] [address] [facility] [phone] Performing Lab: [address] [facility] [phone] MPV (FV) 10.0 fL 7.4-10.4 RDW [...] K/cmm 0.0-0.2 Apr 05, 2020 08:50 AM [facility] GLYCO HGB A1C Speci men Type: BLOOD No comment entered. Ordering Provider: SANTA FERNANDEZ Report Released Date/Time: Mar 24, 2020 03:46 PM Reporting Lab: [address] [facility] [phone] Performing Lab: [address] [facility] [phone] Glyco Hgb A1C 7.2 % H 4.2-5.8 Apr 05, 2020 08:50 AM [facility] LIPID PROFILE Speci men Type: SERUM No comment entered. Ordering Provider: SANTA FERNANDEZ Report Released Date/Time: Mar 24, 2020 03:46 PM Reporting Lab: [address] [facility] [phone] Performing Lab: [address] [facility] [phone] CHOLESTEROL, TOTAL (FV) 153 mg/dL 118-20 0 TRIGLYCERIDE (FV) 72 mg/dL <150 LDL CHOLESTEROL (CALCULATED) 100 HDL CHOLESTEROL (FV) 39 mg/dL L >40 Apr 05, 2020 08:50 AM [facility] MICROALBUMIN, RANDOM URINE Specimen Type: URINE No comment entered. Ordering Provider: SANTA FERNANDEZ Report Released Date/Time: Mar 24, 2020 03:46 PM Reporting Lab: [address] [phone] Performing Lab: [address] [phone] MICROALBUMIN (FV) 1.9 mg/dL H <1.8 MA:CREAT RATIO (FV) 12 mcg/mgCrea <29 CREATININE (FV) 152.87 mg/dL Apr 05, 2020 08:50 AM [facility] PSA () Speci men Type: SERUM No comment entered. Ordering Provider: SANTA FERNANDEZ Report Released Date/Time: Mar 24, 2020 03:46 PM Reporting Lab: [facility] [address] [place] [address] Performing Lab: [facility] [address] [facility] 7270 PSA () 21.18 ng/mL H 0.0-4.0 Apr 05, 2020 08:50 AM [facility] RENAL+LIVER PROFILE Specimen Type: SERUM No comment entered. Ordering Provider: SANTA FERNANDEZ Report Released Date/Time: Mar 24, 2020 03:46 PM Reporting Lab: [address] [facility] [phone] Performing Lab: [address] [facility] [phone] GLUCOSE (FV) 142 mg/dL H 70-110 [...] (FV) 96 U/L 32-126 eGFR 54 CREATININE () 1.33 mg/dL H .61-1.24 Apr 05, 2020 08:50 AM [facility] TSH () Speci men Type: SERUM No comment entered. Ordering Provider: SANTA FERNANDEZ Report Released Date/Time: Mar 24, 2020 03:46 PM Reporting Lab: [facility] [address] [place] [address] Performing Lab: [facility] [address] [facility] 7270 TSH () 14.63 mcIU/mL H 0.45-5.33 Apr 05, 2020 08:50 AM [facility] URINALYSIS Speci men Type: URINE No comment entered. Ordering Provider: SANTA FERNANDEZ Report Released Date/Time: Mar 24, 2020 03:46 PM Reporting Lab: [address] [facility] [phone] Performing Lab: [address] [phone] UA COLOR STRAW COLORLESS-YELLOW UA SPEC [...] Erika/uL NEG-74 Apr 05, 2020 08:50 AM [facility] FREE T3 (FV) Speci men Type: SERUM No comment entered. Ordering Provider: SANTA FERNANDEZ Report Released Date/Time: Mar 24, 2020 03:46 PM Reporting Lab: [facility] [address] [place] [address] Performing Lab: [facility] [address] [place] [address] FREE T3 (FV) 3.20 pg/mL 2.5-3.9 Apr 05, 2020 08:50 AM [facility] FREE T4 (FV) Speci men Type: SERUM No comment entered. Ordering Provider: SANTA FERNANDEZ Report Released Date/Time: Mar 24, 2020 03:46 PM Reporting Lab: [facility] [address] [place] [address] Performing Lab: [facility] [address] [place] [address] FREE T4 (FV) 0.76 ng/dL 0.61-1.12 Vital Signs: All taken on the encounter date No Data Provided for This Section Immunizations: All administered on the encounter date No Data Provided for This Section Social History: Smoking Status (Most current) and Tobacco Use (All prior to enco unter date) This section includes the most current, and the historical, smoking and tobacco- related health factors from the [place] facility where the Encounter took place. Current Smoking Status This section includes the most current smoking, or tobacco -related health factor, from the [place] facility where the Encounter took place. Date/Time Current Smoking Status Comment Facility Apr 06, 2020 11:30 AM [place]-TOBACCO QUIT 15 YRS OR MORE [facility] Tobacco Use History This section includes a history of the smoking, or tobacco -related health factors, that were collected on or before the date of the Encoun ter. The data comes from the [place] facility where the Encounter took place. Date/Time Smoking Status/Tobacco Use Comment [facility] it Apr 06, 2020 11:30 AM [place]-TOBACCO QUIT 15 YRS OR MORE [facility] Advance Directives: All historical and current No Data Provided for This Section Radiology Reports: +/- 30 days of the encounter No Data Provided for This Section Pathology Reports: +/- 30 days of the encounter No Data Provided for This Section Encounter Notes: All associated encounter notes This section contains the clinical notes associated to the Encounter. Date/Time Encounter Note(s) Provider Source Apr 09, 2020 10:16 AM TELEPHONE ENCOUNTER NOTE: LOCAL TITLE: TELECARE STANDARD TITLE: TELEPHONE ENCOUNTER NOTE DATE OF NOTE: APR 09, 2020@10:16 ENTRY DATE: APR 09, 2020@10:16:46 AUTHOR: JEAN SCOTT EXP COSIGNER: URGENCY: STATUS: COMPLETED TELECARE Has ADDENDA PATIENT NAME: SALVADOR CLEARY SSN: [id number] FUTURE APPOINTMENTS: Mar@15:00 [facility] TM [facility] PULL(NOT APPT)-X Apr@06:00 [facility]NE[facility] PATIENT'S HOME PHONE: REASON FOR CALL: [place] needs to have his recent labs faxed to: @ [phone] fax# [phone] Please fax to the above specialist. FOLLOW UP: (Patient has been instructed to go to [facility] Emergency Room or to seek care elsewhere. FINANCIAL DISCLAIMER was read to caller ( ) Yes ( ) Not Applicable) FINANCIAL DISCLAIMER: "This is not an authorization for [place] Payment" and also "Have hospital contact the nearest [place] Facility for transfer upon stabilization". /es/ JEAN SCOTT, VETERINARY TECHNICIAN REGISTERED NURSE-EVIE Signed: 04/09/2020 10:19 Receipt Acknowledged By: 04/12/2020 13:02 /es/ [facility] [place] 04/13/2020 12:34 /es/ RAFFY DENISE, VETERINARY TECHNICIAN [place] 04/22/2020 ADDENDUM STATUS: COMPLETED Emilie with Dr. Griffin (Urology) called to inquire on fax received in their office with 's lab results. Asking if is being referred to them or if this was a mistake. Emilie can be reached at [phone] /es/ [facility] Signed: 04/22/2020 15:59 Receipt Acknowledged By: * AWAITING SIGNATURE * KYUNG DECKER,JEAN Vazquez [facility]
--- OUTSIDE RECORDS SUMMARY | 2021-01-26 11:48 | XMS REPORT ---
Author Author [facility] SALVADOR hwang Organization [facility] rs Address Unknown Phone Unavailable Care Team Providers Care Laminator Name Role Phone MARGARITA TORRES PCP Unavailable [...] PLAN G Aug 19, 2018 PLAN G [id number] EVINSALVADOR PATIENT MEDICARE (WNR) MEDICARE (M) PART A Aug 19, 2018 PART A [id number] 60A [id number] EVINSALVADOR PATIENT MEDICARE (WNR) MEDICARE (M) PART B Aug 19, 2018 PART B [id number] 60A [phone] EVINSALVADOR PATIENT MEDICARE (WNR) MEDICARE (M) PART A Aug 19, 2018 PART A [id number] EVINSALVADOR PATIENT MEDICARE (WNR) MEDICARE (M) PART B Aug 19, 2018 PART B [id number] EVINSALVADOR PATIENT MEDICARE PART D (WNR) MEDICARE (M) PART D Aug 19, 2018 PART D [id number] EVINSALVADOR PATIENT MEDICARE PART D (WNR) MEDICARE (M) PART D Aug 19, 2018 PART D [id number] SALVADOR CLEARY PATIENT Selected Encounter This section includes the information on record at [place] for the Encounter. Date/Time Encounter Type Encounter Description Reason Provider Source Apr 22, 2020 03:59 PM Outpatient Encounter ADMIN PAT ACTIVTIES [...] appointme nts. The data comes from all [place] treatment facilities. Appointment Date/Time Appointment Type Appointment Facili ty Name May 19, 2020 10:00 AM AMBULATORY - NONE [facility] Jun 23, 2020 02:00 AM AMBULATORY NONE [facility] Jul 29, 2020 11:00 AM AMBULATORY - MEDICINE [facility] Aug 11, 2020 10:00 AM AMBULATORY NONE [facility] Surgical Procedures: All associated to the encounter No Data Provided for This Section Lab Results: +/- 30 days of the encounter This section includes the Chemistry and Hematology Lab R esults on record with [place] for the patient. Radiology Reports and Pathology Report s are provided separately, in subsequent sections. Lab Results This section contains the Chemistry/Hematology Results rey t were resulted 30 days before or 30 days after the date of the Encounter. Date/Time Source Result Type Result - Unit Interpretation Reference Range Comment Apr 05, 2020 08:50 AM [facility] CBC Speci men Type: BLOOD No comment entered. Ordering Provider: SANTA FERNANDEZ Report Released Date/Time: Mar 24, 2020 03:46 PM Reporting Lab: [address] [id number] Performing Lab: [address] [address]1 [address]35 MPV (FV) 10.0 fL 7.4-10.4 RDW [...] K/cmm 0.0-0.2 Apr 05, 2020 08:50 AM [facility] GLYCO HGB A1C Speci men Type: BLOOD No comment entered. Ordering Provider: SANTA FERNANDEZ Report Released Date/Time: Mar 24, 2020 03:46 PM Reporting Lab: [address] [address]35 Performing Lab: [address] [phone] Glyco Hgb A1C 7.2 % H 4.2-5.8 Apr 05, 2020 08:50 AM [facility] LIPID PROFILE Speci men Type: SERUM No comment entered. Ordering Provider: SANTA FERNANDEZ Report Released Date/Time: Mar 24, 2020 03:46 PM Reporting Lab: [address] [phone] Performing Lab: [address] [address] CHOLESTEROL, TOTAL (FV) 153 mg/dL 118-20 0 TRIGLYCERIDE (FV) 72 mg/dL <150 LDL CHOLESTEROL (CALCULATED) 100 HDL CHOLESTEROL (FV) 39 mg/dL L >40 Apr 05, 2020 08:50 AM [facility] MICROALBUMIN, RANDOM URINE Specimen Type: URINE No comment entered. Ordering Provider: SANTA FERNANDEZ Report Released Date/Time: Mar 24, 2020 03:46 PM Reporting Lab: [address] [phone] Performing Lab: [address] [address]-3 [address]35 MICROALBUMIN (FV) 1.9 mg/dL H <1.8 MA:CREAT RATIO (FV) 12 mcg/mgCrea <29 CREATININE (FV) 152.87 mg/dL Apr 05, 2020 08:50 AM [facility] PSA (FV) Speci men Type: SERUM No comment entered. Ordering Provider: SANTA FERNANDEZ Report Released Date/Time: Mar 24, 2020 03:46 PM Reporting Lab: [facility] [address] [place] [phone] Performing Lab: [facility] [address] [facility] 7270 PSA () 21.18 ng/mL H 0.0-4.0 Apr 05, 2020 08:50 AM [facility] RENAL+LIVER PROFILE Specimen Type: SERUM No comment entered. Ordering Provider: SANTA FERNANDEZ Report Released Date/Time: Mar 24, 2020 03:46 PM Reporting Lab: [address] [phone] Performing Lab: [address] [address]-4 [address]35 GLUCOSE (FV) 142 mg/dL H 70-110 [...] 2020 08:50 AM [facility] TSH (FV) Speci men Type: SERUM No comment entered. Ordering Provider: SANTA FERNANDEZ Report Released Date/Time: Mar 24, 2020 03:46 PM Reporting Lab: [facility] [address] [place] [address] Performing Lab: [facility] [address] [place] [id number] TSH () 14.63 mcIU/mL H 0.45-5.33 Apr 05, 2020 08:50 AM [facility] URINALYSIS Speci men Type: URINE No comment entered. Ordering Provider: SANTA FERNANDEZ Report Released Date/Time: Mar 24, 2020 03:46 PM Reporting Lab: [address] [phone] Performing Lab: [address] [address]9 [address]35 UA COLOR STRAW COLORLESS-YELLOW UA SPEC [...] 2020 08:50 AM [facility] FREE T3 (FV) Speci men Type: SERUM No comment entered. Ordering Provider: SANTA FERNANDEZ Report Released Date/Time: Mar 24, 2020 03:46 PM Reporting Lab: [facility] [address] [place] [address] Performing Lab: [facility] [address] [place] [address] FREE T3 (FV) 3.20 pg/mL 2.5-3.9 Apr 05, 2020 08:50 AM [facility] FREE T4 (FV) Speci men Type: SERUM No comment entered. Ordering Provider: SANTA FERNANDEZ Report Released Date/Time: Mar 24, 2020 03:46 PM Reporting Lab: [facility] [address] [place] [address] Performing Lab: [facility] [address] [place] [address] FREE T4 (FV) 0.76 ng/dL 0.61-1.12 Vital [...] Encounter. Date/Time Encounter Note(s) Provider Source Apr 22, 2020 03:59 PM ADMINISTRATIVE NOTE: LOCAL TITLE: ADMINISTRATIVE NOTE STANDARD TITLE: ADMINISTRATIVE NOTE DATE OF NOTE: APR 22, 2020@15:59 ENTRY DATE: APR 22, 2020@15:59:31 AUTHOR: STEPHANIE ROBERSONIGNER: URGENCY: STATUS: COMPLETED Has been diagnosed with COVID-19: () Yes* Date: (*No Further Screening Required) () No (Continue Screening) Comment(s): Is [place] waiting for COVID-19 test results: () Yes [...] exposure. Follow-up required. () Negative Screen (x) not present for screening. /lizzy/ STEPHANIE ROBERSON [facility] Signed: 04/22/2020 16:00 STEPHANIE ROBERSON [facility]
--- OUTSIDE RECORDS SUMMARY | 2021-01-26 11:48 | XMS REPORT | Encounter Summary ---
Author Author Department [facility] SALVADOR hwang Organization Department of [facility] Address Unknown Phone Unavailable Care Team Providers Care Composition Tile Layer Name Role Phone MARGARITA TORRES PCP Unavailable [...] PLAN G Aug 19, 2018 PLAN G [id number] EVINSALVADOR PATIENT MEDICARE (WNR) MEDICARE (M) PART A Aug 19, 2018 PART A [id number] 60A [phone] CLEAYRSALVADOR PATIENT MEDICARE (WNR) MEDICARE (M) PART B Aug 19, 2018 PART B [id number] 60A [phone] EVINSALVADOR PATIENT MEDICARE (WNR) MEDICARE (M) PART A Aug 19, 2018 PART A [id number] EVINSALVADOR PATIENT MEDICARE (WNR) MEDICARE (M) PART B Aug 19, 2018 PART B [id number] CLEARYSALVADOR PATIENT MEDICARE PART D (WNR) MEDICARE (M) PART D Aug 19, 2018 PART D [id number] CLEARYSALVADOR PATIENT MEDICARE PART D (WNR) MEDICARE (M) PART D Aug 19, 2018 PART D [id number] SALVADOR CLEARY PATIENT Selected Encounter This section includes the information on record at [place] for the Encounter. Date/Time Encounter Type Encounter Description Reason Provider Source Apr 23, 2020 04:36 PM Outpatient Encounter PRIMARY CARE/MEDICINE [facility] Encounter [...] appointme nts. The data comes from all [place] treatment facilities. Appointment Date/Time Appointment Type Appointment Facili ty Name May 19, 2020 10:00 AM AMBULATORY NONE [facility] Jun 23, 2020 02:00 AM AMBULATORY [facility] Jul 29, 2020 11:00 AM AMBULATORY - MEDICINE [facility] Aug 11, 2020 10:00 AM AMBULATORY [facility] Surgical Procedures: All associated to the encounter No Data Provided for This Section Lab Results: +/- 30 days of the encounter This section includes the Chemistry and Hematology Lab R esults on record with [place] for the patient. Radiology Reports and Pathology Report s are provided separately, in subsequent sections. Lab Results This section contains the Chemistry/Hematology Results rey t were resulted 30 days before or 30 days after the date of the Encounter. Date/Time Source Result Type Result - Unit Interpretation Reference Range Comment Apr 05, 2020 08:50 AM [facility] CBC Speci men Type: BLOOD No comment entered. Ordering Provider: SANTA FERNANDEZ Report Released Date/Time: Mar 24, 2020 03:46 PM Reporting Lab: [place] [id number] [facility] [id number] [id number] Performing Lab: [place] [id number] [facility] [address]-7 [address]35 MPV (FV) 10.0 fL 7.4-10.4 RDW [...] K/cmm 0.0-0.2 Apr 05, 2020 08:50 AM [facility] GLYCO HGB A1C Speci men Type: BLOOD No comment entered. Ordering Provider: SANTA FERNANDEZ Report Released Date/Time: Mar 24, 2020 03:46 PM Reporting Lab: [address] [phone] Performing Lab: [address] [address]0 [address]35 Glyco Hgb A1C 7.2 % H 4.2-5.8 Apr 05, 2020 08:50 AM [facility] LIPID PROFILE Speci men Type: SERUM No comment entered. Ordering Provider: SANTA FERNANDEZ Report Released Date/Time: Mar 24, 2020 03:46 PM Reporting Lab: [address] [phone] Performing Lab: [address] [address] CHOLESTEROL, TOTAL (FV) 153 mg/dL 118-20 0 TRIGLYCERIDE (FV) 72 mg/dL <150 LDL CHOLESTEROL (CALCULATED) 100 HDL CHOLESTEROL (FV) 39 mg/dL L >40 Apr 05, 2020 08:50 AM [facility] MICROALBUMIN, RANDOM URINE Specimen Type: URINE No comment entered. Ordering Provider: SANTA FERNANDEZ Report Released Date/Time: Mar 24, 2020 03:46 PM Reporting Lab: [address] [phone] Performing Lab: [address] [address]35 MICROALBUMIN (FV) 1.9 mg/dL H <1.8 MA:CREAT RATIO (FV) 12 mcg/mgCrea <29 CREATININE (FV) 152.87 mg/dL Apr 05, 2020 08:50 AM [facility] PSA (FV) Speci men Type: SERUM No comment entered. Ordering Provider: SANTA FERNANDEZ Report Released Date/Time: Mar 24, 2020 03:46 PM Reporting Lab: [facility] [address] [place] [id number] Performing Lab: [facility] [address] [facility] 7270 PSA (FV) 21.18 ng/mL H 0.0-4.0 Apr 05, 2020 08:50 AM [facility] RENAL+LIVER PROFILE Specimen Type: SERUM No comment entered. Ordering Provider: SANTA FERNANDEZ Report Released Date/Time: Mar 24, 2020 03:46 PM Reporting Lab: [address] [phone] Performing Lab: [address] [address]0 [address]35 GLUCOSE (FV) 142 mg/dL H 70-110 [...] H .61-1.24 Apr 05, 2020 08:50 AM [facility] TSH (FV) Speci men Type: SERUM No comment entered. Ordering Provider: SANTA FERNANDEZ Report Released Date/Time: Mar 24, 2020 03:46 PM Reporting Lab: [facility] [address] [place] [address] Performing Lab: [facility] [address] [place] [id number] TSH () 14.63 mcIU/mL H 0.45-5.33 Apr 05, 2020 08:50 AM [facility] URINALYSIS Speci men Type: URINE No comment entered. Ordering Provider: SANTA FERNANDEZ Report Released Date/Time: Mar 24, 2020 03:46 PM Reporting Lab: [address] [phone] Performing Lab: [address] [address]5 [address]35 UA COLOR STRAW COLORLESS-YELLOW UA SPEC [...] Erika/uL NEG-74 Apr 05, 2020 08:50 AM [facility] FREE T3 (FV) Speci men Type: SERUM No comment entered. Ordering Provider: SANTA FERNANDEZ Report Released Date/Time: Mar 24, 2020 03:46 PM Reporting Lab: [facility] [address] [place] [address] Performing Lab: [facility] [address] [place] [id number] FREE T3 (FV) 3.20 pg/mL 2.5-3.9 Apr 05, 2020 08:50 AM [facility] FREE T4 (FV) Speci men Type: SERUM No comment entered. Ordering Provider: SANTA FERNANDEZ Report Released Date/Time: Mar 24, 2020 03:46 PM Reporting Lab: [facility] [address] [place] [address] Performing Lab: [facility] [address] [place] [address] FREE T4 (FV) 0.76 ng/dL 0.61-1.12 Vital [...] Encounter Note(s) Provider Source Apr 23, 2020 04:36 PM ADMINISTRATIVE NOTE: LOCAL TITLE: ADMINISTRATIVE NOTE STANDARD TITLE: ADMINISTRATIVE NOTE DATE OF NOTE: APR 23, 2020@16:36 ENTRY DATE: APR 23, 2020@16:36:18 AUTHOR: KYUNG DECKER EXP COSIGNER: URGENCY: STATUS: COMPLETED Attempted to contact Emilie at Urology clinic, no answer left VM explaining consult placement /es/ KYUNG DECKER RN Signed: 04/23/2020 16:37 KYUNG DECKER [facility]
--- OUTSIDE RECORDS SUMMARY | 2021-01-26 11:49 | XMS REPORT | Encounter Summary ---
Author Author Department [facility] SALVADOR hwang Organization Department of [facility] Address Unknown Phone Unavailable Care Team Providers Care Shield Installer Name Role Phone MARGARITA TORRES PCP Unavailable [...] PLAN G Aug 19, 2018 PLAN G [id number] EVINSALVADOR PATIENT MEDICARE (WNR) MEDICARE (M) PART A Aug 19, 2018 PART A [id number] CLEARYSALVADOR PATIENT MEDICARE (WNR) MEDICARE (M) PART B Aug 19, 2018 PART B [id number] EVINSALVADOR PATIENT MEDICARE (WNR) MEDICARE (M) PART A Aug 19, 2018 PART A [id number] EVINSALVADOR PATIENT MEDICARE (WNR) MEDICARE (M) PART B Aug 19, 2018 PART B [id number] CLEARYSALVADOR PATIENT MEDICARE PART D (WNR) MEDICARE (M) PART D Aug 19, 2018 PART D [id number] CLEARYSALVADOR PATIENT MEDICARE PART D (WNR) MEDICARE (M) PART D Aug 19, 2018 PART D [id number] SALVADOR CLEARY PATIENT Selected Encounter This section includes the information on record at CT for the Encounter. Date/Time Encounter Type Encounter Description Reason Provider Source Apr 07, 2020 09:14 AM Outpatient Encounter PRIMARY CARE/MEDICINE IHE Encounter Template Text not used by CT Assessments - Encounter Diagnoses No Data Provided for This Section Plan of Treatment: Future Appointments (+ 6 months) and Future Tests (+/- 45 day s) The Plan of Treatment section includes future care activities for the patient fr om all CT treatment facilities. This section includes future appointments and fu ture orders which are active, pending or scheduled. Future Appointments This section includes appointments that were scheduled t o occur 6 months from the date of the Encounter, up to a maximum of 20 appointme nts. The data comes from all CT treatment facilities. Appointment Date/Time Appointment Type Appointment Facili ty Name May 19, 2020 10:00 AM AMBULATORY NONE [facility] Jun 23, 2020 02:00 AM AMBULATORY [facility] Jul 29, 2020 11:00 AM [facility] Aug 11, 2020 10:00 AM AMBULATORY [facility] Surgical Procedures: All associated to the encounter No Data Provided for This Section Lab Results: +/- 30 days of the encounter This section includes the Chemistry and Hematology Lab R esults on record with CT for the patient. Radiology Reports and Pathology Report s are provided separately, in subsequent sections. Lab Results This section contains the Chemistry/Hematology Results rey t were resulted 30 days before or 30 days after the date of the Encounter. Date/Time Source Result Type Result - Unit Interpretation Reference Range Comment Apr 05, 2020 08:50 AM [facility] CBC Speci men Type: BLOOD No comment entered. Ordering Provider: SANTA FERNANDEZ Report Released Date/Time: Mar 24, 2020 03:46 PM Reporting Lab: [place] [id number] [facility] [address] Performing Lab: [address] [address] MPV (FV) 10.0 fL 7.4-10.4 RDW [...] K/cmm 0.0-0.2 Apr 05, 2020 08:50 AM [facility] GLYCO HGB A1C Speci men Type: BLOOD No comment entered. Ordering Provider: SANTA FERNANDEZ Report Released Date/Time: Mar 24, 2020 03:46 PM Reporting Lab: [address] [phone] Performing Lab: [address] [address] Glyco Hgb A1C 7.2 % H 4.2-5.8 Apr 05, 2020 08:50 AM [facility] LIPID PROFILE Speci men Type: SERUM No comment entered. Ordering Provider: SANTA FERNANDEZ Report Released Date/Time: Mar 24, 2020 03:46 PM Reporting Lab: [address] [phone] Performing Lab: [address] [address]35 CHOLESTEROL, TOTAL (FV) 153 mg/dL 118-20 0 TRIGLYCERIDE (FV) 72 mg/dL <150 LDL CHOLESTEROL (CALCULATED) 100 HDL CHOLESTEROL (FV) 39 mg/dL L >40 Apr 05, 2020 08:50 AM [facility] MICROALBUMIN, RANDOM URINE Specimen Type: URINE No comment entered. Ordering Provider: SANTA FERNANDEZ Report Released Date/Time: Mar 24, 2020 03:46 PM Reporting Lab: [address] [phone] Performing Lab: [address] [phone] MICROALBUMIN (FV) 1.9 mg/dL H <1.8 MA:CREAT RATIO (FV) 12 mcg/mgCrea <29 CREATININE (FV) 152.87 mg/dL Apr 05, 2020 08:50 AM [facility] PSA (FV) Speci men Type: SERUM No comment entered. Ordering Provider: SANTA FERNANDEZ Report Released Date/Time: Mar 24, 2020 03:46 PM Reporting Lab: [facility] [address] [place] [phone] Performing Lab: [facility] [address] [facility] [address] PSA (FV) 21.18 ng/mL H 0.0-4.0 Apr 05, 2020 08:50 AM [facility] RENAL+LIVER PROFILE Specimen Type: SERUM No comment entered. Ordering Provider: SANTA FERNANDEZ Report Released Date/Time: Mar 24, 2020 03:46 PM Reporting Lab: [address] [phone] Performing Lab: [address] [phone] GLUCOSE (FV) 142 mg/dL H 70-110 [...] H .61-1.24 Apr 05, 2020 08:50 AM [facility] TSH (FV) Speci men Type: SERUM No comment entered. Ordering Provider: SANTA FERNANDEZ Report Released Date/Time: Mar 24, 2020 03:46 PM Reporting Lab: [facility] [address] [place] [address] Performing Lab: [facility] [address] [place] [id number] TSH () 14.63 mcIU/mL H 0.45-5.33 Apr 05, 2020 08:50 AM [facility] URINALYSIS Speci men Type: URINE No comment entered. Ordering Provider: SANTA FERNANDEZ Report Released Date/Time: Mar 24, 2020 03:46 PM Reporting Lab: [address] [phone] Performing Lab: [address] [address]35 UA COLOR STRAW COLORLESS-YELLOW UA SPEC [...] Erika/uL NEG-74 Apr 05, 2020 08:50 AM [facility] FREE T3 (FV) Speci men Type: SERUM No comment entered. Ordering Provider: SANTA FERNANDEZ Report Released Date/Time: Mar 24, 2020 03:46 PM Reporting Lab: [facility] [address] [place] [address] Performing Lab: [facility] [address] [place] [address] FREE T3 (FV) 3.20 pg/mL 2.5-3.9 Apr 05, 2020 08:50 AM [facility] FREE T4 (FV) Speci men Type: SERUM No comment entered. Ordering Provider: SANTA FERNANDEZ Report Released Date/Time: Mar 24, 2020 03:46 PM Reporting Lab: [facility] [address] [place] [address] Performing Lab: [facility] [address] [place] [address] FREE T4 (FV) 0.76 ng/dL 0.61-1.12 Vital [...] Encounter. Date/Time Encounter Note(s) Provider Source Apr 07, 2020 09:14 AM ADMINISTRATIVE NOTE: LOCAL TITLE: ADMINISTRATIVE NOTE STANDARD TITLE: ADMINISTRATIVE NOTE DATE OF NOTE: APR 07, 2020@09:14 ENTRY DATE: APR 07, 2020@09:14:10 AUTHOR: LLOYD PRESTON EXP COSIGNER: URGENCY: STATUS: COMPLETED LVM for Cheney to come by clinic to sign CATALINO or contact eye dr to have report faxed to clinic. Fax number provided. "04/06/2020 10:05 New Order entered by CEFERINO CANALES (LICENSED PRACTI) Order Text: Recovery Assistant Order: Please obtain CATALINO from patient for results of outside Funduscopic Eye Exam. Nature of Order: VERBAL Released by: CEFERINO CANALES (LICENSED PRACTI) on 04/06/2020 10:07 Ordered by: SANTA FERNANDEZ (PHYSICIAN) Released by: CEFERINO CANALES (LICENSED PRACTI) on 04/06/2020 10:07 Signature: ON CHART WITH WRITTEN ORDERS" /lizzy/ LLOYD PRESTON Signed: 04/07/2020 09:15 [facility]STON [facility]
--- OUTSIDE RECORDS SUMMARY | 2021-01-26 11:49 | XMS REPORT | Encounter Summary ---
[facility] Organization Department of [facility] Address Unknown Phone Unavailable Care Team Providers Care Reading Tutor Name Role Phone MARGARITA TORRES PCP Unavailable [...] PLAN G Aug 19, 2018 PLAN G [id number] EVINSALVADOR PATIENT MEDICARE (WNR) MEDICARE (M) PART A Aug 19, 2018 PART A [id number] 60A [phone] EVINSALVADOR PATIENT MEDICARE (WNR) MEDICARE (M) PART B Aug 19, 2018 PART B [id number] 60A [id number] EVINSALVADOR PATIENT MEDICARE (WNR) MEDICARE (M) PART A Aug 19, 2018 PART A [id number] EVINSALVADOR PATIENT MEDICARE (WNR) MEDICARE (M) PART B Aug 19, 2018 PART B [id number] EVINSALVADOR PATIENT MEDICARE PART D (WNR) MEDICARE (M) PART D Aug 19, 2018 PART D [id number] EVINSALVADOR PATIENT MEDICARE PART D (WNR) MEDICARE (M) PART D Aug 19, 2018 PART D [id number] SALVADOR CLEARY PATIENT Selected Encounter This section includes the information on record at [place] for the Encounter. Date/Time Encounter Type Encounter Description Reason Provider Source Mar 31, 2020 12:00 AM Outpatient Encounter COMMUNITY CARE CONSULT IHE Encounter Template Text not used by [place] Assessments - Encounter Diagnoses No Data Provided for This Section Plan of Treatment: Future Appointments (+ 6 months) and Future Tests (+/- 45 day s) The Plan of Treatment section includes future care activities for the patient fr om all [place] treatment facilities. This section includes future appointments and fu ture orders which are active, pending or scheduled. Future Appointments This section includes appointments that were scheduled t o occur 6 months from the date of the Encounter, up to a maximum of 20 appointme nts. The data comes from all [place] treatment facilities. Appointment Date/Time Appointment Type Appointment Facili ty Name Apr 05, 2020 09:00 AM AMBULATORY - [facility] Apr 06, 2020 11:30 AM AMBULATORY - MEDICINE [facility] May 19, 2020 10:00 AM AMBULATORY [facility] Jun 23, 2020 02:00 AM AMBULATORY [facility] Jul 29, 2020 11:00 AM AMBULATORY [facility] Aug 11, 2020 10:00 AM AMBULATORY [facility] Surgical Procedures: All associated to the encounter No Data Provided for This Section Lab Results: +/- 30 days of the encounter This section includes the Chemistry and Hematology Lab R esults on record with [place] for the patient. Radiology Reports and Pathology Report s are provided separately, in subsequent sections. Lab Results This section contains the Chemistry/Hematology Results rey t were resulted 30 days before or 30 days after the date of the Encounter. Date/Time Source Result Type Result - Unit Interpretation Reference Range Comment Apr 05, 2020 08:50 AM [facility] CBC Speci men Type: BLOOD No comment entered. Ordering Provider: SANTA FERNANDEZ Report Released Date/Time: Mar 24, 2020 03:46 PM Reporting Lab: [address] [phone] Performing Lab: [address] [address] MPV (FV) 10.0 fL 7.4-10.4 RDW [...] K/cmm 0.0-0.2 Apr 05, 2020 08:50 AM [facility] GLYCO HGB A1C Speci men Type: BLOOD No comment entered. Ordering Provider: SANTA FERNANDEZ Report Released Date/Time: Mar 24, 2020 03:46 PM Reporting Lab: [address] [place] [address]1 [address]35 Performing Lab: [address] [place] [address]1 [address] Glyco Hgb A1C 7.2 % H 4.2-5.8 Apr 05, 2020 08:50 AM [facility] LIPID PROFILE Speci men Type: SERUM No comment entered. Ordering Provider: SANTA FERNANDEZ Report Released Date/Time: Mar 24, 2020 03:46 PM Reporting Lab: [address] [place] [address]2 [address]35 Performing Lab: [address] [address] CHOLESTEROL, TOTAL (FV) 153 mg/dL 118-20 0 TRIGLYCERIDE (FV) 72 mg/dL <150 LDL CHOLESTEROL (CALCULATED) 100 HDL CHOLESTEROL (FV) 39 mg/dL L >40 Apr 05, 2020 08:50 AM [facility] MICROALBUMIN, RANDOM URINE Specimen Type: URINE No comment entered. Ordering Provider: SANTA FERNANDEZ Report Released Date/Time: Mar 24, 2020 03:46 PM Reporting Lab: [address] [phone] Performing Lab: [address] [address] MICROALBUMIN (FV) 1.9 mg/dL H <1.8 MA:CREAT RATIO (FV) 12 mcg/mgCrea <29 CREATININE (FV) 152.87 mg/dL Apr 05, 2020 08:50 AM [facility] PSA () Speci men Type: SERUM No comment entered. Ordering Provider: SANTA FERNANDEZ Report Released Date/Time: Mar 24, 2020 03:46 PM Reporting Lab: [facility] [address] [facility] 7270 Performing Lab: [facility] [address] [facility] 7270 PSA () 21.18 ng/mL H 0.0-4.0 Apr 05, 2020 08:50 AM [facility] RENAL+LIVER PROFILE Specimen Type: SERUM No comment entered. Ordering Provider: SANTA FERNANDEZ Report Released Date/Time: Mar 24, 2020 03:46 PM Reporting Lab: [address] [phone] Performing Lab: [address] [address] GLUCOSE (FV) 142 mg/dL H 70-110 [...] H .61-1.24 Apr 05, 2020 08:50 AM [facility] TSH (FV) Speci men Type: SERUM No comment entered. Ordering Provider: SANTA FERNANDEZ Report Released Date/Time: Mar 24, 2020 03:46 PM Reporting Lab: [facility] [address] [facility] 7270 Performing Lab: [facility] [address] [facility] 7270 TSH () 14.63 mcIU/mL H 0.45-5.33 Apr 05, 2020 08:50 AM [facility] URINALYSIS Speci men Type: URINE No comment entered. Ordering Provider: SANTA FERNANDEZ Report Released Date/Time: Mar 24, 2020 03:46 PM Reporting Lab: [address] [phone] Performing Lab: [address] [address] UA COLOR STRAW COLORLESS-YELLOW UA SPEC [...] Erika/uL NEG-74 Apr 05, 2020 08:50 AM [facility] FREE T3 (FV) Speci men Type: SERUM No comment entered. Ordering Provider: SANTA FERNANDEZ Report Released Date/Time: Mar 24, 2020 03:46 PM Reporting Lab: [facility] [address] [place] [phone] Performing Lab: [facility] [address] [place] [phone] FREE T3 (FV) 3.20 pg/mL 2.5-3.9 Apr 05, 2020 08:50 AM [facility] FREE T4 (FV) Speci men Type: SERUM No comment entered. Ordering Provider: SANTA FERNANDEZ Report Released Date/Time: Mar 24, 2020 03:46 PM Reporting Lab: [facility] [address] [place] [address] Performing Lab: [facility] [address] [place] [phone] FREE T4 (FV) 0.76 ng/dL 0.61-1.12 Vital [...] the Encounter. Date/Time Encounter Note(s) Provider Source Mar 31, 2020 12:00 AM NONVA CONSULT: LOCAL TITLE: COMMUNITY CARE-CONSULT RESULT NOTE STANDARD TITLE: NONVA CONSULT DATE OF NOTE: MAR 31, 2020 ENTRY DATE: JUN 14, 2020@10:58:11 AUTHOR: LUIS WILSON EXP COSIGNER: URGENCY: STATUS: COMPLETED VistA Imaging - Scanned Document [facility] 03.31.20 VISIT, LABS /es/ LUIS WILSON [employer] EXECUTIVE Signed: 06/14/2020 10:58 LUIS WILSON [facility]
--- OUTSIDE RECORDS SUMMARY | 2021-01-26 11:49 | XMS REPORT ---
Author [facility] Organization Department of [facility] Address Unknown Phone Unavailable Care Team Providers Care Personnel Associate Name Role Phone MARGARITA TORRES PCP [...] PLAN G Aug 19, 2018 PLAN G [id number] EVINSALVADOR PATIENT MEDICARE (WNR) MEDICARE (M) PART A Aug 19, 2018 PART A [id number] 60A [id number] EVINSALVADOR PATIENT MEDICARE (WNR) MEDICARE (M) PART B Aug 19, 2018 PART B [id number] EVINSALVADOR PATIENT MEDICARE (WNR) MEDICARE (M) PART A Aug 19, 2018 PART A [id number] EVINSALVADOR PATIENT MEDICARE (WNR) MEDICARE (M) PART B Aug 19, 2018 PART B [id number] EVINSALVADOR PATIENT MEDICARE PART D (WNR) MEDICARE (M) PART D Aug 19, 2018 PART D [id number] EVINSALVADOR PATIENT MEDICARE PART D (WNR) MEDICARE (M) PART D Aug 19, 2018 PART D [id number] SALVADOR CLEARY PATIENT Selected Encounter This section includes the information on record at [place] for the Encounter. Date/Time Encounter Type Encounter Description Reason Provider Source Mar 24, 2020 12:00 AM Outpatient Encounter COMMUNITY [...] appointme nts. The data comes from all [place] treatment [facility]. Appointment Date/Time Appointment Type Appointment Facili ty Name Mar 31, 2020 12:40 PM AMBULATORY - NONE [facility] Apr 05, 2020 09:00 AM AMBULATORY [facility] Apr 06, 2020 11:30 AM AMBULATORY - MEDICINE [facility] May 19, 2020 10:00 AM AMBULATORY [facility] Jun 23, 2020 02:00 AM AMBULATORY [facility] Jul 29, 2020 11:00 AM AMBULATORY [facility] Aug 11, 2020 10:00 AM AMBULATORY [facility] Surgical Procedures: All associated to the encounter No Data Provided for This Section Lab Results: +/- 30 days of the encounter This section includes the Chemistry and Hematology Lab R esults on record with [place] for the patient. Radiology Reports and Pathology Report s are provided separately, in subsequent sections. Lab Results This section contains the Chemistry/Hematology Results rey t were resulted 30 days before or 30 days after the date of the Encounter. Date/Time Source Result Type Result - Unit Interpretation Reference Range Comment Apr 05, 2020 08:50 AM [facility] CBC Speci men Type: BLOOD No comment entered. Ordering Provider: SANTA FERNANDEZ Report Released Date/Time: Mar 24, 2020 03:46 PM Reporting Lab: [address] [place] [phone] Performing Lab: [address] [place] [address] MPV (FV) 10.0 fL 7.4-10.4 RDW [...] 08:50 AM [facility] GLYCO HGB A1C Speci men Type: BLOOD No comment entered. Ordering Provider: SANTA FERNANDEZ Report Released Date/Time: Mar 24, 2020 03:46 PM Reporting Lab: [address] [facility] [phone] Performing Lab: [address] [facility] [address] Glyco Hgb A1C 7.2 % H 4.2-5.8 Apr 05, 2020 08:50 AM [facility] LIPID PROFILE Speci men Type: SERUM No comment entered. Ordering Provider: SANTA FERNANDEZ Report Released Date/Time: Mar 24, 2020 03:46 PM Reporting Lab: [address] [facility] [phone] Performing Lab: [address] [address] CHOLESTEROL, TOTAL (FV) 153 mg/dL 118-20 0 TRIGLYCERIDE (FV) 72 mg/dL <150 LDL CHOLESTEROL (CALCULATED) 100 HDL CHOLESTEROL (FV) 39 mg/dL L >40 Apr 05, 2020 08:50 AM [facility] MICROALBUMIN, RANDOM URINE Specimen Type: URINE No comment entered. Ordering Provider: SANTA FERNANDEZ Report Released Date/Time: Mar 24, 2020 03:46 PM Reporting Lab: [address] [phone] Performing Lab: [address] [address] MICROALBUMIN (FV) 1.9 mg/dL H <1.8 MA:CREAT RATIO (FV) 12 mcg/mgCrea <29 CREATININE (FV) 152.87 mg/dL Apr 05, 2020 08:50 AM [facility] PSA () Speci men Type: SERUM No comment entered. Ordering Provider: SANTA FERNANDEZ Report Released Date/Time: Mar 24, 2020 03:46 PM Reporting Lab: [facility] [address] [place] [address] Performing Lab: [facility] [address] [place] [id number] PSA () 21.18 ng/mL H 0.0-4.0 Apr 05, 2020 08:50 AM [facility] RENAL+LIVER PROFILE Specimen Type: SERUM No comment entered. Ordering Provider: SANTA FERNANDEZ Report Released Date/Time: Mar 24, 2020 03:46 PM Reporting Lab: [address] [phone] Performing Lab: [address] [address] GLUCOSE (FV) 142 mg/dL H 70-110 [...] 08:50 AM [facility] TSH () Speci men Type: SERUM No comment entered. Ordering Provider: SANTA FERNANDEZ Report Released Date/Time: Mar 24, 2020 03:46 PM Reporting Lab: [facility] [address] [place] [phone] Performing Lab: [facility] [address] [facility] 7270 TSH () 14.63 mcIU/mL H 0.45-5.33 Apr 05, 2020 08:50 AM [facility] URINALYSIS Speci men Type: URINE No comment entered. Ordering Provider: SANTA FERNANDEZ Report Released Date/Time: Mar 24, 2020 03:46 PM Reporting Lab: [address] [phone] Performing Lab: [address] [phone] UA COLOR STRAW COLORLESS-YELLOW UA SPEC [...] 08:50 AM [facility] FREE T3 (FV) Speci men Type: SERUM No comment entered. Ordering Provider: SANTA FERNANDEZ Report Released Date/Time: Mar 24, 2020 03:46 PM Reporting Lab: [facility] [address] [place] [address] Performing Lab: [facility] [address] [place] [address] FREE T3 (FV) 3.20 pg/mL 2.5-3.9 Apr 05, 2020 08:50 AM [facility] FREE T4 (FV) Speci men Type: SERUM No comment entered. Ordering Provider: SANTA FERNANDEZ Report Released Date/Time: Mar 24, 2020 03:46 PM Reporting Lab: [facility] [address] [place] [address] Performing Lab: [facility] [address] [place] [address] FREE T4 (FV) 0.76 ng/dL 0.61-1.12 Vital [...] Encounter. Date/Time Encounter Note(s) Provider Source Mar 24, 2020 12:00 AM NONVA CONSULT: LOCAL TITLE: COMMUNITY CARE-CONSULT RESULT NOTE STANDARD TITLE: NONVA CONSULT DATE OF NOTE: MAR 24, 2020 ENTRY DATE: APR 12, 2020@07:16:57 AUTHOR: DERIAN LIGHT EXP COSIGNER: URGENCY: STATUS: COMPLETED VistA Imaging - Scanned Document [facility] 03-24-20 VISIT /es/ DERIAN LIGHT Automotive Software Engineer Signed: 04/12/2020 07:16 [facility]
--- OUTSIDE RECORDS SUMMARY | 2021-01-26 11:49 | XMS REPORT | Encounter Summary ---
[facility] Address Unknown Phone Unavailable Care Team Providers Care [employer] Agent Name Role Phone MARGRAITA TORRES PCP Unavailable Insurance Providers: All historical [...] PLAN G Aug 19, 2018 PLAN G [id number] SALVADOR CLEARY PATIENT MEDICARE (WNR) MEDICARE (M) PART A Aug 19, 2018 PART A [id number] [phone] EVINSALVADOR PATIENT MEDICARE (WNR) MEDICARE (M) PART B Aug 19, 2018 PART B [id number] [phone] SALVADOR CLEARY PATIENT MEDICARE (WNR) MEDICARE (M) PART A Aug 19, 2018 PART A [id number] EVINSALVADOR PATIENT MEDICARE (WNR) MEDICARE (M) PART B Aug 19, 2018 PART B [id number] EVINSALVADOR PATIENT MEDICARE PART D (WNR) MEDICARE (M) PART D Aug 19, 2018 PART D [id number] EVINSALVADOR PATIENT MEDICARE PART D (WNR) MEDICARE (M) PART D Aug 19, 2018 PART D [id number] SALVADOR CLEARY PATIENT Selected Encounter This section includes the information on record at [place] for the Encounter. Date/Time Encounter Type Encounter Description Reason Provider Source Apr 06, 2020 11:30 AM Outpatient Encounter TELEPHONE PRIMARY CAR E ICD-10-CM R97.20 Elevated prostate specific antigen [PSA] with Provider Comments: Elevated Prostate Specific antigen [psa] [facility] Encounter Template Text not used by [place] Assessments - Encounter Diagnoses This section includes the primary and secondary diag noses documented for the Encounter. Date/Time Primary/Secondary Diagnosis Diagnosis Name Provider Source Apr 06, 2020 11:30 AM PRIMARY Elevated prostate specific antigen [PSA] [facility]ICKICEFERINO [facility] Apr 06, 2020 11:30 AM SECONDARY Benign prostatic h yperplasia without lower urinry tract symp [facility] Apr 06, 2020 11:30 AM SECONDARY Chronic gout, unsp ecified, without tophus (tophi) [facility]OLDCEFERINO [facility] Apr 06, 2020 11:30 AM SECONDARY Chronic kidney disease, un specified [facility] Apr 06, 2020 11:30 AM SECONDARY Hypothyroidism, unspecifie d [facility] Apr 06, 2020 11:30 AM SECONDARY Mixed hyperlipidemia [facility]INe[facility] Apr 06, 2020 11:30 AM SECONDARY 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 Plan of Treatment: Future Appointments (+ [...] appointme nts. The data comes from all [place] treatment facilities. Appointment Date/Time Appointment Type Appointment Facili ty Name May 19, 2020 10:00 AM AMBULATORY - NONE [facility] Jun 23, 2020 02:00 AM AMBULATORY - NONE [facility] Jul 29, 2020 11:00 AM AMBULATORY - MEDICINE [facility] Aug 11, 2020 10:00 AM AMBULATORY - NONE [facility] Surgical Procedures: All associated to the encounter No Data Provided for This Section Lab Results: +/- 30 days of the encounter This section includes the Chemistry and Hematology Lab R esults on record with [place] for the patient. Radiology Reports and Pathology Report s are provided separately, in subsequent sections. Lab Results This section contains the Chemistry/Hematology Results rey t were resulted 30 days before or 30 days after the date of the Encounter. Date/Time Source Result Type Result - Unit Interpretation Reference Range Comment Apr 05, 2020 08:50 AM [facility] CBC Speci men Type: BLOOD No comment entered. Ordering Provider: SANTA FERNANDEZ Report Released Date/Time: Mar 24, 2020 03:46 PM Reporting Lab: [address] [id number] Performing Lab: [address] [id number] MPV (FV) 10.0 fL 7.4-10.4 RDW [...] K/cmm 0.0-0.2 Apr 05, 2020 08:50 AM [facility] GLYCO HGB A1C Speci men Type: BLOOD No comment entered. Ordering Provider: SANTA FERNANDEZ Report Released Date/Time: Mar 24, 2020 03:46 PM Reporting Lab: [address] [place] [address] Performing Lab: [address] [place] [address] Glyco Hgb A1C 7.2 % H 4.2-5.8 Apr 05, 2020 08:50 AM [facility] LIPID PROFILE Speci men Type: SERUM No comment entered. Ordering Provider: SANTA FERNANDEZ Report Released Date/Time: Mar 24, 2020 03:46 PM Reporting Lab: [address] [place] [address] Performing Lab: [address] [place] [address] CHOLESTEROL, TOTAL (FV) 153 mg/dL 118-20 0 TRIGLYCERIDE (FV) 72 mg/dL <150 LDL CHOLESTEROL (CALCULATED) 100 HDL CHOLESTEROL (FV) 39 mg/dL L >40 Apr 05, 2020 08:50 AM [facility] MICROALBUMIN, RANDOM URINE Specimen Type: URINE No comment entered. Ordering Provider: SANTA FERNANDEZ Report Released Date/Time: Mar 24, 2020 03:46 PM Reporting Lab: [address] [place] [address] Performing Lab: [address] [place] [address] MICROALBUMIN (FV) 1.9 mg/dL H <1.8 MA:CREAT RATIO (FV) 12 mcg/mgCrea <29 CREATININE (FV) 152.87 mg/dL Apr 05, 2020 08:50 AM [facility] PSA (FV) Speci men Type: SERUM No comment entered. Ordering Provider: SANTA FERNANDEZ Report Released Date/Time: Mar 24, 2020 03:46 PM Reporting Lab: [facility] [address] [place] [id number] Performing Lab: [facility] [address] [place] [phone] PSA (FV) 21.18 ng/mL H 0.0-4.0 Apr 05, 2020 08:50 AM [facility] RENAL+LIVER PROFILE Specimen Type: SERUM No comment entered. Ordering Provider: SANTA FERNANDEZ Report Released Date/Time: Mar 24, 2020 03:46 PM Reporting Lab: [address] [phone] Performing Lab: [address] [address] GLUCOSE (FV) 142 mg/dL H 70-110 [...] H .61-1.24 Apr 05, 2020 08:50 AM [facility] TSH (FV) Speci men Type: SERUM No comment entered. Ordering Provider: SANTA FERNANDEZ Report Released Date/Time: Mar 24, 2020 03:46 PM Reporting Lab: [facility] [address] [place] [id number] Performing Lab: [facility] [address] [place] [address] TSH (FV) 14.63 mcIU/mL H 0.45-5.33 Apr 05, 2020 08:50 AM [facility] URINALYSIS Speci men Type: URINE No comment entered. Ordering Provider: SANTA FERNANDEZ Report Released Date/Time: Mar 24, 2020 03:46 PM Reporting Lab: [address] [phone] Performing Lab: [place] [id number] [place] [address] UA COLOR STRAW COLORLESS-YELLOW UA SPEC [...] Erika/uL NEG-74 Apr 05, 2020 08:50 AM [facility] FREE T3 (FV) Speci men Type: SERUM No comment entered. Ordering Provider: SANTA FERNANDEZ Report Released Date/Time: Mar 24, 2020 03:46 PM Reporting Lab: [facility] [address] [place] [address] Performing Lab: [facility] [address] [place] [address] FREE T3 (FV) 3.20 pg/mL 2.5-3.9 Apr 05, 2020 08:50 AM [facility] FREE T4 (FV) Speci men Type: SERUM No comment entered. Ordering Provider: SANTA FERNANDEZ Report Released Date/Time: Mar 24, 2020 03:46 PM Reporting Lab: [facility] [address] [place] [address] Performing Lab: [facility] [address] [place] [phone] FREE T4 (FV) 0.76 ng/dL 0.61-1.12 Vital Signs: All taken on the encounter date This section contains inpatient and outpatient Vital Signs collected on the date of the Encounter. Date/Time Temperature Pulse Blood Pressure Respiratory Rate SP02 Pa in Height Weight Body Mass Index Source Apr 06, 2020 10:05 AM 0 69 in [facility] Immunizations: All administered on the encounter date No Data Provided for This Section Social History: Smoking Status (Most current) and Tobacco Use (All prior to enco unter date) This section includes the most current, and the historical, smoking and tobacco- related health factors from the [place] facility where the Encounter took place. Current Smoking Status This section includes the most current smoking, or tobacco -related health factor, from the [place] facility where the Encounter took place. Date/Time Current Smoking Status Comment Facility Apr 06, 2020 11:30 AM [place]-TOBACCO QUIT 15 YRS OR MORE [facility] Tobacco Use History This section includes a history of the smoking, or tobacco -related health factors, that were collected on or before the date of the Encoun ter. The data comes from the [facility] where the Encounter took place. Date/Time Smoking Status/Tobacco Use Comment [facility] it Apr 06, 2020 11:30 AM [place]-TOBACCO QUIT 15 YRS OR MORE [facility] Advance Directives: All historical and current No Data Provided for This Section Radiology Reports: +/- 30 days of the encounter No Data Provided for This Section Pathology Reports: +/- 30 days of the encounter No Data Provided for This Section Encounter Notes: All associated encounter notes This section contains the clinical notes associated to the Encounter. Date/Time Encounter Note(s) Provider Source Apr 06, 2020 04:14 PM TELEPHONE ENCOUNTER NOTE: LOCAL TITLE: TELECARE STANDARD TITLE: TELEPHONE ENCOUNTER NOTE DATE OF NOTE: APR 06, 2020@16:14 ENTRY DATE: APR 06, 2020@16:14:22 AUTHOR: SANTA FERNANDEZ COSIGNER: URGENCY: STATUS: COMPLETED PATIENT NAME: SALVADOR CLEARY SSN: [id number] FUTURE APPOINTMENTS: Apr@06:00 [facility] CARE-NEPHROLOGY PATIENT'S HOME PHONE: REASON FOR CALL: Telecare use due to the coronavirus pandemic FOLLOW UP: Last night I talk with the patient from 1745 to 1802 in reference to his recent labs. Patient had a hemoglobin A1c of 7.2 and he follows with Dr. Leung carpenter assistant at [facility]. His microalbumin is 1.9 normal less than 1.8. Cholesterol 153 triglycerides 72 LDL 100 CBC is 12.4 blood sugar 142 creatinine 1.33 and GFR was 54. Patient's TSH was 14.63 and his PSA was 21.18. Patient is new to the [facility] and I do not have previous lab results to compare with including a PSA or TSH. I recommended for the nurse to make a copy of patient's current labs for both urologist Dr. Griffin and carpenter assistant Dr. Leung. Prior to obtaining the TSH and PSA I had written a results letter to the patient yesterday and gave him a few suggestions that he could talk with his providers about. The patient was on HCTZ which can aggravate gout and suggested discontinuing that drug and placing the patient on lisinopril 5 mg to help protect the kidneys plus help with blood pressure and help with his low-grade microalbuminuria. Patient has low-grade anemia with a 12.4 hemoglobin most likely secondary to anemia of chronic disease with renal insufficiency. Suggest checking a fit stool test. Also suggested increasing the Lipitor from 20 to 40 mg and discontinue gemfibrozil due to the common adverse reactions with those 2 drugs together. All these suggestions were met to be only suggestions and by all means patient is managed by his specialist. Assessment 1. Diabetes mellitus managed by endocrin ologist hemoglobin A1c 7.2 2. Mild renal insufficiency monitored by armature bander GFR 54 3. Mild hyperlipidemia LDL 100 4. Elevated PSA 21.18 new finding 5. Elevated TSH 14.63 new results 6. Gout by history no recent lab results Plan 1. I called Dr. Griffin office today and he will not be available this week but recommended for us to fax lab results to the office 2. Asked the nurse to fax lab results to Dr. Leung's office so that he can managed patient's thyroid disorder 3. Follow with armature bander and endocrin ologist and neurologist as directed and outside PCP 4. Return to clinic in 12 months for a f alda-to-face visit providing the coronavirus is under control and patient will have close follow-up with our nurses in regards to the referrals Time spent on the phone 22 minutes with both phone visits (Patient has been instructed to go to [facility] or to seek care elsewhere. FINANCIAL DISCLAIMER was read to caller ( ) Yes ( ) Not Applicable) FINANCIAL DISCLAIMER: "This is not an authorization for [place] Payment" and also "Have hospital contact the nearest [place] Facility for transfer upon stabilization". /lizzy/ SANTA FERNANDEZ DO PRIMARY CARE-[facility]MUEL Signed: 04/06/2020 16:43 SANTA FERNANDEZ [facility] Apr 06, 2020 09:31 AM PRIMARY CARE NURSING NOTE: LOCAL TITLE: PRIMARY CARE/NURSE STANDARD TITLE: PRIMARY CARE NURSING NOTE DATE OF NOTE: APR 06, 2020@09:31 ENTRY DATE: APR 06, 2020@09:31:50 AUTHOR: CEFERINO CANALES EXP COSIGNER: URGENCY: STATUS: COMPLETED SUBJECTIVE: Annual visit with fasting labs. - Labs - concerned with PSA results BP: Pain: Height: Weight: Pulse: Respiration: Temperature: BMI: BODY MASS INDEX - NO HEIGHTS FOUND PULSE OXIMETRY - NONE FOUND - 1D Mental Status: alert and oriented Are there things in your life that worry you or cause you stress? Yes, Specify: sister's health - worried he might have prostrate issues. Depression: No Suicidal: No Accompanied By: Alone On Arrival: Ambulatory Mobility changes in the past 3 months? No Do you have or use an assistive device? No Has patient had fall(s) in last 3 months? No, patient reports no fall(s) in last 3 months. Potential risks for falls identified. No Has the patient traveled outside the [place] within the past 30 days? No If yes, where has the patient traveled? Psychosocial Status: - no children Indication of suspected abuse, neglect, or exploitation? No LAB TESTS SELECTED Collection DT Specimen Test Name Result Units Ref Range 04/05/2020 08:50 SERUM LDLc 100 LAB CUMULATIVE SELECTED 1 No selection items chosen for this component. OTHER MEDICATIONS (HERBALS, OTC's, etc): No Active Outpatient Medications (including Supplies): Active Outpatient Medications Status 1) ALLOPURINOL 100MG TAB TAKE TWO TABL ETS BY MOUTH ONCE ACTIVE DAILY TO PREVENT GOUT, TAKE WITH FOOD 2) ALOGLIPTIN 12.5MG TAB TAKE ONE TABL ET BY MOUTH ONCE ACTIVE DAILY FOR DIABETES 3) AMITRIPTYLINE 50MG TAB TAKE ONE TAB LET BY MOUTH AT ACTIVE BEDTIME 4) ATENOLOL 100MG TAB TAKE ONE TABLET BY MOUTH TWICE A ACTIVE DAY FOR BLOOD PRESSURE AND HEART 5) ATORVASTATIN 20MG TAB TAKE ONE TABL ET BY MOUTH AT ACTIVE BEDTIME FOR CHOLESTEROL - DO NOT TAKE WITH GRAPEFRUIT JUICE 6) GEMFIBROZIL 600MG TAB TAKE ONE TABL ET BY MOUTH TWICE ACTIVE A DAY FOR HIGH CHOLESTEROL / TRIGLYCERIDES 7) HYDROCHLOROTHIAZIDE 12.5MG TAB TAKE ONE TABLET BY ACTIVE MOUTH EVERY OTHER DAY 8) TERAZOSIN HCL 1MG CAP TAKE ONE CAP TOM BY MOUTH ACTIVE EVERY MORNING AND 2 CAPSULES AT BEDTIME FOR PROSTATE / MAY CAUSE LIGHTHEADEDNESS WHEN STANDING Primary/HealthCare Language (Nurse): Primary Language: Patient's primary language: Greek Preferred language for healthcare discussion: Preferred language for healthcare discussion is Greek. Patient does not have a designated advocate (legal guardian, surrogate decision-maker or legally authorized medicare sales representative). Healthy Living Discussion: Healthy Living Discussion: Nine Healthy Living Messages: The impact of healthy living behaviors on overall physical and mental well-being discussed with . Be Involved Eat Wisely Be Tobacco Free Manage Stress Be Physically Active Get Screenings and Tests Be Safe Limit Alcohol Strive for Healthy Weight No, is not interested in any topic at this time. Importance of healthy living for better health, especially being physically active and eating wisely, was communicated to the [place]. [place] informed that these topics can be discussed at any time. Patient level of understanding: Good Alcohol Use Screen (AUDIT-C): Alcohol Screen: SCREEN FOR ALCOHOL (AUDIT-C) An alcohol screening test (AUDIT-C) was negative (score=1). 1. How often did you have a drink containing alcohol in the past year? Monthly or less 2. How many drinks containing alcohol did you have on a typical day when you were drinking in the past year? 1 or 2 3. How often did you have six or more drinks on one occasion in the past year? Never Patient had a negative AUDC score and does not require a follow-up MST Screening: Patient denies experiencing sexual trauma (MST) in the past. Herpes Zoster (Shingles) Vaccine: Virtual/Telehealth Visit - Patient educated on the need for receiving Herpes Zoster (Shingles) immunization either at [facility] or outside facility. Tdap Immunization: Virtual/Telehealth Visit - Patient educated on the need for receiving Tdap immunization either at [facility] or outside facility. Food/Drug Interaction Ed (Nurse): Patient received food/drug interactions education at this encounter. Level of Understanding: Good Current Height: Current height recorded in vitals package: 69 in [175.3 cm) Avg Risk Colorectal Cancer Screen: AVERAGE RISK colorectal cancer screening is due based on information available to this clinical reminder Ravindra Skin Evaluation (Outpatient): -Patient does not use wheelchair. -Patient is not confined to bed. -Patient does not require assistance for transfers/position changes. -Patient does not use a medical technologist clinical that fits over skin (e.g., artificial limb, braces, splint, condom catheter) -Patient currently has no open wounds. -No history of pressure ulcer(s). -Patient currently has no pressure ulcer(s). Ravindra Skin Evaluation completed in the last year and Score >18 EDUCATION: Pressure Ulcer education not indicated at this time. Diabetic Diet Instruction (Nurse): Diabetic Diet Instructions were discussed and reviewed with the patient/caregiver at this encounter. Patient's/Caregiver's level of understanding: Good Printed diabetic diet instructions provided at this encounter: Diabetic Survival Guide Daily Aspirin (Nurse): Patient takes daily aspirin. Diab Fundu Exam 2Y Scrn (Nurse): Patient had Funduscopic eye exam done previously. Funduscopic eye exam done previously. Results not available. pay clerk to obtain Release of Information from patient for outside report. Nutrition/Health Risk Scrn (Nurse): NUTRITION AND HEALTH RISK SCREEN: Has patient had any unintentional weight loss of more than 10 pounds in the last 3 months? Patient reports no unintentional weight loss >10 lbs in last three months. LDL greater than 130 mg/dl within last 6 months? No, patient's LDL is NOT greater than 130 mg/dl Glyco Hgb A1C results in the last 6 months Yes, patient has Glyco Hgb A1C results in the last 6 months. Patient has Glyco Hgb A1C >8 results. Is patient on warfarin ? No, patient is NOT on warfarin *Nutrition Health Risk Screen Consult entered as Nurse Policy order. Pain Evaluation (Nurse): PAIN EVALUATION: Clinic Location: Primary Care Patient reports no pain present today. Pain Score: 0 Advance Directive Screen (Nurse): "Your Rights Regarding Advance Directives" was discussed and/or provided to patient/caregiver. ADVANCE DIRECTIVE SCREEN COPY of Advance Directive NOT on file in patient's medical record. Patient does not wish to create an Advance Directive. Information provided to patient. Organ Donor (Nurse): Patient states he/she is currently registered with a Regional Organ Recovery Agency. Tobacco Use Screening: The patient is a former tobacco user. The patient quit fifteen or more years ago. PTSD Screening: PC-PTSD-5+I9 PTSD Screening Score: 0 The score for this administration is 0, which indicates a NEGATIVE screen for PTSD in the past month. Suicide Screening Score: 0 The results of this administration revealed no suicidal ideation over the last 2 weeks, which indicates a NEGATIVE primary screen for Risk of Suicide. Questions 1-5 reference a time frame of the past month Sometimes things happen to people that are unusually or especially frightening, horrible or traumatic. Have you ever experienced this kind of event? NO 1. Had nightmares about the event(s) or thought about the event(s) when you did not want to? Response not required due to responses to other questions. 2. Tried hard not to think about the event(s) or went out of your way to avoid situations that reminded you of the event(s)? Response not required due to responses to other questions. 3. Been constantly on guard, watchful, or easily startled? Response not required due to responses to other questions. 4. [place] numb or detached from people, activities, or your surroundings? Response not required due to responses to other questions. 5. [place] guilty or unable to stop blaming yourself or others for the event(s) or any problems the event(s) may have caused? Response not required due to responses to other questions. 6. Over the last 2 weeks, how often have you been bothered by thoughts that you would be better off or of hurting yourself in some way? Not at All Depression Screening: PHQ-2+I9 Depression Screening Score: 0 The score on this administration is 0, which indicates a negative screen on the Depression Scale over the past two weeks. Suicide Screening Score: 0 The results of this administration indicates a NEGATIVE primary screen for Risk of Suicide over the last 2 weeks. Over the past two weeks, how often have you been bothered by the following problems? 1. Little interest or pleasure in doing things Not at all 2. Feeling down, depressed, or hopeless Not at all 3. Thoughts that you would be better off or of hurting yourself in some way Not at all Homelessness/Food Insecurity Screen: In the past 2 months, have you been living in stable housing that you own, rent, or stay in as part of a household? Yes - Living in stable housing. Are you worried or concerned that in the next 2 months you may NOT have stable housing that you own, rent, or stay in as part of a household? No - Not worried about housing near future In the past three months did you ever run out of food and you were not able to access more food or have the money to buy more food? No - No Food shortage HIV Screening : Patient has been offered HIV testing and has declined. I have explained that HIV testing is recommended for all adults, even if all risk factors are absent. Pneumococcal PPSV23 (Pneumovax): Virtual/Telehealth Visit - Patient educated on the need for receiving Pneumococcal 23-valent (PPSV23) immunization either at [place] or outside facility. /lizzy/ SIMBA TRUJILLO Procedure Clinic Signed: 04/06/2020 10:06 CEFERINO CANALES [facility]
--- NOTE | 2021-01-26 11:50 | Discharge Inst-Simple/Standard ---
Discharge Inst-Standard Reconcile Patient Problems Problems Reviewed?: Yes Discharge Medications New, Converted or Re-Newed RX: RX Given to Pt/Family Patient Instructions/Follow Up Plan of Care/Instructions/FU: 1) one month post implant scan at [facility] 02/24/21 at 10:00 am 2) one month follow up with Dr. Griffin 02/22/21 at 10:45 am Activity as Tolerated: Yes Discharge Diet: No Restrictions Other Inst to Patient Please instruct patient on figueroa catheter care. He is scheduled to have his catheter out on Sunday01/31/[address] Griffin's office 9:30 a.mALTAGRACIA ARITA MD Jan 26, 2021 11:50
--- OUTSIDE RECORDS SUMMARY | 2021-01-26 11:50 | XMS REPORT | Encounter Summary ---
Author Author Department of [facility] SALVADOR hwang Organization Department of [facility] rs Address Unknown Phone Unavailable Care Team Providers Care Supervisor Dog License Officer Name Role Phone MARGARITA TORRES PCP Unavailable [...] PLAN G Aug 19, 2018 PLAN G [id number] EVINSALVADOR PATIENT MEDICARE (WNR) MEDICARE (M) PART A Aug 19, 2018 PART A [id number] 60A [phone] EVINSALVADOR PATIENT MEDICARE (WNR) MEDICARE (M) PART B Aug 19, 2018 PART B [id number] 60A [id number] EVINSALVADOR PATIENT MEDICARE (WNR) MEDICARE (M) PART A Aug 19, 2018 PART A [id number] EVINSALVADOR PATIENT MEDICARE (WNR) MEDICARE (M) PART B Aug 19, 2018 PART B [id number] EVINSALVADOR PATIENT MEDICARE PART D (WNR) MEDICARE (M) PART D Aug 19, 2018 PART D [id number] EVINSALVADOR PATIENT MEDICARE PART D (WNR) MEDICARE (M) PART D Aug 19, 2018 PART D [id number] SALVADOR CLEARY PATIENT Selected Encounter This section includes the information on record at [place] for the Encounter. Date/Time Encounter Type Encounter Description Reason Provider Source Mar 19, 2020 11:39 AM Outpatient Encounter ADMIN PAT ACTIVTIES ([facility]) IHE Encounter Template Text not used by [place] Assessments - Encounter Diagnoses No Data Provided for This Section Plan of Treatment: Future Appointments (+ 6 months) and Future Tests (+/- 45 day s) The Plan of Treatment section includes future care activities for the patient fr om all [place] treatment facilities. This section includes future appointments and fu ture orders which are active, pending or scheduled. Future Appointments This section includes appointments that were scheduled t o occur 6 months from the date of the Encounter, up to a maximum of 20 appointme nts. The data comes from all [place] treatment facilities. Appointment Date/Time Appointment Type Appointment Facili ty Name Mar 24, 2020 11:00 AM AMBULATORY - NONE [facility] Mar 31, 2020 12:40 PM AMBULATORY - [facility] Apr 05, 2020 09:00 AM AMBULATORY [facility] Apr 06, 2020 11:30 AM AMBULATORY - MEDICINE [facility] May 19, 2020 10:00 AM AMBULATORY [facility] Jun 23, 2020 02:00 AM AMBULATORY [facility] Jul 29, 2020 11:00 AM AMBULATORY MEDICINE [facility] Aug 11, 2020 10:00 AM AMBULATORY [facility] Surgical Procedures: All associated to the encounter No Data Provided for This Section Lab Results: +/- 30 days of the encounter This section includes the Chemistry and Hematology Lab R esults on record with [place] for the patient. Radiology Reports and Pathology Report s are provided separately, in subsequent sections. Lab Results This section contains the Chemistry/Hematology Results rey t were resulted 30 days before or 30 days after the date of the Encounter. Date/Time Source Result Type Result - Unit Interpretation Reference Range Comment Apr 05, 2020 08:50 AM [facility] CBC Speci men Type: BLOOD No comment entered. Ordering Provider: SANTA FERNANDEZ Report Released Date/Time: Mar 24, 2020 03:46 PM Reporting Lab: [address] [facility] [id number] Performing Lab: [address] [place] [address] MPV (FV) 10.0 fL 7.4-10.4 RDW [...] 0.0-0.2 Apr 05, 2020 08:50 AM EVIE [facility] GLYCO HGB A1C Speci men Type: BLOOD No comment entered. Ordering Provider: SANTA FERNANDEZ Report Released Date/Time: Mar 24, 2020 03:46 PM Reporting Lab: [address] [facility] [phone] Performing Lab: [address] [facility] [phone] Glyco Hgb A1C 7.2 % H 4.2-5.8 Apr 05, 2020 08:50 AM [facility] LIPID PROFILE Speci men Type: SERUM No comment entered. Ordering Provider: SANTA FERNANDEZ Report Released Date/Time: Mar 24, 2020 03:46 PM Reporting Lab: [address] [phone] Performing Lab: [address] [phone] CHOLESTEROL, TOTAL (FV) 153 mg/dL 118-20 0 TRIGLYCERIDE (FV) 72 mg/dL <150 LDL CHOLESTEROL (CALCULATED) 100 HDL CHOLESTEROL (FV) 39 mg/dL L >40 Apr 05, 2020 08:50 AM [facility] MICROALBUMIN, RANDOM URINE Specimen Type: URINE No comment entered. Ordering Provider: SANTA FERNANDEZ Report Released Date/Time: Mar 24, 2020 03:46 PM Reporting Lab: [address] [phone] Performing Lab: [address] [phone] MICROALBUMIN (FV) 1.9 mg/dL H <1.8 MA:CREAT RATIO (FV) 12 mcg/mgCrea <29 CREATININE (FV) 152.87 mg/dL Apr 05, 2020 08:50 AM [facility] PSA () Speci men Type: SERUM No comment entered. Ordering Provider: SANTA FERNANDEZ Report Released Date/Time: Mar 24, 2020 03:46 PM Reporting Lab: [facility] [address] [facility] 7[address] Performing Lab: [facility] [address] [facility] 7[address] PSA () 21.18 ng/mL H 0.0-4.0 Apr 05, 2020 08:50 AM [facility] RENAL+LIVER PROFILE Specimen Type: SERUM No comment entered. Ordering Provider: SANTA FERNANDEZ Report Released Date/Time: Mar 24, 2020 03:46 PM Reporting Lab: [address] [facility] [id number] Performing Lab: [address] [phone] GLUCOSE (FV) 142 mg/dL H 70-110 ALBUMIN (FV) 4.1 g/dL 3.4-5.0 AST (FV) 16 U/L 15-37 TOTAL BILIRUBIN (FV) 0.48 mg/dL 0.3-1.2 CHLORIDE (FV) 101 mmol/L 98-107 TOTAL PROTEIN (FV) 6.9 g/dL 6.1-7.9 SODIUM (FV) 137 mmol/L 136-145 POTASSIUM (FV) 4.4 mmol/L 3.5-5.1 CO2 (FV) 24 mmol/L 21-32 UREA NITROGEN (FV) 25 mg/dL H 6-20 CALCIUM (FV) 8.9 mg/dL 8.9-10.3 ALT () 12 U/L 0-63 ALK. PHOS. () 96 U/L 32-126 eGFR 54 CREATININE () 1.33 mg/dL H .61-1.24 Apr 05, 2020 08:50 AM [facility] TSH () Speci men Type: SERUM No comment entered. Ordering Provider: SANTA FERNANDEZ Report Released Date/Time: Mar 24, 2020 03:46 PM Reporting Lab: [facility] [address] [place] [address] Performing Lab: [facility] [address] [place] [address] TSH () 14.63 mcIU/mL H 0.45-5.33 Apr 05, 2020 08:50 AM [facility] URINALYSIS Speci men Type: URINE No comment entered. Ordering Provider: SANTA FERNANDEZ Report Released Date/Time: Mar 24, 2020 03:46 PM Reporting Lab: [address] [phone] Performing Lab: [address] [address] UA COLOR STRAW COLORLESS-YELLOW UA SPEC [...] Erika/uL NEG-74 Apr 05, 2020 08:50 AM [facility] FREE T3 (FV) Speci men Type: SERUM No comment entered. Ordering Provider: SANTA FERNANDEZ Report Released Date/Time: Mar 24, 2020 03:46 PM Reporting Lab: [facility] [address] [place] [address] Performing Lab: [facility] [address] [place] [address] FREE T3 (FV) 3.20 pg/mL 2.5-3.9 Apr 05, 2020 08:50 AM [facility] FREE T4 (FV) Speci men Type: SERUM No comment entered. Ordering Provider: SANTA FERNANDEZ Report Released Date/Time: Mar 24, 2020 03:46 PM Reporting Lab: [facility] [address] [place] [address] Performing Lab: [facility] [address] [place] [address] FREE T4 (FV) 0.76 ng/dL 0.61-1.12 Vital [...] Encounter. Date/Time Encounter Note(s) Provider Source Mar 19, 2020 11:39 AM ADMINISTRATIVE NOTE: LOCAL TITLE: ADMINISTRATIVE NOTE STANDARD TITLE: ADMINISTRATIVE NOTE DATE OF NOTE: MAR 19, 2020@11:39 ENTRY DATE: MAR 19, 2020@11:40:01 AUTHOR: [facility] EXP COSIGNER: URGENCY: STATUS: COMPLETED Clinical Contact/Call Center Coronavirus Disease 2019 (COVID-19) Screen, sharon. 12, December 08, 2019 DIAGNOSIS AND TESTING STATUS: Has [place] been diagnosed with COVID-19: () Yes* Date: (*No Further Screening Req uired) (x) No (Continue Screening) Comment(s): Is waiting for COVID-19 test results: () Yes (Continue Screening) (x) No (Continue Screening) Comment: SCREEN: Signs and Symptoms: a. Fever: () Yes (x) No Comment(s): b. New or worsening cough or shortness of breath: () Yes Check all that apply: () Cough () Shortness of breath (x) No Comment(s): c. Any cold or flu-like symptoms: () Yes Check all that apply: () Cold like symptoms () Flu-like symptoms (x) No Comment(s): d. New onset diarrhea, nausea or vomiting: () Yes Check all that apply: () Diarrhea () Nausea () Vomiting (x) No Comment(s): e. New onset headache, loss of taste or loss of smell () Yes Check all that apply: () Headache () Loss of taste () Loss of smell (x) No Comment(s): EXPOSURE: Exposure within the last two weeks to someone with COVID-19: () Yes (x) No Comment(s): SCREEN RESULT: Any symptom or exposure= positive screen () POSITIVE SCREEN: Patient has a Positive symptom and/or exposure. Follow-up required. (x) Negative Screen () DECLINED screening () SCREENING COULD NOT BE COMPLETED, BRYAN DUNCAN WAS NOT PRESENT. /lizzy/ [facility] Signed: 03/19/2020 11:40 [facility]
--- OUTSIDE RECORDS SUMMARY | 2021-01-26 11:50 | XMS REPORT | Encounter Summary ---
[facility] Organization Department 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 Name Role Phone MARGARITA TORRES PCP Unavailable [...] PLAN G Aug 19, 2018 PLAN G [id number] SALVADOR CLEARY PATIENT MEDICARE (WNR) MEDICARE (M) PART A Aug 19, 2018 PART A [id number] [id number] [phone] EVINSALVADOR PATIENT MEDICARE (WNR) MEDICARE (M) PART B Aug 19, 2018 PART B [id number] 60A [phone] SALVADOR CLEARY PATIENT MEDICARE (WNR) MEDICARE (M) PART A Aug 19, 2018 PART A [id number] EVINSALVADOR PATIENT MEDICARE (WNR) MEDICARE (M) PART B Aug 19, 2018 PART B [id number] EVINSALVADOR PATIENT MEDICARE PART D (WNR) MEDICARE (M) PART D Aug 19, 2018 PART D [id number] EVINSALVADOR PATIENT MEDICARE PART D (WNR) MEDICARE (M) PART D Aug 19, 2018 PART D [id number] SALVADOR CLEARY PATIENT Selected Encounter This section includes the information on record at [place] for the Encounter. Date/Time Encounter Type Encounter Description Reason Provider Source Jan 29, 2020 04:36 PM Outpatient Encounter TELEPHONE PRIMARY CAR E ICD-10-CM Z71.89 Other specified counseling with Provider Comments: Counseling,Oth Specified NILTON ARNDT [place] Encounter Template Text not used by [place] Assessments - Encounter Diagnoses This section includes the primary and secondary diag noses documented for the Encounter. Date/Time Primary/Secondary Diagnosis Diagnosis Name Provider Source Jan 29, 2020 04:36 PM PRIMARY Other specified counseling NILTON GALINDO [facility] Plan of Treatment: Future Appointments (+ 6 months) and Future Tests (+/- 45 day s) The Plan of Treatment section includes future care activities for the patient fr om all [place] treatment facilities. This section includes future appointments and fu ture orders which are active, pending or scheduled. Future Appointments This section includes appointments that were scheduled t o occur 6 months from the date of the Encounter, up to a maximum of 20 appointme nts. The data comes from all [place] treatment facilities. Appointment Date/Time Appointment Type Appointment Facili ty Name Jan 30, 2020 01:00 PM AMBULATORY - NONE [facility] Jan 30, 2020 03:00 PM AMBULATORY - MEDICINE [facility] Mar 24, 2020 11:00 AM AMBULATORY - NONE [facility] Mar 31, 2020 12:40 PM AMBULATORY - NONE [facility] Apr 05, 2020 09:00 AM AMBULATORY [facility] Apr 06, 2020 11:30 AM AMBULATORY - MEDICINE [facility] May 19, 2020 10:00 AM AMBULATORY - NONE [facility] Jun 23, 2020 02:00 AM AMBULATORY NONE [facility] Surgical Procedures: All associated to [...] Reports: +/- 30 days of the encounter Radiology Reports For cases when an order for radiology services may have bee n completed prior to the date of the Encounter, the report list includes the Rad iology Reports that were completed up to 30 days before date of the Encounter. F or cases when an order for radiology services may have been completed after the date of the Encounter, the report list also includes the Radiology Reports that were completed up to 30 days after date of the Encounter. The data comes from [facility] treatment facilities. 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 6 image(s) submitted to the [place] National Teleradiology Program (NTP) for interpretation. FINDINGS: No displaced fracture. No destructive osseous lesion. Some bony prominence at the tibial tuberosity may represent the sequelae of John-Schlatter disease. Some soft tissue swelling about the knee. No suprapatellar effusion. Mild patellofemoral degenerative changes. Vascular calcifications. Impression: No acute displaced fracture. Incidental findings described above. READING PHYSICIAN: Gagan Hernandez M.D. -[id number] 02/01/2020 12:35 PDT [facility] National Teleradiology Program [phone] (For Medical Practitioner Use Only) [address] [facility] [facility] [address] [place] [address] Attention Patients / Veterans: If you have questions or concerns about these test results, please contact your ordering provider or primary care team. Primary Diagnostic Code: NO ALERT REQUIRED Primary Interpreting Staff: RADIOLOGY,OUTSIDE SERVICE, Staff Physician / RADIOLOGY,OUTSIDE SERVICE [facility] Pathology Reports: +/- 30 days of the encounter No Data Provided for This Section Encounter Notes: All associated encounter notes This section contains the clinical notes associated to the Encounter. Date/Time Encounter Note(s) Provider Source Jan 29, 2020 04:36 PM TELEPHONE ENCOUNTER NOTE: LOCAL TITLE: TELECARE STANDARD TITLE: TELEPHONE ENCOUNTER NOTE DATE OF NOTE: JAN 29, 2020@16:36 ENTRY DATE: JAN 29, 2020@16:36:39 AUTHOR: NILTON ARNDT EXP COSIGNER: URGENCY: STATUS: COMPLETED PATIENT NAME: SALVADOR CLEARY SSN: [id number] FUTURE APPOINTMENTS: No Scheduled Appointments at this time. PATIENT'S HOME PHONE: REASON FOR CALL: "Unable to reach [facility], goes to , full 2x calls." FOLLOW UP: PCP (Patient has been instructed to go to [facility] Emergency Room or to seek care elsewhere. FINANCIAL DISCLAIMER was read to caller ( ) Yes ( x) Not Applicable) FINANCIAL DISCLAIMER: "This is not an authorization for [place] Payment" and also "Have hospital contact the nearest [place] Facility for transfer upon stabilization". /lizzy/ NILTON ARNDT RN NURSING SERVICE Signed: 01/29/2020 16:38 Receipt Acknowledged By: 01/30/2020 15:44 /lizzy/ NICANOR BATISTA Primary Care Provider 01/30/2020 09:33 /lizzy/ RODRÍGUEZ GRACE M[facility]IA [facility]
--- OUTSIDE RECORDS SUMMARY | 2021-01-26 11:50 | XMS REPORT | Encounter Summary ---
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 Name Role Phone MARGARITA TORRES PCP Unavailable [...] PLAN G Aug 19, 2018 PLAN G [id number] EVINSALVADOR PATIENT MEDICARE (WNR) MEDICARE (M) PART A Aug 19, 2018 PART A [id number] 60A [id number] CLEARYSALVADOR PATIENT MEDICARE (WNR) MEDICARE (M) PART B Aug 19, 2018 PART B [id number] 60A [phone] EVINSALVADOR PATIENT MEDICARE (WNR) MEDICARE (M) PART A Aug 19, 2018 PART A [id number] EVINSALVADOR PATIENT MEDICARE (WNR) MEDICARE (M) PART B Aug 19, 2018 PART B [id number] CLEARYSALVADOR PATIENT MEDICARE PART D (WNR) MEDICARE (M) PART D Aug 19, 2018 PART D [id number] CLEARYSALVADOR PATIENT MEDICARE PART D (WNR) MEDICARE (M) PART D Aug 19, 2018 PART D [id number] SALVADOR CLEARY PATIENT Selected Encounter This section includes the information on record at [place] for the Encounter. Date/Time Encounter Type Encounter Description Reason Provider Source Mar 19, 2020 10:57 AM Outpatient Encounter PRIMARY CARE/MEDICINE IHE Encounter [...] appointme nts. The data comes from all [place] treatment facilities. Appointment Date/Time Appointment Type Appointment Facili ty Name Mar 24, 2020 11:00 AM AMBULATORY - NONE [facility] Mar 31, 2020 12:40 PM AMBULATORY [facility] Apr 05, 2020 09:00 AM AMBULATORY [facility] Apr 06, 2020 11:30 AM AMBULATORY - MEDICINE [facility] May 19, 2020 10:00 AM AMBULATORY [facility] Jun 23, 2020 02:00 AM AMBULATORY [facility] Jul 29, 2020 11:00 AM AMBULATORY MEDICINE [facility] Aug 11, 2020 10:00 AM AMBULATORY [facility] Surgical Procedures: All associated to the encounter No Data Provided for This Section Lab Results: +/- 30 days of the encounter This section includes the Chemistry and Hematology Lab R esults on record with [place] for the patient. Radiology Reports and Pathology Report s are provided separately, in subsequent sections. Lab Results This section contains the Chemistry/Hematology Results rey t were resulted 30 days before or 30 days after the date of the Encounter. Date/Time Source Result Type Result - Unit Interpretation Reference Range Comment Apr 05, 2020 08:50 AM [facility] CBC Speci men Type: BLOOD No comment entered. Ordering Provider: SANTA FERNANDEZ Report Released Date/Time: Mar 24, 2020 03:46 PM Reporting Lab: [address] [facility] [address] Performing Lab: [address] [address] MPV (FV) 10.0 fL 7.4-10.4 RDW [...] 0.0-0.2 Apr 05, 2020 08:50 AM [facility]IE [facility] GLYCO HGB A1C Speci men Type: BLOOD No comment entered. Ordering Provider: SANTA FERNANDEZ Report Released Date/Time: Mar 24, 2020 03:46 PM Reporting Lab: [address] [address] Performing Lab: [address] [address] Glyco Hgb A1C 7.2 % H 4.2-5.8 Apr 05, 2020 08:50 AM [facility] LIPID PROFILE Speci men Type: SERUM No comment entered. Ordering Provider: SANTA FERNANDEZ Report Released Date/Time: Mar 24, 2020 03:46 PM Reporting Lab: [address] [address] Performing Lab: [address] [address] CHOLESTEROL, TOTAL (FV) 153 mg/dL 118-20 0 TRIGLYCERIDE (FV) 72 mg/dL <150 LDL CHOLESTEROL (CALCULATED) 100 HDL CHOLESTEROL (FV) 39 mg/dL L >40 Apr 05, 2020 08:50 AM [facility] MICROALBUMIN, RANDOM URINE Specimen Type: URINE No comment entered. Ordering Provider: SANTA FERNANDEZ Report Released Date/Time: Mar 24, 2020 03:46 PM Reporting Lab: [address] [phone] Performing Lab: [address] [address] MICROALBUMIN (FV) 1.9 mg/dL H <1.8 MA:CREAT RATIO (FV) 12 mcg/mgCrea <29 CREATININE (FV) 152.87 mg/dL Apr 05, 2020 08:50 AM [facility] PSA () Speci men Type: SERUM No comment entered. Ordering Provider: SANTA FERNANDEZ Report Released Date/Time: Mar 24, 2020 03:46 PM Reporting Lab: [facility] [address] [place] [id number] Performing Lab: [facility] [address] [place] [id number] PSA () 21.18 ng/mL H 0.0-4.0 Apr 05, 2020 08:50 AM [facility] RENAL+LIVER PROFILE Specimen Type: SERUM No comment entered. Ordering Provider: SANTA FERNANDEZ Report Released Date/Time: Mar 24, 2020 03:46 PM Reporting Lab: [address] [facility] [address] Performing Lab: [address] [facility] [address] GLUCOSE (FV) 142 mg/dL H 70-110 [...] H .61-1.24 Apr 05, 2020 08:50 AM [facility] TSH () Speci men Type: SERUM No comment entered. Ordering Provider: SANTA FERNANDEZ Report Released Date/Time: Mar 24, 2020 03:46 PM Reporting Lab: [facility] [address] [place] [address] Performing Lab: [facility] [address] [facility] [address] TSH () 14.63 mcIU/mL H 0.45-5.33 Apr 05, 2020 08:50 AM [facility] URINALYSIS Speci men Type: URINE No comment entered. Ordering Provider: SANTA FERNANDEZ Report Released Date/Time: Mar 24, 2020 03:46 PM Reporting Lab: [address] [phone] Performing Lab: [address] [address] UA COLOR STRAW COLORLESS-YELLOW UA SPEC [...] Erika/uL NEG-74 Apr 05, 2020 08:50 AM [facility] FREE T3 (FV) Speci men Type: SERUM No comment entered. Ordering Provider: SANTA FERNANDEZ Report Released Date/Time: Mar 24, 2020 03:46 PM Reporting Lab: [facility] [address] [place] [address] Performing Lab: [facility] [address] [place] [address] FREE T3 (FV) 3.20 pg/mL 2.5-3.9 Apr 05, 2020 08:50 AM [facility] FREE T4 (FV) Speci men Type: SERUM No comment entered. Ordering Provider: SANTA FERNANDEZ Report Released Date/Time: Mar 24, 2020 03:46 PM Reporting Lab: [facility] [address] [place] [address] Performing Lab: [facility] [address] [place] [address] FREE T4 (FV) 0.76 ng/dL 0.61-1.12 Vital [...] Encounter Note(s) Provider Source Mar 19, 2020 10:57 AM ADMINISTRATIVE NOTE: LOCAL TITLE: SCHEDULING NOTE STANDARD TITLE: ADMINISTRATIVE NOTE DATE OF NOTE: MAR 19, 2020@10:57 ENTRY DATE: MAR 19, 2020@10:57:51 AUTHOR: LLOYD PRESTON COSIGNER: URGENCY: STATUS: COMPLETED SCHEDULING NOTE Has ADDENDA LVM for [place] to return call to clinic to schedule recall RTC as follows: "12/16/2019 15:53 New Order entered by MARGARITA TORRES (AMINA) Order Text: Return to [facility] TM 2 on or around ( Mar 15, 2020 ) for a total of 1 appointment(s) Prerequisites: Face to Face Appt, LABS (Fasting), CBC, Glyco-HGB A1C, Lipid Profile, Micro Albumin, PSA, Renal/Liver, TSH, Urinalysis Nature of Order: ELECTRONICALLY ENTERED Elec Signature: MARGARITA TORRES (AMINA) on 12/16/2019 15:53" Offered VVC/Tele due to COVID19 scheduling guidelines. Scheduling letter mailed to [place]. 14 day pull placed. /tad PRESTON Signed: 03/19/2020 11:00 03/19/2020 ADDENDUM STATUS: COMPLETED Returning call: returning call. [place] can be reached at /lizzy/ [facility] Signed: 03/19/2020 11:39 Receipt Acknowledged By: 03/19/2020 15:07 /tad Hampton 03/19/2020 ADDENDUM STATUS: COMPLETED Tried calling [place] back. No answer, VM never picked up. Will leave pull in place for scheduling letter and wait for to return call. /tad PRESTON Signed: 03/19/2020 12:15 03/19/2020 ADDENDUM STATUS: COMPLETED Called [place] and no answer will place a pull and attempt to call again /tad MILTON Signed: 03/19/2020 15:08 [facility]
--- OUTSIDE RECORDS SUMMARY | 2021-01-26 11:50 | XMS REPORT ---
Author Author Department of [facility] SALVADOR hwang Organization Department of [facility] rs Address Unknown Phone Unavailable Care Team Providers Care Director Of Customer Service Name Role Phone MARGARITA TORRES PCP Unavailable [...] PLAN G Aug 19, 2018 PLAN G [id number] EVINSALVADOR PATIENT MEDICARE (WNR) MEDICARE (M) PART A Aug 19, 2018 PART A [id number] 60A [phone] EVINSALVADOR PATIENT MEDICARE (WNR) MEDICARE (M) PART B Aug 19, 2018 PART B [id number] 60A [id number] EVINSALVADOR PATIENT MEDICARE (WNR) MEDICARE (M) PART A Aug 19, 2018 PART A [id number] EVINSALVADOR PATIENT MEDICARE (WNR) MEDICARE (M) PART B Aug 19, 2018 PART B [id number] EVINSALVADOR PATIENT MEDICARE PART D (WNR) MEDICARE (M) PART D Aug 19, 2018 PART D [id number] EVINSALVADOR PATIENT MEDICARE PART D (WNR) MEDICARE (M) PART D Aug 19, 2018 PART D [id number] SALVADOR CLEARY PATIENT Selected Encounter This section includes the information on record at [place] for the Encounter. Date/Time Encounter Type Encounter Description Reason Provider Source Mar 04, 2020 10:24 AM Outpatient Encounter ADMIN PAT ACTIVTIES (KYM [...] appointme nts. The data comes from all [facility]. Appointment Date/Time Appointment Type Appointment Facili ty Name Mar 24, 2020 11:00 AM [facility]ATORY [facility] NONE [facility] Mar 31, 2020 12:40 PM AM[facility]ULATORY - [facility] Apr 05, 2020 09:00 AM AMBULATORY [facility] Apr 06, 2020 11:30 AM [facility] May 19, 2020 10:00 AM AMBULATORY [facility] Jun 23, 2020 02:00 AM AMBULATORY - NONE [facility] Jul 29, 2020 11:00 AM [facility] Aug 11, 2020 10:00 AM AMBULATORY NONE [facility] Surgical Procedures: All associated to the encounter [...] Encounter. Date/Time Encounter Note(s) Provider Source Mar 04, 2020 10:24 AM ADMINISTRATIVE NOTE: LOCAL TITLE: ADMINISTRATIVE NOTE STANDARD TITLE: ADMINISTRATIVE NOTE DATE OF NOTE: MAR 04, 2020@10:24 ENTRY DATE: MAR 04, 2020@10:24:18 AUTHOR: ZORAN LEONARD COSIGNER: URGENCY: STATUS: COMPLETED Clinical Contact/Call Center Coronavirus Disease 2019 (COVID-19) Screen, sharon. 12, December 08, 2019 DIAGNOSIS AND TESTING STATUS: Has been diagnosed with COVID-19: () Yes* Date: (*No Further Screening Required) (x) No (Continue Screening) Comment(s): Is Sterling waiting for COVID-19 test results: () Yes [...] screening () SCREENING COULD NOT BE COMPLETED, WAS NOT PRESENT. /lizzy/ ZORAN OAKES Contact Center Signed: 03/04/2020 10:24 ZORAN LEONARD [facility] Mar 04, 2020 10:24 AM ADMINISTRATIVE NOTE: LOCAL TITLE: ADMINISTRATIVE NOTE STANDARD TITLE: ADMINISTRATIVE NOTE DATE OF NOTE: MAR 04, 2020@10:24 ENTRY DATE: MAR 04, 2020@10:24:55 AUTHOR: ZORAN LEONARD EXP COSIGNER: URGENCY: STATUS: COMPLETED 1.) Sterling called stating that he has an appointment with Dr. Medina with [facility] on June 03, 2020 @11AM. Sterling states that his auth on 04-20-2020. Sterling also states that he has LAB 1 week prior to appointment. Sterling states that he would also like a copy of new auth mailed to him. 2.) Sterling called stating that he was administered the flu vaccine. Date: x 3 weeks ago Location: Jacob Sebastian can be reached at // ZORAN LEONARD [facility] Contact Center Signed: 03/04/2020 10:29 Receipt Acknowledged By: * AWAITING SIGNATURE * MAGNUS HAYES [facility]
--- OUTSIDE RECORDS SUMMARY | 2021-01-26 11:50 | XMS REPORT | Encounter Summary ---
Author Author Department [facility] SALVADOR hwang Organization Department of [facility] Address Unknown Phone Unavailable Care Team Providers Care Customer Assistance Associate Name Role Phone MARGARITA TORRES PCP [...] PLAN G Aug 19, 2018 PLAN G [id number] EVINSALVADOR PATIENT MEDICARE (WNR) MEDICARE (M) PART A Aug 19, 2018 PART A [id number] 60A [phone] CLEARYSALVADOR PATIENT MEDICARE (WNR) MEDICARE (M) PART B Aug 19, 2018 PART B [id number] 60A [phone] EVINSALVADOR PATIENT MEDICARE (WNR) MEDICARE (M) PART A Aug 19, 2018 PART A [id number] EVINSALVADOR PATIENT MEDICARE (WNR) MEDICARE (M) PART B Aug 19, 2018 PART B [id number] CLEARYSALVADOR PATIENT MEDICARE PART D (WNR) MEDICARE (M) PART D Aug 19, 2018 PART D [id number] CLEARYSALVADOR PATIENT MEDICARE PART D (WNR) MEDICARE (M) PART D Aug 19, 2018 PART D [id number] SALVADOR CLEARY PATIENT Selected Encounter This section includes the information on record at [place] for the Encounter. Date/Time Encounter Type Encounter Description Reason Provider Source Feb 18, 2020 10:19 AM Outpatient Encounter PRIMARY CARE/MEDICINE IHE Encounter [...] 24, 2020 11:00 AM AMBULATORY - NONE [facility] Mar 31, 2020 12:40 PM AMBULATORY - NONE [facility] Apr 05, 2020 09:00 AM AMBULATORY - NONE [facility] Apr 06, 2020 11:30 AM [facility]ATORY - [facility] May 19, 2020 10:00 AM AMBULATORY - NONE [facility] Jun 23, 2020 02:00 AM AMBULATORY - NONE [facility] Jul 29, 2020 11:00 AM [facility] Aug 11, 2020 10:00 AM AMBULATORY - NONE [facility] Surgical Procedures: All associated to the [...] of the Encounter. The data comes from [facility] treatment facilities. Date/Time Radiology Report Provider Source Jan 30, 2020 12:58 PM KNEE (LEFT) STANDING 3V: SALVADOR CLEARY [id number] -1955 M Exm Date: JAN 30, 2020@12:58 Req Phys: MARGARITA TORRES T Pat Loc: [facility] TM 2 (Req'g Loc) Img Loc: [facility] Service: Unknown (Case [id number] COMPLETE)KNEE (LEF T) STANDING 3V (RAD Detailed) CPT:29796 CPT Modifiers : LT LEFT SIDE Reason for Study: pain post fall- urgent Clinical History: Report Status: Verified Date Reported: FEB 01, 2020 Date Verified: FEB 01, 2020 Shrimp Picker E-Sig: Report: X-RAY EXAM OF KNEE 3 HISTORY: pain post fall- urgent COMPARISON: None TECHNIQUE: As above. 6 image(s) submitted to the [place] National Teleradiology Program (NTP) for interpretation. FINDINGS: No displaced fracture. No destructive osseous lesion. Some bony prominence at the tibial tuberosity may represent the sequelae of John-Schlatter disease. Some soft tissue swelling about the knee. No suprapatellar effusion. Mild patellofemoral degenerative changes. Vascular calcifications. Impression: No acute displaced fracture. Incidental findings described above. READING PHYSICIAN: Gagan Hernandez M.D. -[id number] 02/01/2020 12:35 PDT [facility] National Teleradiology Program [phone] (For Medical Practitioner Use Only) [address] [place] [address], [facility] [address], [address] [place] [address] Attention Patients / Veterans: If you have questions or concerns about these test results, please contact your ordering provider or primary care team. Primary Diagnostic Code: NO ALERT REQUIRED Primary Interpreting Staff: RADIOLOGY,OUTSIDE SERVICE, Staff Physician / RADIOLOGY,OUTSIDE SERVICE [facility] Pathology Reports: +/- 30 days of the encounter No Data Provided for This Section Encounter Notes: All associated encounter notes This section contains the clinical notes associated to the Encounter. Date/Time Encounter Note(s) Provider Source Feb 18, 2020 10:19 AM ADMINISTRATIVE NOTE: LOCAL TITLE: ADMINISTRATIVE NOTE STANDARD TITLE: ADMINISTRATIVE NOTE DATE OF NOTE: FEB 18, 2020@10:19 ENTRY DATE: FEB 18, 2020@10:19:26 AUTHOR: STEVENSON VILLALOBOS COSIGNER: URGENCY: STATUS: COMPLETED ADMINISTRATIVE NOTE Has ADDENDA PATIENT'S HOME PHONE: REASON FOR CALL: Request for consult [place] called this morning stating that the community care consult dated october for ophthamology in restricted to certain care. He is requesting to have additional needs for what he says were diabetic eye concerns. /lizzy/ STEVENSON VILLALOBOS AMSA Signed: 02/18/2020 10:41 Receipt Acknowledged By: 02/19/2020 15:27 /tad Rodriges OD CHIEF OPTOMETRY SECTION, SURGICAL SERVICE 02/19/2020 ADDENDUM STATUS: COMPLETED Have we recieved a request for further services ? /lizzy/ ANDREE FORRESTER OD CHIEF OPTOMETRY SECTION, SURGICAL SERVICE Signed: 02/19/2020 15:36 Receipt Acknowledged By: 02/20/2020 08:05 /tad THOMAS Consult Management Nurse 02/20/2020 ADDENDUM STATUS: COMPLETED It appears that the has not yet been seen by a provider and have not received any additional request for services yet. has an appt on 03-24-20 with [facility]. Originally, [facility] was his provider of choice cancelled his Dec appt because the physician was not seeing patients and the [facility] agreed to see [facility] instead. /lizzy/ DENEEN ALVARES OCC Consult Management Nurse Signed: 02/20/2020 08:13 Receipt Acknowledged By: 02/24/2020 10:36 /tad Rodriges OD CHIEF OPTOMETRY SECTION, SURGICAL SERVICE STEVENSON VILLALOBOS [facility]
--- OUTSIDE RECORDS SUMMARY | 2021-01-26 11:50 | XMS REPORT | Encounter Summary ---
[facility] Address Unknown Phone Unavailable Care Team Providers Care Child Monitor Name Role Phone MARGARITA TORRES PCP Unavailable [...] PLAN G Aug 19, 2018 PLAN G [id number] SALVADOR CLEARY PATIENT MEDICARE (WNR) MEDICARE (M) PART A Aug 19, 2018 PART A [id number] 60A [phone] EVINSALVADOR PATIENT MEDICARE (WNR) MEDICARE (M) PART B Aug 19, 2018 PART B [id number] 60A [phone] SALVADOR CLEARY PATIENT MEDICARE (WNR) MEDICARE (M) PART A Aug 19, 2018 PART A [id number] EVINSALVADOR PATIENT MEDICARE (WNR) MEDICARE (M) PART B Aug 19, 2018 PART B [id number] EVINSALVADOR PATIENT MEDICARE PART D (WNR) MEDICARE (M) PART D Aug 19, 2018 PART D [id number] EVINSALVADOR PATIENT MEDICARE PART D (WNR) MEDICARE (M) PART D Aug 19, 2018 PART D [id number] CLEARYSALVADOR PATIENT Selected Encounter This section includes the information on record at [place] for the Encounter. Date/Time Encounter Type Encounter Description Reason Provider Source Feb 12, 2020 12:00 AM Outpatient Encounter EVENT (HISTORICAL) IHE Encounter Template Text not used by [place] Assessments - Encounter Diagnoses No Data Provided for This Section Plan of Treatment: Future Appointments (+ 6 months) and Future Tests (+/- 45 day s) The Plan of Treatment section includes future care activities for the patient fr om all [place] treatment facilities. This section includes future appointments and fu ture orders which are active, pending or scheduled. Future Appointments This section includes appointments that were scheduled t o occur 6 months from the date of the Encounter, up to a maximum of 20 appointme nts. The data comes from all [facility]. Appointment Date/Time Appointment Type Appointment Facili ty Name Mar 24, 2020 11:00 AM AMBULATORY - NONE [facility] Mar 31, 2020 12:40 PM AMBULATORY - NONE [facility] Apr 05, 2020 09:00 AM AMBULATORY - NONE [facility] Apr 06, 2020 11:30 AM [facility] May 19, 2020 10:00 AM AMBULATORY - NONE [facility] Jun 23, 2020 02:00 AM AMBULATORY - NONE [facility] Jul 29, 2020 11:00 AM [facility] Aug 11, 2020 10:00 AM AMBULATORY [...] Encounter. Immunization Series Date Issued Reaction Comments INFLUENZA, UNSPECIFIED FORMULATION Feb 12, 2020 Social History: Smoking Status (Most current) [...] of the Encounter. The data comes from [facility] treatment facilities. Date/Time Radiology Report Provider Source Jan 30, 2020 12:58 PM KNEE (LEFT) STANDING 3V: SALVADOR CLEARY [id number] -1955 M Exm Date: JAN 30, 2020@12:58 Req Phys: MARGARITA TORRES T Pat Loc: [facility] TM 2 (Req'g Loc) Img Loc: [facility] RADIOLOGY Service: Unknown (Case [id number] COMPLETE)KNEE (LEF T) STANDING 3V (RAD Detailed) CPT:18460 CPT Modifiers : LT LEFT SIDE Reason for Study: pain post fall- urgent Clinical History: Report Status: Verified Date Reported: FEB 01, 2020 Date Verified: FEB 01, 2020 Special Education Tutor E-Sig: Report: X-RAY EXAM OF KNEE 3 HISTORY: pain post fall- urgent COMPARISON: None TECHNIQUE: As above. 6 image(s) submitted to the [place] National Teleradiology Program (NTP) for interpretation. FINDINGS: No displaced fracture. No destructive osseous lesion. Some bony prominence at the tibial tuberosity may represent the sequelae of John-Schlatter disease. Some soft tissue swelling about the knee. No suprapatellar effusion. Mild patellofemoral degenerative changes. Vascular calcifications. Impression: No acute displaced fracture. Incidental findings described above. READING PHYSICIAN: Gagan Hernandez M.D. -[id number] 02/01/2020 12:35 PDT [facility] National Teleradiology Program [phone] (For Medical Practitioner Use Only) [address] [place] [address], [facility] [address], [address] [place] [address] Attention Patients / Veterans: If you have questions or concerns about these test results, please contact your ordering provider or primary care team. Primary Diagnostic Code: NO ALERT REQUIRED Primary Interpreting Staff: RADIOLOGY,OUTSIDE SERVICE, Staff Physician / RADIOLOGY,OUTSIDE SERVICE [facility] Pathology Reports: +/- 30 days of the encounter No Data Provided for This Section Encounter Notes: All associated encounter notes No Data Provided for This Section
--- OUTSIDE RECORDS SUMMARY | 2021-01-26 11:50 | XMS REPORT | Encounter Summary ---
Author Author [facility] [employer] SALVADOR hwang Organization Department of [facility] Address Unknown Phone Unavailable Care Team Providers Care Brush Operator Name Role Phone MARGARITA TORRES PCP [...] PLAN G Aug 19, 2018 PLAN G [id number] EVINSALVADOR PATIENT MEDICARE (WNR) MEDICARE (M) PART A Aug 19, 2018 PART A [id number] [id number] CLEARYSALVADOR PATIENT MEDICARE (WNR) MEDICARE (M) PART B Aug 19, 2018 PART B [id number] 60A [phone] EVINSALVADOR PATIENT MEDICARE (WNR) MEDICARE (M) PART A Aug 19, 2018 PART A [id number] EVINSALVADOR PATIENT MEDICARE (WNR) MEDICARE (M) PART B Aug 19, 2018 PART B [id number] CLEARYSALVADOR PATIENT MEDICARE PART D (WNR) MEDICARE (M) PART D Aug 19, 2018 PART D [id number] CLEARYSALVADOR PATIENT MEDICARE PART D (WNR) MEDICARE (M) PART D Aug 19, 2018 PART D [id number] SALVADOR CLEARY PATIENT Selected Encounter This section includes the information on record at [place] for the Encounter. Date/Time Encounter Type Encounter Description Reason Provider Source Mar 09, 2020 12:55 PM Outpatient Encounter PRIMARY CARE/MEDICINE IHE Encounter [...] 24, 2020 11:00 AM AMBULATORY - NONE [facility] Mar 31, 2020 12:40 PM AMBULATORY [facility] Apr 05, 2020 09:00 AM AMBULATORY [facility] Apr 06, 2020 11:30 AM AMBULATORY - [facility]ICINE [facility] May 19, 2020 10:00 AM AMBULATORY [facility] Jun 23, 2020 02:00 AM AMBULATORY [facility] Jul 29, 2020 11:00 AM AMBULATORY [facility] Aug 11, 2020 10:00 AM AMBULATORY [facility] Surgical Procedures: All associated [...] Range Comment Apr 05, 2020 08:50 AM [facility] CBC Speci men Type: BLOOD No comment entered. Ordering Provider: SANTA FERNANDEZ Report Released Date/Time: Mar 24, 2020 03:46 PM Reporting Lab: [address] [facility] [id number] Performing Lab: [address] [id number] MPV (FV) 10.0 fL 7.4-10.4 RDW [...] 0.0-0.2 Apr 05, 2020 08:50 AM [facility] GLYCO HGB A1C Speci men Type: BLOOD No comment entered. Ordering Provider: SANTA FERNANDEZ Report Released Date/Time: Mar 24, 2020 03:46 PM Reporting Lab: [address] [id number] Performing Lab: [address] [id number]35 Glyco Hgb A1C 7.2 % H 4.2-5.8 Apr 05, 2020 08:50 AM [facility] LIPID PROFILE Speci men Type: SERUM No comment entered. Ordering Provider: SANTA FERNANDEZ Report Released Date/Time: Mar 24, 2020 03:46 PM Reporting Lab: [address] [id number] Performing Lab: [address] [id number] CHOLESTEROL, TOTAL (FV) 153 mg/dL 118-20 0 TRIGLYCERIDE (FV) 72 mg/dL <150 LDL CHOLESTEROL (CALCULATED) 100 HDL CHOLESTEROL (FV) 39 mg/dL L >40 Apr 05, 2020 08:50 AM [facility] MICROALBUMIN, RANDOM URINE Specimen Type: URINE No comment entered. Ordering Provider: SANTA FERNANDEZ Report Released Date/Time: Mar 24, 2020 03:46 PM Reporting Lab: [address] [phone] Performing Lab: [address] [id number] MICROALBUMIN (FV) 1.9 mg/dL H <1.8 MA:CREAT RATIO (FV) 12 mcg/mgCrea <29 CREATININE (FV) 152.87 mg/dL Apr 05, 2020 08:50 AM [facility] PSA () Speci men Type: SERUM No comment entered. Ordering Provider: SANTA FERNANDEZ Report Released Date/Time: Mar 24, 2020 03:46 PM Reporting Lab: [facility] [address] [place] [id number] Performing Lab: [facility] [address] [place] [id number] PSA () 21.18 ng/mL H 0.0-4.0 Apr 05, 2020 08:50 AM [facility] RENAL+LIVER PROFILE Specimen Type: SERUM No comment entered. Ordering Provider: SANTA FERNANDEZ Report Released Date/Time: Mar 24, 2020 03:46 PM Reporting Lab: [address] [facility] [id number] Performing Lab: [address] [facility] [address] GLUCOSE (FV) 142 mg/dL H 70-110 [...] H .61-1.24 Apr 05, 2020 08:50 AM [facility] TSH () Speci men Type: SERUM No comment entered. Ordering Provider: SANTA FERNANDEZ Report Released Date/Time: Mar 24, 2020 03:46 PM Reporting Lab: [facility] [address] [place] [address] Performing Lab: [facility] [address] [facility] 7[address] TSH () 14.63 mcIU/mL H 0.45-5.33 Apr 05, 2020 08:50 AM [facility] URINALYSIS Speci men Type: URINE No comment entered. Ordering Provider: SANTA FERNANDEZ Report Released Date/Time: Mar 24, 2020 03:46 PM Reporting Lab: [address] [phone] Performing Lab: [address] [phone] UA COLOR STRAW COLORLESS-YELLOW UA SPEC [...] Erika/uL NEG-74 Apr 05, 2020 08:50 AM [facility] FREE T3 (FV) Speci men Type: SERUM No comment entered. Ordering Provider: SANTA FERNANDEZ Report Released Date/Time: Mar 24, 2020 03:46 PM Reporting Lab: [facility] [address] [place] [address] Performing Lab: [facility] [address] [place] [address] FREE T3 (FV) 3.20 pg/mL 2.5-3.9 Apr 05, 2020 08:50 AM [facility] FREE T4 (FV) Speci men Type: SERUM No comment entered. Ordering Provider: SANTA FERNANDEZ Report Released Date/Time: Mar 24, 2020 03:46 PM Reporting Lab: [facility] [address] [place] [address] Performing Lab: [facility] [address] [place] [id number] FREE T4 (FV) 0.76 ng/dL 0.61-1.12 Vital [...] Encounter. Date/Time Encounter Note(s) Provider Source Mar 09, 2020 12:55 PM IMMUNIZATION NOTE: LOCAL TITLE: IMMUNIZATION NOTE STANDARD TITLE: IMMUNIZATION NOTE DATE OF NOTE: MAR 09, 2020@12:55 ENTRY DATE: MAR 09, 2020@12:56:04 AUTHOR: MAGNUS HAYES EXP COSIGNER: URGENCY: STATUS: COMPLETED Influenza Immunization: The patient has received the seasonal influenza vaccine for the current season at another location. Date: February 12, 2020 Location: [facility] // MAGNUS HAYES RN Signed: 03/09/2020 12:57 MAGNUS HAYES [facility]
--- OUTSIDE RECORDS SUMMARY | 2021-01-26 11:50 | XMS REPORT | Encounter Summary ---
[facility] Address Unknown Phone Unavailable Care Team Providers Care Career Specialist Name Role Phone MARGARITA TORRES PCP [...] PLAN G Aug 19, 2018 PLAN G [id number] SALVADOR CLEARY PATIENT MEDICARE (WNR) MEDICARE (M) PART A Aug 19, 2018 PART A [id number] [phone] EVINSALVADOR PATIENT MEDICARE (WNR) MEDICARE (M) PART B Aug 19, 2018 PART B [id number] [phone] SALVADOR CLEARY PATIENT MEDICARE (WNR) MEDICARE (M) PART A Aug 19, 2018 PART A [id number] EVINSALVADOR PATIENT MEDICARE (WNR) MEDICARE (M) PART B Aug 19, 2018 PART B [id number] EVINSALVADOR PATIENT MEDICARE PART D (WNR) MEDICARE (M) PART D Aug 19, 2018 PART D [id number] EVINSALVADOR PATIENT MEDICARE PART D (WNR) MEDICARE (M) PART D Aug 19, 2018 PART D [id number] SALVADOR CLEARY PATIENT Selected Encounter This section includes the information on record at [place] for the Encounter. Date/Time Encounter Type Encounter Description Reason Provider Source Jan 30, 2020 03:00 PM Outpatient Encounter TELEPHONE PRIMARY CAR E ICD-10-CM Z71.89 Other specified counseling with Provider Comments: Counseling,Oth Specified MAGNUS HAYES I[facility] Encounter Template Text not used by [place] Assessments - Encounter Diagnoses This section includes the primary and secondary diag noses documented for the Encounter. Date/Time Primary/Secondary Diagnosis Diagnosis Name Provider Source Jan 30, 2020 03:00 PM PRIMARY Other specified counseling MAGNUS HAYES [facility] Plan [...] 24, 2020 11:00 AM AMBULATORY - NONE [facility] Mar 31, 2020 12:40 PM AMBULATORY NONE [facility] Apr 05, 2020 09:00 AM AMBULATORY - NONE [facility] Apr 06, 2020 11:30 AM AMBULATORY - MEDICINE [facility] May 19, 2020 10:00 AM AMBULATORY NONE [facility] Jun 23, 2020 02:00 AM AMBULATORY NONE [facility] Jul 29, 2020 11:00 AM AMBULATORY MEDICINE [facility] Surgical Procedures: All associated to [...] of the Encounter. The data comes from [facility] treatment facilities. Date/Time Radiology Report Provider Source Jan 30, 2020 12:58 PM KNEE (LEFT) STANDING 3V: SALVADOR CLEARY [id number] -[id number] M Exm Date: JAN 30, 2020@12:58 Req Phys: MARGARITA TORRES Pat Loc: [facility] TM 2 (Req'g Loc) Img Loc: [facility] Service: Unknown (Case [id number] COMPLETE)KNEE (LEF T) STANDING 3V (RAD Detailed) CPT:22822 CPT Modifiers : LT LEFT SIDE Reason for Study: pain post fall- urgent Clinical History: Report Status: Verified Date Reported: FEB 01, 2020 Date Verified: FEB 01, 2020 Back Pad Inspector E-Sig: Report: X-RAY EXAM OF KNEE 3 HISTORY: pain post fall- urgent COMPARISON: None TECHNIQUE: As above. 6 image(s) submitted to the [place] National Teleradiology Program (NTP) for interpretation. FINDINGS: No displaced fracture. No destructive osseous lesion. Some bony prominence at the tibial tuberosity may represent the sequelae of Harris-Schlatter disease. Some soft tissue swelling about the knee. No suprapatellar effusion. Mild patellofemoral degenerative changes. Vascular calcifications. Impression: No acute displaced fracture. Incidental findings described above. READING PHYSICIAN: Gagan Hernandez M.D. -[id number] 02/01/2020 12:35 PDT [facility] National Teleradiology Program [phone] (For Medical Practitioner Use Only) [address] [facility], [facility] [address] [place] [address] Attention Patients / Veterans: If you have [...] Encounter. Date/Time Encounter Note(s) Provider Source Jan 30, 2020 10:08 AM TELEPHONE ENCOUNTER NOTE: LOCAL TITLE: TELECARE STANDARD TITLE: TELEPHONE ENCOUNTER NOTE DATE OF NOTE: JAN 30, 2020@10:08 ENTRY DATE: JAN 30, 2020@10:08:25 AUTHOR: MAGNUS HAYES EXP COSIGNER: URGENCY: STATUS: COMPLETED PATIENT NAME: SALVADOR CLEARY SSN: [id number] FUTURE APPOINTMENTS: Jan@13:00 [facility] Jan@15:00 [facility] TM 2 TELEPHONE-X Jan@15:30 [facility] TM 2 PULL(NOT APPT)-X PATIENT'S HOME PHONE: REASON FOR CALL: F/u call to [facility] r/t reports of injury and pain to L leg post fall. FOLLOW UP: [facility] states he was helping move a mattress when he fell down the stairs and landed on his knee. States he doesn't feel like anything is broken, but maybe pulled a muscle. available to come in today for xray to r/o fracture. Rates pain at 8/10. Has applied heat with some relief. Educated on use of ice, tylenol, rest, and compression. [facility] voiced understanding and will come in for xray 01/30/20 at 1300. (Patient has been instructed to go to [facility] Emergency Room or to seek care elsewhere. FINANCIAL DISCLAIMER was read to caller ( ) Yes ( ) Not Applicable) FINANCIAL DISCLAIMER: "This is not an authorization for [place] Payment" and also "Have hospital contact the nearest [place] Facility for transfer upon stabilization". /lizzy/ MAGNUS HAYES RN Signed: 01/30/2020 10:12 [facility]NUS HAYES [facility]
[2021-01-26] MEDS ORDERED: NS IV 1000 ML 1,000 ML IV SCH (13:00)
[2021-01-26] MEDS ORDERED: BACITRACIN OINTMENT 28 GM TUBE ONE (13:58)
[2021-01-26] MEDS ORDERED: LIDOCAINE PF 2% 5 ML (XYLOCAINE) VIAL ONE (14:08)
[2021-01-26] MEDS ORDERED: proPOfol 200 MG/20 ML (DIPRIVAN) VIAL IV ONE (14:08)
[2021-01-26] MEDS ORDERED: ONDANSETRON 4 MG/2 ML (SDV) Z0FRAN ONE (14:08)
[2021-01-26] MEDS ORDERED: fentaNYL INJ 100 MCG/2 ML AMP ONE (14:08)
[2021-01-26] MEDS ORDERED: MIDAZOLAM 2 MG/2 ML (VERSED) VIAL ONE (14:08)
[2021-01-26] MEDS ORDERED: SEVOFLURANE (ULTANE) 15 ML INHAL SOLN ONE (15:25)
--- NOTE | 2021-01-26 15:44 | Diagnostic Imaging Report ---
INDICATION: Prostate cancer. FINDINGS: 10.5 seconds of fluoroscopy and a single AP digital image of the lower pelvis shows a Collazo catheter in the urinary bladder. There are brachytherapy seeds projecting over the prostate. IMPRESSION: Brachytherapy implant seeds. ET tube projecting over the prostate. Dictated by: Dictated on workstation # [id number]
--- NOTE | 2021-01-26 15:46 | Progress Note-Post Operative ---
Post-Operative Progess Note Surgeon (s)/Geothermal Field Technician (s) Surgeon ALTAGRACIA GALLAGHER MD Geothermal Field Technician: Jean Paul BATISTA MD Pre-Operative Diagnosis Prostate cancer cT2b (pT3), PSA 23.3, [place] 9 (4+5) Post-Operative Diagnosis Same as pre op Procedure & Operative Findings Date of Procedure 01/26/21 Procedure Performed/Findings (1) 67% Cesium 131 permanent prostate seed implant (2) Injection of biodegradable hydrogel prostate-rectal spacer utilizing the [employer] Davonte system (3) cystogram Hypospadias, meatal stenosis, prostate volume 12.3 cc Anesthesia Type General Estimated Blood Loss Estimated blood loss (mL): Minimal Specimens/Packing Specimens Removed None Packing: None ALTAGRACIA GALLAGHER MD Jan 26, 2021 15:46
--- NOTE | 2021-01-26 16:48 | Anesthesia-General Post-Op ---
General Patient Condition Mental Status/LOC: Same as Preop Cardiovascular: Satisfactory Nausea/Vomiting: Absent Respiratory: Satisfactory Pain: Controlled Complications: Absent Post Op Complications Complications None Follow Up Care/Instructions Patient Instructions None needed. Anesthesia/Patient Condition Patient Condition Patient is doing well, no complaints, stable vital signs, no apparent adverse anesthesia problems. No complications reported per nursing. MARLENY ROBB CRNA Jan 26, 2021 16:48
== END 2021-01-26 18:15 | disposition home or self-care (01) ==
LOC: SDC 11:24 → CSD 11:24 → SDC 18:15
PROVIDERS: ATTEND Radiology Radiation Oncology
DX: C61 Malignant neoplasm of prostate (principal); I10 Essential (primary) hypertension; E11.9 Type 2 diabetes mellitus without complications; N28.9 Disorder of kidney and ureter, unspecified; M10.9 Gout, unspecified; E78.00 Pure hypercholesterolemia, unspecified; Z79.899 Other long term (current) drug therapy; Z79.82 Long term (current) use of aspirin; Z79.84 Long term (current) use of oral hypoglycemic drugs; Z87.891 Personal history of nicotine dependence
CPT/HCPCS: 76000; 76965; 77290; 77318; 77332; 77370; 77470; 77778; 82947; 87081

== ENCOUNTER → 2021-04-05 | Outpatient (RCR) | payer OTHER, MEDICARE ==
[~2021-04-05] MED LIST changes: +ACET1TAB43 PO; +CIPR-226 PO
== END | disposition home or self-care (01) ==
LOC: ONC 01-05 10:13
PROVIDERS: ATTEND Radiology Radiation Oncology
DX: Z51.0 Encounter for antineoplastic radiation therapy (principal); C61 Malignant neoplasm of prostate; I10 Essential (primary) hypertension; E11.9 Type 2 diabetes mellitus without complications; E78.00 Pure hypercholesterolemia, unspecified
CPT/HCPCS: 76873; 77290; 77300; 77301; 77334; 77336; 77338; 77385; 77470

== ENCOUNTER 2021-04-28 13:44 | Outpatient (RCR) | payer OTHER, MEDICARE | END 2021-05-20 | disposition home or self-care (01) | LOC: ONC 13:44 | PROVIDERS: ATTEND Radiology Radiation Oncology | DX: Z51.0 Encounter for antineoplastic radiation therapy (principal); C61 Malignant neoplasm of prostate; I10 Essential (primary) hypertension; E11.9 Type 2 diabetes mellitus without complications; E78.00 Pure hypercholesterolemia, unspecified; Z90.89 Acquired absence of other organs | CPT/HCPCS: 77295; 77336; 77385 ==

== ENCOUNTER 2021-06-09 08:48 | Outpatient (RCR) | payer OTHER, MEDICARE | END 2021-06-20 | disposition home or self-care (01) | LOC: ONC 08:48 | PROVIDERS: ATTEND Radiology Radiation Oncology | DX: C61 Malignant neoplasm of prostate (principal); I10 Essential (primary) hypertension; E11.9 Type 2 diabetes mellitus without complications; E78.00 Pure hypercholesterolemia, unspecified; Z90.89 Acquired absence of other organs | CPT/HCPCS: 99213 ==

== ENCOUNTER 2022-07-13 10:59 | Outpatient (RCR) | payer OTHER, MEDICARE ==
[~2022-07-13 10:59] MED LIST changes: +ACET-11 PO; -ACET1TAB43 PO
== END 2022-07-18 | disposition home or self-care (01) ==
LOC: ONC 10:59
PROVIDERS: ATTEND Radiology Radiation Oncology
DX: C61 Malignant neoplasm of prostate (principal); I10 Essential (primary) hypertension; E11.9 Type 2 diabetes mellitus without complications; E78.00 Pure hypercholesterolemia, unspecified
CPT/HCPCS: 99213